=== PATIENT | female | born 1970 | race Caucasian/White ===

== ENCOUNTER 2022-01-19 06:01 | Day surgery (SDC) | payer OTHER, SELFPAY ==
[2022-01-19] VITALS (12 sets, daily range): BP systolic 130–140; BP diastolic 75–97; PULSE 112–132; RESP 12–16; TEMP 36.4–36.6; O2SAT 91–98; BMI 36.1
[2022-01-19] MEDS: LACTATED RINGERS 1000 ML 1,000 ML 100 ML IV (06:30)
[2022-01-19] MEDS: SODIUM CHLORIDE 0.9 % (FLUSH) 10 ML SYRINGE IVF (06:59)
[2022-01-19] MEDS: CEFAZOLIN 2 GM INJ IVP (07:43)
[2022-01-19] MEDS: BUPIVACAINE 0.25% 30 ML INJECTION (08:08)
--- NOTE | 2022-01-19 08:23 | PM.GSPRC ---
Operative Note Date of procedure: 01/19/22 Type of Procedure: 1. Excision of basal cell carcinoma under the left nare. Procedure Description: After discussing the risks and benefits of the procedure, the patient signed informed consent.? The operative site was marked and the patient was brought to the operating room and placed on the operating table in supine position.? Care was taken to pad the patient's pressure points.?? The patient was then intubated by anesthesia.?? The operative site was then prepped and draped in the usual sterile fashion.? A time-out was then performed. A slightly oblique elliptical skin incision was made with a [place] blade around a previously biopsied basal cell carcinoma under the left knee air. The skin containing the lesion and 1 mm medial and lateral gross margins were excised with a scalpel. The skin lesion was measured at 0.7 x 0.6 cm. The ellipse of skin containing this lesion was 1.4 x 0.8 cm. The ellipse of skin was marked with a single stitch superior and double lateral and sent to pathology. Hemostasis was achieved with cautery. The skin edges were fairly mobile. The dermis was then reapproximated with interrupted 3-0 Vicryl sutures. The skin was closed with a running 4-0 Monocryl stitch. Hemostasis was achieved with cautery and pressure. 1% lidocaine was injected for local anesthesia. Exofin was then placed over the surgical incision. ? Sterile dressings were then applied. ? The patient was then woken and transported to the recovery area in stable condition. ? The patient tolerated the procedure well. Findings: Small pearly appearing lesion under the left nose was excised. Anesthesia: GETA Surgeon: Danni Marie MD Estimated blood loss (mL): 1 Condition: stable Disposition: PACU
--- NOTE | 2022-01-19 08:28 | W.ANESCHARGE ---
Anesthesia Charges Start Date/Time Anesthesia Start Date: 01/19/22 Anesthesia Start Time: 07:32 Stop Date/Time Anesthesia Stop Date: 01/19/22 Anesthesia Stop Time: 08:21 Summary Emergency: No
--- NOTE | 2022-01-19 08:46 | W.ANESCHARGE ---
Anesthesia Charges Start Date/Time Anesthesia Start Date: 01/19/22 Anesthesia Start Time: 07:32 Stop Date/Time Anesthesia Stop Date: 01/19/22 Anesthesia Stop Time: 08:21 Summary Emergency: No
== END 2022-01-19 10:00 | disposition home or self-care (01) ==
PROVIDERS: PCP Family Medicine; Visit Provider Surgery
PROC: (CPT 11642; principal; 2022-01-19 07:30)
DX: C44.311 Basal cell carcinoma of skin of nose (principal)
CPT/HCPCS: 11642; 300; 88305; J0330; J0690; J1100; J2250; J2370; J2405; J2704; J3010; J3490; J7120

== ENCOUNTER 2022-07-08 11:14 | Outpatient (CLI) | payer OTHER, SELFPAY | END 2022-07-08 11:15 | disposition home or self-care (01) | LOC: AMB 07-09 00:52 | PROVIDERS: PCP Family Medicine; Visit Provider Family Medicine | DX: R10.9 Unspecified abdominal pain (principal) | CPT/HCPCS: A0425; A0427 ==

== ENCOUNTER 2022-07-08 11:48 | Emergency (ER) | payer OTHER, SELFPAY ==
[2022-07-08] VITALS (11 sets, daily range): BP systolic 139–159; BP diastolic 97–104; PULSE 125–145; RESP 22; TEMP 38.8; O2SAT 92–94; BMI 37.4
--- NOTE | 2022-07-08 12:00 | CRLHL7_ITS ---
For Patients: As a result of the Century Cures Act, medical imaging exams and procedure reports are released immediately into your electronic medical record. You may view this report before your referring provider. If you have questions, please contact your health care provider. INDICATION: Abdominal pain TECHNIQUE: Axial images were obtained from the diaphragm to the pubic symphysis. Reformats were obtained in the coronal and sagittal plane. IV Contrast: 91 cc Isovue 370 Oral Contrast: None COMPARISON: Abdomen and pelvis CT 09/22/2020 FINDINGS: Lower chest: Basilar discoid atelectasis. Liver: Unremarkable. Normal in size and attenuation. No masses. Gallbladder and bile ducts: Status post cholecystectomy. Spleen: Unremarkable. Normal in size without mass. Pancreas: Unremarkable. No mass or inflammation. Adrenal glands: Unremarkable. No nodules. Kidneys: Unremarkable. No masses, stones, or hydronephrosis. Vasculature: Unremarkable. GI tract: Stomach is unremarkable. No dilated loops of large or small intestine. Pelvis: Right ovarian cyst measuring 2.0 centimeters. Bones: S shaped thoracolumbar scoliosis. Posterior rods with laminar hooks. Other: Fat containing umbilical hernia IMPRESSION: 1. No dilated bowel or localized inflammation. 2. Right ovarian cyst measuring 2.0 centimeters. Please note that all CT scans at this facility use dose modulation, iterative reconstruction, and/or weight-based dosing when appropriate to reduce radiation dose to as low as reasonably achievable. Dictated by Eugene Peterson MD @ 07/08/2022 12:58:30 PM (Electronically Signed)
--- NOTE | 2022-07-08 12:02 | ED_ITS ---
HPI - General Adult General Time Seen by Provider: 12:03 Date Seen: 07/08/22 Chief complaint: Abdominal Pain Stated complaint: Abdominal pain Time Seen by Provider: 07/08/22 11:53 Source: patient Mode of arrival: ambulatory Limitations: no limitations History of Present Illness HPI narrative: Patient is a 52 year white female who has got fibromyalgia history of pneumonia history of seizure disorder hypothyroidism and cognitive delay, presents by ambulance with abdominal pain that started yesterday. She reports that is in her mid abdomen. She reports she had her gallbladder out. She has not had any history of pain like this before. She has a fever 101.9. She has been awake and alert, denies dysuria frequency or hematuria, denies cough, denies rigors. No chest pain Related Data Home Medications Medication Instructions Recorded Confirmed carbamazepine 200 mg tablet 200 mg PO TID 01/16/22 07/08/22 duloxetine 20 mg capsule,delayed 20 mg PO DAILY 01/16/22 07/08/22 release famotidine 20 mg tablet 20 mg PO DAILY 01/16/22 01/19/22 levothyroxine 50 mcg capsule 50 mcg PO DAILY 01/16/22 07/08/22 omeprazole 20 mg capsule,delayed 20 mg PO DAILY 01/16/22 07/08/22 release acetaminophen 325 mg tablet 325 mg PO PRN 01/19/22 Previous Rx's Medication Instructions Recorded hydrocodone 5 mg-acetaminophen 325 1 tab PO Q6H PRN pain #9 tabs 01/19/22 mg tablet Allergies Allergy/AdvReac Type Severity Reaction Status Date / Time morphine Allergy Unknown Verified 01/19/22 06:21 Review of Systems Status of ROS: Reports: 10 or more systems reviewed and unremarkable except as noted in History and below PFSH PFS Medical History Anxiety Cholecystitis DDD (degenerative disc disease), lumbar Encounter for counseling regarding advance directives (02/10/18) Hypoparathyroidism Hypothyroidism Learning disability Left chronic serous otitis media Lower extremity edema Mixed hearing loss Onychomycosis Seizure disorder Vitamin D deficiency Surgical History History of fusion of spine for scoliosis Hx laparoscopic cholecystectomy Hx of myringotomy Social History Smoking Status: Never smoker How often do you have a drink containing alcohol: never AUDIT-C Alcohol total score: 0 Non-prescribed substance use: denies use Exam Narrative: Exam Narrative: Objective patient has a fever 101.9 O2 sats 93% on room air HEENT is unremarkable no scleral icterus mouth is dry neck supple Chest is clear Heart rhythm regular 2/6 systolic murmur Abdomen obese benign mild periumbilical tenderness to palpation mild guarding Extremities are no edema Neurologic nonfocal good peripheral perfusion noted Const: Vital Signs, click to edit/add: Vital Signs - 24 hr 07/08/22 11:56 07/08/22 12:17 07/08/22 12:47 Temperature 101.9 F H Pulse Rate 137 H 138 H Pulse Rate [Pulse Oximeter] 145 H Respiratory Rate 22 Blood Pressure Blood Pressure [Le ft Upper Arm] 157/97 H Pulse Oximetry 93 94 92 Oxygen Delivery Me thod Room Air 07/08/22 12:58 07/08/22 13:05 07/08/22 13:31 Temperature Pulse Rate 139 H 133 H Pulse Rate [Pulse Oximeter] Respiratory Rate Blood Pressure 139/101 H 145/99 H Blood Pressure [Le ft Upper Arm] Pulse Oximetry 93 94 Oxygen Delivery Me thod 07/08/22 13:32 07/08/22 13:45 07/08/22 14:00 Temperature Pulse Rate 130 H 127 H 134 H Pulse Rate [Pulse Oximeter] Respiratory Rate Blood Pressure 154/104 H Blood Pressure [Le ft Upper Arm] Pulse Oximetry 93 93 94 Oxygen Delivery Me thod 07/08/22 14:02 07/08/22 14:15 Temperature Pulse Rate 132 H 125 H Pulse Rate [Pulse Oximeter] Respiratory Rate Blood Pressure 159/101 H Blood Pressure [Le ft Upper Arm] Pulse Oximetry 94 94 Oxygen Delivery Me thod Course Vital Signs Vital signs: Initial Vital Signs Temperature 101.9 F H 07/08/22 11:56 Temperature Source Temporal Artery Scan 07/08/22 11:56 Pulse Rate 145 H 07/08/22 11:56 Respiratory Rate 22 07/08/22 11:56 Blood Pressure 157/97 H 07/08/22 11:56 Blood Pressure Mean 117 07/08/22 11:56 Blood Pressure Position Supine 07/08/22 11:56 Pulse Oximetry 93 07/08/22 11:56 Oxygen Delivery Method 07/08/22 11:56 Vital Signs Temperature 101.9 F H 07/08/22 11:56 Pulse Rate 145 H 07/08/22 11:56 Respiratory Rate 22 07/08/22 11:56 Blood Pressure 157/97 H 07/08/22 11:56 Pulse Oximetry 93 07/08/22 11:56 Oxygen Delivery Method 07/08/22 11:56 Temperature 101.9 F H 07/08/22 11:56 Pulse Rate 125 H 07/08/22 14:15 Respiratory Rate 22 07/08/22 11:56 Blood Pressure 159/101 H 07/08/22 14:02 Pulse Oximetry 94 07/08/22 14:15 Oxygen Delivery Method 07/08/22 11:56 Medical Decision Making MDM Narrative Medical decision making narrative: Patient is a 52 year white female with fever and abdominal pain. History of cholelithiasis cystectomy by her report. The patient will get IV fluids, electrolytes labs, CT scan with contrast of abdomen pelvis. Suspect differential would include diverticulitis, obstruction, intra-abdominal abscess, viral syndrome. Will check blood cultures as well. The patient has an EKG that by my read shows sinus tachycardia rate about 141 beats per minute no ischemic changes. We will give her some oral Tylenol as well this see help with her fever Addendum: The patient's EKG shows sinus tachycardia rate 140 her heart rate has come down since she has got a couple L of fluid in the 115 range and shows no ischemic changes, her laboratory studies local reassuring. Her CRP is 2.5 just minimally elevated. She did receive Ativan and that really helped her abdominal discomfort it is completely resolved. Of note is her CT scan was read as pretty unremarkable of her abdomen. There was no sign of acute inflammation or obstruction. White count is normal 8630 ER profile is largely unremarkable other nonfasting glucose nonfasting glucose of 128 calcium 7.8 urinalysis is basically negative, influenza COVID RSV are all negative. The patient feels much better in terms of her discomfort and illness feeling she has no further abdominal pain I think at this point she has some type of viral syndrome and would recommend observation fluids in home as above reach return as needed, update her regular doctor within the next couple of days.. Lab Data Labs: Lab Results 07/08/22 07/08/22 07/08/22 Range/Units 12:00 12:17 12:55 WBC 8.63 (4.50-11.00) K/uL RBC 3.80 L (4.00-5.20) m/uL Hgb 12.2 (12.0-16.0) gm/dL Hct 37.3 (33.0-51.0) % MCV 98 (80-100) fL MCH 32 (26-34) pg MCHC 33 (32-36) gm/dL RDW Coeff of Gracie 13.3 (11.5-15.5) % Plt Count 131 L (140-440) K/uL Neut % (Auto) 90.6 H (42.0-72.0) % Lymph % (Auto) 3.0 L (20-44) % [place] % (Auto) 4.4 (0.0-11.0) % Eos % (Auto) 0.5 (0.0-7.0) % Baso % (Auto) 0.3 (0.0-3.0) % Neut # (Auto) 7.80 H (1.7-7.0) K/uL Lymph # (Auto) 0.30 L (0.90-2.90) K/uL [place] # (Auto) 0.40 (0.00-0.90) K/UL Eos # (Auto) 0.04 (0.00-0.50) K/uL Baso # (Auto) 0.03 (0.00-0.30) K/uL Sodium (135-149) mmol/L Potassium (3.6-5.1) mmol/L Chloride (96-114) mmol/L Carbon Dioxide (20-32) mmol/L BUN (7-30) mg/dL Creatinine (0.5-1.5) mg/dL Estimated Creat Clear Estimated GFR ml/min Glucose (60-115) mg/dL Lactate (0.5-1.9) mmol/L Calcium (8.4-10.6) mg/dL Total Bilirubin (0.1-1.5) mg/dL Direct Bilirubin (0.0-0.5) mg/dL AST (12-35) U/L ALT (4-35) U/L Alkaline Phosphatase (40-150) U/L C-Reactive Protein (0.5-1.0) mg/dL Total Protein (6.0-8.3) g/dL Albumin (3.3-5.0) g/dL Urine Color Yellow (Yellow) Urine Appearance Clear (Clear) Urine pH 8.5 (5.0-8.5) Ur Specific [place] 1.020 (1.000-1.030) Urine Protein Negative (Negative) Urine Glucose (UA) Negative (Negative) Urine Ketones Negative (Negative) Urine Blood Trace-intact A (Negative) Urine Nitrite Negative (Negative) Urine Bilirubin Negative (Negative) Urine Urobilinogen 0.2 (0.2-1.0) Ur Leukocyte Esterase Negative (Negative) Urine RBC 0-2 (0-2) Urine WBC 0-2 (0-5) Ur Squamous Epith Cells Few (None-Few) Urine Bacteria None (None) SARS-CoV-2 (PCR) Negative SARS-CoV-2 (Negative) Influenza Type A (PCR) Negative PCR FLU A (Negative) Influenza Type B (PCR) Negative PCR FLU B (Negative) RSV (PCR) Negative PCR RSV (Negative) 07/08/22 07/08/22 Range/Units 12:55 12:55 WBC (4.50-11.00) K/uL RBC (4.00-5.20) m/uL Hgb (12.0-16.0) gm/dL Hct (33.0-51.0) % MCV (80-100) fL MCH (26-34) pg MCHC (32-36) gm/dL RDW Coeff of Gracie (11.5-15.5) % Plt Count (140-440) K/uL Neut % (Auto) (42.0-72.0) % Lymph % (Auto) (20-44) % [place] % (Auto) (0.0-11.0) % Eos % (Auto) (0.0-7.0) % Baso % (Auto) (0.0-3.0) % Neut # (Auto) (1.7-7.0) K/uL Lymph # (Auto) (0.90-2.90) K/uL [place] # (Auto) (0.00-0.90) K/UL Eos # (Auto) (0.00-0.50) K/uL Baso # (Auto) (0.00-0.30) K/uL Sodium 136 (135-149) mmol/L Potassium 3.7 (3.6-5.1) mmol/L Chloride 103 (96-114) mmol/L Carbon Dioxide 24 (20-32) mmol/L BUN 11 (7-30) mg/dL Creatinine 0.5 (0.5-1.5) mg/dL Estimated Creat Clear 174.36 Estimated GFR 113 ml/min Glucose 128 H (60-115) mg/dL Lactate 1.4 (0.5-1.9) mmol/L Calcium 7.8 L (8.4-10.6) mg/dL Total Bilirubin 0.4 (0.1-1.5) mg/dL Direct Bilirubin 0.3 (0.0-0.5) mg/dL AST 23 (12-35) U/L ALT 26 (4-35) U/L Alkaline Phosphatase 68 (40-150) U/L C-Reactive Protein 2.5 H (0.5-1.0) mg/dL Total Protein 7.5 (6.0-8.3) g/dL Albumin 4.1 (3.3-5.0) g/dL Urine Color (Yellow) Urine Appearance (Clear) Urine pH (5.0-8.5) Ur Specific [place] (1.000-1.030) Urine Protein (Negative) Urine Glucose (UA) (Negative) Urine Ketones (Negative) Urine Blood (Negative) Urine Nitrite (Negative) Urine Bilirubin (Negative) Urine Urobilinogen (0.2-1.0) Ur Leukocyte Esterase (Negative) Urine RBC (0-2) Urine WBC (0-5) Ur Squamous Epith Cells (None-Few) Urine Bacteria (None) SARS-CoV-2 (PCR) (Negative) Influenza Type A (PCR) (Negative) Influenza Type B (PCR) (Negative) RSV (PCR) (Negative) Discharge Plan Discharge Clinical Impression: Fever, Abdominal pain, acute Patient Disposition: Home w/ Parent or Adult Condition: Improved Instructions: Fever in Adults (ED), Abdominal Pain (ED) Additional Instructions: Rest, Tylenol Advil as needed, fluids, update regular doctor next couple of days if not improving changes concerns worsening or recurrence of abdominal pain. Return to the ED as needed. Activity Level: Light activity Diet Detail: Start with clear liquid diet advance her diet as tolerated Prescriptions: No Action carbamazepine 200 mg tablet 200 mg PO TID duloxetine 20 mg capsule,delayed release(DR/EC) 20 mg PO DAILY famotidine 20 mg tablet 20 mg PO DAILY levothyroxine 50 mcg capsule 50 mcg PO DAILY omeprazole 20 mg capsule,delayed release(DR/EC) 20 mg PO DAILY acetaminophen 325 mg tablet 325 mg PO PRN Rx Instructions: NO MORE THAN 4000 MG/DAY hydrocodone-acetaminophen 5-325 mg tablet 1 tab PO Q6H PRN (Reason: pain) Qty: 9 0RF Follow Up/Referrals: Atiya Velez MD [Primary Care Provider] - Stand Alone Forms: [employer] Info Instructions
--- NOTE | 2022-07-08 12:21 | ED.NURSE ---
pt up to [facility]. urine collected and sent to lab. pt c/o headache, asking for pain med. at bedside
[2022-07-08 12:26] LABS: Appearance Urine Clear (Clear); Bilirubin Urine Negative (Negative); Blood Urine Trace-intact (Negative); Color Urine Yellow (Yellow); Glucose Urine Negative (Negative); Ketones Urine Negative (Negative); Leukocyte Esterase Urine Negative (Negative); Nitrite Urine Negative (Negative); Protein Urine Negative (Negative); Urobilinogen Urine 0.2 (0.2-1.0); pH Urine 8.5 (5.0-8.5)
[2022-07-08] MEDS: ACETAMINOPHEN 500 MG TABLET PO (12:28)
[2022-07-08] MEDS: LORazepam 2 MG/ML inj 1 MG IVP (12:59)
[2022-07-08] MEDS: 0.9 % SODIUM CHLORIDE 1000 ml 1,000 ML 6000 ML IV ×2 (12:59→14:10)
[2022-07-08 13:00] LABS: PCR FLU A Negative PCR FLU A (Negative); PCR FLU B Negative PCR FLU B (Negative); PCR RSV Negative PCR RSV (Negative)
[2022-07-08 13:13] LABS: Lactate* 1.4 mmol/L (0.5-1.9)
[2022-07-08 13:20] LABS: Basophils Absolute Auto 0.03 K/uL (0.00-0.30); Basophils Percent Auto 0.3 % (0.0-3.0); Eosinophils Absolute Auto 0.04 K/uL (0.00-0.50); Eosinophils Percent Auto 0.5 % (0.0-7.0); Hematocrit 37.3 % (33.0-51.0); Hemoglobin* 12.2 gm/dL (12.0-16.0); Immature Granulocytes Pct Auto 1.2 %; Mean Corpuscular HGB Conc 33 gm/dL (32-36); Mean Corpuscular Hemoglobin 32 pg (26-34); Mean Corpuscular Volume 98 fL (80-100); Monocytes Percent Auto 4.4 % (0.0-11.0); Neutrophils Percent Auto 90.6 % (42.0-72.0); Platelet Count* 131 K/uL (140-440); RDW Coefficient of Variation % 13.3 % (11.5-15.5); White Blood Count* 8.63 K/uL (4.50-11.00)
[2022-07-08 13:26] LABS: SARS PCR* Negative SARS-CoV-2 (Negative)
[2022-07-08 13:31] LABS: Slide Review Reflex No
[2022-07-08 13:33] LABS: RBC Urine 0-2 (0-2); Squamous Epithelial Cell Urine Few (None-Few); WBC Urine 0-2 (0-5)
[2022-07-08 13:33] LABS: Albumin* 4.1 g/dL (3.3-5.0); Chloride* 103 mmol/L (96-114)
[2022-07-08 13:34] LABS: Potassium* 3.7 mmol/L (3.6-5.1); Sodium* 136 mmol/L (135-149)
[2022-07-08 13:36] LABS: Alkaline Phosphatase* 68 U/L (40-150); Aspartate Amino Transferase* 23 U/L (12-35); Bilirubin Direct* 0.3 mg/dL (0.0-0.5); Bilirubin Total* 0.4 mg/dL (0.1-1.5); Carbon Dioxide* 24 mmol/L (20-32); Creatinine* 0.5 mg/dL (0.5-1.5); Est. Creatinine Clearance* 174.36; Estimated Glomerular Filt Rate 113 ml/min; Total Protein* 7.5 g/dL (6.0-8.3)
[2022-07-08 13:37] LABS: Alanine Aminotransferase* 26 U/L (4-35); Blood Urea Nitrogen* 11 mg/dL (7-30); Calcium* 7.8 mg/dL (8.4-10.6); Glucose* 128 mg/dL (60-115)
[2022-07-08 13:39] LABS: C Reactive Protein* 2.5 mg/dL (0.5-1.0)
== END 2022-07-08 15:26 | disposition home or self-care (01) ==
PROVIDERS: Emergency Provider Family Medicine; PCP Family Medicine
DX: R10.9 Unspecified abdominal pain (principal); R50.9 Fever, unspecified
CPT/HCPCS: 36415; 74177; 80048; 80076; 81001; 83605; 85025; 86140; 87040; 87086; 87502; 87634; 87635; 94761; 96374; 99284; 99285; A9270; J2060; J7030; Q9967

== ENCOUNTER 2022-10-13 08:45 | Outpatient (CLI) | payer OTHER, SELFPAY ==
--- NOTE | 2022-10-13 09:00 | CRLHL7_ITS ---
For Patients: As a result of the Century Cures Act, medical imaging exams and procedure reports are released immediately into your electronic medical record. You may view this report before your referring provider. If you have questions, please contact your health care provider. Indication: LUQ - MID ABD PAIN. POSSIBLE HERNIA Technique: Noncontrast CT abdomen and pelvis Please note that all CT scans at this facility use dose modulation, iterative reconstruction, and/or weight-based dosing when appropriate to reduce radiation dose to as low as reasonably achievable. Comparison: 07/08/2022 Findings: Linear subsegmental atelectasis/scarring is present within both lung bases. There is no pleural effusion. Scoliotic deformity with spinal fixation hardware. Visualized breast parenchyma normal. Normal noncontrast enhanced liver. Gallbladder absent. Spleen unremarkable. Normal pancreas. Adrenal glands, kidneys and ureters are normal. Unremarkable uterus and ovaries. Bladder incompletely distended. No bowel obstruction or free air. No free fluid or adenopathy. There is an umbilical hernia containing fat measuring 2.3 cm. No additional abdominal wall hernia. Severe degenerative disc disease L4-5 with vacuum disc phenomenon. Impression: 2.3 cm fat filled umbilical hernia. No additional hernia. No bowel involvement. Please note that all CT scans at this facility use dose modulation, iterative reconstruction, and/or weight-based dosing when appropriate to reduce radiation dose to as low as reasonably achievable. Dictated by Jeremie Bowman MD @ 10/13/2022 11:20:46 AM (Electronically Signed)
== END 2022-10-13 08:46 | disposition home or self-care (01) ==
LOC: CT 08:46
PROVIDERS: PCP Family Medicine; Visit Provider Family Medicine
DX: R10.12 Left upper quadrant pain (principal); K42.9 Umbilical hernia without obstruction or gangrene
CPT/HCPCS: 74176

== ENCOUNTER 2023-04-13 10:28 | Emergency (ER) | payer OTHER, SELFPAY ==
[2023-04-13 10:40] VITALS: BP 152/114; PULSE 114; RESP 20; TEMP 36.4; O2SAT 95; BMI 32.2
--- NOTE | 2023-04-13 11:52 | CRLHL7_ITS ---
For Patients: As a result of the Century Cures Act, medical imaging exams and procedure reports are released immediately into your electronic medical record. You may view this report before your referring provider. If you have questions, please contact your health care provider. Indication: Abdominal pain, periumbilical, epigastric and left lower quadrant. Technique: Volumetric multidetector CT images of the abdomen and pelvis were without the administration of intravenous contrast. Comparison: CT abdomen and pelvis October 13, 2022 Findings: There is basilar atelectasis and parenchymal scar. The liver is normal in attenuation without intrahepatic biliary ductal dilatation. There is prior cholecystectomy. There is no significant common biliary ductal dilatation or abrupt cut off. The spleen is normal in attenuation and size. The stomach and duodenum are grossly unremarkable. The pancreas is normal in attenuation without significant atrophy. The adrenal glands are unremarkable. There is no evidence of radiopaque calculus or hydronephrosis. There is moderate stool seen throughout the colon. There is no inflammatory change. The appendix is unremarkable. There is no significant mesenteric, retroperitoneal, or pelvic sidewall lymph nodes. The aorta is nonaneurysmal. There is no significant atherosclerotic disease appreciated. The solid pelvic viscera are grossly unremarkable. There is no free fluid or free air. There is a fat containing umbilical hernia. The lumbar vertebral body heights are grossly maintained with minimal endplate Schmorl`s defects there is extensive posterior instrument fusion status post Zuñiga karri fixation. There is moderate scoliotic deformity of the AP alignment. Impression: Small fat containing umbilical hernia. Prior cholecystectomy. Moderate stool seen throughout the colon without evidence of inflammatory change. Please note that all CT scans at this facility use dose modulation, iterative reconstruction, and/or weight-based dosing when appropriate to reduce radiation dose to as low as reasonably achievable. Dictated by Didier Clifford MD @ 04/13/2023 1:51:58 PM (Electronically Signed)
[2023-04-13 12:21] LABS: Lactate* 0.8 mmol/L (0.5-1.9)
[2023-04-13 12:26] LABS: Basophils Absolute Auto 0.04 K/uL (0.00-0.30); Basophils Percent Auto 0.5 % (0.0-3.0); Eosinophils Absolute Auto 0.17 K/uL (0.00-0.50); Eosinophils Percent Auto 2.3 % (0.0-7.0); Hematocrit 39.5 % (33.0-51.0); Hemoglobin* 12.6 gm/dL (12.0-16.0); Immature Granulocytes Abs Auto 0.01 K/uL (0.00-0.30); Immature Granulocytes Pct Auto 0.1 %; Lymphocytes Absolute Auto 1.74 K/uL (0.90-2.90); Lymphocytes Percent Auto 23.3 % (20-44); Mean Corpuscular HGB Conc 32 gm/dL (32-36); Mean Corpuscular Hemoglobin 32 pg (26-34); Mean Corpuscular Volume 99 fL (80-100); Monocytes Percent Auto 7.4 % (0.0-11.0); Neutrophils Absolute Auto 4.96 K/uL (1.7-7.0); Neutrophils Percent Auto 66.4 % (42.0-72.0); Platelet Count* 180 K/uL (140-440); RDW Coefficient of Variation % 13.5 % (11.5-15.5); White Blood Count* 7.47 K/uL (4.50-11.00)
[2023-04-13 12:31] LABS: Slide Review Reflex No
[2023-04-13 12:38] LABS: Albumin* 4.5 g/dL (3.3-5.0)
[2023-04-13 12:39] LABS: Chloride* 106 mmol/L (96-114); Potassium* 4.3 mmol/L (3.6-5.1); Sodium* 138 mmol/L (135-149)
[2023-04-13 12:41] LABS: Anion Gap 6 mEq/L (7-15); Aspartate Amino Transferase* 25 U/L (12-35); Bilirubin Total* 0.4 mg/dL (0.1-1.5); Carbon Dioxide* 26 mmol/L (20-32); Creatinine* 0.7 mg/dL (0.5-1.5); Est. Creatinine Clearance* 67.53; Estimated Glomerular Filt Rate 104 ml/min
[2023-04-13 12:42] LABS: Alanine Aminotransferase* 20 U/L (4-35); Alkaline Phosphatase* 50 U/L (40-150); Blood Urea Nitrogen* 17 mg/dL (7-30); Glucose* 90 mg/dL (60-115); Lipase* 87 U/L (23-300); Total Protein* 8.5 g/dL (6.0-8.3)
[2023-04-13 12:43] LABS: Calcium* 8.3 mg/dL (8.4-10.6)
[2023-04-13 12:56] LABS: Appearance Urine Cloudy (Clear); Bilirubin Urine Negative (Negative); Blood Urine Negative (Negative); Color Urine Yellow (Yellow); Glucose Urine Negative (Negative); Ketones Urine Negative (Negative); Leukocyte Esterase Urine Trace (Negative); Nitrite Urine Negative (Negative); Protein Urine Negative (Negative); Specific Gravity Urine >= 1.030 (1.000-1.030); Urobilinogen Urine 0.2 (0.2-1.0); pH Urine 6.5 (5.0-8.5)
[2023-04-13 13:16] LABS: Bacteria Urine Few; RBC Urine 0-2 (0-2); Squamous Epithelial Cell Urine Few (None-Few)
--- NOTE | 2023-04-13 13:21 | ED_ITS ---
HPI - General Adult General Date Seen: 04/13/23 Chief complaint: Abdominal Pain Stated complaint: sharp pain in stomach Time Seen by Provider: 04/13/23 11:52 History of Present Illness HPI narrative: This is a pleasant 52-year-old female with a past medical history including previous cholecystectomy, hyperparathyroidism, hypothyroidism, lower extremity edema, learning disability, seizure disorder, and previous umbilical hernia. She presents to the ER today with her family. She has been experiencing intermittent sharp but brief episodes of abdominal pain off and on for the past several days. Perhaps a week in duration. She can not recall exactly when they started. She says it feels like something is punching from the inside of her abdomen. It has been present in several locations including sometimes in the left, sometimes in the a periumbilical region and, and sometimes more in the right upper quadrant. She tried to rest for the 1st few days to see if the symptoms would get better but it is not getting better no other associated symptoms. No nausea or vomiting. Bowel movements have been normal. Urination has been normal. No fever chills. No rash. No known injury. No pain through to the back or flank. She has no previous history of similar abdominal pains. Related Data Home Medications Medication Instructions Recorded Confirmed carbamazepine 200 mg tablet 200 mg PO TID 01/16/22 07/08/22 duloxetine 20 mg capsule,delayed 20 mg PO DAILY 01/16/22 07/08/22 release famotidine 20 mg tablet 20 mg PO DAILY 01/16/22 01/19/22 levothyroxine 50 mcg capsule 50 mcg PO DAILY 01/16/22 07/08/22 omeprazole 20 mg capsule,delayed 20 mg PO DAILY 01/16/22 07/08/22 release acetaminophen 325 mg tablet 325 mg PO PRN 01/19/22 Previous Rx's Medication Instructions Recorded hydrocodone 5 mg-acetaminophen 325 1 tab PO Q6H PRN pain #9 tabs 01/19/22 mg tablet Allergies Allergy/AdvReac Type Severity Reaction Status Date / Time morphine Allergy Unknown Verified 04/13/23 10:40 Iodinated Contrast Media Allergy Verified 04/13/23 10:40 [facility] Medical History (Updated 04/13/23 @ 14:25 by Edwar Blanco MD) 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 of 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 Mixed hearing loss ?H90.8 - Mixed conductive and sensorineural hearing loss, unspecified (ICD- 10) Cholecystitis ?K81.9 - Cholecystitis, unspecified (ICD-10) Anxiety ?F41.9 - Anxiety disorder, unspecified (ICD-10) Left chronic serous otitis media ?H65.22 - Chronic serous otitis media, left ear (ICD-10) Onychomycosis ?B35.1 - Tinea unguium (ICD-10) Hypoparathyroidism ?E20.9 - Hypoparathyroidism, unspecified (ICD-10) Vitamin D deficiency ?E55.9 - Vitamin D deficiency, unspecified (ICD-10) DDD (degenerative disc disease), lumbar ?M51.36 - Other intervertebral disc degeneration, lumbar region (ICD-10) Lower extremity edema ?R60.0 - Localized edema (ICD-10) Learning disability ?F81.9 - Developmental disorder of scholastic skills, unspecified (ICD-10) Seizure disorder ?G40.909 - Epilepsy, unspecified, not intractable, without status epilepticus (ICD-10) Hypothyroidism ?E03.9 - Hypothyroidism, unspecified (ICD-10) Encounter for counseling regarding advance directives (02/10/18) ?Z71.89 - Other specified counseling (ICD-10) Surgical History Hx of myringotomy ?Z98.890 - Other specified postprocedural states (ICD-10) Hx laparoscopic cholecystectomy ?Z90.49 - Acquired absence of other specified parts of digestive tract (ICD- 10) History of fusion of spine for scoliosis ?Z98.1 - Arthrodesis status (ICD-10) ?Z87.39 - Personal history of other diseases of the musculoskeletal system and connective tissue (ICD-10) Social History Smoking Status: Never smoker Do you use any of these nicotine containing products: None Second hand tobacco smoke exposure: No How often do you have a drink containing alcohol: never How often do you have six or more drinks on one occasion: Never AUDIT-C Alcohol total score: 0 Non-prescribed substance use: denies use service: No Exam Narrative: Exam Narrative: Constitutional: Appears well-developed and well-nourished. Alert. Conversant. Non toxic. HENT: Head: Atraumatic. Nose: Nose normal. Mouth/Throat: Oral mucosa is clear and moist. no trismus. Pharynx normal. Tonsils symmetric. No tonsillar enlargement, erythema, or exudate. Eyes: Conjunctivae normal. EOM normal. Pupils equal, round, and reactive to light. No scleral icterus. Neck: Normal range of motion. Neck supple. No tracheal deviation present. Cardiovascular: Normal rate, regular rhythm. No gallop. No friction rub. No murmur heard. Symmetric radial artery pulses Pulmonary/Chest: Effort normal. No stridor. No respiratory distress. No wheezes. No rales. No rhonchi . No tenderness. Abdominal: Soft. Bowel sounds normal. No distension. No pulse a little mass. No definite HSM. She has apparent exquisite tenderness to palpation at several discrete locations in her abdomen including the periumbilical region, a small area in the left lower quadrant, as well as an area in the right mid abdomen. She has a marked flinching and inhalation of breath with palpation of these areas. Her reaction is so significant I most wonder about possible anxiety triggering the reaction. She does have a small 3 x 3 cm soft tissue lump in the umbilicus that time suspect is probably a umbilical hernia. There is a healed laparoscopic incision below the umbilicus that looks good. No rebound. No guarding. No CVA tenderness. Musculoskeletal: RUE: Normal range of motion. No tenderness. No deformity LUE: Normal range of motion. No tenderness. No deformity RLE: Normal range of motion. No edema. No tenderness. No deformity LLE: Normal range of motion. No edema. No tenderness. No deformity Neurological: Alert and oriented to person, place, and time. Normal strength. CN II-VII intact. No sensory deficit. GCS eye subscore is 4. GCS verbal subscore is 5. GCS motor subscore is 6. Normal coordination Skin: Skin is warm and dry. No rash noted. No pallor. Normal capillary refill. Psychiatric: Normal mood. Normal affect. Const: Vital Signs, click to edit/add: Vital Signs - 24 hr 04/13/23 10:40 04/13/23 13:45 Temperature 97.5 F L Pulse Rate [Pulse Oximeter] 114 H 104 H Respiratory Rate 20 16 Blood Pressure [Le ft Upper Arm] 152/114 H 127/79 Pulse Oximetry 95 97 Oxygen Delivery Me thod Room Air Room Air Course Vital Signs Vital signs: Initial Vital Signs Temperature 97.5 F L 04/13/23 10:40 Temperature Source Temporal Artery Scan 04/13/23 10:40 Pulse Rate 114 H 04/13/23 10:40 Pulse Rhythm Regular 04/13/23 10:40 Respiratory Rate 20 04/13/23 10:40 Blood Pressure 152/114 H 04/13/23 10:40 Blood Pressure Mean 126 H 04/13/23 10:40 Blood Pressure Position Supine 04/13/23 10:40 Pulse Oximetry 95 04/13/23 10:40 Oxygen Delivery Method Room Air 04/13/23 10:40 Vital Signs Temperature 97.5 F L 04/13/23 10:40 Pulse Rate 114 H 04/13/23 10:40 Respiratory Rate 20 04/13/23 10:40 Blood Pressure 152/114 H 04/13/23 10:40 Pulse Oximetry 95 04/13/23 10:40 Oxygen Delivery Method Room Air 04/13/23 10:40 Temperature 97.5 F L 04/13/23 10:40 Pulse Rate 104 H 04/13/23 13:45 Respiratory Rate 16 04/13/23 13:45 Blood Pressure 127/79 04/13/23 13:45 Pulse Oximetry 97 04/13/23 13:45 Oxygen Delivery Method Room Air 04/13/23 13:45 Medical Decision Making MDM Narrative Medical decision making narrative: Presented to the Emergency Department with intermittent crampy brief episodes of abdominal pain occurring in different parts of her abdomen, sometimes on the left, sometimes on the right, sometimes periumbilical, for about a week or so.. The differential diagnosis of abdominal pain includes: Appendicitis, Bowel Obstruction, Ulcer, Ischemia, Cholecystitis, Diverticulitis, Pancreatitis, UTI, kidney stone, Enteritis/Colitis, amongst many other etiologies. Laboratory testing does not reveal a cause for the patient's pain. CT Imaging is noted to be normal, save for findings of constipation and umbilical hernia that does not contain any loops of bowel. No signs of any incarceration or strangulation. The exact etiology of the abdominal pain is not clear at this time. However with the intermittent nature and the colicky nature we suspect they could be related to functional abdominal pain from constipation. No life threatening cause or need for emergent surgery or hospital admission is detected today. The patient was advised that if symptoms do not completely resolve within another 24-48 hours re-evaluation with primary care or return to the ED is indicated. I recommend treatment for constipation. I recommended that we start her on stool softeners and laxative such as MiraLax but she is refusing. She says she will try to treat her constipation with dietary means, fruits and vegetables, high- fiber diet. Also advised to increase oral fluid intake. The patient also understands that if they worsen, they should return to the ER right away. I discussed the uncertainty about the diagnosis and answered the patient's questions. Abdominal pain return precautions discussed. Patient does have history of developmental delay in her chart. However I am able to have a good discussion with the patient and her who is here with her. They were able to verbalize their understanding and understand our diagnostic workup, findings and plan of care. Lab Data Labs: Lab Results 04/13/23 04/13/23 Range/Units 12:15 12:40 WBC 7.47 (4.50-11.00) K/uL RBC 4.00 (4.00-5.20) m/uL Hgb 12.6 (12.0-16.0) gm/dL Hct 39.5 (33.0-51.0) % MCV 99 (80-100) fL MCH 32 (26-34) pg MCHC 32 (32-36) gm/dL RDW Coeff of Gracie 13.5 (11.5-15.5) % Plt Count 180 (140-440) K/uL Neut % (Auto) 66.4 (42.0-72.0) % Lymph % (Auto) 23.3 (20-44) % [place] % (Auto) 7.4 (0.0-11.0) % Eos % (Auto) 2.3 (0.0-7.0) % Baso % (Auto) 0.5 (0.0-3.0) % Neut # (Auto) 4.96 (1.7-7.0) K/uL Lymph # (Auto) 1.74 (0.90-2.90) K/uL [place] # (Auto) 0.60 (0.00-0.90) K/UL Eos # (Auto) 0.17 (0.00-0.50) K/uL Baso # (Auto) 0.04 (0.00-0.30) K/uL Abs Immat Gran (auto) 0.01 (0.00-0.30) K/uL Imm/Tot Granulo (auto) 0.1 % Sodium 138 (135-149) mmol/L Potassium 4.3 (3.6-5.1) mmol/L Chloride 106 (96-114) mmol/L Carbon Dioxide 26 (20-32) mmol/L Anion Gap 6 L (7-15) mEq/L BUN 17 (7-30) mg/dL Creatinine 0.7 (0.5-1.5) mg/dL Estimated Creat Clear 67.53 Estimated GFR 104 ml/min Glucose 90 (60-115) mg/dL Lactate 0.8 (0.5-1.9) mmol/L Calcium 8.3 L (8.4-10.6) mg/dL Total Bilirubin 0.4 (0.1-1.5) mg/dL AST 25 (12-35) U/L ALT 20 (4-35) U/L Alkaline Phosphatase 50 (40-150) U/L Total Protein 8.5 H (6.0-8.3) g/dL Albumin 4.5 (3.3-5.0) g/dL Lipase 87 (23-300) U/L Urine Color Yellow (Yellow) Urine Appearance Cloudy A (Clear) Urine pH 6.5 (5.0-8.5) Ur Specific [place] >= 1.030 (1.000-1.030) Urine Protein Negative (Negative) Urine Glucose (UA) Negative (Negative) Urine Ketones Negative (Negative) Urine Blood Negative (Negative) Urine Nitrite Negative (Negative) Urine Bilirubin Negative (Negative) Urine Urobilinogen 0.2 (0.2-1.0) Ur Leukocyte Esterase Trace A (Negative) Urine RBC 0-2 (0-2) Urine WBC 2-5 (0-5) Ur Squamous Epith Cells Few (None-Few) Urine Bacteria Few A (None) Discharge Plan Discharge Clinical Impression: Hernia, umbilical, Abdominal pain, Constipation Patient Disposition: Home, Self-Care Condition: Stable Instructions: Constipation (DC), Umbilical Hernia (ED), Abdominal Pain (ED) Additional Instructions: Please return to the ER right away if you have worsening pain, fever, vomiting, or any concerns. Your CT scan today does not show any serious problems causing your pain. You may be constipated. As we discussed, please try to treat this with plenty of fluids, diet that is rich in fruits and vegetables and high in fiber. For now, you are declining any stool softeners. If you are not better within the next 1- 2 days, please return to the ER or see your doctor for recheck. Prescriptions: No Action carbamazepine 200 mg tablet 200 mg PO TID duloxetine 20 mg capsule,delayed release(DR/EC) 20 mg PO DAILY famotidine 20 mg tablet 20 mg PO DAILY levothyroxine 50 mcg capsule 50 mcg PO DAILY omeprazole 20 mg capsule,delayed release(DR/EC) 20 mg PO DAILY acetaminophen 325 mg tablet 325 mg PO PRN Rx Instructions: NO MORE THAN 4000 MG/DAY hydrocodone-acetaminophen 5-325 mg tablet 1 tab PO Q6H PRN (Reason: pain) Qty: 9 0RF Follow Up/Referrals: Atiya Velez MD [Primary Care Provider] - Stand Alone Forms: [employer] Info Instructions
[2023-04-13 13:45] VITALS: BP 127/79; PULSE 104; RESP 16; O2SAT 97
== END 2023-04-13 14:40 | disposition home or self-care (01) ==
PROVIDERS: Emergency Provider Emergency Medicine; PCP Family Medicine
DX: K42.9 Umbilical hernia without obstruction or gangrene (principal); K59.00 Constipation, unspecified
CPT/HCPCS: 36415; 74176; 80053; 81001; 83605; 83690; 85025; 87086; 87186; 99283; 99284

== ENCOUNTER 2023-05-12 09:35 | Emergency (ER) | payer MEDICARE, SELFPAY ==
[2023-05-12 09:53] VITALS: BP 153/95; PULSE 110; RESP 18; TEMP 36.6; O2SAT 96; BMI 38.3
[2023-05-12 10:16] VITALS: O2SAT 96
--- NOTE | 2023-05-12 10:16 | CRLHL7_ITS ---
For Patients: As a result of the Century Cures Act, medical imaging exams and procedure reports are released immediately into your electronic medical record. You may view this report before your referring provider. If you have questions, please contact your health care provider. INDICATION: Periumbilical pain TECHNIQUE: CT abdomen and pelvis without contrast. COMPARISON: CT abdomen/pelvis report on 04/13/2023 FINDINGS: LOWER CHEST: There is basilar atelectasis/scarring. ABDOMEN/PELVIS: Status post cholecystectomy. No biliary ductal dilatation. The liver, spleen, pancreas, adrenal glands, kidneys, ureters, and bladder are unremarkable in appearance. Small hiatal hernia. There is no evidence of bowel obstruction or inflammation. The uterus and bilateral adnexa are within normal limits. No free fluid or free air. No pathologically enlarged lymph nodes throughout the abdomen or pelvis. No abdominal aortic aneurysm. Fat containing umbilical hernia. No acute fracture malalignment. There is some degenerative changes seen throughout the spine with extensive posterior instrument fusion status post Zuñiga karri fixation. There is moderate scoliotic deformity of the thoracic lumbar spine. IMPRESSION: 1. No CT evidence of an acute process involving the abdomen or pelvis. 2. Incidental findings as detailed above. Please note that all CT scans at this facility use dose modulation, iterative reconstruction, and/or weight-based dosing when appropriate to reduce radiation dose to as low as reasonably achievable. Dictated by Saul Davis MD @ 05/12/2023 11:11:52 AM (Electronically Signed)
--- NOTE | 2023-05-12 10:17 | CRLHL7_ITS ---
For Patients: As a result of the Century Cures Act, medical imaging exams and procedure reports are released immediately into your electronic medical record. You may view this report before your referring provider. If you have questions, please contact your health care provider. INDICATION: Chest pain. TECHNIQUE: Chest 1 views. COMPARISON: Same day CT abdomen/pelvis FINDINGS: The cardiomediastinal silhouette is within normal limits. There is no focal airspace consolidation, pleural effusion, or pneumothorax. Scoliotic curvature of the thoracic and lumbar spine status post Zuñiga karri placement. IMPRESSION: No acute cardiopulmonary process. Dictated by Saul Davis MD @ 05/12/2023 11:33:43 AM (Electronically Signed)
--- NOTE | 2023-05-12 10:18 | ED.GENADULT ---
HPI - General Adult General Time Seen by Provider: 10:18 Date Seen: 05/12/23 Chief complaint: Abdominal Pain Stated complaint: Chest/abdominal pain Time Seen by Provider: 05/12/23 10:10 Source: patient Mode of arrival: ambulatory Limitations: no limitations History of Present Illness HPI narrative: Patient is a 52 year white female who is on disability for which he describes as back surgery, seizure and, has a medical history of cognitive developmental delay. 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 Patient reports she has had 6 month history of intermittent abdominal pain and is wondering about a potential hernia in her abdomen. She also says she gets once in a while some left finger point chest pain over her left mid chest anteriorly. This is not associated with diaphoresis, nausea, fevers, chills, cough. She has had no known history of coronary disease. The patient has had no bleeding or clotting problems by chart review. She states she gets ?a 2nd or 2 of sharp discomfort in her left parasternal area and then it is gone. She does not have this now. She uncertain if the abdominal discomfort in the chest pain is related. Normal appetite, normal bowel movements, normal urination, no vomiting. Related Data Home Medications Medication Instructions Recorded Confirmed carbamazepine 200 mg tablet 200 mg PO TID 01/16/22 07/08/22 duloxetine 20 mg capsule,delayed 20 mg PO DAILY 01/16/22 07/08/22 release famotidine 20 mg tablet 20 mg PO DAILY 01/16/22 01/19/22 levothyroxine 50 mcg capsule 50 mcg PO DAILY 01/16/22 07/08/22 omeprazole 20 mg capsule,delayed 20 mg PO DAILY 01/16/22 07/08/22 release acetaminophen 325 mg tablet 325 mg PO PRN 01/19/22 Previous Rx's Medication Instructions Recorded hydrocodone 5 mg-acetaminophen 325 1 tab PO Q6H PRN pain #9 tabs 01/19/22 mg tablet Allergies Allergy/AdvReac Type Severity Reaction Status Date / Time morphine Allergy Unknown Verified 04/13/23 10:40 Iodinated Contrast Media Allergy Verified 04/13/23 10:40 Review of Systems Status of ROS: Reports: 10 or more systems reviewed and unremarkable except as noted in History and below [id number] Medical History 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 of environmental attorney in chart Mixed hearing loss ?H90.8 - Mixed conductive and sensorineural hearing loss, unspecified (ICD-10) Cholecystitis ?K81.9 - Cholecystitis, unspecified (ICD-10) Anxiety ?F41.9 - Anxiety disorder, unspecified (ICD-10) Left chronic serous otitis media ?H65.22 - Chronic serous otitis media, left ear (ICD-10) Onychomycosis ?B35.1 - Tinea unguium (ICD-10) Hypoparathyroidism ?E20.9 - Hypoparathyroidism, unspecified (ICD-10) Vitamin D deficiency ?E55.9 - Vitamin D deficiency, unspecified (ICD-10) DDD (degenerative disc disease), lumbar ?M51.36 - Other intervertebral disc degeneration, lumbar region (ICD-10) Lower extremity edema ?R60.0 - Localized edema (ICD-10) Learning disability ?F81.9 - Developmental disorder of scholastic skills, unspecified (ICD-10) Seizure disorder ?G40.909 - Epilepsy, unspecified, not intractable, without status epilepticus (ICD-10) Hypothyroidism ?E03.9 - Hypothyroidism, unspecified (ICD-10) Encounter for counseling regarding advance directives (02/10/18) ?Z71.89 - Other specified counseling (ICD-10) Surgical History Hx of myringotomy ?Z98.890 - Other specified postprocedural states (ICD-10) Hx laparoscopic cholecystectomy ?Z90.49 - Acquired absence of other specified parts of digestive tract (ICD-10) History of fusion of spine for scoliosis ?Z98.1 - Arthrodesis status (ICD-10) ?Z87.39 - Personal history of other diseases of the musculoskeletal system and connective tissue (ICD-10) Social History Smoking Status: Never smoker Do you use any of these nicotine containing products: None Second hand tobacco smoke exposure: No How often do you have a drink containing alcohol: never How often do you have six or more drinks on one occasion: Never AUDIT-C Alcohol total score: 0 Non-prescribed substance use: denies use service: No Exam Narrative: Exam Narrative: Objective: Patient is a 52-year-old female who really has no pain at present, occasionally she will bounce of the bed and point to her abdomen as if that ?hurts?. Patient denies any chest pain presently she has had no fever chills diarrhea as mention Her vital signs are unremarkable and slightly elevated blood pressure She is afebrile HEENT unremarkable she is alert orient x3 Neck is supple Chest clear Heart rhythm regular heart murmur Abdomen obese nontender to deep palpation but occasionally with light palpation she will jump in say that that hurts. There is no palpable herniation or mass. Extremities good perfusion neurologic nonfocal she also has parasternal chest pain to palpate on the left that is identical to what she feels at home. Const: Vital Signs, click to edit/add: Vital Signs - 24 hr 05/12/23 09:53 05/12/23 10:16 05/12/23 12:05 Temperature 98 F Pulse Rate [Pulse Oximeter] 110 H 99 Respiratory Rate 18 16 Blood Pressure [Ri ght Upper Arm] 153/95 H 152/96 H Pulse Oximetry 96 96 95 Oxygen Delivery Me thod Room Air Room Air Course Vital Signs Vital signs: Initial Vital Signs Temperature 98 F 05/12/23 09:53 Temperature Source Temporal Artery Scan 05/12/23 09:53 Pulse Rate 110 H 05/12/23 09:53 Respiratory Rate 18 05/12/23 09:53 Blood Pressure 153/95 H 05/12/23 09:53 Blood Pressure Mean 114 H 05/12/23 09:53 Pulse Oximetry 96 05/12/23 09:53 Oxygen Delivery Method Room Air 05/12/23 09:53 Vital Signs Temperature 98 F 05/12/23 09:53 Pulse Rate 110 H 05/12/23 09:53 Respiratory Rate 18 05/12/23 09:53 Blood Pressure 153/95 H 05/12/23 09:53 Pulse Oximetry 96 05/12/23 09:53 Oxygen Delivery Method Room Air 05/12/23 09:53 Temperature 98 F 05/12/23 09:53 Pulse Rate 99 05/12/23 12:05 Respiratory Rate 16 05/12/23 12:05 Blood Pressure 152/96 H 05/12/23 12:05 Pulse Oximetry 95 05/12/23 12:05 Oxygen Delivery Method Room Air 05/12/23 12:05 Medications Administered Medications: Discontinued Medications Generic Name Dose Route Start Last Admin Trade Name Odalys PRN Reason Stop Dose Admin Aspirin 324 mg 05/12/23 10:16 05/12/23 10:46 Aspirin 81 Mg Tab.Chew PO 05/12/23 10:17 324 mg ONCE ONE Administration Medical Decision Making MDM Narrative Medical decision making narrative: [age] year white female with cognitive developmental delay history of seizure disorder, with long-standing 6 month history of intermittent abdominal discomfort, probably chest wall pain given the discomfort and where it is located and the palpable nature of it along her left parasternal border. However given this I would do an EKG, point of care troponin, chest x-ray, CT scan of her abdomen given the duration of her symptoms and the inability to get really a clear history at this time. It sounds like this may be anxiety or other related but I think doing a workup would be quite appropriate. will check labs as well. She was comfortable this plan. Will give her and aspirin as well Addendum Flores 40 8:00 a.m.. Patient's EKG by my read shows normal sinus rhythm no acute ST T wave changes. Chest x-ray by my read is unremarkable. Specifically there is no obvious hernia. The patient's laboratory studies look very reassuring with a normal CBC normal Chem profile negative troponin negative liver function tests. At this point I am reassured by her symptoms she could try some Advil as needed if uncomfortable, she can use some Tylenol. Would recommend observation follow up the regular doctor next 2-3 days. She was reassured by this. Lab Data Labs: Lab Results 05/12/23 Range/Units 10:36 WBC 6.42 (4.50-11.00) K/uL RBC 3.89 L (4.00-5.20) m/uL Hgb 12.2 (12.0-16.0) gm/dL Hct 38.4 (33.0-51.0) % MCV 99 (80-100) fL MCH 31 (26-34) pg MCHC 32 (32-36) gm/dL RDW Coeff of Gracie 13.3 (11.5-15.5) % Plt Count 192 (140-440) K/uL Neut % (Auto) 63.2 (42.0-72.0) % Lymph % (Auto) 23.8 (20-44) % Ceiba % (Auto) 8.1 (0.0-11.0) % Eos % (Auto) 4.2 (0.0-7.0) % Baso % (Auto) 0.5 (0.0-3.0) % Neut # (Auto) 4.06 (1.7-7.0) K/uL Lymph # (Auto) 1.53 (0.90-2.90) K/uL Ceiba # (Auto) 0.50 (0.00-0.90) K/UL Eos # (Auto) 0.27 (0.00-0.50) K/uL Baso # (Auto) 0.03 (0.00-0.30) K/uL Abs Immat Gran (auto) 0.01 (0.00-0.30) K/uL Imm/Tot Granulo (auto) 0.2 % Sodium 137 (135-149) mmol/L Potassium 4.1 (3.6-5.1) mmol/L Chloride 104 (96-114) mmol/L Carbon Dioxide 26 (20-32) mmol/L Anion Gap 7 (7-15) mEq/L BUN 16 (7-30) mg/dL Creatinine 0.7 (0.5-1.5) mg/dL Estimated Creat Clear 119.15 Estimated GFR 104 ml/min Glucose 95 (60-115) mg/dL Calcium 7.7 L (8.4-10.6) mg/dL Total Bilirubin 0.4 (0.1-1.5) mg/dL Direct Bilirubin 0.0 (0.0-0.5) mg/dL AST 19 (12-35) U/L ALT 14 (4-35) U/L Alkaline Phosphatase 54 (40-150) U/L C-Reactive Protein 0.9 (0.5-1.0) mg/dL NT-Pro-B Natriuret Pep 87 pg/mL Total Protein 8.3 (6.0-8.3) g/dL Albumin 4.6 (3.3-5.0) g/dL POC Troponin I 0.00 L (0.01-0.04) ng/ml Discharge Plan Discharge Clinical Impression: Chest wall pain, Chronic abdominal pain Patient Disposition: Home w/ Parent or Adult Condition: Stable Additional Instructions: Observation, activity as tolerated, may try some Tylenol or Advil as needed, recommend recheck with regular doctor next 2-3 days. Fortunately it does not appear to be any hernia in your abdomen. Your heart also looks good with EKG and blood testing that looks reassuring. Activity Level: No Restrictions Discharge Diet: Regular Prescriptions: No Action carbamazepine 200 mg tablet 200 mg PO TID duloxetine 20 mg capsule,delayed release(DR/EC) 20 mg PO DAILY famotidine 20 mg tablet 20 mg PO DAILY levothyroxine 50 mcg capsule 50 mcg PO DAILY omeprazole 20 mg capsule,delayed release(DR/EC) 20 mg PO DAILY acetaminophen 325 mg tablet 325 mg PO PRN Rx Instructions: NO MORE THAN 4000 MG/DAY hydrocodone-acetaminophen 5-325 mg tablet 1 tab PO Q6H PRN (Reason: pain) Qty: 9 0RF Follow Up/Referrals: Atiya Velez MD [Primary Care Provider] - Stand Alone Forms: [facility] Info Instructions
[2023-05-12] MEDS: ASPIRIN 81 MG TAB.CHEW 324 MG PO (10:46)
[2023-05-12 10:49] LABS: Basophils Absolute Auto 0.03 K/uL (0.00-0.30); Basophils Percent Auto 0.5 % (0.0-3.0); Eosinophils Absolute Auto 0.27 K/uL (0.00-0.50); Eosinophils Percent Auto 4.2 % (0.0-7.0); Hematocrit 38.4 % (33.0-51.0); Hemoglobin* 12.2 gm/dL (12.0-16.0); Immature Granulocytes Abs Auto 0.01 K/uL (0.00-0.30); Immature Granulocytes Pct Auto 0.2 %; Lymphocytes Absolute Auto 1.53 K/uL (0.90-2.90); Lymphocytes Percent Auto 23.8 % (20-44); Mean Corpuscular HGB Conc 32 gm/dL (32-36); Mean Corpuscular Hemoglobin 31 pg (26-34); Mean Corpuscular Volume 99 fL (80-100); Monocytes Percent Auto 8.1 % (0.0-11.0); Neutrophils Absolute Auto 4.06 K/uL (1.7-7.0); Neutrophils Percent Auto 63.2 % (42.0-72.0); Platelet Count* 192 K/uL (140-440); RDW Coefficient of Variation % 13.3 % (11.5-15.5); Red Blood Count 3.89 m/uL (4.00-5.20); White Blood Count* 6.42 K/uL (4.50-11.00)
[2023-05-12 10:54] LABS: Slide Review Reflex No
[2023-05-12 11:02] LABS: Albumin* 4.6 g/dL (3.3-5.0); Chloride* 104 mmol/L (96-114)
[2023-05-12 11:03] LABS: Potassium* 4.1 mmol/L (3.6-5.1); Sodium* 137 mmol/L (135-149)
[2023-05-12 11:05] LABS: Creatinine* 0.7 mg/dL (0.5-1.5); Est. Creatinine Clearance* 119.15; Estimated Glomerular Filt Rate 104 ml/min
[2023-05-12 11:06] LABS: Alanine Aminotransferase* 14 U/L (4-35); Alkaline Phosphatase* 54 U/L (40-150); Anion Gap 7 mEq/L (7-15); Aspartate Amino Transferase* 19 U/L (12-35); Bilirubin Total* 0.4 mg/dL (0.1-1.5); Blood Urea Nitrogen* 16 mg/dL (7-30); Calcium* 7.7 mg/dL (8.4-10.6); Carbon Dioxide* 26 mmol/L (20-32); Glucose* 95 mg/dL (60-115); Total Protein* 8.3 g/dL (6.0-8.3)
[2023-05-12 11:08] LABS: C Reactive Protein* 0.9 mg/dL (0.5-1.0)
[2023-05-12 11:16] LABS: NT Pro B Type NatriureticPept* 87 pg/mL
[2023-05-12 12:05] VITALS: BP 152/96; PULSE 99; RESP 16; O2SAT 95
== END 2023-05-12 12:30 | disposition home or self-care (01) ==
PROVIDERS: Emergency Provider Family Medicine; PCP Family Medicine
DX: R07.89 Other chest pain (principal); R10.9 Unspecified abdominal pain
CPT/HCPCS: 36415; 71045; 74176; 80048; 80076; 83880; 84484; 85025; 86140; 93005; 94761; 99284; 99285; A9270

== ENCOUNTER 2023-05-18 08:45 | Outpatient (RCR) | payer OTHER, SELFPAY | END 2023-08-03 11:18 | disposition home or self-care (01) | PROVIDERS: PCP Family Medicine; Visit Provider Family Medicine | DX: S03.00XS Dislocation of jaw, unspecified side, sequela (principal); M26.629 Arthralgia of temporomandibular joint, unspecified side; Z74.09 Other reduced mobility; Z51.89 Encounter for other specified aftercare | CPT/HCPCS: 97110; 97140; 97161 ==

== ENCOUNTER 2023-10-10 08:00 | Outpatient (CLI) | payer MEDICARE, SELFPAY ==
--- OUTSIDE RECORDS SUMMARY | 2023-10-14 05:58 | XMS_ITS | Clinical Summary ---
Author Name Unknown Organization [facility] Address [address] [place] [id number] Care Team Providers Care Facility Examiner Name Role Phone No Ref-Primary, Physician Primary [...] Recently Relevant to Health Maintenance Care Teams Facility Examiner Relationship Specialty Start Date End Date No Ref-Primary, Physician PCP - General 02/10/22 [facility] 02/10/22
--- OUTSIDE RECORDS SUMMARY | 2023-10-14 05:58 | XMS_ITS | Referral Summary ---
Author Name Unknown Organization [facility] Address [address] [place] [address] Care Team Providers Care Cotton Header Name Role Phone No Ref-Primary, Physician Primary [...] BREAST(S) DESCRIBED. RECOMMENDATION: 6 MONTH FOLLOW-UP. CHRISTOPHER ARAJUO MD Shabana Levy CNM IMG MAMMOGRAPHY [place] [facility] from Last 3 Months or Most Recently Relevant to Health Maintenance Care Teams Cotton Header Relationship Specialty Start Date End Date No Ref-Primary, Physician PCP - General 02/10/22 At[facility]elez [facility] 02/10/22
--- OUTSIDE RECORDS SUMMARY | 2023-10-14 05:59 | XMS_ITS | Clinical Summary ---
Author Name Unknown Organization [employer] [facility] Address [place], [place] [address] Care Team Providers Care German Tutor Name Role Phone Atiya Velez MD Primary [...] Encounters Date Type Department Care Team Description 10/12/2023 Nurse Triage [address] [address] Atiya Velez MD Error-please disregard (error) 10/12/2023 Nurse Triage [address] [address] Atiya Velez MD 10/11/[address] [address] Atiya Velez MD Medication Management (home delivery pharmacy ) 09/15/2023 11:15 AM CDT Orders Only [address] [address] Lab, [facility] 09/14/2023 Travel 08/24/[address] [address] Atiya Velez MD Error-please disregard 08/19/[address] [address] Atiya Velez MD Questions (COGNITIVE TEST) 08/06/2023 11:20 AM SERGING MACHINE OPERATOR AUTOMATIC Office Visit [address] [address] Atiya Velez MD Follow Up (Asking if she can be written a prescription for a electric scooter, she is moving into a new building and a scooter would make it easier to get around. Has been misstep and back pain with walker.) 08/06/2023 Travel 08/02/2023 Travel 07/27/2023 Telephone [facility] [address] [place] [phone] Atiya Velez MD Medication Management (Vaooter) from Last 3 Months Immunizations Name Administration Dates Next Due AMB INFLUENZA, IIV4 (AGE=>6M OS) MDV (Flu Clinic Only) 03/08/2018 AMB Influenza, IIV3 (Age >=3 years)(Flu Clinic Only) 03/21/2013 COVID-19 Vaccine Spikevax (M oderna 50mcg/0.5mL) 12YO+ [id number] Formula PF 03/25/2023 COVID-19 vaccine (Moderna 100mcg/0.5mL) PF, MDV 09/12/2021,07/31/2020,07/03/2020 COVID-19 vaccine (Moderna Carlos Alberto carter 50mcg/0.25mL) PF, MDV 03/28/2021 COVID-19 vaccine (Pfizer-Bio NTech 30mcg/0.3mL) 12YO+ BIVALENT PF, MDV 03/17/2022 Influenza, IIV3 (Age >=3 years) 03/26/2017,03/18 Influenza, IIV4 02/18/2023,,03/28/2021,02/15/20 20,03/27/2016,02/20/2016,03/28/2015,02/28 Influenza, IIV4 (=>6mos) MDV 02/17/2019 Td (Age [...] Sex Assigned at Female 04/11/2023 11:45 PM SERGING MACHINE OPERATOR AUTOMATIC Gender Identity Female 04/11/2023 11:45 PM SERGING MACHINE OPERATOR AUTOMATIC Sexual Orientation Not on file Obstetrics History Para Term AB IAB SAB Ectopic Multiple Livin g Live Births 0 0 0 0 0 0 0 0 0 0 0 Last Filed Vital Signs Vital Sign Reading Time Taken Comments Blood Pressure 136/85 08/06/2023 12:05 PM SERGING MACHINE OPERATOR AUTOMATIC Pulse 110 08/06/2023 12:05 PM SERGING MACHINE OPERATOR AUTOMATIC Temperature 36.9 ??C (98.4 ??F) 01/09/2022 10:22 AM C DT Respiratory Rate 16 05/06/2021 2:04 PM SERGING MACHINE OPERATOR AUTOMATIC Oxygen Saturation 94% 08/06/2023 12:05 PM SERGING MACHINE OPERATOR AUTOMATIC Inhaled Oxygen Concentration - - Weight 85.5 kg (188 lb 9.6 oz) 08/06/2023 12:03 PM SERGING MACHINE OPERATOR AUTOMATIC Height 152.4 cm (5') 08/06/2023 12:03 PM SERGING MACHINE OPERATOR AUTOMATIC Body Mass Index 36.83 08/06/2023 12:03 PM SERGING MACHINE OPERATOR AUTOMATIC Plan of Treatment Upcoming Encounters Date Type Department Care Team (Late st Contact Info) Description 11/04/2023 1:00 PM CDT Office Visit [facility] [address] [place] [address] Atiya Velez MD [address] [place] [address] Health Maintenance Due Date Last Done Comments [...] 09/15/2023, 09/15/2023, 10/07/2021 Tetanus booster 10/08/2031 10/07/2021, 07/2011, 03/29/2003, Additional history exists Zoster (shingles) series [...] Annam[employer] Implanted Type Area Planning Manager Device Identifier Shelf Expiration Date Model / Serial / Lot [id number] - [id number] Implanted:Qty: 1 on 04/09/2021 by Maxi Rodrigez MD at [facility] Left: Ear Medtronic 07/11/2027 [id number] / / [id number] Description:medtronic big ea sy piston - straight [id number] Lot [id number] Cmnt Bone Ear 2gm Otominimix - [id number] Implanted:Qty: 1 on 04/09/2021 by Maxi Rodrigez MD at [facility] Left: Ear [employer] 07/24/2022 [id number] / / [id number] Procedures Procedure Name Priority Date/Time Associated Diagnosis [...] COVID-19 MOLECULAR Routine 08/06/2023 12 :30 PM SERGING MACHINE OPERATOR AUTOMATIC Exposure to COVID-19 virus XR MAMMO TONY BILAT SCREEN Routine 01/11/2023 8:41 AM CDT Encounter for screening mammogram for malignant neoplasm of breast LC HIV-1/O/2, 4TH GENERATION Routine 06/23/2022 2:28 PM SERGING MACHINE OPERATOR AUTOMATIC Screening for HIV (human immunodeficiency virus) ANTI HCV Routine 03/17/2022 12:25 PM CDT Encounter for HCV screening test for low risk patient HPV THIN PREP Routine 10/28/2021 11:49 AM CDT Pap smear for cervical cancer screening SCAN-FECAL TEST DNA (COLOGUARD) 08/18/2020 12:00 AM SERGING MACHINE OPERATOR AUTOMATIC from Last 3 Months or Most Recently Relevant to Health Maintenance Results * (ABNORMAL) CBC WITH AUTO DIFFERENTIAL (09/15/2023 11:11 AM CDT) WHITE BLOOD COUNT 6.9 4.5 - 11.0 thou/cu mm 09/15/2023 11:16 AM CDT [facility] RED BLOOD COUNT 3.89(L) 4.00 - 5.20 mil/cu mm 09/15/2023 11:16 AM CDT [facility] HEMOGLOBIN 12.6 12.0 - 16.0 g/dL 09/15/2023 11:16 AM CDT [facility] HEMATOCRIT 38.5 33.0 - 51.0 % 09/15/2023 11:16 AM CDT [facility] MCV 99 80 - 100 fL 09/15/2023 11:16 AM CDT [facility] MCH 32.4 26.0 - 34.0 pg 09/15/2023 11:16 AM CDT [facility] MCHC 32.7 32.0 - 36.0 g/dL 09/15/2023 11:16 AM CDT [facility] RDW 13.8 11.5 - 15.5 % 09/15/2023 11:16 AM CDT [facility] PLATELET COUNT 205 140 - 440 thou/cu mm 09/15/2023 11:16 AM CDT [facility] MPV 12.1(H) 6.5 - 11.0 fL 09/15/2023 11:16 AM CDT [facility] % NEUT 61.7 % 09/15/2023 11:16 AM CDT [facility] % LYMPH 27.4 % 09/15/2023 11:16 AM CDT [facility] % MONO 7.7 % 09/15/2023 11:16 AM CDT [facility] % EOS 2.9 % 09/15/2023 11:16 AM CDT [facility] % BASO 0.3 % 09/15/2023 11:16 AM CDT [facility] ABSOLUTE NEUTROPHILS 4.2 1.7 - 7.0 thou/cu mm 09/15/2023 11:16 AM CDT [facility] ABSOLUTE LYMPHOCYTES 1.9 0.9 - 2.9 thou/cu mm 09/15/2023 11:16 AM CDT [facility] ABSOLUTE MONOCYTES 0.5 <0.9 thou/cu mm 09/15/2023 11:16 AM CDT [facility] ABSOLUTE EOSINOPHILS 0.2 <0.5 thou/cu mm 09/15/2023 11:16 AM CDT [facility] ABSOLUTE BASOPHILS 0.0 <0.3 thou/cu mm 09/15/2023 11:16 AM CDT [facility] Blood BLOOD SPECIMEN / Unknown Venipuncture / Unknown 09/15/2023 11:11 AM CDT 09/15/2023 11:13 AM CDT Atiya Velez MD HEMATOLOGY [facility] [address] [place] [address], * TSH WITH REFLEX (09/15/2023 11:11 AM CDT) TSH 1.99 0.27 - 4.20 uIU/mL 09/15/2023 7:39 PM CDT [facility] Blood BLOOD SPECIMEN / Unknown Venipuncture / Unknown 09/15/2023 11:11 AM CDT 09/15/2023 11:13 AM CDT Narrative [facility] - 09/15/2023 7:39 PM CDT In Adults, TSH values between 5.00 and 10.00 uIU/ml do not necessarily indicate the presence of Hypothyroidism. Correlation with clinical findings such as presence of goiter and/or Thyroperoxidase (TPO) Antibody may be helpful. For more information please refer to TORIE 2004; 291: 228-238. Atiya Velez MD CHEMISTRY Performing Organization Address City/[facility]/ZIP Co de Phone Number [facility] [address] [address], * (ABNORMAL) LIPID PANEL W REFLEX MEASURED LDL (09/15/2023 11:11 AM CDT) CHOLESTEROL,TOTAL 297(H) 100 - 199 mg/dL 09/15/2023 7:39 PM CDT [facility] Comment: Cholesterol, Total Reference Ranges Desirable <200 mg/dL Borderline 200-239 mg/dL High >=240 mg/dL TRIGLYCERIDES 403(H) <150 mg/dL 09/15/2023 7:39 PM CDT [facility] HDL CHOLESTEROL 50 >40 mg/dL 4 7:39 PM CDT [facility] NON-HDL CHOLESTEROL 247(H) <145 mg/dl 09/15/2023 7:39 PM CDT [facility] CHOL/HDL RATIO 5.94(H) <4.50 09/15/2023 7:39 PM CDT [facility] LDL CHOLESTEROL 4 7:39 PM CDT [facility] Comment:Invalid LDL when Tri g >400. VLDL CHOLESTEROL COMMENT 09/15/2023 7:39 PM CDT [facility] Comment:Unable to calculate VLDL. PROVIDER ORDERED STATUS RANDOM 09/15/2023 7:39 PM CDT [facility] Blood BLOOD SPECIMEN / Unknown Venipuncture / Unknown 09/15/2023 11:11 AM CDT 09/15/2023 11:13 AM CDT Atiya Velez MD CHEMISTRY [facility] [address] [place] [address], [place] * VITAMIN D 25 (DEFICIENCY) (09/15/2023 11:11 AM CDT) [facility] VITAMIN D TOTAL 36.1 20.0 - 80.0 ng/mL 09/15/2023 7:39 PM CDT [facility] Blood BLOOD SPECIMEN / Unknown Venipuncture / Unknown 09/15/2023 11:11 AM CDT 09/15/2023 11:[address] [facility] - 09/15/2023 7:39 PM CDT ? Vitamin D Status Deficiency: ? <20 ng/mL Insufficiency: ?20-29 ng/mL Sufficiency: ?30-80 ng/mL Possible Toxicity: ??>80 ng/mL Based on [place] of Medicine recommendations Biotin supplements may cause clinically significant interference for this test assay. ??If interference is suspected, it is strongly recommended that biotin is discontinued for at least one week prior to retesting. Atiya Velez MD SEND OUTS [facility] [address] [place] [address], * LDL CHOLESTEROL,DIRECT (09/15/2023 11:11 AM CDT) [facility] LDL CHOLESTEROL,DI RECT 183 mg/dL 09/15/2023 9:23 PM CDT [facility] PROVIDER ORDERED STATUS RANDOM 09/15/2023 9:23 PM CDT [facility] Blood BLOOD SPECIMEN / Unknown Venipuncture / Unknown 09/15/2023 11:11 AM CDT 09/15/2023 11:[address] [facility] - 09/15/2023 9:23 PM CDT Optimal ?<100 mg/dl Near Optimal ?100-129 mg/dl Borderline High ?? 130-159 mg/dl High ?160-189 mg/dl Very High ? >=190 mg/dl Atiya Velez MD CHEMISTRY Performing Organization Address [facility] Co de Phone Number [facility] [address] [place] [address], * FSH (09/15/2023 11:11 AM CDT) Pathologist [facility] FSH 36.4 mIU/mL 09/15/2023 8:18 PM CDT [facility] Blood BLOOD SPECIMEN / Unknown Venipuncture / Unknown 09/15/2023 11:11 AM CDT 09/15/2023 11:[address] [facility] - 09/15/2023 8:18 PM CDT FSH Reference Range Female: ? Follicular ?3.5 - ??12.5 mIU/ml ?Ovulatory ? 4.7 - ??21.5 mIU/ml ?Luteal ?1.7 - ?? 7.7 mIU/ml ?Post Menopausal ??25.8 - 134.8 mIU/ml Male: ? 1.5 - ??12.4 mIU/ml ? Atiya Velez MD CHEMISTRY Performing Organization Address [facility] Co de Phone Number [facility] [address] [place] [address], * (ABNORMAL) COMP METABOLIC PANEL (09/15/2023 11:11 AM CDT) Pathologist [facility] SODIUM 141 136 - 145 mmol/L 09/15/2023 7:39 PM T [facility] POTASSIUM 4.5 3.5 - 5.1 mmol/L 09/15/2023 7:39 PM [facility] CHLORIDE 102 98 - 107 mmol/L 09/15/2023 7:39 PM [facility] CO2,TOTAL 27 22 - 29 mmol/L 09/15/2023 7:39 PM T [facility] ANION GAP 12 5 - 18 09/15/2023 7:39 PM [facility] GLUCOSE 97 70 - 99 mg/dL 09/15/2023 7:39 PM [facility] CALCIUM 8.8 8.6 - 10.0 mg/dL 09/15/2023 7:39 PM [facility] BUN 18 6 - 20 mg/dL 09/15/2023 7:39 PM [facility] CREATININE 0.82 0.50 - 0.90 mg/dL 09/15/2023 7:39 PM [facility] BUN/CREAT RATIO 22(H) 10 - 20 7:39 PM [facility] eGFR 86(L) >90 mL/min/1.7 3m2 09/15/2023 7:39 PM [facility] Comment:As of 2021, eG FR is calculated by the CKD-EPI creatinine equation without race adjustment. ??eGFR can be influenced by muscle mass, exercise, and diet. ??The reported eGFR is an estimation only and is only applicable if the renal function is stable. ALBUMIN 4.6 4.0 - 4.9 g/dL 09/15/2023 7:39 PM T [facility] PROTEIN,TOTAL 8.0 6.0 - 8.0 g/dL 09/15/2023 7:39 PM [facility] BILIRUBIN,TOTAL 0.2 0.0 - 1.2 mg/dL 09/15/2023 7:39 PM [facility] ALK PHOSPHATASE 71 35 - 104 IU/L 09/15/2023 7:39 PM CDT [facility] ALT (SGPT) 16 10 - 35 IU/L 09/15/2023 7:39 PM CDT [facility] AST (SGOT) 18 10 - 35 IU/L 09/15/2023 7:39 PM CDT [facility] Blood BLOOD SPECIMEN / Unknown Venipuncture / Unknown 09/15/2023 11:11 AM CDT 09/15/2023 11:13 AM CDT Atiya Velez MD CHEMISTRY [facility] [address] [place] [address], * COVID-19 MOLECULAR (08/06/2023 12:30 PM SERGING MACHINE OPERATOR AUTOMATIC) COVID 19 [facility] MOLECULAR Negative Negative 08/07/2023 1:17 AM SERGING MACHINE OPERATOR AUTOMATIC [facility] TESTING LABORATORY [facility] 08/07/2023 1:17 AM SERGING MACHINE OPERATOR AUTOMATIC [facility] Comment:Specimen submitted t o [facility] for testing. Other SPECIMEN FROM NASAL FOSSAE / Unknown Non-Blood / Unknown 08/06/2023 12:30 PM SERGING MACHINE OPERATOR AUTOMATIC 08/06/2023 12:44 PM SERGING MACHINE OPERATOR AUTOMATIC Narrative [facility] - 08/07/2023 1:17 AM SERGING MACHINE OPERATOR AUTOMATIC All PCR tests are subject to false [...] or revoked sooner. Atiya Velez MD MICROBIOLOGY [facility] [address] [place] [address], * XR MAMMO TONY BILAT SCREEN (01/11/2023 [...] For Patients: As a result of the Cures Act, medical imaging exams and procedure reports are released immediately into your electronic medical record. You may view this report before your referring provider. If you have questions, please contact your health care provider. XR MAMMO TONY BILAT SCREEN [[id number]] CLINICAL HISTORY: ??This is an asymptomatic 52 y.o. patient. INDICATION FOR EXAM: Mammogram Screening. TECHNIQUE: CC & MLO views were obtained. ??This study was evaluated with the assistance of Computer-Aided Detection. Breast Tomosynthesis was used in interpretation. COMPARISON FILM: Yes 12/16/21 [facility] 11/19/20 [facility] FINDINGS: ??The breasts have scattered areas of fibroglandular density. There are no dominant masses, suspicious micro calcifications or areas of architectural distortion. Atiya Velez MD MAMMO * LC HIV-1/O/2, 4TH GENERATION (06/23/2022 2:28 PM SERGING MACHINE OPERATOR AUTOMATIC) HIV Scr 4th Gen Non Reactive Non Reactive 06/25/2022 9:06 PM SERGING MACHINE OPERATOR AUTOMATIC [facility] Comment: HIV Negative HIV-1/HIV-2 antibodies and HIV-1 p24 antigen were NOT detected. There is no laboratory evidence of HIV infection. Blood BLOOD SPECIMEN / Unknown Venipuncture / Unknown 06/23/2022 2:28 PM SERGING MACHINE OPERATOR AUTOMATIC 06/23/2022 2:29 PM SERGING MACHINE OPERATOR AUTOMATIC Narrative [facility]) - 06/25/2022 9:06 PM SERGING MACHINE OPERATOR AUTOMATIC Performed at: ??[address] ??[id number] Torque Tester: Miko Leyva MD, Phone: ??[phone] Atiya Velez MD LABORATORY [facility] ([facility]) [address] [place] [address] * ANTI HCV (03/17/2022 12:25 PM CDT) HEPATITIS C ANTIBODY Non-React ramona Non-React ramona 03/18/2022 5:22 PM CDT [facility] Comment:Antibodies to HCV no t detected; does not exclude the possibility of exposure to HCV. Blood BLOOD SPECIMEN / Unknown Venipuncture / Unknown 03/17/2022 12:25 PM CDT 03/17/2022 12:25 PM CDT Atiya Velez MD [facility] [address] [place] [address], * HPV HIGH RISK (10/28/2021 11:49 AM CDT) TYPE 16 Negative Negative 10/30/2021 2:55 PM CDT [facility] TYPE 18 Negative Negative 10/30/2021 2:55 PM CDT [facility] OTHER HIGH RISK TYPES Negative Negative 10/30/2021 2:55 PM CDT [facility] Other (Cervical) Non-Blood / Unknown 10/28/2021 11:49 AM CDT 10/29/2021 10:31 AM CDT Narrative [facility] - 10/30/2021 2:55 PM CDT HPV types 16, 18, 31, 33, 35, 39, 45, 51, 52, 56, 58, 59, 66 and 68 DNA were undetectable or below the pre-set threshold. Methodology: Cristina Salinas 4800 HPV Test Josselyn TATUM MICROBIOLOGY [facility] [address] [place] [address], [place] * SCAN-FECAL TEST DNA (COLOGUARD) (08/18/2020 12:00 AM SERGING MACHINE OPERATOR AUTOMATIC) Scanner OTHER from Last 3 Months or Most Recently Relevant to Health Maintenance Advance Directives Documents on File Type Date Recorded Patient Electroencephalographic Technologist Expl anation POLST 10/05/2023 Healthcare Directive 08/25/2023 024 Power of [place] 03/11/2018 4:18 PM STATU TORY SHORT FORM POWER OF FILAMENT TESTER, KIRSTIN & YOMI, RC, 10/14/17 Healthcare Directive 03/11/2018 4:14 PM HE DAICARE DIRECTIVE, [facility], 02/10/18 POLST 12/16/2017 3:47 PM [facility], 12/01/17 * Full Code (Latest Code Status on File) Date Activated Date Inactivated Comments 04/09/2021 9:39 AM 04/09/2021 6:54 PM Question Answer Comments Code Status Discussion: Not Discussed Care Teams German Tutor Relationship Specialty Start Date End Date Atiya Velez MD [address] [place] [address] PCP - General Family Practice 03/16/14
== END 2023-10-10 08:01 | disposition home or self-care (01) ==
LOC: AMB 10-14 05:57
PROVIDERS: PCP Family Medicine; Visit Provider Family Medicine
DX: H92.01 Otalgia, right ear (principal); H91.91 Unspecified hearing loss, right ear
CPT/HCPCS: A0425; A0429

== ENCOUNTER 2023-10-10 08:21 | Emergency (ER) | payer MEDICARE, SELFPAY ==
[2023-10-10 08:35] VITALS: BP 145/102; PULSE 100; RESP 18; TEMP 36.8; O2SAT 95; BMI 36.1
--- NOTE | 2023-10-10 08:39 | ED_ITS ---
HPI - General Adult General Chief complaint: Ear/Nose/Throat Problem Stated complaint: ear pain Time Seen by Provider: 10/10/23 08:39 Source: patient Mode of arrival: ambulatory Limitations: no limitations History of Present Illness HPI narrative: Patient is a 53-year-old female, brought in by ambulance secondary to right- sided ear pain. Patient states her ear has been bothering her for almost 2 weeks. She states that is draining clear liquid. She states that every now and then her hearing becomes muffled he she is also concerned about back spasms which are not new for her. Spasms are located on the left lower back. They come and go. Pain does not radiate up or down the back, does not radiate down the legs. She denies any loss of bowel or bladder function. No fevers or chills. Past medical history significant for cognitive developmental delay, patient is on disability. History also includes anxiety, hypoparathyroidism, vitamin-D deficiency, degenerative disc disease of the lumbar spine, learning disability, seizure disorder, hypothyroidism. Related Data Home Medications Medication Instructions Recorded Confirmed carbamazepine 200 mg tablet 200 mg PO TID 01/16/22 07/08/22 duloxetine 20 mg capsule,delayed 20 mg PO DAILY 01/16/22 07/08/22 release famotidine 20 mg tablet 20 mg PO DAILY 01/16/22 01/19/22 levothyroxine 50 mcg capsule 50 mcg PO DAILY 01/16/22 07/08/22 omeprazole 20 mg capsule,delayed 20 mg PO DAILY 01/16/22 07/08/22 release acetaminophen 325 mg tablet 325 mg PO PRN 01/19/22 Previous Rx's Medication Instructions Recorded hydrocodone 5 mg-acetaminophen 325 1 tab PO Q6H PRN pain #9 tabs 01/19/22 mg tablet cyclobenzaprine 10 mg tablet 10 mg PO BID PRN muscle spasm #10 10/10/23 tabs [id number] 3.3 5 drp Otic (ear-right) QID 5 days 10/10/23 mg-3 mg-10 mg-0.5 mg/mL ear #10 mL drops,susp (Cortisporin-TC) Allergies Allergy/AdvReac Type Severity Reaction Status Date / Time morphine Allergy Unknown Verified 04/13/23 10:40 Iodinated Contrast Media Allergy Verified 04/13/23 10:40 Review of Systems Status of ROS: Reports: 6 or more systems reviewed and unremarkable except as noted in History and below [facility] Medical History 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 of corporate attorney in chart Mixed hearing loss ?H90.8 - Mixed conductive and sensorineural hearing loss, unspecified (ICD- 10) Cholecystitis ?K81.9 - Cholecystitis, unspecified (ICD-10) Anxiety ?F41.9 - Anxiety disorder, unspecified (ICD-10) Left chronic serous otitis media ?H65.22 - Chronic serous otitis media, left ear (ICD-10) Onychomycosis ?B35.1 - Tinea unguium (ICD-10) Hypoparathyroidism ?E20.9 - Hypoparathyroidism, unspecified (ICD-10) Vitamin D deficiency ?E55.9 - Vitamin D deficiency, unspecified (ICD-10) DDD (degenerative disc disease), lumbar ?M51.36 - Other intervertebral disc degeneration, lumbar region (ICD-10) Lower extremity edema ?R60.0 - Localized edema (ICD-10) Learning disability ?F81.9 - Developmental disorder of scholastic skills, unspecified (ICD-10) Seizure disorder ?G40.909 - Epilepsy, unspecified, not intractable, without status epilepticus (ICD-10) Hypothyroidism ?E03.9 - Hypothyroidism, unspecified (ICD-10) Encounter for counseling regarding advance directives (02/10/18) ?Z71.89 - Other specified counseling (ICD-10) Surgical History Hx of myringotomy ?Z98.890 - Other specified postprocedural states (ICD-10) Hx laparoscopic cholecystectomy ?Z90.49 - Acquired absence of other specified parts of digestive tract (ICD- 10) History of fusion of spine for scoliosis ?Z98.1 - Arthrodesis status (ICD-10) ?Z87.39 - Personal history of other diseases of the musculoskeletal system and connective tissue (ICD-10) Social History Smoking Status: Never smoker Do you use any of these nicotine containing products: None Second hand tobacco smoke exposure: No How often do you have a drink containing alcohol: never How often do you have six or more drinks on one occasion: Never AUDIT-C Alcohol total score: 0 Non-prescribed substance use: denies use service: No Exam Narrative: Exam Narrative: Overweight patient in no acute distress. Alert and oriented. Answers questions appropriately. Mood and affect are appropriate. Thoughts are goal oriented and rational. No tangential or magical thinking noted. Patient speaks in full sentences without needing to catch her breath. Blood pressure is slightly elevated. HEENT: Normocephalic atraumatic. Conjunctivae are moist without any icterus no lizzie. Moist mucous membranes. Posterior pharynx is normal. Neck is soft with no lymphadenopathy. Left TM is obscured by cerumen. She does have an otitis externa of the right side with mild swelling of the ear canal and white discharge present. Skin: Well perfused. Back: Normal appearance. She has minimal discomfort of the paraspinal musculature of the lumbar spine on the left. She is able to get up and down from the bed without difficulty. She has no pain with movement of the upper or lower extremities. No tenderness over the spine. Const: Vital Signs, click to edit/add: Vital Signs - 24 hr 10/10/23 08:35 Temperature 98.3 F Pulse Rate [Pulse Oximeter] 100 Respiratory Rate 18 Blood Pressure [Ri ght Upper Arm] 145/102 H Pulse Oximetry 95 Oxygen Delivery Me thod Room Air Course Vital Signs Vital signs: Initial Vital Signs Temperature 98.3 F 10/10/23 08:35 Temperature Source Temporal Artery Scan 10/10/23 08:35 Pulse Rate 100 10/10/23 08:35 Respiratory Rate 18 10/10/23 08:35 Blood Pressure 145/102 H 10/10/23 08:35 Blood Pressure Mean 116 H 10/10/23 08:35 Pulse Oximetry 95 10/10/23 08:35 Oxygen Delivery Method Room Air 10/10/23 08:35 Vital Signs Temperature 98.3 F 10/10/23 08:35 Pulse Rate 100 10/10/23 08:35 Respiratory Rate 18 10/10/23 08:35 Blood Pressure 145/102 H 10/10/23 08:35 Pulse Oximetry 95 10/10/23 08:35 Oxygen Delivery Method Room Air 10/10/23 08:35 Temperature 98.3 F 10/10/23 08:35 Pulse Rate 100 10/10/23 08:35 Respiratory Rate 18 10/10/23 08:35 Blood Pressure 145/102 H 10/10/23 08:35 Pulse Oximetry 95 10/10/23 08:35 Oxygen Delivery Method Room Air 10/10/23 08:35 Medical Decision Making MDM Narrative Medical decision making narrative: 53-year-old female with otitis externa-treat with Cortisporin ear drops. Lower back discomfort: Will treat with Flexeril. Patient already takes Tylenol as needed. Discussed heat and gentle stretching. Medical Records Medical records reviewed: Yes I reviewed the patient's medical records Discharge Plan Discharge Clinical Impression: Low back pain, Otitis externa Patient Disposition: Home, Self-Care Condition: Stable Additional Instructions: For your back pain: Okay to use a heating pad to the sore area. Do not apply heat directly to the skin. Okay to use Tylenol or ibuprofen as needed. Okay to use muscle relaxer as needed/as prescribed (Flexeril). For your ear pain: You have an ear infection on the side. You must put 5 drops into the right ear 4 times per day for the next 5 days. You should lay on your left side when you put the drops in and stay in the lying position for 5-10 minutes after putting the drops in so that the medicine has time to really get deep into the ear. If you are not feeling better in 1 week you should follow-up with your primary care provider in the clinic. Prescriptions: New cyclobenzaprine 10 mg tablet 10 mg PO BID PRN (Reason: muscle spasm) Qty: 10 0RF Cortisporin-TC 3.3-3-10-0.5 mg/mL drops,suspension 5 drp Otic (ear-right) QID 5 Days Qty: 10 0RF No Action carbamazepine 200 mg tablet 200 mg PO TID duloxetine 20 mg capsule,delayed release(DR/EC) 20 mg PO DAILY famotidine 20 mg tablet 20 mg PO DAILY levothyroxine 50 mcg capsule 50 mcg PO DAILY omeprazole 20 mg capsule,delayed release(DR/EC) 20 mg PO DAILY acetaminophen 325 mg tablet 325 mg PO PRN Rx Instructions: NO MORE THAN 4000 MG/DAY hydrocodone-acetaminophen 5-325 mg tablet 1 tab PO Q6H PRN (Reason: pain) Qty: 9 0RF Follow Up/Referrals: Atiya Velez MD [Primary Care Provider] - Stand Alone Forms: [facility] Info Instructions
--- OUTSIDE RECORDS SUMMARY | 2023-10-10 08:57 | XMS_ITS | Clinical Summary ---
Author Name Unknown Organization [place] Address [address] [place] [id number] Care Team Providers Care Supervisor Slashing Department Name Role Phone No Ref-Primary, Physician Primary Care Provider AgustinAtiya Unavailable Allergies No known active allergies Medications Medication Sig Dispensed Refills Start Date End Date Status ibuprofen (ADVIL,MOTRIN) 600 MG tablet Take 1 tablet (600 mg) by mouth every 6 hours as needed for moderate pain 20 tablet 0 01/31/2014 Active Active Problems No known active problems Immunizations Name Administration Dates Next Due COVID-19 Monovalent 18+ (Moderna) 09/12/2021,,07/31/2020 Social History Tobacco Use Types Packs/Day Years Used Date Smoking Tobacco: Never Smokeless Tobacco: Never Alcohol Use Standard Drinks/Week Comments No 0 (1 standard drink = 0.6 oz pur e alcohol) Adolescent Education Answer Date Record ed Getting School Help Needed Not on file 03/14 Sex and Gender Information Value Date Recorded Sex Assigned at Not on file Gender Identity Not on file Sexual Orientation Not on file Last Filed Vital Signs Vital Sign Reading Time Taken Comments Blood Pressure 118/72 02/10/2022 11:28 AM CDT Pulse 134 02/10/2022 11:28 AM CDT Temperature 36.9 ??C (98.5 ??F) 02/10/2022 11:28 AM C DT Respiratory Rate 36 01/31/2014 3:35 AM CDT Oxygen Saturation 97% 02/10/2022 11:28 AM CDT Inhaled Oxygen Concentration - - Weight 80.7 kg (178 lb) 02/10/2022 11:28 AM CDT Height 152.4 cm (5') 01/31/2014 3:35 AM CDT Body Mass Index 34.76 01/31/2014 3:35 AM CDT Plan of Treatment Health Maintenance Due Date Last Done Comments ADVANCE CARE PLANNING 1970 ANNUAL REVIEW OF HM ORDERS 1970 CT COLONOGRAPHY 1970 FIT 1970 FLEX SIG 1970 GLUCOSE 1970 sDNA (Cologuard) 1970 COLONOSCOPY 1980 COLORECTAL CANCER SCREENING 1980 HIV SCREENING 1985 HEPATITIS C SCREENING 1988 MEDICARE ANNUAL WELLNESS VISIT 1988 HEPATITIS B IMMUNIZATION (1 of 3 - 19+ 3-dose series) 1989 PAP 1991 LIPID 2010 MAMMO SCREENING 10/03/2014 10/03/2012, 12/29/2011 COVID-19 Vaccine ( season) 2023 09/12/2021, 03/28/2021, 07/31/2020, Additional history exists INFLUENZA VACCINE (#1) 2023 1, 02/15/2020, 02/17/2019, Additional history exists PHQ-2 (once per calendar year) 2023 DTAP/TDAP/TD IMMUNIZATION (3 - Td or Tdap) 10/08/2031 10/07/2021, 10/07/2011, 03/29/2003 ZOSTER IMMUNIZATION Completed 11/01/2020, 1 HPV IMMUNIZATION Aged Out No longer e ligible based on patient's age to complete this topic IPV IMMUNIZATION Aged Out No longer e ligible based on patient's age to complete this topic MENINGITIS IMMUNIZATION Aged Out No l onger eligible based on patient's age to complete this topic Pneumococcal Vaccine: Pediatrics (0 to 5 Years) and At-Risk Patients (6 to 64 Years) Aged Out No longer eligible based on patient's age to complete this topic RSV MONOCLONAL ANTIBODY Aged Out No l onger eligible based on patient's age to complete this topic Procedures Procedure Name Priority Date/Time Associated Diagnosis Comments MA DIAGNOSTIC DIGITAL LEFT 10/03/2012 10:23 AM CDT from Last 3 Months or Most Recently Relevant to Health Maintenance Results * MA Diagnostic Digital Left (10/03/2012 10:23 AM CDT) Anatomical Region Laterality Modality Breast Left Other 10/03/2012 10:2 3 AM CDT Impressions 10/03/2012 10:24 AM CDT IMPRESSION: ??BI-RADS-3. ??PROBABLY BENIGN. ??LEFT BREAST(S) DESCRIBED. RECOMMENDATION: ??6 MONTH FOLLOW-UP. CHRISTOPHER ARAUJO MD Narrative 10/03/2012 10:24 AM CDT DIAGNOSTIC MAMMOGRAM LEFT DIGITAL w/CAD ??October 03, 2012. HISTORY: ??Short-term followup probably benign calcification cluster. COMPARISON: ??12/29/2011. 12/15/2011. BREAST DENSITY: ??Heterogeneously dense. FINDINGS: ??Magnification views reconfirm a faint small cluster of microcalcifications in the mid left breast. The patient is unable to hold entirely still for today's images despite 2 attempts in each view. The calcifications appear not significantly changed and again are likely benign. Recommend 6 month followup magnification views. Procedure Note Christopher Araujo MD - 10/03/2012 DIAGNOSTIC MAMMOGRAM LEFT DIGITAL w/CAD October 03, 2012. HISTORY: Short-term followup probably benign calcification cluster. COMPARISON: 12/29/2011. 12/15/2011. BREAST DENSITY: Heterogeneously dense. FINDINGS: Magnification views reconfirm a faint small cluster of microcalcifications in the mid left breast. The patient is unable to hold entirely still for today's images despite 2 attempts in each view. The calcifications appear not significantly changed and again are likely benign. Recommend 6 month followup magnification views. IMPRESSION IMPRESSION: BI-RADS-3. PROBABLY BENIGN. LEFT BREAST(S) DESCRIBED. RECOMMENDATION: 6 MONTH FOLLOW-UP. CHRISTOPHER ARAUJO MD Shabana Levy CNM IM MAMMOGRAPHY [facility] from Last 3 Months or Most Recently Relevant to Health Maintenance Care Teams Supervisor Slashing Department Relationship Specialty Start Date End Date No Ref-Primary, Physician PCP - General 02/10/22 [facility] 02/10/22
--- OUTSIDE RECORDS SUMMARY | 2023-10-10 08:57 | XMS_ITS | Referral Summary ---
Author Name Unknown Organization [place] Address [address] [place] [id number] Care Team Providers Care Wearing Apparel Presser Name Role Phone No Ref-Primary, Physician Primary [...] 01/31/2014 3:35 AM CDT Plan of Treatment Not on file Procedures Procedure Name Priority Date/Time Associated Diagnosis [...] FOLLOW-UP. CHRISTOPHER ARAUJO MD Shabana Levy CNM IMG MAMMOGRAPHY [facility] from Last 3 Months or Most Recently Relevant to Health Maintenance Care Teams Wearing Apparel Presser Relationship Specialty Start Date End Date No Ref-Primary, Physician PCP - General 02/10/22 [facility] 02/10/22
--- OUTSIDE RECORDS SUMMARY | 2023-10-10 08:57 | XMS_ITS | Clinical Summary ---
Author Name Unknown Organization [facility] Address [place], [place] [address] Care Team Providers Care Hydraulic And Plumbing Installer Name Role Phone Atiya Velez MD Primary Care Provide r Allergies Active Allergy Reactions Criticality Noted Date Comments Iodinated Contrast Media Nausea And Vomiting 04/13/2023 Morphine Vomiting 03/28/2021 Unlisted Allergen (Include Detail In Comments) Runny Nose 12/21/2018 Seasonal, and cats Medications Medication Sig Dispensed Refills Start Date End Date Status Walker - 4 wheelsIndications:L umbar spondylosis With brakes, seat. For home use. Length of need: 99 months. 1 Device 03/23/2019 Active medication order composerIndications :Degenerative disc disease, lumbar,S/P lumbar spinal fusion theraworx foam, apply three times daily 7.1 oz 5 04/05/2019 Active cyclobenzaprine (Flexeril) 5 mg tabletIndications:L umbar radicular pain Take 1 Tablet (5 mg) by mouth at bedtime if needed for Muscle Spasm. 24 Tablet 3 01/09/2022 Active ciprofloxacin-dexAM ETHasone (CIPRODEX) otic suspensionIndicatio ns:Acute diffuse otitis externa of right ear Place 4 Drops into right ear two times daily. 7.5 mL 02/18/2023 Active cholecalciferol (Vitamin D) 1,000 unit capsuleIndications: Vitamin D deficiency Take 2 Capsules (2,000 units) by mouth once daily. 0 02/24/2023 Active clindamycin 1% (CLEOCIN-T) 1 % lotionIndications:A cne rosacea APPLY TOPICALLY TO AFFECTED AREA(S) TWICE DAILY 60 mL 3 04/18/2023 Active famotidine (PEPCID) 20 mg tabletIndications:H eartburn Take 2 Tablets (40 mg) by mouth at bedtime. At bedtime 180 Tablet 3 05/18/2023 Active carBAMazepine (TEGRETOL) 200 mg tabletIndications:C onvulsions, unspecified convulsion type (HC) Take 1 Tablet (200 mg) by mouth three times daily. 270 Tablet 3 08/09/2023 Active DULoxetine (CYMBALTA) 20 mg Delayed-release capsuleIndications: Myofascial pain Take 1 Capsule (20 mg) by mouth once daily. 90 Capsule 3 08/09/2023 Active levothyroxine (SYNTHROID) 50 mcg tabletIndications:H ypothyroidism, unspecified type Take 1 Tablet (50 mcg) by mouth before breakfast. 90 Tablet 3 08/09/2023 Active omeprazole (PRILOSEC) 20 mg Delayed-Release capsuleIndications: Heartburn Take 1 Capsule (20 mg) by mouth two times daily before meals. 180 Capsule 3 08/09/2023 Active rosuvastatin (CRESTOR) 10 mg tabletIndications:H yperlipidemia, unspecified hyperlipidemia type Take 1 Tablet (10 mg) by mouth at bedtime. 90 Tablet 3 09/16/2023 4 Discontinue d(*Med complete/Re gimen complete/Le lexis of care change) Active Problems Problem Noted Date Diagnosed Date Mixed hearing loss, bilateral 06/03/2021 Cholecystitis 10/04/2020 Anxiety 07/22/2018 Perimenopause 03/18/2017 Leg pain, bilateral 10/23/2015 Left chronic serous otitis media 08/21/2015 Hypoparathyroidism 03/13/2015 Onychomycosis 03/13/2015 Vitamin D deficiency 01/02/2015 Thyroid activity decreased 11/27/2014 S/P thoracic to L4 fusion for scoliosis 05/25/20 14 DDD (degenerative disc disease), lumbar 02/03/20 14 Overview: Disc bulge L4-5 Lower extremity edema 02/06/2011 Seizures 09/14/2009 Hypothyroidism 09/14/2009 Environmental allergies 09/14/2009 Learning disability 09/14/2009 Resolved Problems Problem Noted Date Diagnosed Date Resolved Date Seizure disorder 02/07/2015 06/25/2016 Acute sinusitis, unspecified 02/06/2011 04/03/2013 Scoliosis 09/14/2009 05/25/2014 Routine health maintenance 09/14/2009 1 07/26/2013 Overview: 07/14 cpx pap per pt hx Encounters Date Type Department Care Team Description 09/15/2023 11:15 AM CDT Orders Only [facility] [address] [place] [address] Lab, [place] [facility] 09/14/2023 Travel 08/24/2023 Telephone [facility] [address] [place] [address] Atiya Velez MD Error-please disregard 08/19/2023 Telephone [facility] [address] [place] [address] Atiya Velez MD Questions (COGNITIVE TEST) 08/06/2023 11:20 AM POWDER WORKER Office Visit [facility] [address] [place] [address] Atiya Velez MD Follow Up (Asking if she can be written a prescription for a electric scooter, she is moving into a new building and a scooter would make it easier to get around. Has been misstep and back pain with walker.) 08/06/2023 Travel 08/02/2023 Travel 07/27/2023 Telephone [facility] [address] [place] [address] Atiya Velez MD Medication Management (Scooter) 07/12/2023 Telephone [facility] [address] [place] [address] Atiya Velez MD Medication Management (Current medication and diagnosis list) from Last 3 Months Immunizations Name Administration Dates Next Due AMB INFLUENZA, IIV4 (AGE=>6M OS) V (Flu Clinic Only) 03/08/2018 AMB Influenza, IIV3 (Age >=3 years)(Flu Clinic Only) 03/21/2013 COVID-19 Vaccine Spikevax (M oderna 50mcg/0.5mL) 12YO+ [id number] Formula PF 03/25/2023 COVID-19 vaccine (Moderna 100mcg/0.5mL) PF, MDV 09/12/2021,07/31/2020,07/03/2020 COVID-19 vaccine (Moderna Carlos Alberto carter 50mcg/0.25mL) PF, MDV 03/28/2021 COVID-19 vaccine (Pfizer-Bio NTech 30mcg/0.3mL) 12YO+ BIVALENT PF, MDV 03/17/2022 Influenza, IIV3 (Age >=3 years) 03/26/2017,03/18 Influenza, IIV4 02/18/2023,,03/28/2021,02/15/20,03/27/2016,02/20/2016,03/28/2015,02/28 Influenza, IIV4 (=>6mos) MDV 02/17/2019 Td (Age >=7 Years) 03/29/2003,12/24/1991 Tdap 10/07/2021,10/07/2011 Zoster (Shingrix-RZV, recombinant) 11/01/2020, Family History Medical History Relation Name Comments Stroke Father Hypertension Mother Cancer-breast No Family History Cancer-ovarian No Family History Relation Name Status Comments Father Mother Social History Tobacco Use Types Packs/Day Years Used Date Smoking Tobacco: Never Smokeless Tobacco: Never Tobacco Cessation:Counseling Given: Yes Alcohol Use Standard Drinks/Week Comments No 0 (1 standard drink = 0.6 oz pur e alcohol) PHQ-2 Answer Date Recorded PHQ-2 TOTAL SCORE 0 02/18/2023 Social Connections Answer Date Recorded Frequency of Communication with Friends and Fami ly Not on file 10/05/2023 Financial Resource Strain Answer Date R ecorded Difficulty of Paying Living Expenses 3 10/04/2021 Difficulty of Paying Living Expenses Not on file 10/04/2021 Food Insecurity Answer Date Recorded Worried About Running Out of Food in the Last Ye ar 1 10/04/2021 Transportation Needs Answer Date Record ed Lack of Transportation (Medical) 1 10/04/2021 Housing Stability Answer Date Recorded Unable to Pay for Housing in the Last Year 1 10/04/2021 Sex and Gender Information Value Date Recorded Sex Assigned at Female 04/11/2023 11:45 PM POWDER WORKER Gender Identity Female 04/11/2023 11:45 PM POWDER WORKER Sexual Orientation Not on file Obstetrics History Para Term AB IAB SAB Ectopic Multiple Livin g Live Births 0 0 0 0 0 0 0 0 0 0 0 Last Filed Vital Signs Vital Sign Reading Time Taken Comments Blood Pressure 136/85 08/06/2023 12:05 PM POWDER WORKER Pulse 110 08/06/2023 12:05 PM POWDER WORKER Temperature 36.9 ??C (98.4 ??F) 01/09/2022 10:22 AM C DT Respiratory Rate 16 05/06/2021 2:04 PM POWDER WORKER Oxygen Saturation 94% 08/06/2023 12:05 PM POWDER WORKER Inhaled Oxygen Concentration - - Weight 85.5 kg (188 lb 9.6 oz) 08/06/2023 12:03 PM POWDER WORKER Height 152.4 cm (5') 08/06/2023 12:03 PM POWDER WORKER Body Mass Index 36.83 08/06/2023 12:03 PM POWDER WORKER Plan of Treatment Health Maintenance Due Date Last Done Comments Fecal testing sDNA-FIT (Cologuard) for age 45-75 08/19/2023 08/18/2020 Mammogram for age 45-75 01/12/2024 01/12/20 23, 12/16/2021, 11/19/2020, Additional history exists Influenza for age 50-64 02/06/2024 02/19/20 23, 02/16/2022, 03/28/2021, Additional history exists Depression screening for age 12+ 02/19/2024 02/18/2023, 02/18/2023, 02/18/2023, Additional history exists BMI (ht and wt on same day) for age 18+ 08/05/2024 08/06/2023, 06/23/2022, 02/16/2022, Additional history exists Pap test for age 21-65 10/28/2026 , 10/28/2021, 11/22/2018, Additional history exists Lipids for age 45-75 09/14/2028 09/15/2023, 09/15/2023, 10/07/2021 Tetanus booster 10/08/2031 10/07/2021, 0507/2011, 03/29/2003, Additional history exists Zoster (shingles) series for age 50+ Completed 11/01/2020, 09/01/2020 Tdap Completed 10/07/2021, 10/07/2011 Hepatitis C screening for age 18-79 Completed 03/17/2022, 02/16/2022 HIV for age 15-65 Completed 06/23/2022 COVID-19 vaccine series Completed 03/25/20, 03/17/2022, 09/12/2021, Additional history exists Pneumococcal series for age 6-64 Aged Out No longer eligible based on patient's age to complete this topic Goals Goal Patient Goal Type Associated Problems Recent Progress Patient-Stated? Author BLOOD PRESSURE - Maintains BP less than 140/90 Blood Pressure No [employer] Implanted Type Area Hand Laster Device Identifier Shelf Expiration Date Model / Serial / Lot [id number] - [id number] Implanted:Qty: 1 on 04/09/2021 by Maxi Rodrigez MD at [facility] Left: Ear Medtronic 07/11/2027 [id number] / / [id number] Description:medtronic big ea sy piston - straight [id number] Lot [id number] Cmnt Bone Ear 2gm [employer]im[employer] - [id number] Implanted:Qty: 1 on 04/09/2021 by Maxi Rodrigez MD at [facility] Left: Ear [employer] 07/24/2022 [id number] / / [id number] Procedures Procedure Name Priority Date/Time Associated Diagnosis Comments LDL CHOLESTEROL,DIRECT Routine 09/15/2023 11:11 AM CDT Lipid screening CBC WITH AUTO DIFFERENTIAL Routine 09/15/2023 11:11 AM CDT Seizures (HC) VITAMIN D 25 (DEFICIENCY) Routine 09/15/2023 11:11 AM CDT Vitamin D deficiency LIPID PANEL W REFLEX MEASURED LDL Routine 09/15/2023 11:11 AM CDT Lipid screening FSH Routine 09/15/2023 11:11 AM CDT Menopause TSH WITH REFLEX Routine 09/15/2023 11:11 AM CDT Hypothyroidism, unspecified type COMP METABOLIC PANEL Routine 09/15/2023 11:11 AM CDT Seizures (HC) CBC WITH AUTO DIFFERENTIAL Routine 09/15/2023 11:11 AM CDT Seizures (HC) COVID-19 MOLECULAR Routine 08/06/2023 12 :30 PM POWDER WORKER Exposure to COVID-19 virus XR MAMMO TONY BILAT SCREEN Routine 01/11/2023 8:41 AM CDT Encounter for screening mammogram for malignant neoplasm of breast LC HIV-1/O/2, 4TH GENERATION Routine 06/23/2022 2:28 PM POWDER WORKER Screening for HIV (human immunodeficiency virus) ANTI HCV Routine 03/17/2022 12:25 PM CDT Encounter for HCV screening test for low risk patient HPV THIN PREP Routine 10/28/2021 11:49 AM CDT Pap smear for cervical cancer screening SCAN-FECAL TEST DNA (COLOGUARD) 08/18/2020 12:00 AM POWDER WORKER from Last 3 Months or Most Recently Relevant to Health Maintenance Results * (ABNORMAL) CBC WITH AUTO DIFFERENTIAL (09/15/2023 11:11 AM CDT) WHITE BLOOD COUNT 6.9 4.5 - 11.0 thou/cu mm 09/15/2023 11:16 AM CDT [facility] RED BLOOD COUNT 3.89(L) 4.00 - 5.20 mil/cu mm 09/15/2023 11:16 AM CDT [facility] HEMOGLOBIN 12.6 12.0 - 16.0 g/dL 09/15/2023 11:16 AM CDT [facility] HEMATOCRIT 38.5 33.0 - 51.0 % 09/15/2023 11:16 AM CDT [facility] MCV 99 80 - 100 fL 09/15/2023 11:16 AM CDT [facility] MCH 32.4 26.0 - 34.0 pg 09/15/2023 11:16 AM CDT [facility] MCHC 32.7 32.0 - 36.0 g/dL 09/15/2023 11:16 AM CDT [facility] RDW 13.8 11.5 - 15.5 % 09/15/2023 11:16 AM CDT [facility] PLATELET COUNT 205 140 - 440 thou/cu mm 09/15/2023 11:16 AM CDT [facility] MPV 12.1(H) 6.5 - 11.0 fL 09/15/2023 11:16 AM CDT [facility] % NEUT 61.7 % 09/15/2023 11:16 AM CDT [facility] % LYMPH 27.4 % 09/15/2023 11:16 AM CDT [facility] % MONO 7.7 % 09/15/2023 11:16 AM CDT [facility] % EOS 2.9 % 09/15/2023 11:16 AM CDT [facility] % BASO 0.3 % 09/15/2023 11:16 AM CDT [facility] ABSOLUTE NEUTROPHILS 4.2 1.7 - 7.0 thou/cu mm 09/15/2023 11:16 AM CDT [facility] ABSOLUTE LYMPHOCYTES 1.9 0.9 - 2.9 thou/cu mm 09/15/2023 11:16 AM CDT [facility] ABSOLUTE MONOCYTES 0.5 <0.9 thou/cu mm 09/15/2023 11:16 AM CDT [facility] ABSOLUTE EOSINOPHILS 0.2 <0.5 thou/cu mm 09/15/2023 11:16 AM CDT [facility] ABSOLUTE BASOPHILS 0.0 <0.3 thou/cu mm 09/15/2023 11:16 AM CDT [facility] Blood BLOOD SPECIMEN / Unknown Venipuncture / Unknown 09/15/2023 11:11 AM CDT 09/15/2023 11:13 AM CDT Atiya Velez MD HEMATOLOGY Performing Organization Address [facility] Co de Phone Number [facility] [address] [place] [address], * TSH WITH REFLEX (09/15/2023 11:11 AM CDT) TSH 1.99 0.27 - 4.20 uIU/mL 09/15/2023 7:39 PM CDT [facility] Blood BLOOD SPECIMEN / Unknown Venipuncture / Unknown 09/15/2023 11:11 AM CDT 09/15/2023 11:13 AM CDT Narrative [facility] - 09/15/2023 7:39 PM CDT In Adults, TSH values between 5.00 and 10.00 uIU/ml do not necessarily indicate the presence of Hypothyroidism. Correlation with clinical findings such as presence of goiter and/or Thyroperoxidase (TPO) Antibody may be helpful. For more information please refer to TORIE 2004; 291: 228-238. Atiya Velez MD CHEMISTRY Performing Organization Address [facility] Co de Phone Number [facility] [address] [place] [address], * (ABNORMAL) LIPID PANEL W REFLEX MEASURED LDL (09/15/2023 11:11 AM CDT) CHOLESTEROL,TOTAL 297(H) 100 - 199 mg/dL 09/15/2023 7:39 PM CDT [facility] Comment: Cholesterol, Total Reference Ranges Desirable <200 mg/dL Borderline 200-239 mg/dL High >=240 mg/dL TRIGLYCERIDES 403(H) <150 mg/dL 09/15/2023 7:39 PM CDT [facility] HDL CHOLESTEROL 50 >40 mg/dL 7:[address] [facility] NON-HDL CHOLESTEROL 247(H) <145 mg/dl 09/15/2023 7:39 PM CDT [facility] CHOL/HDL RATIO 5.94(H) <4.50 09/15/2023 7:[address] [facility] LDL CHOLESTEROL 7:39 PM CDT [facility] Comment:Invalid LDL when Tri g >400. VLDL CHOLESTEROL COMMENT 09/15/2023 7:[address] [facility] Comment:Unable to calculate VLDL. PROVIDER ORDERED STATUS RANDOM 09/15/2023 7:[address] [facility] Blood BLOOD SPECIMEN / Unknown Venipuncture / Unknown 09/15/2023 11:11 AM CDT 09/15/2023 11:13 AM CDT Atiya Velez MD CHEMISTRY [facility] [address] [place] [address], * VITAMIN D 25 (DEFICIENCY) (09/15/2023 11:11 AM CDT) VITAMIN D TOTAL 36.1 20.0 - 80.0 ng/mL 09/15/2023 7:39 PM CDT [facility] Blood BLOOD SPECIMEN / Unknown Venipuncture / Unknown 09/15/2023 11:11 AM CDT 09/15/2023 11:13 AM CDT Narrative [facility] - 09/15/2023 7:39 PM CDT ? Vitamin D Status Deficiency: ? <20 ng/mL Insufficiency: ?20-29 ng/mL Sufficiency: ?30-80 ng/mL Possible Toxicity: ??>80 ng/mL Based on [place] of Medicine recommendations Biotin supplements may cause clinically significant interference for this test assay. ??If interference is suspected, it is strongly recommended that biotin is discontinued for at least one week prior to retesting. Atiya Velez MD SEND OUTS Performing Organization Address [facility] Co de Phone Number [facility] [address] [place] [address], * LDL CHOLESTEROL,DIRECT (09/15/2023 11:11 AM CDT) LDL CHOLESTEROL,DI RECT 183 mg/dL 09/15/2023 9:23 PM CDT [facility] PROVIDER ORDERED STATUS RANDOM 09/15/2023 9:23 PM CDT [facility] Blood BLOOD SPECIMEN / Unknown Venipuncture / Unknown 09/15/2023 11:11 AM CDT 09/15/2023 11:13 AM CDT Narrative [facility] - 09/15/2023 9:23 PM CDT Optimal ?<100 mg/dl Near Optimal ?100-129 mg/dl Borderline High ?? 130-159 mg/dl High ?160-189 mg/dl Very High ? >=190 mg/dl Atiya Velez MD CHEMISTRY Performing Organization Address [facility] de Phone Number [facility] [address] [place] [address], * FSH (09/15/2023 11:11 AM CDT) FSH 36.4 mIU/mL 09/15/2023 8:18 PM CDT [facility] Blood BLOOD SPECIMEN / Unknown Venipuncture / Unknown 09/15/2023 11:11 AM CDT 09/15/2023 11:13 AM CDT Narrative [facility] - 09/15/2023 8:18 PM CDT FSH Reference Range Female: ? Follicular ?3.5 - ??12.5 mIU/ml ?Ovulatory ? 4.7 - ??21.5 mIU/ml ?Luteal ?1.7 - ?? 7.7 mIU/ml ?Post Menopausal ??25.8 - 134.8 mIU/ml Male: ? 1.5 - ??12.4 mIU/ml ? Atiya Velez MD CHEMISTRY [facility] [address] [place] [address], * (ABNORMAL) COMP METABOLIC PANEL (09/15/2023 11:11 AM CDT) SODIUM 141 136 - 145 mmol/L 09/15/2023 7:39 PM CDT [facility] POTASSIUM 4.5 3.5 - 5.1 mmol/L 09/15/2023 7:39 PM CDT [facility] CHLORIDE 102 98 - 107 mmol/L 09/15/2023 7:39 PM CDT [facility] CO2,TOTAL 27 22 - 29 mmol/L 09/15/2023 7:39 PM CDT [facility] ANION GAP 12 5 - 18 09/15/2023 7:39 PM CDT [facility] GLUCOSE 97 70 - 99 mg/dL 09/15/2023 7:39 PM CDT [facility] CALCIUM 8.8 8.6 - 10.0 mg/dL 09/15/2023 7:39 PM CDT [facility] BUN 18 6 - 20 mg/dL 09/15/2023 7:39 PM T [facility] CREATININE 0.82 0.50 - 0.90 mg/dL 09/15/2023 7:39 PM T [facility] BUN/CREAT RATIO 22(H) 10 - 20 7:39 PM T [facility] eGFR 86(L) >90 mL/min/1.7 3m2 09/15/2023 7:39 PM T [facility] Comment:As of 2021, eG FR is calculated by the CKD-EPI creatinine equation without race adjustment. ??eGFR can be influenced by muscle mass, exercise, and diet. ??The reported eGFR is an estimation only and is only applicable if the renal function is stable. ALBUMIN 4.6 4.0 - 4.9 g/dL 09/15/2023 7:39 PM CDT [facility] PROTEIN,TOTAL 8.0 6.0 - 8.0 g/dL 09/15/2023 7:39 PM T [facility] BILIRUBIN,TOTAL 0.2 0.0 - 1.2 mg/dL 09/15/2023 7:39 PM CDT [facility] ALK PHOSPHATASE 71 35 - 104 IU/L 09/15/2023 7:39 PM T [facility] ALT (SGPT) 16 10 - 35 IU/L 09/15/2023 7:39 PM T [facility] AST (SGOT) 18 10 - 35 IU/L 09/15/2023 7:[address] [facility] Blood BLOOD SPECIMEN / Unknown Venipuncture / Unknown 09/15/2023 11:11 AM CDT 09/15/2023 11:13 AM CDT Atiya Velez MD CHEMISTRY [facility] [address] [place] [address], [place] * COVID-19 MOLECULAR (08/06/2023 12:30 PM POWDER WORKER) COVID 19 GAVIN MOLECULAR Negative Negative 08/07/2023 1:17 AM POWDER WORKER [facility]- NTRAL LABORATORY TESTING LABORATORY [facility] 08/07/2023 1:17 AM POWDER WORKER [facility] Comment:Specimen submitted t o [facility] for testing. Other SPECIMEN FROM NASAL FOSSAE / Unknown Non-Blood / Unknown 08/06/2023 12:30 PM POWDER WORKER 08/06/2023 12:44 PM POWDER WORKER Narrative [facility] - 08/07/2023 1:17 AM POWDER WORKER All PCR tests are subject to false negative result due to variability in viral load and collection technique. A negative result does not rule out a SARS-CoV-2 infection. Clinical correlation required. This test has been authorized by FDA under an Emergency Use Authorization (EUA). This test is only authorized for the duration of time the declaration that circumstances exist justifying the authorization of the emergency use of in vitro diagnostic tests for detection of SARS-CoV-2 virus and/or diagnosis of COVID-19 infection under section 564(b)(1) of the Act, 21 U.S.C. 360bbb-3(b) (1), unless the authorization is terminated or revoked sooner. Atiya Velez MD MICROBIOLOGY [facility] [address] [place] [address], [place] * XR MAMMO TONY BILAT SCREEN (01/11/2023 8:41 AM CDT) Anatomical Region Laterality Modality BREASTS, Breast Left, Breast Right Bilateral Mammography Impressions 01/11/2023 3:24 PM CDT ??There is no radiographic evidence for malignancy. ??Recommend annual mammograms. MAMMOGRAM ASSESSMENT: ??ACR 1 Negative PATIENTS: You will also receive a letter with your examination results in an easy to read format. ??If you have questions about your results, please contact your referring provider. Narrative 01/11/2023 3:24 PM CDT For Patients: As a result of the 21st Century Cures Act, medical imaging exams and procedure reports are released immediately into your electronic medical record. You may view this report before your referring provider. If you have questions, please contact your health care provider. XR MAMMO TONY BILAT SCREEN [[id number]] CLINICAL HISTORY: ??This is an asymptomatic 52 y.o. patient. INDICATION FOR EXAM: Mammogram Screening. TECHNIQUE: CC & MLO views were obtained. ??This study was evaluated with the assistance of Computer-Aided Detection. Breast Tomosynthesis was used in interpretation. COMPARISON FILM: Yes 12/16/21 [facility] 11/19/20 [facility] FINDINGS: ??The breasts have scattered areas of fibroglandular density. There are no dominant masses, suspicious micro calcifications or areas of architectural distortion. Atiya Velez MD MAMMO * LC HIV-1/O/2, 4TH GENERATION (06/23/2022 2:28 PM POWDER WORKER) HIV Scr 4th Gen Non Reactive Non Reactive 06/25/2022 9:06 PM POWDER WORKER [facility] Comment: HIV Negative HIV-1/HIV-2 antibodies and HIV-1 p24 antigen were NOT detected. There is no laboratory evidence of HIV infection. Blood BLOOD SPECIMEN / Unknown Venipuncture / Unknown 06/23/2022 2:28 PM POWDER WORKER 06/23/2022 2:29 PM POWDER WORKER Narrative [facility] - 06/25/2022 9:06 PM POWDER WORKER Performed at: ??01 - [facility] [address] [place], [place] ??[id number] [employer] In[employer] Machine: Miko Leyva MD, Phone: ??[phone] Atiya Velez MD [facility]ATORY [facility] [place] [address], * ANTI HCV (03/17/2022 12:25 PM CDT) HEPATITIS C ANTIBODY Non-React ramona Non-React ramona 03/18/2022 5:22 PM CDT [facility] Comment:Antibodies to HCV no t detected; does not exclude the possibility of exposure to HCV. Blood BLOOD SPECIMEN / Unknown Venipuncture / Unknown 03/17/2022 12:25 PM CDT 03/17/2022 12:25 PM CDT Atiya Velez MD SEND OUTS [facility] [address] [place] [address], * HPV HIGH RISK (10/28/2021 11:49 AM CDT) TYPE 16 Negative Negative 10/30/2021 2:55 PM CDT [facility] TYPE 18 Negative Negative 10/30/2021 2:55 PM CDT [facility] OTHER HIGH RISK TYPES Negative Negative 10/30/2021 2:55 PM CDT [facility] Other (Cervical) Non-Blood / Unknown 10/28/2021 11:49 AM CDT 10/29/2021 10:31 AM CDT Narrative [facility] - 10/30/2021 2:55 PM CDT HPV types 16, 18, 31, 33, 35, 39, 45, 51, 52, 56, 58, 59, 66 and 68 DNA were undetectable or below the pre-set threshold. Methodology: Cristina Salinas 4800 HPV Test Josselyn TATUM MICROBIOLOGY [facility] [address] [place] [address], [place] * SCAN-FECAL TEST DNA (COLOGUARD) (08/18/2020 12:00 AM POWDER WORKER) Scanner OTHER from Last 3 Months or Most Recently Relevant to Health Maintenance Advance Directives Documents on File Type Date Recorded Patient Manager Control Expl anation POLST 10/05/2023 Healthcare Directive 08/25/2023 024 Power of Set Up Mechanic [employer] 03/11/2018 4:18 PM STATU TORY SHORT FORM POWER OF SUPERVISOR [employer], [employer], 10/14/17 Healthcare Directive 03/11/2018 4:14 PM HE ALTHCARE DIRECTIVE, [facility], 02/10/18 POLST 12/16/2017 3:47 PM GAVIN CANALES [facility], 12/01/17 * Full Code (Latest Code Status on File) Date Activated Date Inactivated Comments 04/09/2021 9:39 AM 04/09/2021 6:54 PM Question Answer Comments Code Status Discussion: Not Discussed Care Teams Hydraulic And Plumbing Installer Relationship Specialty Start Date End Date Atiya Velez MD [address] [place] [address] PCP - General Family Practice 03/16/14
--- NOTE | 2023-10-10 09:22 | ED.NURSE ---
Message left for guardian regarding visit today. Would like to establish best emergency contacts for patient as well as communicate need to obtain rx that was sent to [facility] as patient stated she had no ride to get these.
--- NOTE | 2023-10-10 10:19 | ED.NURSE ---
[facility] pharmacy contacted ED. Otic drops originally prescribed are not available. Cipro-dexamethasone was ordered instead by Dr. Cristina.
== END 2023-10-10 09:12 | disposition home or self-care (01) ==
PROVIDERS: Emergency Provider Family Medicine; PCP Family Medicine
DX: H60.501 Unspecified acute noninfective otitis externa, right ear (principal); M54.50 Low back pain, unspecified
CPT/HCPCS: 99283

== ENCOUNTER 2023-11-08 11:28 | Outpatient (CLI) | payer MEDICARE, SELFPAY ==
--- OUTSIDE RECORDS SUMMARY | 2023-11-08 11:32 | XMS_ITS | Clinical Summary ---
Author Organization [facility] Address [address] [place] [address] Care Team Providers Care Buck Presser Name Role Phone No Ref-Primary, Physician Primary Care Provider AgustinHernane Unavailable Allergies No known active allergies Medications [...] 2023 09/12/2021, 03/28/2021, 07/31/2020, Additional history exists PHQ-2 (once per calendar year) 2023 INFLUENZA VACCINE (Season Ended) 2024 03/28/2021, 02/15/2020, 02/17/2019, Additional history exists DTAP/TDAP/TD IMMUNIZATION (3 - Td or Tdap) 10/08/2031 10/07/2021, 10/07/2011, 03/29/2003 ZOSTER IMMUNIZATION Completed 11/01/2020, HPV IMMUNIZATION Aged Out No longer e [...] ??LEFT BREAST(S) DESCRIBED. RECOMMENDATION: ??6 MONTH FOLLOW-UP. ALLIE ARAUJO MD Narrative 10/03/2012 10:24 AM CDT [...] 6 month followup magnification views. Procedure Note Allie Araujo MD - 10/03/2012 DIAGNOSTIC MAMMOGRAM LEFT [...] LEFT BREAST(S) DESCRIBED. RECOMMENDATION: 6 MONTH FOLLOW-UP. ALLIE ARAUJO MD Shabana Levy CNM IM MAMMOGRAPHY [facility] TANESHA from Last 3 Months or Most Recently Relevant to Health Maintenance Care Teams Buck Presser Relationship Specialty Start Date End Date No Ref-Primary, Physician PCP - General 02/10/22 Atiya Velez [facility] 02/10/22
--- OUTSIDE RECORDS SUMMARY | 2023-11-08 11:32 | XMS_ITS | Referral Summary ---
Author Organization [facility] Address [address] [place] [address] Care Team Providers Care Soc Analyst Name Role Phone No Ref-Primary, Physician Primary Care Provider Agustin Atiya Unavailable Allergies No known active allergies Medications [...] Recently Relevant to Health Maintenance Care Teams Soc Analyst Relationship Specialty Start Date End Date No Ref-Primary, Physician PCP - General 02/10/22 Atiya Velez [facility] 02/10/22
--- OUTSIDE RECORDS SUMMARY | 2023-11-08 11:33 | XMS_ITS | Clinical Summary ---
Author Organization [facility] Address [place], [place] [address] Care Team Providers Care Restaurant Crew Name Role Phone Atiya Velez MD Primary Care Provide r Allergies Active Allergy Reactions Criticality Noted Date Comments Iodinated Contrast Media Nausea And Vomiting 04/13/2023 Morphine Vomiting 03/28/2021 Unlisted Allergen (Include Detail In Comments) Runny Nose 12/21/2018 Seasonal, and cats Medications Medication Sig Dispensed Refills Start Date End Date Status Walker - 4 wheelsIndications :Lumbar spondylosis With brakes, seat. For home use. Length of need: 99 months. 1 Device 03/23/2019 Active medication order composerIndicatio ns:Degenerative disc disease, lumbar,S/P lumbar spinal fusion theraworx foam, apply three times daily 7.1 oz 5 04/05/2019 Active cyclobenzaprine (Flexeril) 5 mg tabletIndications :Lumbar radicular pain Take 1 Tablet (5 mg) by mouth at bedtime if needed for Muscle Spasm. 24 Tablet 3 01/09/2022 Active cholecalciferol (Vitamin D) 1,000 unit capsuleIndication s:Vitamin D deficiency Take 2 Capsules (2,000 units) by mouth once daily. 0 02/24/2023 Active clindamycin 1% (CLEOCIN-T) 1 % lotionIndications :Acne rosacea APPLY TOPICALLY TO AFFECTED AREA(S) TWICE DAILY 60 mL 3 04/18/2023 Active famotidine (PEPCID) 20 mg tabletIndications :Heartburn Take 2 Tablets (40 mg) by mouth at bedtime. At bedtime 180 Tablet 3 05/18/2023 Active carBAMazepine (TEGRETOL) 200 mg tabletIndications :Convulsions, unspecified convulsion type (HC) Take 1 Tablet (200 mg) by mouth three times daily. 270 Tablet 3 08/09/2023 Active levothyroxine (SYNTHROID) 50 mcg tabletIndications :Hypothyroidism, unspecified type Take 1 Tablet (50 mcg) by mouth before breakfast. 90 Tablet 3 08/09/2023 Active omeprazole (PRILOSEC) 20 mg Delayed-Release capsuleIndication s:Heartburn Take 1 Capsule (20 mg) by mouth two times daily before meals. 180 Capsule 3 08/09/2023 Active DULoxetine (CYMBALTA) 20 mg Delayed-release capsuleIndication s:Myofascial pain Take 1 Capsule (20 mg) by mouth once daily. 90 Capsule 2 10/22/2023 Active polyethylene glycol-electrolyt e (GOLYTELY) 236-22.74-6.74 -5.86 gram suspensionIndicat ions:Positive colorectal cancer screening using Cologuard test Drink 2 liters the day before colonoscopy and 2 liters 6 hours before colonoscopy appointment 4000 mL 11/04/2023 Active ciprofloxacin-dex AMETHasone (CIPRODEX) otic suspensionIndicat ions:Acute diffuse otitis externa of right ear Place 4 Drops into right ear two times daily. 7.5 mL 02/18/2023 4 Discontinue d(*Patient states no longer taking) DULoxetine (CYMBALTA) 20 mg Delayed-release capsuleIndication s:Myofascial pain Take 1 Capsule (20 mg) by mouth once daily. 90 Capsule 3 08/09/2023 4 Discontinue d(*Availabi lity/Formul trevor change/Cost of medication) Active Problems Problem Noted Date Diagnosed Date [...] Encounters Date Type Department Care Team Description 11/05/[address] [address] Conor Wall MD Surgery Scheduled (Questions for medications for surgery ) 11/04/2023 1:00 PM CDT Office Visit [address] [address] Atiya Velez MD ER Follow up (10/10/23 Rt ear pain ); Results (Cologuard ); Pre-Op Exam (Colonoscopy 11/08/23) 11/04/[address] [address] Conor Wall MD Pre Procedure 11/04/2023 Travel 11/03/[address] [address] Atiya Velez MD Colorectal Cancer Screening (Positive cologuard) 10/30/2023 Travel 10/22/[address] [address] Atiya Velez MD Medication Management (DULoxetine (CYMBALTA) 20 mg Delayed-release capsule ) 10/22/[address] [address] Atiya Velez MD Refill Request (duloxetine) 10/12/2023 Nurse Triage [facility] [address] [place] [address] Atiya Velez MD Error-please disregard (error) 10/12/2023 Nurse Triage [facility] [address] [place] [address] Atiya Velez MD Error-please disregard 10/11/2023 Telephone [facility] [address] [place] [address] Atiya Velez MD Medication Management (home delivery pharmacy ) 09/15/2023 11:15 AM CDT Orders Only [facility] [address] [place] [address] Lab, [place] [facility] 09/14/2023 Travel 08/24/2023 Telephone [facility] [address] [place] [address] Atiya Velez MD Error-please disregard 08/19/2023 Telephone [facility] [address] [place] [address] Atiya Velez MD Questions (COGNITIVE TEST) from Last 3 Months Immunizations Name Administration Dates Next Due AMB INFLUENZA, IIV4 (AGE=>6M OS) MDRavindra (Flu Clinic Only) 03/08/2018 AMB Influenza, IIV3 (Age >=3 years)(Flu Clinic Only) 03/21/2013 COVID-19 Vaccine Spikevax (M oderna 50mcg/0.5mL) 12YO+ [id number] Formula PF 03/25/2023 COVID-19 vaccine (Moderna 100mcg/0.5mL) PF, V 09/12/2021,07/31/2020,07/03/2020 COVID-19 vaccine (Moderna Carlos Alberto carter 50mcg/0.25mL) PF, MDV 03/28/2021 COVID-19 vaccine (Pfizer-Bio NTech 30mcg/0.3mL) 12YO+ BIVALENT PF, MDV 03/17/2022 Influenza, IIV3 (Age >=3 years) 03/26/2017,03/18 Influenza, IIV4 02/18/2023, 2,03/28/2021,02/15/20 20,03/27/2016,02/20/2016,03/28/2015,02/28 Influenza, IIV4 (=>6mos) MDV 02/17/2019 Td [...] of Communication with Friends and Fami ly 0 10/30/2023 Financial Resource Strain Answer Date R ecorded Difficulty of Paying Living Expenses 3 10/30/2023 Difficulty of Paying Living Expenses Not on file 10/30/2023 Food Insecurity Answer Date Recorded Worried About Running Out of Food in the Last Ye ar 1 10/30/2023 Transportation Needs Answer Date Record ed Lack of Transportation (Medical) 1 10/30/2023 Housing Stability Answer Date Recorded Unable to Pay for Housing in the Last Year 1 10/30/2023 Sex and Gender Information Value Date Recorded Sex Assigned at Female 04/11/2023 11:45 PM INSPECTOR MISSILE Gender Identity Female 04/11/2023 11:45 PM INSPECTOR MISSILE Sexual Orientation Not on file Obstetrics History Para Term AB IAB SAB Ectopic Multiple Livin g Live Births 0 0 0 0 0 0 0 0 0 0 0 Last Filed Vital Signs Vital Sign Reading Time Taken Comments Blood Pressure 132/84 11/04/2023 12:58 PM CDT Pulse 86 11/04/2023 12:58 PM CDT Temperature 36.6 ??C (97.8 ??F) 11/04/2023 12:58 PM C DT Respiratory Rate 16 05/06/2021 2:04 PM INSPECTOR MISSILE Oxygen Saturation 98% 11/04/2023 12:58 PM CDT Inhaled Oxygen Concentration - - Weight 84 kg (185 lb 3.2 oz) 11/04/2023 12:58 PM CDT Height 152.4 cm (5') 08/06/2023 12:03 PM INSPECTOR MISSILE Body Mass Index 36.17 08/06/2023 12:03 PM INSPECTOR MISSILE Plan of Treatment Upcoming Encounters Date Type Department Care Team (Late st Contact Info) Description 11/08/2023 11:45 AM CDT Office Visit [facility] [address] [place] [address] Conor Wall MD [address] [place] [address] Arrived 11/09/2023 11:40 AM CDT Ancillary Procedure [facility] [address] [place] [address] Health Maintenance Due Date Last Done Comments Colonoscopy through age 75 02/12/202111/07, 08/12/2020 (Completed outside of [facility]) Mammogram for age 45-75 01/12/2024 01/12/20 23, [...] Additional history exists Lipids for age 45-75 11/03/2028 11/04/2023, 09/15/2023, 09/15/2023, Additional history exists Tetanus booster 10/08/2031 10/07/2021, 07/2011, 03/29/2003, Additional history exists Zoster (shingles) series for age 50+ Completed 11/01/2020, 09/01/2020 Tdap Completed 10/07/2021, 10/07/2011 Hepatitis C screening for age 18-79 Completed 03/17/2022, 02/16/2022 HIV for age 15-65 Completed 06/23/2022 COVID-19 vaccine series Completed 03/25/20, 03/17/2022, 09/12/2021, Additional history exists Fecal testing sDNA-FIT (Cologuard) for age 45-75 Discontinued 10/27/2023, 08/18/2020 Pneumococcal series for age 6-64 Aged Out No longer eligible based on patient's age to complete this topic Goals Goal Patient Goal Type Associated Problems Recent Progress Patient-Stated? Author BLOOD PRESSURE - Maintains BP less than 140/90 Blood Pressure No [employer] Implanted Type Area Narrow Gauge Brakeman Device Identifier Shelf Expiration Date Model / Serial / Lot [id number] - [id number] Implanted:Qty: 1 on 04/09/2021 by Maxi Rodrigez MD at [facility] Left: Ear Medtronic 07/11/2027 [id number] / / [id number] Description:medtronic big ea sy piston - straight [id number] Lot [id number] Cmnt Bone Ear 2gm Otominimix - [id number] Implanted:Qty: 1 on 04/09/2021 by Maxi Rodrigez MD at [facility] Left: Ear [employer] 07/24/2022 [id number] / / [id number] Procedures Procedure Name Priority Date/Time Associated Diagnosis Comments COLONOSCOPY SCREENING Routine 11/08/2023 8:05 AM CDT Positive colorectal cancer screening using DNA-based stool test LIPID PANEL W REFLEX MEASURED LDL Routine 11/04/2023 2:23 PM CDT Hyperlipidemia, unspecified hyperlipidemia type SDNA-FIT EXTERNAL (COLOGUARD) Routine 10/27/2023 9:21 AM CDT Screening for colon cancer LDL CHOLESTEROL,DIRECT Routine 09/15/2023 11:11 AM CDT [...] Routine 09/15/2023 11:11 AM CDT Seizures (HC) XR MAMMO TONY BILAT SCREEN Routine 01/11/2023 8:41 AM CDT Encounter for screening mammogram for malignant neoplasm of breast LC HIV-1/O/2, 4TH GENERATION Routine 06/23/2022 2:28 PM INSPECTOR MISSILE Screening for HIV (human immunodeficiency virus) ANTI HCV Routine 03/17/2022 12:25 PM CDT Encounter for HCV screening test for low risk patient HPV THIN PREP Routine 10/28/2021 11:49 AM CDT Pap smear for cervical cancer screening from Last 3 Months or Most Recently Relevant to Health Maintenance Results * (ABNORMAL) LIPID PANEL W REFLEX MEASURED LDL (11/04/2023 2:23 PM CDT) Only the most recent of2 resultswithin the time period is included. Pathologist [facility] CHOLESTEROL,TOTAL 336(H) 100 - 199 mg/dL 11/04/2023 11:04 PM CDT [facility] Comment: Cholesterol, Total Reference Ranges Desirable <200 mg/dL Borderline 200-239 mg/dL High >=240 mg/dL TRIGLYCERIDES 294(H) <150 mg/dL 11/04/2023 11:04 PM CDT [facility] HDL CHOLESTEROL 58 >40 mg/dL 11:04 PM CDT [facility] NON-HDL CHOLESTEROL 278(H) <145 mg/dl 11/04/2023 11:04 PM CDT [facility] CHOL/HDL RATIO 5.79(H) <4.50 11/04/2023 11:04 PM CDT [facility] LDL CHOLESTEROL 219(H) <=130 mg/dL 11/04/2023 11:04 PM CDT [facility] VLDL CHOLESTEROL 59(H) <=30 mg/dL 11/04/2023 11:04 PM CDT [facility] PROVIDER ORDERED STATUS RANDOM 11/04/2023 11:04 PM CDT [facility] Blood BLOOD SPECIMEN / Unknown Venipuncture / Unknown 11/04/2023 2:23 PM CDT 11/04/2023 2:25 PM CDT Atiya Velez MD CHEMISTRY [facility] [address] [place] [address], * (ABNORMAL) SDNA-FIT EXTERNAL (COLOGUARD) (10/27/2023 9:21 AM CDT) Pathologist [facility] NONINV COLON CA DNA+OCC BLD SCRN STL-IMP Positive( A) Negative 11/02/2023 7:39 PM CDT [facility] (CLIA #:[id number]) Comment: POSITIVE TEST RESULT. A positive Cologuard result should be followed with a colonoscopy or visual examination of the colon. The normal value (reference range) for this assay is negative. TEST DESCRIPTION: Composite algorithmic analysis of stool DNA-biomarkers with hemoglobin immunoassay. ?? Quantitative values of individual biomarkers are not reportable and are not associated with individual biomarker result reference ranges. Cologuard is intended for colorectal cancer screening of adults of either sex, 45 years or older, who are at average-risk for colorectal cancer (CRC). Cologuard has been approved for use by the U.S. FDA. The performance of Cologuard was established in a cross sectional study of average-risk adults aged 50-84. Cologuard performance in patients ages 45 to 49 years was estimated by sub-group analysis of near-age groups. Colonoscopies performed for a positive result may find as the most clinically significant lesion: colorectal cancer [4.0%], advanced adenoma (including sessile serrated polyps greater than or equal to 1cm diameter) [20%] or non- advanced adenoma [31%]; or no colorectal neoplasia [45%]. These estimates are derived from a prospective cross-sectional screening study of 10,000 individuals at average risk for colorectal cancer who were screened with both Cologuard and colonoscopy. (Ash Martin al, N Engl J Med 2014;370(14):6972-7322.) Cologuard may produce a false negative or false positive result (no colorectal cancer or precancerous polyp present at colonoscopy follow up). A negative Cologuard test result does not guarantee the absence of CRC or advanced adenoma (pre-cancer). The current Cologuard screening interval is every 3 years. ([place] Cancer Society and U.S. Multi-Society Task Force). Cologuard performance data in a 10,000 patient pivotal study using colonoscopy as the reference method can be accessed at the following location: www.DCWafers/results. Additional description of the Cologuard test process, warnings and precautions can be found at www.[employer]gord.com. Stool specimen (specimen) (Rectum) 10/27/2023 9:21 AM CDT 10/28/2023 9:37 AM CDT Atiya Velez MD URINE [facility] (CLIA #:[id number]) [place] [address], [place] [phone] * (ABNORMAL) CBC WITH AUTO DIFFERENTIAL (09/15/2023 11:11 AM CDT) [employer] Signature WHITE BLOOD COUNT 6.9 4.5 - 11.0 thou/cu mm 09/15/2023 11:16 AM CDT [facility] RED BLOOD COUNT 3.89(L) 4.00 - 5.20 mil/cu mm 09/15/2023 11:16 AM CDT [facility] HEMOGLOBIN 12.6 12.0 - 16.0 g/dL 09/15/2023 11:16 AM CDT [facility] HEMATOCRIT 38.5 33.0 - 51.0 % 09/15/2023 11:16 AM CDT [facility] MCV 99 80 - 100 fL 09/15/2023 11:16 AM CDT [facility] MCH 32.4 26.0 - 34.0 pg 09/15/2023 11:16 AM CDT [facility] MCHC 32.7 32.0 - 36.0 g/dL 09/15/2023 11:16 AM CDT [facility] RDW 13.8 11.5 - 15.5 % 09/15/2023 11:16 AM CDT [facility] PLATELET COUNT 205 140 - 440 thou/cu mm 09/15/2023 11:16 AM CDT [facility] MPV 12.1(H) 6.5 - 11.0 fL 09/15/2023 11:16 AM CDT [facility] % NEUT 61.7 % 09/15/2023 11:16 AM CDT [facility] % LYMPH 27.4 % 09/15/2023 11:16 AM CDT [facility] % MONO 7.7 % 09/15/2023 11:16 AM CDT [facility] % EOS 2.9 % 09/15/2023 11:16 AM CDT [facility] % BASO 0.3 % 09/15/2023 11:16 AM CDT [facility] ABSOLUTE NEUTROPHILS 4.2 1.7 - 7.0 thou/cu mm 09/15/2023 11:16 AM CDT [facility] ABSOLUTE LYMPHOCYTES 1.9 0.9 - 2.9 thou/cu mm 09/15/2023 11:16 AM CDT [facility] ABSOLUTE MONOCYTES 0.5 <0.9 thou/cu mm 09/15/2023 11:16 AM CDT [facility] ABSOLUTE EOSINOPHILS 0.2 <0.5 thou/cu mm 09/15/2023 11:16 AM CDT [facility] ABSOLUTE BASOPHILS 0.0 <0.3 thou/cu mm 09/15/2023 11:16 AM CDT [facility] Blood BLOOD SPECIMEN / Unknown Venipuncture / Unknown 09/15/2023 11:11 AM CDT 09/15/2023 11:13 AM CDT Atiya Velez MD HEMATOLOGY Performing Organization Address [facility] Co de Phone Number [facility] [address] [place] [address], * TSH WITH REFLEX (09/15/2023 11:11 AM CDT) TSH 1.99 0.27 - 4.20 uIU/mL 09/15/2023 7:39 PM CDT [facility] Blood BLOOD SPECIMEN / Unknown Venipuncture / Unknown 09/15/2023 11:11 AM CDT 09/15/2023 11:13 AM CDT Narrative [facility] - 09/15/2023 7:39 PM CDT In Adults, TSH values between 5.00 and 10.00 uIU/ml do not necessarily indicate the presence of Hypothyroidism. Correlation with clinical findings such as presence of goiter and/or Thyroperoxidase (TPO) Antibody may be helpful. For more information please refer to TORIE 2004; 291: 228-238. Atiya Velez MD CHEMISTRY Performing Organization Address City/[facility]/ZIP Co de Phone Number [facility] [address] [place] [address], * VITAMIN D 25 (DEFICIENCY) (09/15/2023 11:11 AM CDT) VITAMIN D TOTAL 36.1 20.0 - 80.0 ng/mL 09/15/2023 7:39 PM CDT [facility] Blood BLOOD SPECIMEN / Unknown Venipuncture / Unknown 09/15/2023 11:11 AM CDT 09/15/2023 11:13 AM CDT Narrative [facility] - 09/15/2023 7:39 PM CDT ? Vitamin D Status Deficiency: ? <20 ng/mL Insufficiency: ?20-29 ng/mL Sufficiency: ?30-80 ng/mL Possible Toxicity: ??>80 ng/mL Based on Alligator of Medicine recommendations Biotin supplements may cause clinically significant interference for this test assay. ??If interference is suspected, it is strongly recommended that biotin is discontinued for at least one week prior to retesting. Atiya Velez MD SEND OUTS Performing Organization Address [facility] de Phone Number [facility] [address] [place] [address], * LDL CHOLESTEROL,DIRECT (09/15/2023 11:11 AM CDT) Pathologist [facility] LDL CHOLESTEROL,DI RECT 183 mg/dL 09/15/2023 9:23 PM CDT [facility] PROVIDER ORDERED STATUS RANDOM 09/15/2023 9:23 PM CDT [facility] Blood BLOOD SPECIMEN / Unknown Venipuncture / Unknown 09/15/2023 11:11 AM CDT 09/15/2023 11:[address] [facility] LAB[facility]AT[facility] - 09/15/2023 9:23 PM CDT Optimal ?<100 mg/dl Near Optimal ?100-129 mg/dl Borderline High ?? 130-159 mg/dl High ?160-189 mg/dl Very High ? >=190 mg/dl Atiya Velez MD CHEMISTRY Performing Organization Address [facility] de Phone Number [facility] [address] [place] [address], * FSH (09/15/2023 11:11 AM CDT) Pathologist [facility] FSH 36.4 mIU/mL 09/15/2023 8:18 PM CDT [facility] Blood BLOOD SPECIMEN / Unknown Venipuncture / Unknown 09/15/2023 11:11 AM CDT 09/15/2023 11:13 AM CDT Narrative [facility] - 09/15/2023 8:18 PM CDT FSH Reference Range Female: ? Follicular ?3.5 - ??12.5 mIU/ml ?Ovulatory ? 4.7 - ??21.5 mIU/ml ?Luteal ?1.7 - ?? 7.7 mIU/ml ?Post Menopausal ??25.8 - 134.8 mIU/ml Male: ? 1.5 - ??12.4 mIU/ml ? Atiya Velez MD CHEMISTRY Performing Organization Address [facility] de Phone Number [facility] [address] [place] [address], * (ABNORMAL) COMP METABOLIC PANEL (09/15/2023 11:11 AM CDT) SODIUM 141 136 - 145 mmol/L 09/15/2023 7:39 PM CDT [facility] POTASSIUM 4.5 3.5 - 5.1 mmol/L 09/15/2023 7:39 PM T [facility] CHLORIDE 102 98 - 107 mmol/L 09/15/2023 7:39 PM T [facility] CO2,TOTAL 27 22 - 29 mmol/L 09/15/2023 7:39 PM T [facility] ANION GAP 12 5 - 18 09/15/2023 7:39 PM T [facility] GLUCOSE 97 70 - 99 mg/dL 09/15/2023 7:39 PM T [facility] CALCIUM 8.8 8.6 - 10.0 mg/dL 09/15/2023 7:39 PM T [facility] BUN 18 6 - 20 mg/dL 09/15/2023 7:39 PM T [facility] CREATININE 0.82 0.50 - 0.90 mg/dL 09/15/2023 7:39 PM T [facility] BUN/CREAT RATIO 22(H) 10 - 20 7:39 PM T [facility] eGFR 86(L) >90 mL/min/1.7 3m2 09/15/2023 7:39 PM T [facility] Comment:As of 2021, eG FR is calculated by the CKD-EPI creatinine equation without race adjustment. ??eGFR can be influenced by muscle mass, exercise, and diet. ??The reported eGFR is an estimation only and is only applicable if the renal function is stable. ALBUMIN 4.6 4.0 - 4.9 g/dL 09/15/2023 7:39 PM CDT [facility] PROTEIN,TOTAL 8.0 6.0 - 8.0 g/dL 09/15/2023 7:39 PM CDT [facility] BILIRUBIN,TOTAL 0.2 0.0 - 1.2 mg/dL 09/15/2023 7:39 PM CDT [facility] ALK PHOSPHATASE 71 35 [...] 11:13 AM CDT Atiya Velez MD CHEMISTRY Performing Organization Address City/State/[facility] Co de Phone Number [facility] [address] [place] [address], * XR MAMMO TONY BILAT SCREEN (01/11/2023 [...] care provider. XR MAMMO TONY BILAT SCREEN [[id number]] CLINICAL HISTORY: ??This is an asymptomatic 52 y.o. patient. INDICATION FOR EXAM: Mammogram Screening. TECHNIQUE: CC & MLO views were obtained. ??This study was evaluated with the assistance of Computer-Aided Detection. Breast Tomosynthesis was used in interpretation. COMPARISON FILM: Yes 12/16/21 [facility] 11/19/20 [facility] FINDINGS: ??The breasts have scattered areas of fibroglandular density. There are no dominant masses, suspicious micro calcifications or areas of architectural distortion. Atiya Velez MD MAMMO * LC HIV-1/O/2, 4TH GENERATION (06/23/2022 2:28 PM INSPECTOR MISSILE) Pathologist [facility] HIV Scr 4th Gen Non Reactive Non Reactive 06/25/2022 9:06 PM INSPECTOR MISSILE [facility] ([facility]) Comment: HIV Negative HIV-1/HIV-2 antibodies and HIV-1 p24 antigen were NOT detected. There is no laboratory evidence of HIV infection. Blood BLOOD SPECIMEN / Unknown Venipuncture / Unknown 06/23/2022 2:28 PM INSPECTOR MISSILE 06/23/2022 2:29 PM INSPECTOR MISSILE Narrative [facility] - 06/25/2022 9:06 PM INSPECTOR MISSILE Performed at: ??[address] ??[id number] [employer] Instructor: Miko Leyva MD, Phone: ??[phone] Atiya Velez MD LABORATORY [facility] ([facility]) [address] [place] [address] * ANTI HCV (03/17/2022 12:25 PM CDT) Pathologist [facility] HEPATITIS C ANTIBODY Non-React ramona Non-React ramona 03/18/2022 5:22 PM CDT [facility] Comment:Antibodies to HCV no t detected; does not exclude the possibility of exposure to HCV. Blood BLOOD SPECIMEN / Unknown Venipuncture / Unknown 03/17/2022 12:25 PM CDT 03/17/2022 12:25 PM CDT Atiya Velez MD SEND OUTS [facility] [address] [place] [address], * HPV HIGH RISK (10/28/2021 11:49 AM CDT) TYPE 16 Negative Negative 10/30/2021 2:55 PM CDT [facility] TYPE 18 Negative Negative 10/30/2021 2:55 PM CDT [facility] OTHER HIGH RISK TYPES Negative Negative 10/30/2021 2:55 PM CDT [facility] Other (Cervical) Non-Blood / Unknown 10/28/2021 11:49 AM CDT 10/29/2021 10:31 AM CDT Narrative [facility] - 10/30/2021 2:55 PM CDT HPV types 16, 18, 31, 33, 35, 39, 45, 51, 52, 56, 58, 59, 66 and 68 DNA were undetectable or below the pre-set threshold. Methodology: Cristina Salinas 4800 HPV Test Josselyn TATUM MICROBIOLOGY [facility] [address] [place] [address], from Last 3 Months or Most Recently Relevant to Health Maintenance Advance Directives Documents on File Type Date Recorded Patient Communication Assistant Expl anation POLST 10/05/2023 Healthcare Directive 08/25/2023 024 Power of Radio Officer 03/11/2018 4:18 PM STATU TORFilipe SHORT FORM POWER OF RADIATOR FITTER, KIRSTIN & YOMI, RC, 10/14/17 Healthcare Directive 03/11/2018 4:14 PM HE ALTHCARE DIRECTIVE, [facility], 02/10/18 POLST 12/16/2017 3:47 PM ALLSUSAN CANALES [facility], 12/01/17 * Full Code (Latest Code Status on File) Date Activated Date Inactivated Comments 04/09/2021 9:39 AM 04/09/2021 6:54 PM Question Answer Comments Code Status Discussion: Not Discussed Care Teams Restaurant Crew Relationship Specialty Start Date End Date Atiya Velez MD [address] [place] [address] PCP - General Family Practice 03/16/14
--- NOTE | 2023-11-08 12:16 | W.ANESCHARGE ---
Anesthesia Charges Start Date/Time Anesthesia Start Date: 11/08/23 Anesthesia Start Time: 12:32 Stop Date/Time Anesthesia Stop Date: 11/08/23 Anesthesia Stop Time: 13:15
--- NOTE | 2023-11-08 13:19 | W.ANESCHARGE ---
Anesthesia Charges Start Date/Time Anesthesia Start Date: 11/08/23 Anesthesia Start Time: 12:32 Stop Date/Time Anesthesia Stop Date: 11/08/23 Anesthesia Stop Time: 13:15
== END 2023-11-08 11:29 | disposition home or self-care (01) ==
LOC: OP CLINIC 11:31
PROVIDERS: PCP Family Medicine; Visit Provider Internal Medicine Gastroenterology
DX: Z12.11 Encounter for screening for malignant neoplasm of colon (principal); R19.5 Other fecal abnormalities; K63.5 Polyp of colon
CPT/HCPCS: 00811; 45385; 88305; J2704

== ENCOUNTER 2023-12-20 09:14 | Day surgery (SDC) | payer MEDICARE, SELFPAY ==
--- OUTSIDE RECORDS SUMMARY | 2023-12-20 09:19 | XMS_ITS | Referral Summary ---
Author Organization [facility] Address [address] [place] [address] Care Team Providers Care Plant Quality Manager Name Role Phone No Ref-Primary, Physician Primary [...] Recently Relevant to Health Maintenance Care Teams Plant Quality Manager Relationship Specialty Start Date End Date No Ref-Primary, Physician PCP - General 02/10/22 Atiya Velez [facility] 02/10/22
--- OUTSIDE RECORDS SUMMARY | 2023-12-20 09:19 | XMS_ITS | Clinical Summary ---
Author Organization [facility] Address [place], [place] [address] Care Team Providers Care Vp Hr Diversity Name Role Phone Atiya Velez MD Primary Care Provide r Allergies Active Allergy Reactions Criticality Noted Date Comments Iodinated Contrast Media Nausea And Vomiting 04/13/2023 Morphine Vomiting 03/28/2021 Unlisted Allergen (Include Detail In Comments) Runny Nose 12/21/2018 Seasonal, and cats Medications Medication Sig Dispensed Refills Start Date End Date Status Walker - 4 wheelsIndications:Kiara mbar spondylosis With brakes, seat. For home use. Length of need: 99 months. 1 Device 03/23/2019 Active medication order composerIndications: Degenerative disc disease, lumbar,S/P lumbar spinal fusion theraworx foam, apply three times daily 7.1 oz 5 04/05/2019 Active cyclobenzaprine (Flexeril) 5 mg tabletIndications:Kiara mbar radicular pain Take 1 Tablet (5 mg) by mouth at bedtime if needed for Muscle Spasm. 24 Tablet 3 01/09/2022 Active cholecalciferol (Vitamin D) 1,000 unit capsuleIndications:V itamin D deficiency Take 2 Capsules (2,000 units) by mouth once daily. 0 02/24/2023 Active clindamycin 1% (CLEOCIN-T) 1 % lotionIndications:Ac ne rosacea APPLY TOPICALLY TO AFFECTED AREA(S) TWICE DAILY 60 mL 3 04/18/2023 Active famotidine (PEPCID) 20 mg tabletIndications:He artburn Take 2 Tablets (40 mg) by mouth at bedtime. At bedtime 180 Tablet 3 05/18/2023 Active carBAMazepine (TEGRETOL) 200 mg tabletIndications:Co nvulsions, unspecified convulsion type (HC) Take 1 Tablet (200 mg) by mouth three times daily. 270 Tablet 3 08/09/2023 Active levothyroxine (SYNTHROID) 50 mcg tabletIndications:Hy pothyroidism, unspecified type Take 1 Tablet (50 mcg) by mouth before breakfast. 90 Tablet 3 08/09/2023 Active omeprazole (PRILOSEC) 20 mg Delayed-Release capsuleIndications:H eartburn Take 1 Capsule (20 mg) by mouth two times daily before meals. 180 Capsule 3 08/09/2023 Active DULoxetine (CYMBALTA) 20 mg Delayed-release capsuleIndications:M yofascial pain Take 1 Capsule (20 mg) by mouth once daily. 90 Capsule 2 10/22/2023 Active polyethylene glycol-electrolyte (GOLYTELY) 236-22.74-6.74 -5.86 gram suspensionIndication s:Positive colorectal cancer screening using Cologuard test Drink 2 liters the day before colonoscopy and 2 liters 6 hours before colonoscopy appointment 4000 mL 11/04/2023 Active colestipoL (Colestid) 1 gram tabletIndications:Hy perlipidemia, unspecified hyperlipidemia type Take 1 Tablet (1 g) by mouth two times daily. 60 Tablet 11 11/18/2023 Active Active Problems Problem Noted Date Diagnosed Date Colon polyp 11/10/2023 Overview: Colonoscopy 11/2023 TA, repeat in 7 years, propofol Mixed hearing loss, bilateral 06/03/2021 Cholecystitis 10/04/2020 [...] Encounters Date Type Department Care Team Description 12/07/2023 1:45 PM CDT Office Visit [facility] [address] [place] [address] Mayela Abad MD Follow Up (Wants to schedule surgery --umbilical hernia) 12/07/2023 Travel 12/02/2023 Travel 11/26/2023 Telephone [facility] [address] [place] [address] Mayela Abad MD Hernia Surgery 11/25/2023 12:35 PM CDT Office Visit [facility] [address] [place] [address] Atiya Velez MD Hernia (Rechecking on hernia./Has been bugging her./) 11/25/2023 Travel 11/20/2023 Travel 11/09/2023 Travel 11/08/2023 11:45 AM CDT Office Visit [facility] at [address] [phone] Conor Wall MD 11/08/2023 Lab Requisition [facility] [phone] Conor Wall MD 11/05/2023 Telephone [facility] [address] [place] [address] Conor Wall MD Surgery Scheduled (Questions for medications for surgery ) 11/04/2023 1:00 PM CDT Office Visit [facility] [address] [place] [address] Atiya Velez MD ER Follow up (10/10/23 Rt ear pain ); Results (Cologuard ); Pre-Op Exam (Colonoscopy 11/08/23) 11/04/2023 Telephone [facility] [address] [place] [address] Conor Wall MD Pre Procedure 11/04/2023 Travel 11/03/2023 Telephone [facility] [address] [place] [address] Atiya Velez MD Colorectal Cancer Screening (Positive cologuard) 10/30/2023 Travel 10/22/[address] [address] Atiya Velez MD Medication Management (DULoxetine (CYMBALTA) 20 mg Delayed-release capsule ) 10/22/[address] [address] Atiya Velez MD Refill Request (duloxetine) 10/12/2023 Nurse Triage [address] [address] Atiya Velez MD Error-please disregard (error) 10/12/2023 Nurse Triage [address] [address] Atiya Velez MD Error-please disregard 10/11/[address] [address] Atiya Velez MD Medication Management (home delivery pharmacy ) from Last 3 Months Immunizations Name Administration Dates Next Due AMB INFLUENZA, IIV4 (AGE=>6M OS) MDV (Flu Clinic Only) 03/08/2018 AMB Influenza, IIV3 (Age >=3 years)(Flu Clinic Only) 03/21/2013 COVID-19 Vaccine Spikevax (M oderna 50mcg/0.5mL) 12YO+ [id number] Formula PF 03/25/2023 COVID-19 vaccine (Moderna 100mcg/0.5mL) PF, MDV 09/12/2021,07/31/2020,07/03/2020 COVID-19 vaccine (Moderna Carlos Alberto carter 50mcg/0.25mL) PF, MDV 03/28/2021 COVID-19 vaccine ([employer] 30mcg/0.3mL) 12YO+ BIVALENT PF, MDV 03/17/2022 [...] Sex Assigned at Female 04/11/2023 11:45 PM INSECTICIDE SUPERVISOR Gender Identity Female 04/11/2023 11:45 PM INSECTICIDE SUPERVISOR Sexual Orientation Not on file Obstetrics History Para Term AB IAB SAB Ectopic Multiple Livin g Live Births 0 0 0 0 0 0 0 0 0 0 0 Last Filed Vital Signs Vital Sign Reading Time Taken Comments Blood Pressure 119/83 12/07/2023 1:23 PM CDT Pulse 109 12/07/2023 1:23 PM CDT Temperature 36.6 ??C (97.8 ??F) 11/04/2023 1 2:58 PM CDT Respiratory Rate 16 05/06/2021 2:04 PM INSECTICIDE SUPERVISOR Oxygen Saturation 96% 12/07/2023 1:2 3 PM CDT Inhaled Oxygen Concentration - - Weight 83.6 kg (184 lb 3.2 oz) 12/07/19 1:23 PM CDT with shoes Height 152.4 cm (5') 08/06/2023 12:03 PM INSECTICIDE SUPERVISOR Body Mass Index 35.97 08/06/2023 12:03 PM INSECTICIDE SUPERVISOR Plan of Treatment Upcoming Encounters Date Type Department Care Team (Late st Contact Info) Description 01/20/2024 11:20 AM CDT Ancillary Procedure [facility] [address] [place] [address] Health Maintenance Due Date Last Done Comments Mammogram for age 45-75 01/12/2024 01/12/20, 12/16/2021, 11/19/2020, Additional history exists Influenza for [...] 11/03/2028 11/04/2023, 09/15/2023, 09/15/2023, Additional history exists Colonoscopy through age 75 11/07/203011/07, 11/08/2023, 08/12/2020 (Completed outside of [facility]) Tetanus booster 10/08/2031 10/07/2021, 05/07/2011, 03/29/2003, Additional history exists Zoster (shingles) series [...] [employer] Implanted Type Area Roll Tester Device Identifier Shelf Expiration Date Model / Serial / Lot [id number] - [id number] Implanted:Qty: 1 on 04/09/2021 by Maxi Rodrigez MD at [facility] Left: Ear Medtronic 07/11/2027 [id number] / / [id number] Description:medtronic big ea sy piston - straight [id number] Lot [id number] Cmnt Bone Ear 2gm Otominimix - [id number] Implanted:Qty: 1 on 04/09/2021 by Maxi Rodrigez MD at [facility] Left: Ear [employer] 07/24/2022 [id number] / / [id number] Procedures Procedure Name Priority Date/Time Associated Diagnosis Comments LAB TRACKING EVENT Routine 11/08/2023 12 :55 PM CDT PATH TISSUE EXAM Routine 11/08/2023 12:5 5 PM CDT COLONOSCOPY SCREENING Routine 11/08/2023 12:00 AM CDT Positive colorectal cancer screening using DNA-based stool test LIPID PANEL W REFLEX MEASURED LDL Routine 11/04/2023 2:23 PM CDT Hyperlipidemia, unspecified hyperlipidemia type SDNA-FIT EXTERNAL (COLOGUARD) Routine 10/27/2023 9:21 AM CDT Screening for colon cancer XR MAMMO TONY BILAT SCREEN Routine 01/11/2023 8:41 AM CDT Encounter for screening mammogram for malignant neoplasm of breast LC HIV-1/O/2, 4TH GENERATION Routine 06/23/2022 2:28 PM INSECTICIDE SUPERVISOR Screening for HIV (human immunodeficiency virus) ANTI HCV Routine 03/17/2022 12:25 PM CDT Encounter for HCV screening test for low risk patient HPV THIN PREP Routine 10/28/2021 11:49 AM CDT Pap smear for cervical cancer screening from Last 3 Months or Most Recently Relevant to Health Maintenance Results * LAB TRACKING EVENT (11/08/2023 12:55 PM CDT) Other (Other) Client Collect / Unknown 11/08/2023 12:55 PM CDT 11/08/2023 9:27 PM CDT Conor Wall MD LAB BILL ONLY [facility] [address] [place] [address], * PATH TISSUE EXAM (11/08/2023 12:55 PM CDT) Case Report Pathology Report ?Case: [id number] ? Authorizing Provider: ??Conor Wall MD ?? Collected: ? 11/08/2023 1255 ? Ordering Location: ? [facility] ?Received: ?11/09/2023 0828 ? Pathologist: ? Laura Eng MD ? Specimen: ?Cecum Biopsy ? 11/10/2023 10:51 AM CDT [facility] NTRAL LABORATORY Final Diagnosis A) COLON, CECUM, POLYPECTOMY: 1. Tubular adenoma 2. Negative for high grade dysplasia 3. Per the colonoscopy report: ?? a. Polyp size: 7 mm ?? b. Resection: Complete ?? c. Retrieval: Complete 11/10/2023 10:51 AM T [facility] Clinical Information Positive Molly 11/10/2023 10:51 AM T [facility] Gross Description A) Received in formalin are 2 mann mucosal fragments averaging 13 mm in greatest dimension, which are entirely submitted in one cassette. It is labeled with the patient's name and designated cecum polyp. Carine Fung 11/09/2023 1:44 PM 11/10/2023 10:51 AM T [facility] NTRAL LABORATORY Microscopic Description The final diagnosis is based on microscopic examination of appropriate sections of all specimens. 11/10/2023 10:51 AM CDT [facility] Additional Information Interpreted at [facility] - [address], [place] [address] 11/10/2023 10:[address] [facility] Other (Cecum Biopsy) 11/08/2023 12:55 PM CDT 11/09/2023 8:28 AM CDT Conor Wall MD PATHOLOGY/CYTOLOG Y [facility] [address] [place] [address], * COLONOSCOPY SCREENING (11/08/2023 12:00 AM CDT) Atiya Velez MD GI PROCEDURE ORD * (ABNORMAL) LIPID PANEL W REFLEX MEASURED LDL (11/04/2023 2:23 PM CDT) CHOLESTEROL,TOTAL 336(H) 100 - 199 mg/dL 11/04/2023 11:04 PM CDT [facility] Comment: Cholesterol, Total Reference Ranges Desirable <200 mg/dL Borderline 200-239 mg/dL High >=240 mg/dL TRIGLYCERIDES 294(H) <150 mg/dL 11/04/2023 11:04 PM CDT [facility] HDL CHOLESTEROL 58 >40 mg/dL 11:04 PM CDT [facility] NON-HDL CHOLESTEROL 278(H) <145 mg/dl 11/04/2023 11:04 PM CDT [facility] CHOL/HDL RATIO 5.79(H) <4.50 11/04/2023 11:04 PM CDT [facility] LDL CHOLESTEROL 219(H) <=130 mg/dL 11/04/2023 11:04 PM CDT [facility] VLDL CHOLESTEROL 59(H) <=30 mg/dL 11/04/2023 11:04 PM CDT [facility] PROVIDER ORDERED STATUS RANDOM 11/04/2023 11:04 PM CDT [facility] Blood BLOOD SPECIMEN / Unknown Venipuncture / Unknown 11/04/2023 2:23 PM CDT 11/04/2023 2:25 PM CDT Atiya Velez MD CHEMISTRY [facility] [address] [place] [address], * (ABNORMAL) SDNA-FIT EXTERNAL (COLOGUARD) (10/27/2023 9:21 AM CDT) NONINV COLON CA DNA+OCC BLD SCRN STL-IMP Positive( A) Negative 11/02/2023 7:39 PM CDT [facility] (CLIA #:[id number]) Comment: POSITIVE TEST RESULT. A positive Cologuard [...] were screened with both Cologuard and colonoscopy. (Imperiale T. et al, N Engl J Med 2014;370(14):3690-5985.) Cologuard may produce a false negative or false positive result (no colorectal cancer or precancerous polyp present at colonoscopy follow up). A negative Cologuard test result does not guarantee the absence of CRC or advanced adenoma (pre-cancer). The current Cologuard screening interval is every 3 years. ([place] Cancer Society and U.S. Multi-Society Task Force). Cologuard performance data in a 10,000 patient pivotal study using colonoscopy as the reference method can be accessed at the following location: [email or web address]/results. Additional description of the Cologuard test process, warnings and precautions can be found at [email or web address]. Stool specimen (specimen) (Rectum) 10/27/2023 9:21 AM CDT 10/28/2023 9:37 AM CDT Atiya Velez MD URINE [facility] (CLIA #:[id number]) [place] [address], * XR MAMMO TONY BILAT SCREEN (01/11/2023 [...] For Patients: As a result of the Century Cures Act, medical imaging exams and procedure reports are released immediately into your electronic medical record. You may view this report before your referring provider. If you have questions, please contact your health care provider. XR MAMMO TONY BILAT SCREEN [[id number]] CLINICAL HISTORY: ??This is an asymptomatic 52 y.o. patient. INDICATION FOR EXAM: Mammogram Screening. TECHNIQUE: CC & MLO views were obtained. ??This study was evaluated with the assistance of Computer-Aided Detection. Breast Tomosynthesis was used in interpretation. COMPARISON FILM: Yes 12/16/21 [facility] 11/19/20 [facility] FINDINGS: ??The breasts have scattered areas of fibroglandular density. There are no dominant masses, suspicious micro calcifications or areas of architectural distortion. Atiya Velez MD MAMMO * LC HIV-1/O/2, 4TH GENERATION (06/23/2022 2:28 PM INSECTICIDE SUPERVISOR) Pathologist [facility] HIV Scr 4th Gen Non Reactive Non Reactive 06/25/2022 9:06 PM INSECTICIDE SUPERVISOR [facility] ([facility]) Comment: HIV Negative HIV-1/HIV-2 antibodies and HIV-1 p24 antigen were NOT detected. There is no laboratory evidence of HIV infection. Blood BLOOD SPECIMEN / Unknown Venipuncture / Unknown 06/23/2022 2:28 PM INSECTICIDE SUPERVISOR 06/23/2022 2:29 PM INSECTICIDE SUPERVISOR Narrative [facility] ([facility]) - 06/25/2022 9:06 PM INSECTICIDE SUPERVISOR Performed at: ??[address] ??[id number] Glass Polisher: Miko Leyva MD, Phone: ??[phone] Atiya Velez MD LABORATORY [facility] ([facility]) [address] [place] [address] * ANTI HCV (03/17/2022 12:25 PM CDT) Pathologist [facility] HEPATITIS C ANTIBODY Non-React ramona Non-React ramona 03/18/2022 5:22 PM CDT [facility] Comment:Antibodies to HCV no t detected; does not exclude the possibility of exposure to HCV. Blood BLOOD SPECIMEN / Unknown Venipuncture / Unknown 03/17/2022 12:25 PM CDT 03/17/2022 12:25 PM CDT Atiya Velez MD SEND OUTS [facility] [address] [place] [address], * HPV HIGH RISK (10/28/2021 11:49 AM CDT) TYPE 16 Negative Negative 10/30/2021 2:55 PM CDT [facility] TYPE 18 Negative Negative 10/30/2021 2:55 PM CDT [facility] OTHER HIGH RISK TYPES Negative Negative 10/30/2021 2:55 PM CDT [facility] Other (Cervical) Non-Blood / Unknown 10/28/2021 11:49 AM CDT 10/29/2021 10:31 AM CDT Narrative [facility] - 10/30/2021 2:55 PM CDT HPV types 16, 18, 31, 33, 35, 39, 45, 51, 52, 56, 58, 59, 66 and 68 DNA were undetectable or below the pre-set threshold. Methodology: Cristina Salinas 4800 HPV Test Josselyn [employer] Performing Organization Address City/[facility]/ZIP Co de Phone Number [facility] [address] [place] [address], from Last 3 Months or Most Recently Relevant to Health Maintenance Advance Directives Documents on File Type Date Recorded Patient Supervisor Travel Information Center Expl anation POLST 10/05/2023 Healthcare Directive 08/25/2023 024 Power of Gyn Physician 03/11/2018 4:18 PM STATU TORFilipe SHORT FORM POWER OF WILL CALL ORDER CLERK, KIRSTIN & YOMI, RC, 10/14/17 Healthcare Directive 03/11/2018 4:14 PM HE ALTHCARE DIRECTIVE, [facility], 02/10/18 POLST 12/16/2017 3:47 PM GAVIN CANALES [facility], 12/01/17 * Full Code (Latest Code Status on File) Date Activated Date Inactivated Comments 04/09/2021 9:39 AM 04/09/2021 6:54 PM Question Answer Comments Code Status Discussion: Not Discussed Care Teams Vp Hr Diversity Relationship Specialty Start Date End Date Atiya Velez MD [address] [place] [address] PCP - General Family Practice 03/16/14
--- OUTSIDE RECORDS SUMMARY | 2023-12-20 09:19 | XMS_ITS | Clinical Summary ---
Author Organization [facility] Address [address] [place] [id number] Care Team Providers Care Christmas Tree Farm Manager Name Role Phone No Ref-Primary, Physician [...] (once per calendar year) 2023 INFLUENZA VACCINE (#1) 2024 , 02/15/2020, 02/17/2019, Additional history exists DTAP/TDAP/TD IMMUNIZATION [...] Recently Relevant to Health Maintenance Care Teams Christmas Tree Farm Manager Relationship Specialty Start Date End Date No Ref-Primary, Physician PCP - General 02/10/22 Atiya Velez [facility] 02/10/22
[2023-12-20 09:47] VITALS: BMI 35.6
[2023-12-20] MEDS: LACTATED RINGERS 1000 ML 1,000 ML 100 ML IV ×2 (10:20→11:47)
[2023-12-20 10:28] VITALS: BP 148/96; PULSE 100; RESP 16; TEMP 36.2; O2SAT 96
[2023-12-20] MEDS: SODIUM CHLORIDE 0.9 % (FLUSH) 10 ML SYRINGE IVF (10:29)
--- NOTE | 2023-12-20 10:29 | SUR.PREOP ---
pt states she is currently going through menopause, no hcg needed.
--- NOTE | 2023-12-20 11:13 | P.GSOP_ITS ---
Operative Note Date of procedure: 12/20/23 Pre-op diagnosis: Umbilical hernia. Post-op diagnosis: Same Type of Procedure: Open repair, 2 cm umbilical hernia with mesh. Indications: The patient is a 53-year-old female with an umbilical hernia. She has had this for some time, however it has been increasingly symptomatic for her. After disc ussion, she elected to proceed with repair. Procedure Description: After discussing the risks and benefits of the procedure, the patient signed informed consent.? The operative site was marked and the patient was brought to the operating room and placed on the operating table in supine position.? Care was taken to pad the patient's pressure points.?? The patient was given sedation by anesthesia.?? The operative site was then prepped and draped in the usual sterile fashion.? A time-out was then performed. Local anesthetic was injected into the fascia, skin and subcutaneous tissues. A curvilinear incision was made at the umbilicus at the patient's prior port site from her cholecystectomy. Dissection was carried down into the subcutaneous tis katty using cautery. The hernia sac was encountered. Omental fat was contained within. Dissection was taken down to the fascia, and the umbilical skin was carefully dissected off of the hernia sac. Once the hernia sac was dissected out circumferentially, it was reduced. The fascial edges were then cleared circumferentially. The hernia was 2 cm in size and so the decision was made to use a piece of mesh. A preperitoneal pocket was created using a combination of blunt dissection and cautery. Hemostasis appeared adequate. Once the posterior fascia was clear, a piece of [address] hernia mesh was placed in the preperitoneal space with care to ensure that it laid flat. This was secured into place using 2 0 PDS interrupted sutures. The tails were then trimmed and the fascial opening was closed 0 Nurolon suture in a vest over pants fashion. The umbilicus was reapproximated to the fascia. The skin was then closed with running absorbable suture. A sterile dressing was then applied. ? The patient was then woken and transported to the recovery area in stable condition. ? The patient tolerated the procedure well. Findings: 2 cm fat containing umbilical hernia. Anesthesia: MAC Surgeon: Mayela Abad MD Estimated blood loss (mL): 5 Condition: stable Disposition: same day
--- NOTE | 2023-12-20 11:13 | W.PM.H&PU ---
History & Physical Update History & Physical Update H&P Reviewed and patient assessed: No changes noted
[2023-12-20] MEDS: CEFAZOLIN 2 GM INJ IVP (11:40)
[2023-12-20] MEDS: BUPIVACAINE 0.25% 30 ML INJECTION (11:46)
[2023-12-20 12:42] VITALS: BP 138/89; PULSE 102; RESP 16; TEMP 36.4; O2SAT 92
--- NOTE | 2023-12-20 12:44 | W.ANESCHARGE ---
Anesthesia Charges Start Date/Time Anesthesia Start Date: 12/20/23 Anesthesia Start Time: 11:30 Stop Date/Time Anesthesia Stop Date: 12/20/23 Anesthesia Stop Time: 12:44
[2023-12-20 12:45] VITALS: BP 137/84; PULSE 100; RESP 16; O2SAT 93
[2023-12-20 13:00] VITALS: BP 137/84; PULSE 96; PULSE 98; RESP 16; O2SAT 98; O2SAT 99
[2023-12-20 13:15] VITALS: BP 135/90; PULSE 89; RESP 16; O2SAT 98
[2023-12-20 13:30] VITALS: BP 137/89; PULSE 92; RESP 16; TEMP 36.4; O2SAT 98
--- NOTE | 2023-12-20 13:55 | W.ANESCHARGE ---
Anesthesia Charges Start Date/Time Anesthesia Start Date: 12/20/23 Anesthesia Start Time: 11:30 Stop Date/Time Anesthesia Stop Date: 12/20/23 Anesthesia Stop Time: 12:44
--- NOTE | 2023-12-20 13:59 | SUR.PREOP ---
pt up to bathroom with SBA. Tolerated without difficulty. in room. Pt eating toast and drinking water.
[2023-12-20] MEDS: ACETAMINOPHEN 325 MG TABLET 650 MG PO (14:10)
--- NOTE | 2023-12-20 16:51 | SUR.PREOP ---
Pt's arranged for [facility] transport to bring pt and back to their apartment at [facility] in [place]. Pt brought out to [place] via wheelchair with RN.
== END 2023-12-20 16:00 | disposition home or self-care (01) ==
PROVIDERS: PCP Family Medicine; Visit Provider Surgery
PROC: (CPT 49591; principal; 2023-12-20 11:00)
DX: K42.9 Umbilical hernia without obstruction or gangrene (principal)
CPT/HCPCS: 49591; 750; 830; A9270; C1781; J0665; J0690; J1100; J1885; J2405; J2704; J3010; J3490; J7120

== ENCOUNTER 2024-01-27 10:56 | Outpatient (CLI) | payer MEDICARE, SELFPAY ==
--- OUTSIDE RECORDS SUMMARY | 2024-01-30 07:57 | XMS_ITS | Clinical Summary ---
Author Organization [place] Address [address] [place] [address] Care Team Providers Care Stamp Mounter Name Role Phone No Ref-Primary, Physician Primary [...] Recently Relevant to Health Maintenance Care Teams Stamp Mounter Relationship Specialty Start Date End Date No Ref-Primary, Physician PCP - General 02/10/22 Atiya Velez Family Practice 02/10/22
--- OUTSIDE RECORDS SUMMARY | 2024-01-30 07:57 | XMS_ITS | Clinical Summary ---
Author Organization [facility] [employer] [facility] Address [place], [place] [address] Care Team Providers Care Sports Clerk Name Role Phone Atiya Velez MD Primary [...] Encounters Date Type Department Care Team Description 01/29/2024 Travel 01/27/2024 Orders Only [facility] HIM SERVICES Scanner 1 scan: (1-Ord) [facility], CT ABDOMEN PELVIS WO CON, 01/27/2024 01/20/2024 11:20 AM CDT Ancillary Procedure [facility] [address] [place] [address] 01/20/2024 Travel 01/15/2024 Travel 01/11/2024 1:00 PM CDT Office Visit [facility] [address] [place] [address] Mayela Abad MD Post-op (Hernia ) 01/11/2024 Travel 01/10/2024 Refill [facility] [address] [place] [address] Atiya Velez MD Refill Request (LEVOTHYROXINE 50MCG) 01/07/2024 Travel 12/24/2023 Nurse Triage [facility] [address] [place] [address] Atiya Velez MD Skin Problem 12/20/2023 8:00 AM CDT Office Visit [facility] at [facility] [address] [place] [address] Mayela Abad MD 12/20/2023 Orders Only [facility] HIM SERVICES Scanner 1 scan: (1-Ord) [facility], OPEN REPAIR/2CM UMBILICAL HERMIA WITH MESH, 12/20/2023 12/07/2023 1:45 PM CDT Office Visit [facility] [address] [facility] [address] Mayela Abad MD Follow Up (Wants to schedule surgery --umbilical hernia) 12/07/2023 Travel 12/02/2023 Travel 11/26/2023 Telephone [facility] [address] [place] [address] Mayela Abad MD Hernia Surgery 11/25/2023 12:35 PM CDT Office Visit [facility] [address] [place] [address] Atiya Velez MD Hernia (Rechecking on hernia./Has been bugging her./) 11/25/2023 Travel 11/20/2023 Travel 11/09/2023 Travel 11/08/2023 11:45 AM CDT Office Visit [facility] at [facility] [address] [facility] [place] [address] Conor Wall MD 11/08/2023 Lab Requisition [facility] [phone] Conor Wall MD 11/05/2023 Telephone [facility] [address] [place] [address] Conor Wall MD Surgery Scheduled (Questions for medications for surgery ) 11/04/2023 1:00 PM CDT Office Visit [facility] [address] [place] [address] Atiya Velez MD ER Follow up (10/10/23 Rt ear pain ); Results (Cologuard ); Pre-Op Exam (Colonoscopy 11/08/23) 11/04/2023 Telephone [facility] [address] [place] [address] Conor Wall MD Pre Procedure 11/04/2023 Travel 11/03/2023 Telephone [facility] [address] [place] [address] Atiya Velez MD Colorectal Cancer Screening (Positive cologuard) 10/30/2023 Travel from Last 3 Months Immunizations Name Administration Dates Next Due AMB INFLUENZA, IIV4 (AGE=>6M OS) MDV (Flu Clinic Only) 03/08/2018 AMB Influenza, IIV3 (Age >=3 years)(Flu Clinic Only) 03/21/2013 COVID-19 Vaccine Spikevax (M oderna 50mcg/0.5mL) 12YO+ 8869-1675 Formula PF 03/25/2023 COVID-19 vaccine (Moderna 100mcg/0.5mL) [...] Sex Assigned at Female 04/11/2023 11:45 PM CHANNEL MARKETING SPECIALIST Gender Identity Female 04/11/2023 11:45 PM CHANNEL MARKETING SPECIALIST Sexual Orientation Not on file Obstetrics History [...] DT Respiratory Rate 16 05/06/2021 2:04 PM CHANNEL MARKETING SPECIALIST Oxygen Saturation 99% 01/11/2024 12:53 PM CDT Inhaled Oxygen Concentration - - Weight 83 kg (183 lb) 01/11/2024 12:53 PM CDT Height 152.4 cm (5') 08/06/2023 12:03 PM CHANNEL MARKETING SPECIALIST Body Mass Index 35.74 08/06/2023 12:03 PM CHANNEL MARKETING SPECIALIST Plan of Treatment Upcoming Encounters Date Type Department Care Team (Late st Contact Info) Description 02/03/2024 10:20 AM CDT Office Visit [facility] [address] [place] [address] Atiya Velez MD [address] [place] [address] 02/25/2024 11:30 AM CDT Orders Only [facility] [address] [place] [address] Lab, [facility] Maintenance Due Date Last Done Comments Influenza for age 50-64 02/06/2024 02/19/20, 02/16/2022, 03/28/2021, Additional history exists Depression screening for age 12+ 02/19/2024 02/18/2023, 02/18/2023, 02/18/2023, Additional history exists BMI (ht and wt on same day) for age 18+ 08/05/2024 08/06/2023, 06/23/2022, 02/16/2022, Additional history exists Mammogram for age 45-75 01/19/2025 01/20/20, 01/11/2023, 12/16/2021, Additional history exists Pap test for age 21-65 10/28/2026 , 10/28/2021, 11/22/2018, Additional history exists Lipids for age 45-75 11/03/2028 11/04/2023, 09/15/2023, 09/15/2023, Additional history exists Colonoscopy through age 75 11/07/203011/07, 11/08/2023, 08/12/2020 [facility] Tetanus booster 10/08/2031 10/07/2021, 0507/2011, 03/29/2003, Additional [...] less than 140/90 Blood Pressure No Annamaria Osborne, VIBHA Medical Devices Implanted Type Area Automobile Taillight Assembler Device Identifier Shelf Expiration Date Model / Serial / Lot [id number] - [id number] Implanted:Qty: 1 on 04/09/2021 by Maxi Rodrigez MD at [facility] Left: Ear Medtronic 07/11/2027 [id number] / / [id number] Description:medtronic big ea sy piston - straight [id number] Lot [id number] Cmnt Bone Ear 2gm Otominimix - [id number] Implanted:Qty: 1 on 04/09/2021 by Maxi Rodrigez MD at [facility] Left: Ear [employer] 07/24/2022 [id number] / / [id number] Procedures Procedure Name Priority Date/Time Associated Diagnosis Comments SCAN-CT INTERPRETATION 01/27/2024 12:00 AM CDT XR MAMMO TONY BILAT SCREEN Routine 01/20/2024 11:29 AM CDT Encounter for screening mammogram for malignant neoplasm of breast SCAN-OPERATIVE/PROCED URE REPORT 12/20/2023 12:00 AM CDT LAB TRACKING [...] HIV-1/O/2, 4TH GENERATION Routine 06/23/2022 2:28 PM CHANNEL MARKETING SPECIALIST Screening for HIV (human immunodeficiency virus) ANTI HCV Routine 03/17/2022 12:25 PM CDT Encounter for HCV screening test for low risk patient HPV THIN PREP Routine 10/28/2021 11:49 AM CDT Pap smear for cervical cancer screening from Last 3 Months or Most Recently Relevant to Health Maintenance Results * SCAN-CT INTERPRETATION (01/27/2024 12:00 AM CDT) Anatomical Region Laterality Modality Other Scanner OTHER * XR MAMMO TONY BILAT SCREEN (01/20/2024 [...] care provider. XR MAMMO TONY BILAT SCREEN [[id number]] CLINICAL HISTORY: ??This is an asymptomatic 53 y.o. patient. INDICATION FOR EXAM: Mammogram Screening. TECHNIQUE: CC & MLO views were obtained. ??This study was evaluated with the assistance of Computer-Aided Detection. Breast Tomosynthesis was used in interpretation. COMPARISON FILM: Yes 01/11/23 [facility] 12/22/21 [facility] FINDINGS: ??There are scattered areas of fibroglandular density. There are no dominant masses, suspicious micro calcifications or areas of architectural distortion. Atiya Velez MD MAMMO * SCAN-OPERATIVE/PROCEDURE REPORT (12/20/2023 12:00 AM CDT) Scanner OTHER * LAB TRACKING EVENT (11/08/2023 12:55 PM CDT) Other (Other) Client Collect / Unknown 11/08/2023 12:55 PM CDT 11/08/2023 9:27 PM CDT Conor Wall MD LAB BILL ONLY [facility] [address] [place] [address], * PATH TISSUE EXAM (11/08/2023 12:55 PM CDT) Case Report Pathology Report ?Case: [id number] ? Authorizing Provider: ??Conor Wall MD ?? Collected: ? 11/08/2023 1255 ? Ordering Location: ? [facility] ?Received: ?11/09/2023827 ? Pathologist: ? Laura Eng MD ? Specimen: ?Cecum Biopsy ? 11/10/2023 10:51 AM CDT [facility] Final Diagnosis A) COLON, CECUM, POLYPECTOMY: 1. Tubular adenoma 2. Negative for high grade dysplasia 3. Per the colonoscopy report: ?? a. Polyp size: 7 mm ?? b. Resection: Complete ?? c. Retrieval: Complete 11/10/2023 10:51 AM CDT [facility] Clinical Information Positive Cologuard 11/10/2023 10:51 AM CDT [facility] Gross Description A) Received in formalin are 2 mann mucosal fragments averaging 13 mm in greatest dimension, which are entirely submitted in one cassette. It is labeled with the patient's name and designated cecum polyp. Carine Fung 11/09/2023 1:44 PM 11/10/2023 10:51 AM CDT [facility] Microscopic Description The final diagnosis is based on microscopic examination of appropriate sections of all specimens. 11/10/2023 10:51 AM CDT [facility] Additional Information Interpreted at [facility] - [address] [place] [address] 11/10/2023 10:51 AM CDT [facility] Other (Cecum Biopsy) 11/08/2023 12:55 PM CDT 11/09/2023 8:28 AM CDT Conor Wall MD PATHOLOGY/CYTOLOG Y Performing Organization Address City/State/[facility] Co de Phone Number [facility] [address] * COLONOSCOPY SCREENING (11/08/2023 12:00 AM CDT) Atiya Velez MD GI PROCEDURE ORD * (ABNORMAL) LIPID PANEL W REFLEX MEASURED LDL (11/04/2023 2:23 PM CDT) CHOLESTEROL,TOTAL 336(H) 100 - 199 mg/dL 11/04/2023 11:04 PM CDT [facility] Comment: Cholesterol, Total Reference Ranges Desirable <200 mg/dL Borderline 200-239 mg/dL High >=240 mg/dL TRIGLYCERIDES 294(H) <150 mg/dL 11/04/2023 11:04 PM CDT [facility] HDL CHOLESTEROL 58 >40 mg/dL 11:04 PM CDT [facility] NON-HDL CHOLESTEROL 278(H) <145 mg/dl 11/04/2023 11:04 PM CDT [facility] CHOL/HDL RATIO 5.79(H) <4.50 11/04/2023 11:04 PM CDT [facility] LDL CHOLESTEROL 219(H) <=130 mg/dL 11/04/2023 11:04 PM CDT [facility] VLDL CHOLESTEROL 59(H) <=30 mg/dL 11/04/2023 11:04 PM CDT [facility] PROVIDER ORDERED STATUS RANDOM 11/04/2023 11:04 PM T [facility] Blood BLOOD SPECIMEN / Unknown Venipuncture / Unknown 11/04/2023 2:23 PM CDT 11/04/2023 2:25 PM CDT Atiya Velez MD CHEMISTRY [facility] [address] [place] [address], * (ABNORMAL) SDNA-FIT EXTERNAL (COLOGUARD) (10/27/2023 9:21 AM CDT) NONINV COLON CA DNA+OCC BLD SCRN STL-IMP Positive( A) Negative 11/02/2023 7:39 PM CDT [facility] (CLIA #:[id number]) Comment: POSITIVE TEST RESULT. A positive Cologuard [...] screened with both Cologuard and colonoscopy. (Ash Bailey et al, N Engl J Med 2014;370(14):4652-9897.) Cologuard may produce a false negative or false positive result (no colorectal cancer or precancerous polyp present at colonoscopy follow up). A negative Cologuard test result does not guarantee the absence of CRC or advanced adenoma (pre-cancer). The current Cologuard screening interval is every 3 years. ([place] Cancer Society and U.S. Multi-Society Task Force). Cologuard performance data in a 10,000 patient pivotal study using colonoscopy as the reference method can be accessed at the following location: www.[employer]/results. Additional description of the Cologuard test process, warnings and precautions can be found at [email or web address] [email or web address].com. Stool specimen (specimen) (Rectum) 10/27/2023 9:21 AM CDT 10/28/2023 9:37 AM CDT Atiya Velez MD URINE [facility] (CLIA #:[id number]) [place] [address], * LC HIV-1/O/2, 4TH GENERATION (06/23/2022 2:28 PM CHANNEL MARKETING SPECIALIST) Pathologist [facility] HIV Scr 4th Gen Non Reactive Non Reactive 06/25/2022 9:06 PM CHANNEL MARKETING SPECIALIST [facility]) Comment: HIV Negative HIV-1/HIV-2 antibodies and HIV-1 p24 antigen were NOT detected. There is no laboratory evidence of HIV infection. Blood BLOOD SPECIMEN / Unknown Venipuncture / Unknown 06/23/2022 2:28 PM CHANNEL MARKETING SPECIALIST 06/23/2022 2:29 PM CHANNEL MARKETING SPECIALIST Narrative [facility] ([facility]) - 06/25/2022 9:06 PM CHANNEL MARKETING SPECIALIST Performed at: ?? - [address] ??[id number] Furnace Loader: Miko Leyva MD, Phone: ??[phone] Atiya Velez MD LABORATORY [facility] ([facility]) [address] [place] [address] * ANTI HCV (03/17/2022 12:25 PM CDT) [facility] HEPATITIS C ANTIBODY Non-React ramona Non-React ramona 03/18/2022 5:22 PM CDT [facility] Comment:Antibodies to HCV no t detected; does not exclude the possibility of exposure to HCV. Blood BLOOD SPECIMEN / Unknown Venipuncture / Unknown 03/17/2022 12:25 PM CDT 03/17/2022 12:25 PM CDT Atiya eVlez MD SEND OUTS [facility] [address] [place] [address], * HPV HIGH RISK (10/28/2021 11:49 AM CDT) [facility] TYPE 16 Negative Negative 10/30/2021 2:55 PM CDT [facility] TYPE 18 Negative Negative 10/30/2021 2:55 PM CDT [facility] OTHER HIGH RISK TYPES Negative Negative 10/30/2021 2:55 PM CDT [facility] Other (Cervical) Non-Blood / Unknown 10/28/2021 11:49 AM CDT 10/29/2021 10:31 AM CDT Narrative [facility] - 10/30/2021 2:55 PM CDT HPV types 16, 18, 31, 33, 35, 39, 45, 51, 52, 56, 58, 59, 66 and 68 DNA were undetectable or below the pre-set threshold. Methodology: Cristina Salinas 4800 HPV Test Josselyn TATUM MICROBIOLOG[employer] [facility] [address] [place] [address], from Last 3 Months or Most Recently Relevant to Health Maintenance Advance Directives Documents on File Type Date Recorded Patient Instrument Repair Supervisor Expl anation POLST 10/05/2023 Healthcare Directive 08/25/2023 024 Power of Claim Representative 03/11/2018 4:18 PM STATU TORY SHORT FORM POWER OF RADIO SURVEY WORKER, KIRSTIN [employer] YOMI, RC, 10/14/17 Healthcare Directive 03/11/2018 4:14 PM DEJUAN MATSON, [facility], 02/10/18 POLST 12/16/2017 3:47 PM GAVIN CANALES [facility], 12/01/17 * Full Code (Latest Code Status on File) Date Activated Date Inactivated Comments 04/09/2021 9:39 AM 04/09/2021 6:54 PM Question Answer Comments Code Status Discussion: Not Discussed Care Teams Sports Clerk Relationship Specialty Start Date End Date Atiya Velez MD [address] [place] [address] PCP - General Family Practice 03/16/14
--- OUTSIDE RECORDS SUMMARY | 2024-01-30 07:57 | XMS_ITS | Referral Summary ---
Author Organization [place] Address [address] [place] [id number] Care Team Providers Care Robotics Application Engineer Name Role Phone No Ref-Primary, Physician Primary [...] Recently Relevant to Health Maintenance Care Teams Robotics Application Engineer Relationship Specialty Start Date End Date No Ref-Primary, Physician PCP - General 02/10/22 Atiya Velez [facility] 02/10/22
== END 2024-01-27 10:57 | disposition home or self-care (01) ==
LOC: AMB 01-30 07:55
PROVIDERS: PCP Family Medicine; Visit Provider Emergency Medicine
DX: R10.9 Unspecified abdominal pain (principal)
CPT/HCPCS: A0425; A0427

== ENCOUNTER 2024-01-27 11:22 | Emergency (ER) | payer MEDICARE, SELFPAY ==
[2024-01-27 11:24] VITALS: BP 151/109; PULSE 98; RESP 16; TEMP 36.6; O2SAT 95
--- NOTE | 2024-01-27 11:34 | CRLHL7_ITS ---
For Patients: As a result of the Century Cures Act, medical imaging exams and procedure reports are released immediately into your electronic medical record. You may view this report before your referring provider. If you have questions, please contact your health care provider. INDICATION: . sharp L abd pain one week TECHNIQUE: CT abdomen and pelvis without contrast. COMPARISON: May 2023 FINDINGS: Lower chest: Coronary artery calcifications. Linear opacities likely linear fibrosis. ABDOMEN: Liver: Stable right hepatic lobe hypodensity, incompletely characterized on this exam measuring 12 millimeters. Gallbladder and biliary: Cholecystectomy. Normal caliber bile ducts. Spleen: Normal size and attenuation. Pancreas: The noncontrast pancreas is homogeneous in attenuation without peripancreatic inflammatory changes or ductal dilatation. Adrenal glands: Normal adrenal glands. Kidneys and ureters: Normal attenuation. No radio-opaque calculi. No hydroureteronephrosis. GI tract: The stomach is relatively decompressed. Normal caliber small and large bowel loops. Normal appendix. Vascular structures: Normal caliber abdominal aorta. Lymph nodes: No lymphadenopathy in the abdomen or pelvis by size criteria. Peritoneum: No free air, free fluid, or focal drainable fluid collection. PELVIS: Genitourinary system: Urinary bladder is relatively decompressed. Age-appropriate uterus. SKELETAL STRUCTURES AND SOFT TISSUES: Changes of anterior abdominal wall/umbilical hernia repair. 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 Old L5 compression deformity. IMPRESSION: No discrete acute abdominal or pelvic process. No obstruction. No hydroureteronephrosis. Normal appendix. Please note that all CT scans at this facility use dose modulation, iterative reconstruction, and/or weight-based dosing when appropriate to reduce radiation dose to as low as reasonably achievable. Dictated by Jeremie Valladares MD @ 01/27/2024 12:44:01 PM (Electronically Signed)
--- NOTE | 2024-01-27 11:36 | ED.GENADULT ---
HPI - General Adult General Chief complaint: Abdominal Pain Stated complaint: Abdominal pain Time Seen by Provider: 01/27/24 11:32 Source: patient, EMS, RN notes reviewed and old records reviewed Mode of arrival: EMS Limitations: no limitations History of Present Illness HPI narrative: Patient is a 53-year-old woman with some developmental delay, lives at [facility]. Presents by EMS for what she describes as a ?pinching abdominal pain which she says has been there for about a week. She initially described it as being in the left mid upper quadrant, but then alternatively described it as being periumbilical and right-sided. She says that that pinching pain is very brief kind of a stab and then goes away but she has pain underlying that is there all the time. She says she has had a normal appetite, she has not had any vomiting. Denies diarrhea, says she had a bowel movement earlier today which was normal. No bloody stools, no fevers, no urinary symptoms. She has had a cholecystectomy and hernia repair. Was seen here last April for very similar symptoms without a diagnosis found aside from constipation. Refused IV per paramedics. Related Data Home Medications ?Medication ?Instructions ?Recorded ?Confirmed carbamazepine 200 mg tablet 200 mg PO TID 01/16/22 12/17/23 duloxetine 20 mg capsule,delayed 20 mg PO DAILY 01/16/22 12/20/23 release famotidine 20 mg tablet 20 mg PO DAILY 01/16/22 12/20/23 levothyroxine 50 mcg capsule 50 mcg PO DAILY 01/16/22 12/20/23 omeprazole 20 mg capsule,delayed 20 mg PO DAILY 01/16/22 12/20/23 release acetaminophen 325 mg tablet 650 mg PO DAILY PRN 01/19/22 12/20/23 colestipol 1 gram tablet 1 g PO BID 01/27/24 01/27/24 levothyroxine 50 mcg tablet 50 mcg PO QAM 01/27/24 01/27/24 Previous Rx's ?Medication ?Instructions ?Recorded cyclobenzaprine 10 mg tablet 10 mg PO BID PRN muscle spasm #10 10/10/23 tabs [id number] 3.3 5 drp Otic (ear-right) QID 5 days 10/10/23 mg-3 mg-10 mg-0.5 mg/mL ear #10 mL drops,susp (Cortisporin-TC) Allergies Allergy/AdvReac Type Severity Reaction Status Date / Time morphine Allergy Unknown Verified 04/13/23 10:40 Iodinated Contrast Media Allergy Verified 04/13/23 10:40 Review of Systems Status of ROS: Reports: 10 or more systems reviewed and unremarkable except as noted in History and below [facility] Medical History Back pain at L4-L5 level ?M54.50 - Low back pain, unspecified (ICD-10) Delay of cognitive development ?F81.9 - Developmental disorder of scholastic skills, unspecified (ICD-10) Liver damage ?K76.9 - Liver disease, unspecified (ICD-10) Fibromyalgia ?M79.7 - Fibromyalgia (ICD-10) 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 of personal injury attorney in chart Mixed hearing loss ?H90.8 - Mixed conductive and sensorineural hearing loss, unspecified (ICD-10) Cholecystitis ?K81.9 - Cholecystitis, unspecified (ICD-10) Anxiety ?F41.9 - Anxiety disorder, unspecified (ICD-10) Left chronic serous otitis media ?H65.22 - Chronic serous otitis media, left ear (ICD-10) Onychomycosis ?B35.1 - Tinea unguium (ICD-10) Hypoparathyroidism ?E20.9 - Hypoparathyroidism, unspecified (ICD-10) Vitamin D deficiency ?E55.9 - Vitamin D deficiency, unspecified (ICD-10) DDD (degenerative disc disease), lumbar ?M51.36 - Other intervertebral disc degeneration, lumbar region (ICD-10) Lower extremity edema ?R60.0 - Localized edema (ICD-10) Learning disability ?F81.9 - Developmental disorder of scholastic skills, unspecified (ICD-10) Seizure disorder ?G40.909 - Epilepsy, unspecified, not intractable, without status epilepticus (ICD-10) Hypothyroidism ?E03.9 - Hypothyroidism, unspecified (ICD-10) Encounter for counseling regarding advance directives (02/10/18) ?Z71.89 - Other specified counseling (ICD-10) Surgical History Hx of myringotomy ?Z98.890 - Other specified postprocedural states (ICD-10) Hx laparoscopic cholecystectomy ?Z90.49 - Acquired absence of other specified parts of digestive tract (ICD-10) History of fusion of spine for scoliosis ?Z98.1 - Arthrodesis status (ICD-10) ?Z87.39 - Personal history of other diseases of the musculoskeletal system and connective tissue (ICD-10) Social History Smoking Status: Never smoker Do you use any of these nicotine containing products: None Second hand tobacco smoke exposure: No How often do you have a drink containing alcohol: never How often do you have six or more drinks on one occasion: Never AUDIT-C Alcohol total score: 0 Non-prescribed substance use: denies use Caffeine: Yes service: No Exam Narrative: Exam Narrative: Vital signs as noted above. In general, an alert, well-appearing patient. Head: Normocephalic, atraumatic. Eyes: Pupils are equal reactive. Extraocular movements are full. Conjunctivae are normal. ENT: Mucous membranes are moist. Throat is normal. Neck: Supple without lymphadenopathy. Heart: Regular rate and rhythm. No murmur or rub. Lungs: Clear bilaterally. No increased work of breathing, crackles or wheezes. Abdomen: Soft and nondistended. She flinches and pushes my hand away with light palpation throughout the entire abdomen, no true guarding, no rebound or rigidity. Bowel sounds are present. Extremities: Well perfused. No edema. No calf tenderness. Pulses intact. Neurologic: Patient is alert and oriented to person and place. Speech is fluent. Face is symmetric. Moves all extremities equally. Affect: Anxious. Skin: Warm and dry. Well perfused. Const: Vital Signs, click to edit/add: Vital Signs - 24 hr 01/27/24 11:24 01/27/24 12:44 Temperature 97.9 F Pulse Rate [Pulse Oximeter] 98 88 Respiratory Rate 16 18 Blood Pressure [Le ft Upper Arm] 151/109 H 167/106 H Pulse Oximetry 95 96 Oxygen Delivery Me thod Room Air Room Air Documenting provider has reviewed patient's vital signs: yes Course Course ED Course: Patient presents with some somewhat difficult to characterize abdominal pain. Notes diffuse tenderness although this is with such light palpation that it is difficult to know how much of this is anxiety. She transferred from the ambulance rellinger to the ER cart without difficulty and does not appear to be in significant discomfort. Will check some labs, recheck CT imaging to evaluate for possible findings such as obstruction, diverticulitis, colitis, appendicitis or other acute process. Constipation may be contributing although she says she had a bowel movement earlier. Evaluation here is unremarkable. CT is read as entirely normal by Radiology, labs including a CBC, metabolic panel, lipase, lactate are normal. White count is 6, CRP is mildly elevated at 3.5 of indeterminate significance. Urinalysis is negative. Discussed all this with the patient and her . I do not have a clear explanation for symptoms but given negative workup today I think it is reasonable to let her go home. Would recommend primary care follow-up for persistent symptoms and return any time for worsening such as vomiting, fevers, bloody stool etcetera. Right now she does not feel that she is having problems with constipation, she says she had a colonoscopy in the ?cleaned her out, reviewed with her that that does not mean she cannot read develop constipation, consider MiraLax as needed. Vital Signs Vital signs: Initial Vital Signs Temperature 97.9 F 01/27/24 11:24 Temperature Source Temporal Artery Scan 01/27/24 11:24 Pulse Rate 98 01/27/24 11:24 Respiratory Rate 16 01/27/24 11:24 Blood Pressure 151/109 H 01/27/24 11:24 Blood Pressure Mean 123 H 01/27/24 11:24 Blood Pressure Position Supine 01/27/24 11:24 Pulse Oximetry 95 01/27/24 11:24 Oxygen Delivery Method Room Air 01/27/24 11:24 Vital Signs Temperature 97.9 F 01/27/24 11:24 Pulse Rate 98 01/27/24 11:24 Respiratory Rate 16 01/27/24 11:24 Blood Pressure 151/109 H 01/27/24 11:24 Pulse Oximetry 95 01/27/24 11:24 Oxygen Delivery Method Room Air 01/27/24 11:24 Temperature 97.9 F 01/27/24 11:24 Pulse Rate 88 01/27/24 12:44 Respiratory Rate 18 01/27/24 12:44 Blood Pressure 167/106 H 01/27/24 12:44 Pulse Oximetry 96 01/27/24 12:44 Oxygen Delivery Method Room Air 01/27/24 12:44 Medications Administered Medications: Discontinued Medications Generic Name Dose Route Start Last Admin Trade Name Odalys PRN Reason Stop Dose Admin Sodium Chloride 500 mls @ 500 mls/hr 01/27/24 11:34 01/27/24 12:09 0.9 % Sodium Chloride 500 Ml IV 01/27/24 12:33 500 mls/hr .Q1H ONE Administration Ketorolac Tromethamine 15 mg 01/27/24 11:34 01/27/24 12:08 Ketorolac 15 Mg/Ml Inj IVP 01/27/24 11:35 15 mg ONCE ONE Administration Medical Decision Making Lab Data Labs: Lab Results 01/27/24 01/27/24 Range/Units 11:55 12:02 WBC 5.90 (4.50-11.00) K/uL RBC 3.94 L (4.00-5.20) m/uL Hgb 12.3 (12.0-16.0) gm/dL Hct 38.8 (33.0-51.0) % MCV 99 (80-100) fL MCH 31 (26-34) pg MCHC 32 (32-36) gm/dL RDW Coeff of Gracie 13.7 (11.5-15.5) % Plt Count 189 (140-440) K/uL Neut % (Auto) 60.6 (42.0-72.0) % Lymph % (Auto) 26.3 (20-44) % Branch % (Auto) 8.1 (0.0-11.0) % Eos % (Auto) 4.1 (0.0-7.0) % Baso % (Auto) 0.7 (0.0-3.0) % Neut # (Auto) 3.58 (1.7-7.0) K/uL Lymph # (Auto) 1.55 (0.90-2.90) K/uL Branch # (Auto) 0.50 (0.00-0.90) K/UL Eos # (Auto) 0.24 (0.00-0.50) K/uL Baso # (Auto) 0.04 (0.00-0.30) K/uL Abs Immat Gran (auto) 0.01 (0.00-0.30) K/uL Imm/Tot Granulo (auto) 0.2 % Sodium 135 (135-149) mmol/L Potassium 3.5 L (3.6-5.1) mmol/L Chloride 104 (96-114) mmol/L Carbon Dioxide 23 (20-32) mmol/L Anion Gap 8 (7-15) mEq/L BUN 29 (7-30) mg/dL Creatinine 1.3 (0.5-1.5) mg/dL Estimated GFR 49 ml/min Glucose 90 (60-115) mg/dL Lactate 0.7 (0.5-1.9) mmol/L Calcium 8.6 (8.4-10.6) mg/dL Total Bilirubin 0.3 (0.1-1.5) mg/dL Direct Bilirubin 0.2 (0.0-0.5) mg/dL AST 23 (12-35) U/L ALT 19 (4-35) U/L Alkaline Phosphatase 72 (40-150) U/L C-Reactive Protein 3.5 H (0.5-1.0) mg/dL Total Protein 8.3 (6.0-8.3) g/dL Albumin 4.7 (3.3-5.0) g/dL Lipase 81 (23-300) U/L Urine Color Yellow (Yellow) Urine Appearance Clear (Clear) Urine pH 6.5 (5.0-8.5) Ur Specific [place] 1.025 (1.000-1.030) Urine Protein Negative (Negative) Urine Glucose (UA) Negative (Negative) Urine Ketones Negative (Negative) Urine Blood Negative (Negative) Urine Nitrite Negative (Negative) Urine Bilirubin Negative (Negative) Urine Urobilinogen 0.2 (0.2-1.0) Ur Leukocyte Esterase Negative (Negative) Urine RBC 0-2 (0-2) Urine WBC 0-2 (0-5) Ur Squamous Epith Cells None (None-Few) Urine Bacteria None (None) Discharge Plan Discharge Clinical Impression: Abdominal pain Patient Disposition: Xfer SNF Condition: Stable Instructions: Abdominal Pain (ED) Additional Instructions: Your workup today does not show a clear explanation for your symptoms. Your labs and CT scan are normal. Sometimes pain like you are describing can be caused by some cramping of the intestines, possibly related to constipation. If you have persistent symptoms, would discuss with your primary doctor. For new or worsening symptoms such as fever, vomiting, bloody stools, return any time to the emergency department. Prescriptions: No Action cyclobenzaprine 10 mg tablet 10 mg PO BID PRN (Reason: muscle spasm) Qty: 10 0RF Cortisporin-TC 3.3-3-10-0.5 mg/mL drops,suspension 5 drp Otic (ear-right) QID 5 Days Qty: 10 0RF carbamazepine 200 mg tablet 200 mg PO TID duloxetine 20 mg capsule,delayed release(DR/EC) 20 mg PO DAILY famotidine 20 mg tablet 20 mg PO DAILY levothyroxine 50 mcg capsule 50 mcg PO DAILY omeprazole 20 mg capsule,delayed release(DR/EC) 20 mg PO DAILY acetaminophen 325 mg tablet 650 mg PO DAILY PRN Rx Instructions: NO MORE THAN 4000 MG/DAY levothyroxine 50 mcg tablet 50 mcg PO QAM colestipol 1 gram tablet 1 g PO BID Stand Alone [facility]
[2024-01-27 12:03] LABS: Basophils Absolute Auto 0.04 K/uL (0.00-0.30); Basophils Percent Auto 0.7 % (0.0-3.0); Eosinophils Absolute Auto 0.24 K/uL (0.00-0.50); Eosinophils Percent Auto 4.1 % (0.0-7.0); Hematocrit 38.8 % (33.0-51.0); Hemoglobin* 12.3 gm/dL (12.0-16.0); Immature Granulocytes Abs Auto 0.01 K/uL (0.00-0.30); Immature Granulocytes Pct Auto 0.2 %; Lymphocytes Absolute Auto 1.55 K/uL (0.90-2.90); Lymphocytes Percent Auto 26.3 % (20-44); Mean Corpuscular HGB Conc 32 gm/dL (32-36); Mean Corpuscular Hemoglobin 31 pg (26-34); Mean Corpuscular Volume 99 fL (80-100); Monocytes Percent Auto 8.1 % (0.0-11.0); Neutrophils Absolute Auto 3.58 K/uL (1.7-7.0); Neutrophils Percent Auto 60.6 % (42.0-72.0); Platelet Count* 189 K/uL (140-440); RDW Coefficient of Variation % 13.7 % (11.5-15.5); Red Blood Count 3.94 m/uL (4.00-5.20); Slide Review Reflex No
[2024-01-27 12:05] LABS: Lactate Sepsis w/Reflex* 0.7 mmol/L (0.5-1.9)
[2024-01-27] MEDS: KETOROLAC 15 MG/ML inj IVP (12:08)
[2024-01-27] MEDS: 0.9 % SODIUM CHLORIDE 500 ML 500 ML IV (12:09)
[2024-01-27 12:14] LABS: Appearance Urine Clear (Clear); Bilirubin Urine Negative (Negative); Blood Urine Negative (Negative); Color Urine Yellow (Yellow); Glucose Urine Negative (Negative); Ketones Urine Negative (Negative); Leukocyte Esterase Urine Negative (Negative); Nitrite Urine Negative (Negative); Protein Urine Negative (Negative); Specific Gravity Urine 1.025 (1.000-1.030); Urobilinogen Urine 0.2 (0.2-1.0); pH Urine 6.5 (5.0-8.5)
[2024-01-27 12:18] LABS: RBC Urine 0-2 (0-2); WBC Urine 0-2 (0-5)
[2024-01-27 12:20] LABS: Albumin* 4.7 g/dL (3.3-5.0)
[2024-01-27 12:23] LABS: Alkaline Phosphatase* 72 U/L (40-150); Aspartate Amino Transferase* 23 U/L (12-35); Bilirubin Direct* 0.2 mg/dL (0.0-0.5); Bilirubin Total* 0.3 mg/dL (0.1-1.5); Total Protein* 8.3 g/dL (6.0-8.3)
[2024-01-27 12:24] LABS: Alanine Aminotransferase* 19 U/L (4-35); Lipase* 81 U/L (23-300)
[2024-01-27 12:27] LABS: Chloride* 104 mmol/L (96-114)
[2024-01-27 12:28] LABS: Potassium* 3.5 mmol/L (3.6-5.1); Sodium* 135 mmol/L (135-149)
[2024-01-27 12:30] LABS: Creatinine* 1.3 mg/dL (0.5-1.5); Estimated Glomerular Filt Rate 49 ml/min
--- OUTSIDE RECORDS SUMMARY | 2024-01-27 12:30 | XMS_ITS | Clinical Summary ---
Author Organization [facility] Address [address] [place] [id number] Care Team Providers Care Automotive Glass Technician Name Role Phone No Ref-Primary, Physician Primary [...] Recently Relevant to Health Maintenance Care Teams Automotive Glass Technician Relationship Specialty Start Date End Date No Ref-Primary, Physician PCP - General 02/10/22 [facility] 02/10/22
--- OUTSIDE RECORDS SUMMARY | 2024-01-27 12:30 | XMS_ITS | Referral Summary ---
Author Organization [facility] Address [address] [place] [id number] Care Team Providers Care Data Architect Name Role Phone No Ref-Primary, Physician Primary [...] Recently Relevant to Health Maintenance Care Teams Data Architect Relationship Specialty Start Date End Date No Ref-Primary, Physician PCP - General 02/10/22 [facility] 02/10/22
[2024-01-27 12:31] LABS: Anion Gap 8 mEq/L (7-15); Blood Urea Nitrogen* 29 mg/dL (7-30); Calcium* 8.6 mg/dL (8.4-10.6); Carbon Dioxide* 23 mmol/L (20-32); Glucose* 90 mg/dL (60-115)
--- OUTSIDE RECORDS SUMMARY | 2024-01-27 12:31 | XMS_ITS | Clinical Summary ---
Author Organization [facility] Address [place], [place] [address] Care Team Providers Care Screw Cutter Name Role Phone Atiya Velez MD Primary [...] 01/09/2022 Active cholecalciferol (Vitamin D) 1,000 unit capsuleIndications: [...] times daily. 270 Tablet 3 08/09/2023 Active omeprazole (PRILOSEC) 20 mg Delayed-Release capsuleIndications: Heartburn Take 1 Capsule (20 mg) by mouth two times daily before meals. 180 Capsule 3 08/09/2023 Active DULoxetine (CYMBALTA) 20 mg Delayed-release capsuleIndications: Myofascial pain Take 1 Capsule (20 mg) by mouth once daily. 90 Capsule 2 10/22/2023 Active polyethylene glycol-electrolyte (GOLYTELY) 236-22.74-6.74 -5.86 gram suspensionIndicatio ns:Positive colorectal cancer screening using Cologuard test Drink 2 liters the day before colonoscopy and 2 liters 6 hours before colonoscopy appointment 4000 mL 11/04/2023 Active colestipoL (Colestid) 1 gram tabletIndications:H yperlipidemia, unspecified hyperlipidemia type Take 1 Tablet (1 g) by mouth two times daily. 60 Tablet 11 11/18/2023 Active levothyroxine (SYNTHROID) 50 mcg tabletIndications:H ypothyroidism, unspecified type Take 1 Tablet (50 mcg) by mouth before breakfast. 90 Tablet 3 01/08/2024 Active levothyroxine (SYNTHROID) 50 mcg tabletIndications:H ypothyroidism, unspecified type Take 1 Tablet (50 mcg) by mouth before breakfast. 90 Tablet 3 08/09/2023 01/08/20 24 Discontinu ed(Reorder (E-cancel not sent)) Active Problems Problem Noted Date Diagnosed Date [...] Encounters Date Type Department Care Team Description 01/20/2024 11:20 AM CDT Ancillary Procedure [facility] [address] [place] [address] 01/20/2024 Travel 01/15/2024 Travel 01/11/2024 1:00 PM CDT Office Visit [facility] [address] [place] [address] Mayela Abad MD Post-op (Hernia ) 01/11/2024 Travel 01/10/2024 Refill [facility] [address] [place] [address] Atiya Velez MD Refill Request (LEVOTHYROXINE 50MCG) 01/07/2024 Travel 12/24/2023 Nurse Triage [facility] [address] [place] [address] Atiya Velez MD Skin Problem 12/20/2023 8:00 AM CDT Office Visit [facility] at [facility] [address] [facility] [place] [phone] Mayela Abad MD 12/20/2023 Orders Only [facility] Scanner 1 scan: (1-Ord) [facility], OPEN REPAIR/2CM UMBILICAL HERMIA WITH MESH, 12/20/2023 12/07/2023 1:45 PM CDT Office Visit [facility] [address] [place] [address] Mayela Abad MD Follow Up (Wants to schedule surgery --umbilical hernia) 12/07/2023 Travel 12/02/2023 Travel 11/26/2023 Telephone [facility] [address] [place] [address] Mayela Abad MD Hernia Surgery 11/25/2023 12:35 PM CDT Office Visit [facility] [address] [place] [address] Atiya Velez MD Hernia (Rechecking on hernia./Has been bugging her./) 11/25/2023 Travel 11/20/2023 Travel 11/09/2023 Travel 11/08/2023 11:45 AM CDT Office Visit [facility] at [address] [address] Conor Wall MD 11/08/2023 Lab Requisition [facility] [phone] Conor Wall MD 11/05/2023 Telephone [facility] [address] [place] [address] Conor Wall MD Surgery Scheduled (Questions for medications for surgery ) 11/04/2023 1:00 PM CDT Office Visit [facility] [address] [place] [address] Atiya Velez MD ER Follow up (10/10/23 Rt ear pain ); Results (Cologuard ); Pre-Op Exam (Colonoscopy 11/08/23) 11/04/2023 Telephone [facility] [address] [place] [address] Conor Wall MD Pre Procedure 11/04/2023 Travel 11/03/2023 Telephone [facility] [address] [place] [address] Atiya Velez MD Colorectal Cancer Screening (Positive cologuard) 10/30/2023 Travel from Last 3 Months Immunizations Name Administration Dates Next Due AMB INFLUENZA, IIV4 (AGE=>6M OS) MDV (Flu Clinic Only) 03/08/2018 AMB Influenza, IIV3 (Age >=3 years)(Flu Clinic Only) 03/21/2013 COVID-19 Vaccine Spikevax (M oderna 50mcg/0.5mL) 12YO+ [id number] Formula PF 03/25/2023 COVID-19 vaccine (Moderna 100mcg/0.5mL) PF, MDV 09/12/2021,07/31/2020,07/03/2020 COVID-19 vaccine (Moderna Carlos Alberto carter 50mcg/0.25mL) PF, MDV 03/28/2021 COVID-19 vaccine (AutoBikeBio NTech 30mcg/0.3mL) 12YO+ BIVALENT PF, MDV 03/17/2022 [...] Sex Assigned at Female 04/11/2023 11:45 PM PRODUCTION LINE TECHNICIAN Gender Identity Female 04/11/2023 11:45 PM PRODUCTION LINE TECHNICIAN Sexual Orientation Not on file Obstetrics History Para Term AB IAB SAB Ectopic Multiple Livin g Live Births 0 0 0 0 0 0 0 0 0 0 0 Last Filed Vital Signs Vital Sign Reading Time Taken Comments Blood Pressure 123/80 01/11/2024 12:53 PM CDT Pulse 106 01/11/2024 12:53 PM CDT Temperature 36.6 ??C (97.8 ??F) 11/04/2023 12:58 PM C DT Respiratory Rate 16 05/06/2021 2:04 PM PRODUCTION LINE TECHNICIAN Oxygen Saturation 99% 01/11/2024 12:53 PM CDT Inhaled Oxygen Concentration - - Weight 83 kg (183 lb) 01/11/2024 12:53 PM CDT Height 152.4 cm (5') 08/06/2023 12:03 PM PRODUCTION LINE TECHNICIAN Body Mass Index 35.74 08/06/2023 12:03 PM PRODUCTION LINE TECHNICIAN Plan of Treatment Upcoming Encounters Date Type Department Care Team (Late st Contact Info) Description 02/03/2024 10:20 AM CDT Office Visit [facility] [address] [place] [address] Atiya Velez MD [address] [facility] [address] Health Maintenance Due Date Last Done Comments Influenza for age 50-64 02/06/2024 02/19/20 23, 02/16/2022, 03/28/2021, Additional history exists Depression screening for age 12+ 02/19/2024 02/18/2023, 02/18/2023, 02/18/2023, Additional history exists BMI (ht and wt on same day) for age 18+ 08/05/2024 08/06/2023, 06/23/2022, 02/16/2022, Additional history exists Mammogram for age 45-75 01/19/2025 01/20/20 24, 01/11/2023, 12/16/2021, Additional history exists Pap test for age 21-65 10/28/2026 , 10/28/2021, 11/22/2018, Additional history exists Lipids for age 45-75 11/03/2028 11/04/2023, 09/15/2023, 09/15/2023, Additional history exists Colonoscopy through age 75 11/07/203011/07, 11/08/2023, 08/12/2020 [facility] Tetanus booster 10/08/2031 10/07/2021, 07/2011, 03/29/2003, Additional [...] than 140/90 Blood Pressure No Annamaria Osborne LPN Medical Devices Implanted Type Area Rope Laying Machine Operator Device Identifier Shelf Expiration Date Model / Serial / Lot [id number] - [id number] Implanted:Qty: 1 on 04/09/2021 by Maxi Rodrigez MD at [facility] Left: Ear Medtronic 07/11/2027 [id number] / / [id number] Description:medtronic big lidna sy piston - straight [id number] Lot [id number] Cmnt Bone Ear 2gm Otominimix - [id number] Implanted:Qty: 1 on 04/09/2021 by Maxi Rodrigez MD at [facility] Left: Ear [employer] [facility] 07/24/2022 [id number] / / [id number] Procedures Procedure Name Priority Date/Time Associated Diagnosis Comments XR MAMMO TONY BILAT SCREEN Routine 01/20/2024 11:29 AM CDT Encounter for screening mammogram for malignant neoplasm of breast SCAN-OPERATIVE/PROC EDURE REPORT 12/20/2023 12:00 AM CDT LAB TRACKING EVENT Routine 11/08/2023 12 :55 PM CDT PATH TISSUE EXAM Routine 11/08/2023 12:5 5 PM CDT COLONOSCOPY SCREENING Routine 11/08/2023 12:00 AM CDT Positive colorectal cancer screening using DNA-based stool test LIPID PANEL W REFLEX MEASURED LDL Routine 11/04/2023 2:23 PM CDT Hyperlipidemia, unspecified hyperlipidemia type SDNA-FIT EXTERNAL (COLOGUARD) Routine 10/27/2023 9:21 AM CDT Screening for colon cancer LC HIV-1/O/2, 4TH GENERATION Routine 06/23/2022 2:28 PM PRODUCTION LINE TECHNICIAN Screening for HIV (human immunodeficiency virus) ANTI HCV Routine 03/17/2022 12:25 PM CDT Encounter for HCV screening test for low risk patient HPV THIN PREP Routine 10/28/2021 11:49 AM CDT Pap smear for cervical cancer screening from Last 3 Months or Most Recently Relevant to Health Maintenance Results * XR MAMMO TONY BILAT SCREEN (01/20/2024 11:29 AM CDT) Anatomical Region Laterality Modality BREASTS, Breast Left, Breast Right Bilateral Mammography Impressions 01/20/2024 4:02 PM CDT ??There is no radiographic evidence for malignancy. ??Recommend annual mammograms. MAMMOGRAM ASSESSMENT: ??ACR 1 Negative PATIENTS: You will also receive a letter with your examination results in an easy to read format. ??If you have questions about your results, please contact your referring provider. Narrative 01/20/2024 4:02 PM CDT For Patients: As a result of the Cures Act, medical imaging exams and procedure reports are released immediately into your electronic medical record. You may view this report before your referring provider. If you have questions, please contact your health care provider. XR MAMMO TONY BILAT SCREEN [[id number]] CLINICAL HISTORY: ??This is an asymptomatic 53 y.o. patient. INDICATION FOR EXAM: Mammogram Screening. TECHNIQUE: CC & MLO views were obtained. ??This study was evaluated with the assistance of Computer-Aided Detection. Breast Tomosynthesis was used in interpretation. COMPARISON FILM: Yes 01/11/23 Andela 12/22/21 [employer] FINDINGS: ??There are scattered areas of fibroglandular density. There are no dominant masses, suspicious micro calcifications or areas of architectural distortion. Atiya Velez MD MAMMO * SCAN-OPERATIVE/PROCEDURE REPORT (12/20/2023 12:00 AM CDT) Scanner OTHER * LAB TRACKING EVENT (11/08/2023 12:55 PM CDT) Other (Other) Client Collect / Unknown 11/08/2023 12:55 PM CDT 11/08/2023 9:27 PM CDT Conor Wall MD LAB BILL ONLY [facility] [address] [place] [address], * PATH TISSUE EXAM (11/08/2023 12:55 PM CDT) Case Report Pathology Report ?Case: [id number] ? Authorizing Provider: ??Conor Wall MD ?? Collected: ? 11/08/2023 1255 ? Ordering Location: ? [facility] ?Received: ?11/09/2023 0828 ? Pathologist: ? Laura Eng MD ? Specimen: ?Cecum Biopsy ? 11/10/2023 10:51 AM CDT [facility] Final Diagnosis A) COLON, CECUM, POLYPECTOMY: 1. Tubular adenoma 2. Negative for high grade dysplasia 3. Per the colonoscopy report: ?? a. Polyp size: 7 mm ?? b. Resection: Complete ?? c. Retrieval: Complete 11/10/2023 10:51 AM CDT [facility] Clinical Information Positive Cologuard 11/10/2023 10:51 AM CDT [facility] Gross Description A) Received in formalin are 2 mann mucosal fragments averaging 13 mm in greatest dimension, which are entirely submitted in one cassette. It is labeled with the patient's name and designated cecum polyp. Carine Fung 11/09/2023 1:44 PM 11/10/2023 10:51 AM CDT [facility] Microscopic Description The final diagnosis is based on microscopic examination of appropriate sections of all specimens. 11/10/2023 10:51 AM CDT [facility] Additional Information Interpreted at [facility] - [address] [place] [address] [address] [address] 11/10/2023 10:51 AM CDT [facility] Other (Cecum Biopsy) 11/08/2023 12:55 PM CDT 11/09/2023 8:28 AM CDT Conor Wall MD PATHOLOGY/CYTOLOG Y [facility] [address] [place] [address], * COLONOSCOPY SCREENING (11/08/2023 12:00 AM CDT) Atiya Velez MD GI PROCEDURE ORD * (ABNORMAL) LIPID PANEL W REFLEX MEASURED LDL (11/04/2023 2:23 PM CDT) CHOLESTEROL,TOTAL 336(H) 100 - 199 mg/dL 11/04/2023 11:04 PM CDT [facility] Comment: Cholesterol, Total Reference Ranges Desirable <200 mg/dL Borderline 200-239 mg/dL High >=240 mg/dL TRIGLYCERIDES 294(H) <150 mg/dL 11/04/2023 11:04 PM CDT [facility] HDL CHOLESTEROL 58 >40 mg/dL 11:04 PM CDT [facility] NON-HDL CHOLESTEROL 278(H) <145 mg/dl 11/04/2023 11:04 PM CDT [facility] CHOL/HDL RATIO 5.79(H) <4.50 11/04/2023 11:04 PM CDT [facility] LDL CHOLESTEROL 219(H) <=130 mg/dL 11/04/2023 11:04 PM CDT [facility] VLDL CHOLESTEROL 59(H) <=30 mg/dL 11/04/2023 11:04 PM CDT [facility] PROVIDER ORDERED STATUS RANDOM 11/04/2023 11:04 PM CDT [facility] Blood BLOOD SPECIMEN / Unknown Venipuncture / Unknown 11/04/2023 2:23 PM CDT 11/04/2023 2:25 PM CDT Atiya Velez MD CHEMISTRY [facility] [address] [place] [address], * (ABNORMAL) SDNA-FIT EXTERNAL (COLOGUARD) (10/27/2023 9:21 AM CDT) NONINV COLON CA DNA+OCC BLD SCRN STL-IMP Positive( A) Negative 11/02/2023 7:39 PM CDT [facility] (CLIA #:[id number]) Comment: POSITIVE TEST RESULT. A positive Cologuard [...] (Ash Martin al, N Engl J Med 2014;370(14):8832-7667.) Cologuard may produce a false negative or false positive result (no colorectal cancer or precancerous polyp present at colonoscopy follow up). A negative Cologuard test result does not guarantee the absence of CRC or advanced adenoma (pre-cancer). The current Cologuard screening interval is every 3 years. ([place] [employer] Society and U.S. Multi-Society Task Force). Cologuard performance data in a 10,000 patient pivotal study using colonoscopy as the reference method can be accessed at the following location: www.InstantMarketing/results. Additional description of the Cologuard test process, warnings and precautions can be found at www.Shipsterrd.MedTel24. Stool specimen (specimen) (Rectum) 10/27/2023 9:21 AM CDT 10/28/2023 9:37 AM CDT Atiya Velez MD URINE [facility] (CLIA #:[id number]) [place] [address], * LC HIV-1/O/2, 4TH GENERATION (06/23/2022 2:28 PM PRODUCTION LINE TECHNICIAN) HIV Scr 4th Gen Non Reactive Non Reactive 06/25/2022 9:06 PM PRODUCTION LINE TECHNICIAN [facility] ([facility]) Comment: HIV Negative HIV-1/HIV-2 antibodies and HIV-1 p24 antigen were NOT detected. There is no laboratory evidence of HIV infection. Blood BLOOD SPECIMEN / Unknown Venipuncture / Unknown 06/23/2022 2:28 PM PRODUCTION LINE TECHNICIAN 06/23/2022 2:29 PM PRODUCTION LINE TECHNICIAN N[facility]ative [facility] - 06/25/2022 9:06 PM PRODUCTION LINE TECHNICIAN Performed at: ??01 - [address] ??[id number] Digital Cartographic Technician: Miko Leyva MD, Phone: ??[phone] Atiya Velez MD LABORATORY [facility] ([facility]) [address] [place] [address] * ANTI HCV (03/17/2022 12:25 PM CDT) Pathologist [facility] HEPATITIS C ANTIBODY Non-React ramona Non-React ramona 03/18/2022 5:22 PM CDT [facility] Comment:Antibodies to HCV no t detected; does not exclude the possibility of exposure to HCV. Blood BLOOD SPECIMEN / Unknown Venipuncture / Unknown 03/17/2022 12:25 PM CDT 03/17/2022 12:25 PM CDT Atiya Velez MD [facility] [address] [place] [address], * HPV HIGH RISK (10/28/2021 11:49 AM CDT) Pathologist [facility] TYPE 16 Negative Negative 10/30/2021 2:55 PM CDT [facility] TYPE 18 Negative Negative 10/30/2021 2:55 PM CDT [facility] OTHER HIGH RISK TYPES Negative Negative 10/30/2021 2:55 PM CDT [facility] Other (Cervical) Non-Blood / Unknown 10/28/2021 11:49 AM CDT 10/29/2021 10:31 AM CDT Narrative [facility] - 10/30/2021 2:55 PM CDT HPV types 16, 18, 31, 33, 35, 39, 45, 51, 52, 56, 58, 59, 66 and 68 DNA were undetectable or below the pre-set threshold. Methodology: Cristina Salinas 4800 HPV Test Josselyn [facility] [address] [place] [address], [place] from Last 3 Months or Most Recently Relevant to Health Maintenance Advance Directives Documents on File Type Date Recorded Patient Orthotist Or Prosthetist Expl anation POLST 10/05/2023 Healthcare Directive 08/25/2023 024 Power of Bench Assembler Operator 03/11/2018 4:18 PM STATU TORY SHORT FORM POWER OF DECALER, KIRSTIN & YOMI, RC, 10/14/17 Healthcare Directive 03/11/2018 4:14 PM HE ALTHCARE DIRECTIVE, [facility], 02/10/18 POLST 12/16/2017 3:47 PM GAVIN CANALES [facility], 12/01/17 * Full Code (Latest Code Status on File) Date Activated Date Inactivated Comments 04/09/2021 9:39 AM 04/09/2021 6:54 PM Question Answer Comments Code Status Discussion: Not Discussed Care Teams Screw Cutter Relationship Specialty Start Date End Date Atiya Velez MD [address] [place] [address] PCP - General Family Practice 03/16/14
[2024-01-27 12:34] LABS: C Reactive Protein* 3.5 mg/dL (0.5-1.0)
[2024-01-27 12:44] VITALS: BP 167/106; PULSE 88; RESP 18; O2SAT 96
== END 2024-01-27 14:13 | disposition home or self-care (01) ==
PROVIDERS: Emergency Provider Emergency Medicine; PCP Family Medicine
DX: R10.9 Unspecified abdominal pain (principal)
CPT/HCPCS: 36415; 74176; 80048; 80076; 81001; 83605; 83690; 85025; 86140; 96361; 96374; 99284; J1885; J7030

== ENCOUNTER 2024-06-17 13:34 | Outpatient (CLI) | payer MEDICARE, MEDICAID, SELFPAY | END 2024-06-17 13:35 | disposition home or self-care (01) | LOC: AMB 07-01 06:40 | PROVIDERS: PCP Family Medicine; Visit Provider Emergency Medicine | DX: R51.9 Headache, unspecified (principal); R42 Dizziness and giddiness | CPT/HCPCS: A0425; A0427 ==

== ENCOUNTER 2024-06-17 13:49 | Emergency (ER) | payer MEDICARE, MEDICAID, SELFPAY ==
[2024-06-17] VITALS (15 sets, daily range): BP systolic 149–188; BP diastolic 80–99; PULSE 105–121; RESP 20; TEMP 37.3; O2SAT 83–95; BMI 39.0
--- OUTSIDE RECORDS SUMMARY | 2024-06-17 13:51 | XMS_ITS | Clinical Summary ---
Author Organization [place] Address [address] [place] [address] Care Team Providers Care Architecture Analyst Name Role Phone No Ref-Primary, Physician Primary Care Provider AgustinHernane Unavailable Allergies No known active allergies Medications ibuprofen (ADVIL,MOTRIN) 600 MG tablet Take 1 [...] School Help Needed Not on file 03/14 Comments Unknown Sex and Gender Information Value Date Recorded Sex Assigned at Not on file Legal Sex Female 3:14 AM LEAD COATER Gender Identity Not on file Sexual Orientation Not on file Last Filed Vital Signs Vital Sign Reading Time Taken Comments Blood Pressure 118/72 02/10/2022 11:28 AM CDT Pulse 134 02/10/2022 11:28 AM CDT Temperature 36.9 C (98.5 F) 02/10/2022 11:28 AM CDT Respiratory Rate 36 01/31/2014 3:35 AM CDT [...] LIPID 2010 MAMMO SCREENING 10/03/2014 10/03/2012, 12/29/2011 Pneumococcal Vaccine: 50+ Years (1 of 1 - PCV) 2020 COVID-19 Vaccine (5 - 2023- season) 2024 09/12/2021, 03/28/2021, 07/31/2020, Additional history exists INFLUENZA VACCINE (#1) 2024 , 02/15/2020, 02/17/2019, Additional history exists PHQ-2 (once per calendar year) 2024 DTAP/TDAP/TD IMMUNIZATION (3 - Td or Tdap) 10/08/2031 10/07/2021, 10/07/2011, 03/29/2003 RSV VACCINE (1 - 1-dose 75+ series) 2045 ZOSTER IMMUNIZATION Completed 11/01/2020, HPV IMMUNIZATION Aged [...] CDT Impressions 10/03/2012 10:24 AM CDT IMPRESSION: BI-RADS-3. PROBABLY BENIGN. LEFT BREAST(S) DESCRIBED. RECOMMENDATION: 6 MONTH FOLLOW-UP. ALLIE ARAUJO MD Narrative 10/03/2012 10:24 AM CDT DIAGNOSTIC MAMMOGRAM LEFT DIGITAL w/CAD October 03, [...] 6 MONTH FOLLOW-UP. ALLIE ARAUJO MD Shabana Haqq CNM IM MAMMOGRAPHY ORDERABLES Kenyatta l Result from Last 3 Months or Most Recently Relevant to Health Maintenance Insurance MEDICARE MEDICA CHOICE [facility] MEDICARE SUPPLEMENT Care Teams Architecture Analyst Relationship Specialty Start Date End Date No Ref-Primary, Physician PCP - General 02/10/22 Atiya Velez Family [facility] 02/10/22
--- OUTSIDE RECORDS SUMMARY | 2024-06-17 13:51 | XMS_ITS | Clinical Summary ---
Author Organization [facility] Address [place], [place] [address] Care Team Providers Care Box Printer Name Role Phone Atiya Velez MD Primary Care Provide r Allergies Active Allergy Reactions Criticality Noted Date Comments Celecoxib Stomach Upset 03/09/2024 Iodinated Contrast Media Nausea And Vomiting 04/13/2023 Morphine Vomiting 03/28/2021 Unlisted Allergen (Include Detail In Comments) Runny Nose 12/21/2018 Seasonal, and cats Medications Walker - 4 wheelsIndications: Lumbar spondylosis With brakes, seat. For home use. Length of need: 99 months. 1 Device 9 Active medication order composerIndication s:Degenerative disc disease, lumbar,S/P lumbar spinal fusion theraworx foam, apply three times daily 7.1 oz 5 9 Active cyclobenzaprine (Flexeril) 5 mg tabletIndications: Lumbar radicular pain Take 1 Tablet (5 mg) by mouth at bedtime if needed for Muscle Spasm. 24 Tablet 3 2 Active cholecalciferol (Vitamin D) 1,000 unit capsuleIndications :Vitamin D deficiency Take 2 Capsules (2,000 units) by mouth once daily. 0 3 Active clindamycin 1% (CLEOCIN-T) 1 % lotionIndications: Acne rosacea APPLY TOPICALLY TO AFFECTED AREA(S) TWICE DAILY 60 mL 3 3 Active carBAMazepine (TEGRETOL) 200 mg tabletIndications: Convulsions, unspecified convulsion type (HC) Take 1 Tablet (200 mg) by mouth three times daily. 270 Tablet 3 4 Active omeprazole (PRILOSEC) 20 mg Delayed-Release capsuleIndications :Heartburn Take 1 Capsule (20 mg) by mouth two times daily before meals. 180 Capsule 3 4 Active DULoxetine (CYMBALTA) 20 mg Delayed-release capsuleIndications :Myofascial pain Take 1 Capsule (20 mg) by mouth once daily. 90 Capsule 2 4 Active levothyroxine (SYNTHROID) 50 mcg tabletIndications: Hypothyroidism, unspecified type Take 1 Tablet (50 mcg) by mouth before breakfast. 90 Tablet 3 4 Active rosuvastatin (CRESTOR) 10 mg tabletIndications: Hyperlipidemia, unspecified hyperlipidemia type Take 1 Tablet (10 mg) by mouth at bedtime. 90 Tablet 3 4 Active Active Problems Problem Noted Date Diagnosed Date Colon polyp 11/10/2023 Overview (11/10/2023): Colonoscopy 11/2023 TA, repeat in 7 years, propofol Mixed hearing loss, bilateral 06/03/2021 Cholecystitis 10/04/2020 Anxiety 07/22/2018 Perimenopause 03/18/2017 Leg pain, bilateral 10/23/2015 Left chronic serous otitis media 08/21/2015 Hypoparathyroidism 03/13/2015 Onychomycosis 03/13/2015 Vitamin D deficiency 01/02/2015 Thyroid activity decreased 11/27/2014 S/P thoracic to L4 fusion for scoliosis 05/25/20 14 DDD (degenerative disc disease), lumbar 02/03/20 14 Overview (02/02/2014): Disc bulge L4-5 Lower extremity edema 02/06/2011 Seizures 09/14/2009 Hypothyroidism 09/14/2009 Environmental allergies 09/14/2009 Learning disability 09/14/2009 Resolved Problems Problem Noted Date Diagnosed Date Resolved Date Seizure disorder 02/07/2015 06/25/2016 Acute sinusitis, unspecified 02/06/2011 04/03/2013 Scoliosis 09/14/2009 05/25/2014 Routine health maintenance 09/14/2009 1 07/26/2013 Overview (09/14/2009): 07/14 cpx pap per pt hx Encounters Date Type Department Care Team Description 05/08/2024 Nurse Triage [facility] [address] [place] [address] Atiya Velez MD Questions 05/04/2024 Nurse Triage [facility] [address] [place] [address] Atiya Velez MD Questions 04/25/[address] [address] Atiya Velez MD FYI 04/19/[address] [address] Atiya Velez MD Questions (HOME CARE) 04/17/[address] [address] Atiya Velez MD Hi ?? 04/13/2024 2:45 PM BEAD PREPARER Ancillary Procedure [address] [address] 04/13/2024 1:25 PM BEAD PREPARER Office Visit [address] [address] Atiya Velez MD Follow Up (Stomach still hurting, nausea, just before bed and a little dizzy./Back also bothersome, always about 10 pm at night when she is starting to relax. Last couple of nights felt almost like a vibration./Weight has been fluctuating. ); Leg Pain/problem (spasms); Ear Problem (Check ears) 04/13/2024 Travel 04/08/2024 Travel from Last 3 Months Immunizations Name Administration Dates Next Due AMB INFLUENZA, IIV4 (AGE=>6M OS) MDV (Flu Clinic Only) 03/08/2018 AMB Influenza, IIV3 (Age >=3 years)(Flu Clinic Only) 03/21/2013 COVID-19 VACCINE SPIKEVAX (M ODERNA 50MCG/0.5ML) 12YO+ PFS 02/25/2024,03/25/2023 COVID-19 vaccine (Moderna 100mcg/0.5mL) PF, MDV 09/12/2021,07/31/2020,07/03/2020 COVID-19 vaccine (Moderna Carlos Alberto carter 50mcg/0.25mL) PF, MDV 03/28/2021 COVID-19 vaccine (Pfizer-Bio NTech 30mcg/0.3mL) 12YO+ BIVALENT PF, MDV 03/17/2022 INFLUENZA, IIV3 PF (AGE >= 6 MO) 02/03/2024,02/06 Influenza, IIV3 (Age >=3 years) 03/26/2017,03/18 Influenza, [...] drink = 0.6 oz pur e alcohol) [facility] Utilities Answer Date Recorded Do you have trouble paying f or utilities (for example, heat, electricity, water, phone)? Yes 10/30/2023 PHQ-2 Answer Date Recorded PHQ-2 TOTAL SCORE 0 04/13/2024 Social Connections Answer Date Recorded Do you often feel lonely or isolated from those around you? 0 10/30/2023 Financial Resource Strain Answer Date R ecorded Difficulty of Paying Living Expenses 3 10/30/2023 Difficulty of Paying Living Expenses Not on file 10/30/2023 Food Insecurity Answer Date Recorded Do you worry your food will run out before you are able to buy more? 1 10/30/2023 Transportation Needs Answer Date Record ed Does lack of transportation keep you from medica l appointments? 1 10/30/2023 Does lack of transportation keep you from work, meetings or getting things that you need? 1 10/30/2023 Housing Stability Answer Date Recorded What is your housing situation today? 1 10/30/2023 Comments No Sex and Gender Information Value Date Recorded Sex Assigned at Female 04/11/2023 11:45 PM BEAD PREPARER Legal Sex Female 7:52 AM BEAD PREPARER Gender Identity Female 04/11/2023 11:45 PM BEAD PREPARER Sexual Orientation Not on file Occupation Industry Job Start Date Job End Date disabled Not on file Not on file Not on file Obstetrics History Para Term AB IAB SAB Ectopic Multiple Livin g Live Births 0 0 0 0 0 0 0 0 0 0 0 Last Filed Vital Signs Vital Sign Reading Time Taken Comments Blood Pressure 129/84 04/13/2024 1:41 PM BEAD PREPARER Pulse 101 04/13/2024 1:41 PM BEAD PREPARER Temperature 36.6 C (97.8 F) 11/04/2023 12:58 PM CDT Respiratory Rate 16 05/06/2021 2:04 PM BEAD PREPARER Oxygen Saturation 96% 04/13/2024 1:41 PM BEAD PREPARER Inhaled Oxygen Concentration - - Weight 83 kg (183 lb) 04/13/2024 1:41 PM BEAD PREPARER Height 152.4 cm (5') 08/06/2023 12:03 PM BEAD PREPARER Body Mass Index 35.74 08/06/2023 12:03 PM BEAD PREPARER Plan of Treatment Upcoming Encounters Date Type Department Care Team (Late st Contact Info) Description 07/14/2024 11:20 AM BEAD PREPARER Office Visit [facility] [address] [place] [address] Atiya Velez MD [address] [place] [address] Health Maintenance Due Date Last Done Comments Pneumococcal series for age 50+ (1 of 1 - PCV) 2020 BMI (ht and wt on same day) for age 18+ 08/05/2024 08/06/2023, 06/23/2022, 02/16/2022, Additional history exists Influenza for age 50-64 09/04/2024 02/03/20, 02/18/2023, 02/16/2022, Additional history exists Postponed from 02/06/2024 (Other) Mammogram for age 45-75 01/19/2025 01/20/20 24, 01/11/2023, 12/16/2021, Additional history exists Depression screening for age 12+ 04/13/2025 04/13/2024, 02/18/2023, 02/18/2023, Additional history exists Pap test for age 21-65 10/28/2026 , 10/28/2021, 11/22/2018, Additional history exists Lipids for age 45-75 02/24/2029 02/25/2024, 11/04/2023, 09/15/2023, Additional history exists Colonoscopy through age 75 11/07/203011/07, 11/08/2023, 08/12/2020 ([facility]) Tetanus booster 10/08/2031 10/07/2021, 05/0 07/2011, 03/29/2003, Additional history exists Zoster (shingles) series for age 50+ Completed 11/01/2020, 09/01/2020 Tdap Completed 10/07/2021, 10/07/2011 Hepatitis C screening for age 18-79 Completed 03/17/2022, 02/16/2022 HIV for age 15-65 Completed 06/23/2022 COVID-19 vaccine series Completed 02/25/20, 03/25/2023, 03/17/2022, Additional history exists Goals Goal Patient Goal Type Associated Problems Recent Progress Patient-Stated? Author BLOOD PRESSURE - Maintains BP less than 140/90 Blood Pressure No Annamaria Osborne LPN Medical Devices Implanted Type Area Director Professional Services Device Identifier Shelf Expiration Date Model / Serial / Lot [id number] - [id number] Implanted:Qty: 1 on 04/09/2021 by Maxi Rodrigez MD at [facility] Left: Ear Medtronic 07/11/2027 [id number] / / [id number] Description:medtronic big ea sy piston - straight [id number] Cmnt Bone Ear 2gm [employer] - [id number] Implanted:Qty: 1 on 04/09/2021 by Maxi Rodrigez MD at [facility] Left: Ear [employer] 07/24/2022 [id number] / / [id number] Procedures Procedure Name Priority Date/Time Associated Diagnosis Comments XR ABDOMEN 1 VIEW Routine 04/13/2024 2:4 9 PM BEAD PREPARER Abdominal pain, generalized LIPID PANEL W REFLEX MEASURED LDL Routine 02/25/2024 9:58 AM CDT Hyperlipidemia, unspecified hyperlipidemia type XR MAMMO TONY BILAT SCREEN Routine 01/20/2024 11:29 AM CDT Encounter for screening mammogram for malignant neoplasm of breast COLONOSCOPY SCREENING Routine 11/08/2023 12:00 AM CDT Positive colorectal cancer screening using DNA-based stool test LC HIV-1/O/2, 4TH GENERATION Routine 06/23/2022 2:28 PM BEAD PREPARER Screening for HIV (human immunodeficiency virus) ANTI HCV Routine 03/17/2022 12:25 PM CDT Encounter for HCV screening test for low risk patient HPV HIGH RISK Routine 10/28/2021 11:49 AM CDT Pap smear for cervical cancer screening from Last 3 Months or Most Recently Relevant to Health Maintenance Results * XR ABDOMEN 1 VIEW (04/13/2024 2:49 PM BEAD PREPARER) Anatomical Region Laterality Modality Abdomen Computed Radiogr aphy 04/14/2024 3:34 PM BEAD PREPARER Narrative 04/14/2024 3:34 PM BEAD PREPARER For Patients: As a result of the Century Cures Act, medical imaging exams and procedure reports are released immediately into your electronic medical record. You may view this report before your referring provider. If you have questions, please contact your health care provider. INDICATION: Abdominal pain TECHNIQUE: Two view abdomen. FINDINGS: Spine fusion hardware. Large amount of stool within the colon. Bowel-gas pattern appears non obstructive. Dictated by Sera Up MD @ 04/14/2024 3:34:30 PM (Electronically Signed) Procedure Note Sera Up MD - 04/14/2024 For Patients: As a result of the Cures Act, medical imagingexams and procedure reports are released immediately into your electronicmedical record. You may view this report before your referring provider.If you have questions, please contact your health care provider. INDICATION: Abdominal pain TECHNIQUE: Two view abdomen. FINDINGS: Spine fusion hardware. Large amount of stool within the colon. Bowel-gaspattern appears non obstructive. Dictated by Sera Up MD @ 04/14/2024 3:34:30 PM (Electronically Signed) us Atiya Velez MD GENERAL IMAGING Final Result * (ABNORMAL) LIPID PANEL W REFLEX MEASURED LDL (02/25/2024 9:58 AM CDT) CHOLESTEROL, TOTAL 321(H) <200 mg/dL [employer] HDL CHOLESTEROL 56 > OR = 50 mg/dL [employer] TRIGLYCERIDES 327(H) <150 mg/dL [employer] Comment: If a non-fasting specimen was collected, consider repeat triglyceride testing on a fasting specimen if clinically indicated. Sara sequeira al. J. of Clin. Lipidol. 2015;9:129-169. LDL-CHOLESTEROL 210(H) mg/dL (calc) [employer] [facility] Comment: LDL-C levels > or = 190 mg/dL may indicate familial hypercholesterolemia (FH). Clinical assessment and measurement of blood lipid levels should be considered for all first degree relatives of patients with an FH diagnosis. LDL Cholesterol (LDL-C) levels > or = 300 mg/dL may indicate homozygous familial hypercholesterolemia (HoFH). Untreated, these extremely high LDL-C levels can result in premature CV events and mortality. Patients should be identified early and provided appropriate interventions to reduce the cumulative LDL-C burden from . For questions about testing for familial hypercholesterolemia, please call [employer] [facility] at [phone]. Sara Grace, et al. J National Lipid Association Recommendations for Patient-Centered Management of Dyslipidemia: Part 1 Journal of Clinical Lipidology 2015;9(2), 129-169. Modesto Castro et al. (2014). Homozygous familial hypercholesterolaemia: new insights and guidance for clinicians to improve detection and clinical management. Heart Journal, 35(32), 9798-6328. Reference range: <100 Desirable range <100 mg/dL for primary prevention; <70 mg/dL for patients with CHD or diabetic patients with > or = 2 CHD risk factors. LDL-C is now calculated using the Conor-Reji calculation, which is a validated novel method providing better accuracy than the Friedewald equation in the estimation of LDL-C. Conor SS et al. TORIE. 2013;310(19): 5315-3932 (http://education.[employer]/faq/ASG118) CHOL/HDLC RATIO 5.7(H) <5.0 (calc) [employer] NON HDL CHOLESTEROL 265(H) <130 mg/dL (calc) [employer] Comment: Non-HDL level > or = 220 is very high and may indicate genetic familial hypercholesterolemia (FH). Clinical assessment and measurement of blood lipid levels should be considered for all first-degree relatives of patients with an FH diagnosis. For patients with diabetes plus 1 major ASCVD risk factor, treating to a non-HDL-C goal of <100 mg/dL (LDL-C of <70 mg/dL) is considered a therapeutic option. Blood BLOOD SPECIMEN / Unknown 02/25/2024 9:58 AM CDT 02/25/2024 9:59 AM CDT us Atiya Velez MD CHEMISTRY Final Result [employer] [facility] [address] [place] [address], [facility] [address] [place] [address] * XR MAMMO TONY BILAT SCREEN (01/20/2024 11:29 AM CDT) Anatomical Region Laterality Modality BREASTS, Breast Left, Breast Right Bilateral Mammography Impressions 01/20/2024 4:02 PM CDT There is no radiographic evidence for malignancy. Recommend annual mammograms. MAMMOGRAM ASSESSMENT: ACR 1 Negative PATIENTS: You will also receive a letter with your examination results in an easy to read format. If you have questions about your results, please [...] care provider. XR MAMMO TONY BILAT SCREEN [[id number]] CLINICAL HISTORY: This is an asymptomatic 53 y.o. patient. INDICATION FOR EXAM: Mammogram Screening. TECHNIQUE: CC & MLO views were obtained. This study was evaluated with the assistance of Computer-Aided Detection. Breast Tomosynthesis was used in interpretation. COMPARISON FILM: Yes 01/11/23 [facility] 12/22/21 [employer] FINDINGS: There are scattered areas of fibroglandular density. There are no dominant masses, suspicious micro calcifications or areas of architectural distortion. us Atiya Velez MD MAMMO Final Result * COLONOSCOPY SCREENING (11/08/2023 12:00 AM CDT) us Atiya Velez MD GI PROCEDURE ORD Kenyatta l Result * LC HIV-1/O/2, 4TH GENERATION (06/23/2022 2:28 PM BEAD PREPARER) HIV Scr 4th Gen Non Reactive Non Reactive 06/25/2022 9:06 PM BEAD PREPARER [facility] Comment: HIV Negative HIV-1/HIV-2 antibodies and HIV-1 p24 antigen were NOT detected. There is no laboratory evidence of HIV infection. Blood BLOOD SPECIMEN / Unknown Venipuncture / Unknown 06/23/2022 2:28 PM BEAD PREPARER 06/23/2022 2:29 PM BEAD PREPARER Narrative [facility] - 06/25/2022 9:06 PM BEAD PREPARER Performed at: - [facility] [address] [place], [place] [id number] Director Software Development: Miko Leyva MD, Phone: [phone] Atiya Velez MD LABORATORY Final Result [facility] ([facility]) [facility] [place] [address], * ANTI HCV (03/17/2022 12:25 PM CDT) HEPATITIS C ANTIBODY Non-React ramona Non-React ramona 03/18/2022 5:22 PM CDT [facility] Comment:Antibodies to HCV no t detected; does not exclude the possibility of exposure to HCV. Blood BLOOD SPECIMEN / Unknown Venipuncture / Unknown 03/17/2022 12:25 PM CDT 03/17/2022 12:25 PM CDT Atiya Velez MD SEND OUTS Final Result [facility] [address] [place] [address], * HPV HIGH RISK (10/28/2021 11:49 AM CDT) TYPE 16 Negative Negative 10/30/2021 2:55 PM CDT [facility] TYPE 18 Negative Negative 10/30/2021 2:55 PM CDT [facility] OTHER HIGH RISK TYPES Negative Negative 10/30/2021 2:55 PM CDT [facility] Other (Cervical) Non-Blood / Unknown 10/28/2021 11:49 AM CDT 10/29/2021 10:31 AM CDT Narrative [facility] - 10/30/2021 2:55 PM CDT HPV types 16, 18, 31, 33, 35, 39, 45, 51, 52, 56, 58, 59, 66 and 68 DNA were undetectable or below the pre-set threshold. Methodology: Cristina Salinas 4800 HPV Test Josselyn TATUM MICROBIOLOGY Final Result [facility] [address] [place] [address], [place] from Last 3 Months or Most Recently Relevant to Health Maintenance Insurance MEDICARE PART A HB ONLY MEDICARE PART B HB ONLY [employer] MEDICARE ADVANTAGE MEDICAID Advance Directives Documents on File Type Date Recorded Patient [employer] Expl anation POLST 10/05/2023 Healthcare Directive 08/25/2023 024 Power of Document Review Attorney 03/11/2018 4:18 PM STATU RUBEN SHORT FORM POWER OF MARINE CARGO INSPECTOR, [facility]IRSTIN [facility] CELAYA, 10/14/17 Healthcare Directive 03/11/2018 4:14 PM HE ALTHCARE DIRECTIVE, [facility], 02/10/18 POLST 12/16/2017 3:47 PM GAVIN CANALES [facility], 12/01/17 * Full Code (Latest Code Status on File) Date Activated Date Inactivated Comments 04/09/2021 9:39 AM 04/09/2021 6:54 PM Question Answer Comments Code Status Discussion: Not Discussed Care Teams Box Printer Relationship Specialty Start Date End Date Atiya Velez MD [address] [place] [address] PCP - General Family Practice 03/16/14
--- OUTSIDE RECORDS SUMMARY | 2024-06-17 13:51 | XMS_ITS | Continuity of Care Document ---
Author Name NwHIN User [email or web address] llowed Address Unknown Organization Unknown Address Unknown Procedures FILTER APPLIED:Only known Procedures with Onset Date within the last 5 years Procedure Date Procedure Provider Additiona l Information Status EMERGENCY DEPT VISIT LOW MDM (95873) Completed X-RAY EXAM CHEST 1 VIEW (33761) Completed C-REACTIVE PROTEIN (55948) Completed ASSAY OF TROPONIN QUANT (92689) Completed ASSAY OF NATRIURETIC PEPTIDE (13223) Completed HEPATIC FUNCTION PANEL (75408) Completed ROUTINE VENIPUNCTURE (10606) Completed EMERGENCY DEPT VISIT HI MDM (15073) Completed EMERGENCY DEPT VISIT MOD MDM (70743) Completed ELECTROCARDIOGRAM TRACING (00211) Completed COMPLETE CBC W/AUTO DIFF WBC (07243) Completed MEASURE BLOOD OXYGEN LEVEL (70545) Completed CT ABD PELVIS W/O CONTRAST (10697) Completed METABOLIC PANEL TOTAL CA (01996) Completed MICROBE SUSCEPTIBLE MARIA GUADALUPE (62463) Completed EMERGENCY DEPT VISIT MOD MDM (72748) Completed URINE CULTURE/COLONY COUNT (25190) Completed COMPLETE CBC W/AUTO DIFF WBC (70344) Completed ASSAY OF LIPASE (98531) Completed ASSAY OF LACTIC ACID (01243) Completed URINALYSIS AUTO W/SCOPE (82076) Completed COMPREHEN METABOLIC PANEL (17661) Completed CT ABD PELVIS W/O CONTRAST (47071) Completed ROUTINE VENIPUNCTURE (07011) Completed EMERGENCY DEPT VISIT LOW MDM (77623) Completed THERAPEUTIC EXERCISES (57213) Completed PT EVAL LOW COMPLEX 20 MIN (85104) Completed MANUAL THERAPY 1/> REGIONS (12889) Completed Encounters FILTER APPLIED:Only known Encounters with Admission Date within the last 5 years Encounter Location Admission Discharge Billing Code Consultant Brittany anderson Emergency [facility] Emergency [facility] Outpatient Atiya Velez Outpatient [facility] Joi Crist[facility]
--- OUTSIDE RECORDS SUMMARY | 2024-06-17 13:51 | XMS_ITS | Referral Summary ---
Author Organization [place] Address [address] [place] [id number] Care Team Providers Care Abrasives Sales Representative Name Role Phone No Ref-Primary, Physician Primary [...] on file Legal Sex Female 3:14 AM RECORD PRESS TENDER Gender Identity Not on file Sexual Orientation [...] RECOMMENDATION: 6 MONTH FOLLOW-UP. CHRISTOPHER ARAUJO MD Narrative 10/03/2012 [...] ARAUJO MD Shabana Levy CNM IMG MAMMOGRAPHY ORDERABLES Kenyatta l Result from Last 3 Months or Most Recently Relevant to Health Maintenance Insurance NONE (Work) [address] [place] [id number] [place] [address] [facility] MEDICARE SUPPLEMENT Care Teams Abrasives Sales Representative Relationship Specialty Start Date End Date No Ref-Primary, Physician PCP - General 02/10/22 Atiya Velez Family Practice 02/10/22
--- NOTE | 2024-06-17 13:59 | ED.GENADULT ---
HPI - General Adult General Chief complaint: Headache/Migraine Stated complaint: Headache Time Seen by Provider: 06/17/24 13:52 History of Present Illness HPI narrative: Patient is a 54-year-old resident of [facility] where she lives independently with her . She does have history of developmental delay. Ambulance was called due to headache and feeling poorly. She is fairly nonspecific with me, when I asked her what was bothering her now she said ?everything. She continues to have a headache, she says she has had a cough, when I asked she said her throat does hurt, she complains of abdominal pain and nausea, she has not had vomiting. When I asked if she had a fever she said that her temperature was 75.9 at home, no apparent documented elevated temperature readings. She says she has history of hernia and she thinks maybe something is going on with that. She does not seem to have urinary symptoms. Related Data Home Medications ?Medication ?Instructions ?Recorded ?Confirmed carbamazepine 200 mg tablet 200 mg PO TID 01/16/22 12/17/23 duloxetine 20 mg capsule,delayed 20 mg PO DAILY 01/16/22 12/20/23 release famotidine 20 mg tablet 20 mg PO DAILY 01/16/22 12/20/23 levothyroxine 50 mcg capsule 50 mcg PO DAILY 01/16/22 12/20/23 omeprazole 20 mg capsule,delayed 20 mg PO DAILY 01/16/22 12/20/23 release acetaminophen 325 mg tablet 650 mg PO DAILY PRN 01/19/22 12/20/23 colestipol 1 gram tablet 1 g PO BID 01/27/24 01/27/24 levothyroxine 50 mcg tablet 50 mcg PO QAM 01/27/24 01/27/24 Previous Rx's ?Medication ?Instructions ?Recorded cyclobenzaprine 10 mg tablet 10 mg PO BID PRN muscle spasm #10 10/10/23 tabs [id number] 3.3 5 drp Otic (ear-right) QID 5 days 10/10/23 mg-3 mg-10 mg-0.5 mg/mL ear #10 mL drops,susp (Cortisporin-TC) Allergies Allergy/AdvReac Type Severity Reaction Status Date / Time morphine Allergy Unknown Verified 04/13/23 10:40 Iodinated Contrast Media Allergy Verified 04/13/23 10:40 Review of Systems Status of ROS: Reports: 10 or more systems reviewed and unremarkable except as noted in History and below [facility] Medical History Back pain at L4-L5 level ?M54.50 - Low back pain, unspecified (ICD-10) Delay of cognitive development ?F81.9 - Developmental disorder of scholastic skills, unspecified (ICD-10) Liver damage ?K76.9 - Liver disease, unspecified (ICD-10) Fibromyalgia ?M79.7 - Fibromyalgia (ICD-10) 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 of environmental attorney in chart Mixed hearing loss ?H90.8 - Mixed conductive and sensorineural hearing loss, unspecified (ICD-10) Cholecystitis ?K81.9 - Cholecystitis, unspecified (ICD-10) Anxiety ?F41.9 - Anxiety disorder, unspecified (ICD-10) Left chronic serous otitis media ?H65.22 - Chronic serous otitis media, left ear (ICD-10) Onychomycosis ?B35.1 - Tinea unguium (ICD-10) Hypoparathyroidism ?E20.9 - Hypoparathyroidism, unspecified (ICD-10) Vitamin D deficiency ?E55.9 - Vitamin D deficiency, unspecified (ICD-10) DDD (degenerative disc disease), lumbar ?M51.36 - Other intervertebral disc degeneration, lumbar region (ICD-10) Lower extremity edema ?R60.0 - Localized edema (ICD-10) Learning disability ?F81.9 - Developmental disorder of scholastic skills, unspecified (ICD-10) Seizure disorder ?G40.909 - Epilepsy, unspecified, not intractable, without status epilepticus (ICD-10) Hypothyroidism ?E03.9 - Hypothyroidism, unspecified (ICD-10) Encounter for counseling regarding advance directives (02/10/18) ?Z71.89 - Other specified counseling (ICD-10) Surgical History Hx of myringotomy ?Z98.890 - Other specified postprocedural states (ICD-10) Hx laparoscopic cholecystectomy ?Z90.49 - Acquired absence of other specified parts of digestive tract (ICD-10) History of fusion of spine for scoliosis ?Z98.1 - Arthrodesis status (ICD-10) ?Z87.39 - Personal history of other diseases of the musculoskeletal system and connective tissue (ICD-10) Social History Smoking Status: Never smoker Do you use any of these nicotine containing products: None Second hand tobacco smoke exposure: No How often do you have a drink containing alcohol: never How often do you have six or more drinks on one occasion: Never AUDIT-C Alcohol total score: 0 Non-prescribed substance use: denies use Caffeine: Yes service: No Exam Narrative: Exam Narrative: Vital signs reviewed In general, alert, nontoxic and age woman. Breathing easily. Head: Normocephalic, atraumatic. Eyes: Sclera clear. Pupils equal and reactive. ENT: Mucous membranes moist. Neck: Supple without adenopathy. Heart: Regular rate and rhythm without murmur. Lungs: Clear. No increased work of breathing, crackles or wheezes. Abdomen: Soft, diffuse mild tenderness to palpation without any rebound guarding or rigidity. Extremities: Well perfused, pulses intact. No significant edema. Neurologic: Alert, conversant. Speech fluent, face symmetric. Moves all extremities equally. Skin: Warm, dry well perfused. Affect: Normal. Const: Vital Signs, click to edit/add: Vital Signs - 24 hr 06/17/24 13:55 06/17/24 13:58 06/17/24 14:19 Temperature 99.1 F Pulse Rate 117 H Pulse Rate [Pulse Oximeter] 121 H Respiratory Rate 20 Blood Pressure 149/80 H Blood Pressure [Ri ght Upper Arm] 188/99 H Pulse Oximetry 92 95 95 Oxygen Delivery Me thod Room Air 06/17/24 14:20 06/17/24 14:30 06/17/24 14:45 Temperature Pulse Rate 118 H 118 H 110 H Pulse Rate [Pulse Oximeter] Respiratory Rate Blood Pressure Blood Pressure [Ri ght Upper Arm] Pulse Oximetry 95 90 Oxygen Delivery Me thod 06/17/24 15:00 06/17/24 15:15 06/17/24 15:30 Temperature Pulse Rate 108 H 105 H 114 H Pulse Rate [Pulse Oximeter] Respiratory Rate Blood Pressure Blood Pressure [Ri ght Upper Arm] Pulse Oximetry 83 L 91 Oxygen Delivery Me thod 06/17/24 15:36 06/17/24 15:45 06/17/24 16:02 Temperature Pulse Rate 112 H 112 H Pulse Rate [Pulse Oximeter] Respiratory Rate Blood Pressure Blood Pressure [Ri ght Upper Arm] Pulse Oximetry 91 90 93 Oxygen Delivery Me thod Room Air 06/17/24 16:17 06/17/24 16:30 06/17/24 16:45 Temperature Pulse Rate 110 H 114 H 106 H Pulse Rate [Pulse Oximeter] Respiratory Rate Blood Pressure Blood Pressure [Ri ght Upper Arm] Pulse Oximetry 93 Oxygen Delivery Me thod Documenting provider has reviewed patient's vital signs: yes Course Course ED Course: Differential diagnosis is broad at this time. Considerations would include a viral illness such as COVID or influenza, respiratory infection such as pneumonia, urinary tract infection, pyelonephritis, diverticulitis, appendicitis, it appears that she status post cholecystectomy. She does not have obvious risk factors for pancreatitis. I do not believe her symptoms are primarily cardiac although she is tachycardic so an EKG is ordered. Labs and UA ordered to start. Consider imaging of chest and or abdomen pelvis depending on labs. She declines need for anything for pain or nausea right now. Viral swab is obtained as well. Reviewed prior records, I actually saw her for abdominal pain in January of last year, workup was negative. She described pain as ?pinching? at that time, which is the same as she is describing her pain today. Workup here shows generally reassuring labs. Her white blood cell count is 6.8, hemoglobin is 11.8. She has a slight left shift with 79% neutrophils. D-dimer was negative at 0.3. Metabolic panel and LFTs are normal. CRP is mildly elevated at 3.5, lactate is 1.1. TSH was normal. Her viral swab was positive for COVID. Troponin was 0. She had an EKG which showed sinus tachycardia at the time of the tracing with a ventricular rate of 119. Heart rate did improve after fluids here into the low 100s. She had a chest x-ray which by my review was negative for infiltrate, pneumothorax or other findings. Radiology read negative, link below. Patient expressed concern about going home as she does not want to expose her . We talked about ways to minimize exposing other people to COVID. I did talk with the hospitalist about possible admission but there really are no medical reasons to admit. She does develop some hypoxia when she is laying flat and sleeping, into the upper 80s, suggesting maybe some sleep apnea but she is not hypoxic when she is awake. Paxlovid contraindicated because of her carbamazepine. Vital Signs Vital signs: Initial Vital Signs Pulse Oximetry 92 06/17/24 13:55 Vital Signs Pulse Oximetry 92 06/17/24 13:55 Temperature 99.1 F 06/17/24 13:58 Pulse Rate 106 H 06/17/24 16:45 Respiratory Rate 20 06/17/24 13:58 Blood Pressure 149/80 H 06/17/24 14:19 Pulse Oximetry 93 06/17/24 16:17 Oxygen Delivery Method Room Air 06/17/24 15:36 Medications Administered Medications: Discontinued Medications Generic Name Dose Route Start Last Admin Trade Name Freq PRN Reason Stop Dose Admin Sodium Chloride 500 mls @ 500 mls/hr 06/17/24 13:55 06/17/24 15:36 0.9 % Sodium Chloride 500 Ml IV 06/17/24 14:54 Infused .Q1H ONE Infusion Sodium Chloride 500 mls @ 500 mls/hr 06/17/24 15:15 06/17/24 16:45 0.9 % Sodium Chloride 500 Ml IV 06/17/24 16:14 Infused .Q1H ONE Infusion Ketorolac Tromethamine 15 mg 06/17/24 13:55 06/17/24 14:14 Ketorolac 15 Mg/Ml Inj IVP 06/17/24 13:56 15 mg ONCE ONE Administration Ondansetron HCl 4 mg 06/17/24 13:55 06/17/24 14:14 Ondansetron 2 Mg/Ml Inj IVP 06/17/24 13:56 4 mg ONCE ONE Administration Medical Decision Making Lab Data Labs: Lab Results 06/17/24 Range/Units 14:20 WBC 6.76 (4.50-11.00) K/uL RBC 3.78 L (4.00-5.20) m/uL Hgb 11.8 L (12.0-16.0) gm/dL Hct 37.0 (33.0-51.0) % MCV 98 (80-100) fL MCH 31 (26-34) pg MCHC 32 (32-36) gm/dL RDW Coeff of Gracie 13.6 (11.5-15.5) % Plt Count 150 (140-440) K/uL Neut % (Auto) 78.9 H (42.0-72.0) % Lymph % (Auto) 6.7 L (20-44) % [place] % (Auto) 12.3 H (0.0-11.0) % Eos % (Auto) 1.6 (0.0-7.0) % Baso % (Auto) 0.4 (0.0-3.0) % Neut # (Auto) 5.30 (1.7-7.0) K/uL Lymph # (Auto) 0.50 L (0.90-2.90) K/uL [place] # (Auto) 0.80 (0.00-0.90) K/UL Eos # (Auto) 0.11 (0.00-0.50) K/uL Baso # (Auto) 0.03 (0.00-0.30) K/uL Abs Immat Gran (auto) 0.01 (0.00-0.30) K/uL Imm/Tot Granulo (auto) 0.1 % D-Dimer Quant (PE/DVT) 0.30 (0.00-0.50) ug/ml Sodium 138 (135-149) mmol/L Potassium 3.6 (3.6-5.1) mmol/L Chloride 101 (96-114) mmol/L Carbon Dioxide 28 (20-32) mmol/L Anion Gap 9 (7-15) mEq/L BUN 14 (7-30) mg/dL Creatinine 0.6 (0.5-1.5) mg/dL Estimated Creat Clear 138.16 Estimated GFR 107 ml/min Glucose 113 (60-115) mg/dL Lactate 1.1 (0.5-1.9) mmol/L Calcium 8.0 L (8.4-10.6) mg/dL Total Bilirubin 0.3 (0.1-1.5) mg/dL Direct Bilirubin 0.3 (0.0-0.5) mg/dL AST 19 (12-35) U/L ALT 16 (4-35) U/L Alkaline Phosphatase 66 (40-150) U/L C-Reactive Protein 3.5 H (0.5-1.0) mg/dL Total Protein 7.9 (6.0-8.3) g/dL Albumin 4.5 (3.3-5.0) g/dL TSH 1.070 (0.270-4.200) uIU/mL SARS-CoV-2 (PCR) POSITIVE SARS-CoV-2 A (Negative) Influenza Type A (PCR) Negative PCR FLU A (Negative) Influenza Type B (PCR) Negative PCR FLU B (Negative) RSV (PCR) Negative PCR RSV (Negative) POC Troponin I 0.00 L (0.01-0.04) ng/ml Imaging Data Chest x-ray: Attestation: I have reviewed the pertinent imaging results. Radiologist's impression: Patient: Jackelyn Green MR#: [id number] : 1970 Acct:[id number] Loc: ED Service Date: 06/17/[address]: Ordering Physician: Rayne Noble M.D. Date of Service: 06/17/24 Procedure(s): XR chest 1V portable Accession Number(s): [id number] cc: Rayne Noble M.D.; Atiya Velez M.D.~ For Patients: As a result of the Cures Act, medical imaging exams and procedure reports are released immediately into your electronic medical record. You may view this report before your referring provider. If you have questions, please contact your health care provider. INDICATION: : COVID, HYPOXIA COMPARISON: Chest radiograph on May 12, 2023 TECHNIQUE: One view(s) of the chest FINDINGS: The cardiomediastinal silhouette is within normal limits given portable technique, and unchanged compared to prior exam. There is no focal airspace consolidation, pleural effusion, or pneumothorax. No displaced fractures. Scoliotic curvature of the thoracic and lumbar spine status post Zuñiga karri placement. Stable calcified intra-articular loose body in the right shoulder. IMPRESSION: No acute cardiopulmonary process. Dictated by Saul Davis MD @ 06/17/2024 4:47:33 PM Discharge Plan Discharge Clinical Impression: COVID-19 Patient Disposition: Home, Self-Care Condition: Stable Instructions: COVID-19 (Coronavirus Disease 2019) (ED) Additional Instructions: Maintain hydration at home by drinking fluids regularly. You can take ibuprofen or Tylenol if you need them is 4 aches, fever, headache or other related symptoms. If you have never had a sleep study, you might consider this as we suspect you may have a little bit of sleep apnea. There is no evidence of pneumonia in your lungs however. If you are feeling worse, having more difficulty breathing, vomiting or other worsening symptoms, return to the emergency department. Prescriptions: No Action cyclobenzaprine 10 mg tablet 10 mg PO BID PRN (Reason: muscle spasm) Qty: 10 0RF Cortisporin-TC 3.3-3-10-0.5 mg/mL drops,suspension 5 drp Otic (ear-right) QID 5 Days Qty: 10 0RF carbamazepine 200 mg tablet 200 mg PO TID duloxetine 20 mg capsule,delayed release(DR/EC) 20 mg PO DAILY famotidine 20 mg tablet 20 mg PO DAILY levothyroxine 50 mcg capsule 50 mcg PO DAILY omeprazole 20 mg capsule,delayed release(DR/EC) 20 mg PO DAILY acetaminophen 325 mg tablet 650 mg PO DAILY PRN Rx Instructions: NO MORE THAN 4000 MG/DAY levothyroxine 50 mcg tablet 50 mcg PO QAM colestipol 1 gram tablet 1 g PO BID Follow Up/Referrals: Atiya Velez MD [Primary Care Provider] - Stand Alone Forms: [employer] Info Instructions
[2024-06-17] MEDS: ONDANSETRON 2 MG/ML inj 4 MG IVP (14:14)
[2024-06-17] MEDS: KETOROLAC 15 MG/ML inj IVP (14:14)
[2024-06-17] MEDS: 0.9 % SODIUM CHLORIDE 500 ML 500 ML IV ×2 (14:14→15:36)
--- OUTSIDE RECORDS SUMMARY | 2024-06-17 14:16 | XMS_ITS | Continuity of Care Document ---
Author Name NwHIN User [email or web address] llowed Address Unknown Organization Unknown Address Unknown Procedures FILTER APPLIED:Only known Procedures with Onset Date within the last 5 years Procedure Date Procedure Provider Additiona l Information Status EMERGENCY DEPT VISIT LOW MDM (55087) Completed X-RAY EXAM CHEST 1 VIEW (13486) Completed C-REACTIVE PROTEIN (31041) Completed ASSAY OF TROPONIN QUANT (76872) Completed ASSAY OF NATRIURETIC PEPTIDE (97673) Completed HEPATIC FUNCTION PANEL (41033) Completed ROUTINE VENIPUNCTURE (57947) Completed EMERGENCY DEPT VISIT HI MDM (61037) Completed EMERGENCY DEPT VISIT MOD MDM (51322) Completed ELECTROCARDIOGRAM TRACING (31334) Completed COMPLETE CBC W/AUTO DIFF WBC (62909) Completed MEASURE BLOOD OXYGEN LEVEL (10934) Completed CT ABD PELVIS W/O CONTRAST (59175) Completed METABOLIC PANEL TOTAL CA (29499) Completed MICROBE SUSCEPTIBLE MARIA GUADALUPE (48037) Completed EMERGENCY DEPT VISIT MOD MDM (52757) Completed URINE CULTURE/COLONY COUNT (63189) Completed COMPLETE CBC W/AUTO DIFF WBC (37459) Completed ASSAY OF LIPASE (43091) Completed ASSAY OF LACTIC ACID (88925) Completed URINALYSIS AUTO W/SCOPE (25798) Completed COMPREHEN METABOLIC PANEL (48000) Completed CT ABD PELVIS W/O CONTRAST (07718) Completed ROUTINE VENIPUNCTURE (22644) Completed EMERGENCY DEPT VISIT LOW MDM (24900) Completed THERAPEUTIC EXERCISES (30700) Completed PT EVAL LOW COMPLEX 20 MIN (93412) Completed MANUAL THERAPY 1/> REGIONS (16193) Completed Encounters FILTER APPLIED:Only known Encounters with Admission Date within the last 5 years Encounter Location Admission Discharge Billing Code Consultant [facility] Atiya Velez Outpatient [facility]
--- OUTSIDE RECORDS SUMMARY | 2024-06-17 14:16 | XMS_ITS | Clinical Summary ---
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
--- OUTSIDE RECORDS SUMMARY | 2024-06-17 14:16 | XMS_ITS | Referral Summary ---
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
--- OUTSIDE RECORDS SUMMARY | 2024-06-17 14:16 | XMS_ITS | Clinical Summary ---
Author Organization [employer] [facility] Address [place], [place] [address] Care Team Providers Care Lining Inserter Name Role Phone Atiya Velez MD Primary [...] Department Care Team Description 05/08/2024 Nurse Triage [facility] [address] [place] [address] Atiya Velez MD Questions 05/04/2024 Nurse Triage [facility] [address] [place] [address] Atiya Velez MD Questions 04/25/[address] [address] Atiya Velez MD FYI 04/19/[address] [address] Atiya Velez MD Questions (HOME CARE) 04/17/2024 Medical Messaging [address] [address] Atiya Velez MD Hi ?? 04/13/2024 2:45 PM DIRECTOR CARDIOVASCULAR Ancillary Procedure [address] [address] 04/13/2024 1:25 PM DIRECTOR CARDIOVASCULAR Office Visit [address] [address] Atiya Velez MD Follow Up (Stomach still [...] MDV 09/12/2021,07/31/2020,07/03/2020 COVID-19 vaccine (Moderna Carlos Alberto crater 50mcg/0.25mL) PF, MDV 03/28/2021 COVID-19 vaccine (Pfizer-Bio [...] drink = 0.6 oz pur e alcohol) [facility] Utilities Answer Date Recorded Do you [...] Sex Assigned at Female 04/11/2023 11:45 PM DIRECTOR CARDIOVASCULAR Legal Sex Female 7:52 AM DIRECTOR CARDIOVASCULAR Gender Identity Female 04/11/2023 11:45 PM DIRECTOR CARDIOVASCULAR Sexual Orientation Not on file Occupation Industry Job Start Date Job End Date disabled Not on file Not on file Not on file Obstetrics History Para Term AB IAB SAB Ectopic Multiple Livin g Live Births 0 0 0 0 0 0 0 0 0 0 0 Last Filed Vital Signs Vital Sign Reading Time Taken Comments Blood Pressure 129/84 04/13/2024 1:41 PM DIRECTOR CARDIOVASCULAR Pulse 101 04/13/2024 1:41 PM DIRECTOR CARDIOVASCULAR Temperature 36.6 C (97.8 F) 11/04/2023 12:58 PM CDT Respiratory Rate 16 05/06/2021 2:04 PM DIRECTOR CARDIOVASCULAR Oxygen Saturation 96% 04/13/2024 1:41 PM DIRECTOR CARDIOVASCULAR Inhaled Oxygen Concentration - - Weight 83 kg (183 lb) 04/13/2024 1:41 PM DIRECTOR CARDIOVASCULAR Height 152.4 cm (5') 08/06/2023 12:03 PM DIRECTOR CARDIOVASCULAR Body Mass Index 35.74 08/06/2023 12:03 PM DIRECTOR CARDIOVASCULAR Plan of Treatment Upcoming Encounters Date Type Department Care Team (Late st Contact Info) Description 07/14/2024 11:20 AM DIRECTOR CARDIOVASCULAR Office Visit [facility] [address] [place] [address] Atiya Velez MD [address] [place] [address] Health Maintenance Due Date Last Done Comments [...] 75 11/07/203011/07, 11/08/2023, 08/12/2020 ([facility] Tetanus booster 10/08/2031 10/07/2021, 05/0 07/2011, [...] Osborne LPN Medical Devices Implanted Type Area Mechanical Specialist Device Identifier Shelf Expiration Date Model / Serial / Lot [id number] - [id number] Implanted:Qty: 1 on 04/09/2021 by Maxi Rodrigez MD at [facility] Left: Ear Med[employer]onic 07/11/2027 [id number] / / [id number] Description:medtronic big ea sy piston - straight [id number] Lot [id number] Cmnt Bone Ear 2gm [employer] - [id number] Implanted:Qty: 1 on 04/09/2021 by Maxi Rodrigez MD at [facility] Left: Ear [employer] 07/24/2022 [id number] / / [id number] Procedures Procedure Name Priority Date/Time Associated Diagnosis Comments XR ABDOMEN 1 VIEW Routine 04/13/2024 2:4 9 PM DIRECTOR CARDIOVASCULAR Abdominal pain, generalized LIPID PANEL W REFLEX MEASURED LDL Routine 02/25/2024 9:58 AM CDT Hyperlipidemia, unspecified hyperlipidemia type XR MAMMO TONY BILAT SCREEN Routine 01/20/2024 11:29 AM CDT Encounter for screening mammogram for malignant neoplasm of breast COLONOSCOPY SCREENING Routine 11/08/2023 12:00 AM CDT Positive colorectal cancer screening using DNA-based stool test LC HIV-1/O/2, 4TH GENERATION Routine 06/23/2022 2:28 PM DIRECTOR CARDIOVASCULAR Screening for HIV (human immunodeficiency virus) ANTI HCV Routine 03/17/2022 12:25 PM CDT Encounter for HCV screening test for low risk patient HPV HIGH RISK Routine 10/28/2021 11:49 AM CDT Pap smear for cervical cancer screening from Last 3 Months or Most Recently Relevant to Health Maintenance Results * XR ABDOMEN 1 VIEW (04/13/2024 2:49 PM DIRECTOR CARDIOVASCULAR) Anatomical Region Laterality Modality Abdomen Computed Radiogr aphy 04/14/2024 3:34 PM DIRECTOR CARDIOVASCULAR Narrative 04/14/2024 3:34 PM DIRECTOR CARDIOVASCULAR For Patients: As a result of the [...] AM CDT) CHOLESTEROL, TOTAL 321(H) <200 mg/dL [facility] HDL CHOLESTEROL 56 > OR = 50 mg/dL [employer] [facility] TRIGLYCERIDES 327(H) <150 mg/dL [facility] Comment: If a non-fasting specimen was collected, consider repeat triglyceride testing on a fasting specimen if clinically indicated. Sara sequeira al. J. of Clin. Lipidol. 2015;9:129-169. LDL-CHOLESTEROL 210(H) mg/dL (calc) [facility] Comment: LDL-C levels > or = [...] about testing for familial hypercholesterolemia, please call [email or web address] Client Services at [phone]. Sara Grace, et al. J National Lipid Association Recommendations for Patient-Centered Management of Dyslipidemia: Part 1 Journal of Clinical Lipidology 2015;9(2), 129-169. Modesto Castro et al. (2014). Homozygous familial hypercholesterolaemia: new insights and guidance for clinicians to improve detection and clinical management. Heart Journal, 35(32), 2822-0584. Reference range: <100 Desirable range <100 mg/dL for primary prevention; <70 mg/dL for patients with CHD or diabetic patients with > or = 2 CHD risk factors. LDL-C is now calculated using the Conor-Reji calculation, which is a validated novel method providing better accuracy than the Friedewald equation in the estimation of LDL-C. Conor SS et al. TORIE. 2013;310(19): 5986-6633 (http://education.[employer]/faq/LYU178) CHOL/HDLC RATIO 5.7(H) <5.0 (calc) [facility] NON HDL CHOLESTEROL 265(H) <130 mg/dL (calc) [facility] Comment: Non-HDL level > or = [...] us Atiya Velez MD CHEMISTRY Final Result [facility] [address] [place] [address], [facility] [address] [place] [address] * XR MAMMO TONY BILAT SCREEN (01/20/2024 [...] care provider. XR MAMMO TONY BILAT SCREEN [[id number]] CLINICAL HISTORY: This is an asymptomatic 53 y.o. patient. INDICATION FOR EXAM: Mammogram Screening. TECHNIQUE: CC & MLO views were obtained. This study was evaluated with the assistance of Computer-Aided Detection. Breast Tomosynthesis was used in interpretation. COMPARISON FILM: Yes 01/11/23 [facility] 12/22/21 [employer] FINDINGS: There are scattered areas of fibroglandular density. There are no dominant masses, suspicious micro calcifications or areas of architectural distortion. us Atiya Velez MD MAMMO Final Result * COLONOSCOPY SCREENING (11/08/2023 12:00 AM CDT) us Atiya Velez MD GI PROCEDURE ORD Kenyatta l Result * LC HIV-1/O/2, 4TH GENERATION (06/23/2022 2:28 PM DIRECTOR CARDIOVASCULAR) HIV Scr 4th Gen Non Reactive Non Reactive 06/25/2022 9:06 PM DIRECTOR CARDIOVASCULAR [facility] Comment: HIV Negative HIV-1/HIV-2 antibodies and HIV-1 p24 antigen were NOT detected. There is no laboratory evidence of HIV infection. Blood BLOOD SPECIMEN / Unknown Venipuncture / Unknown 06/23/2022 2:28 PM DIRECTOR CARDIOVASCULAR 06/23/2022 2:29 PM DIRECTOR CARDIOVASCULAR Narrative [facility] - 06/25/2022 9:06 PM DIRECTOR CARDIOVASCULAR Performed at: - [facility] [address] [place], [place] [id number] Photo Colorer: Miko Leyva MD, Phone: [phone] Atiya Velez MD LABORATORY Final Result [facility] [place] [address], * ANTI HCV (03/17/2022 12:25 PM CDT) HEPATITIS C ANTIBODY Non-React ramona Non-React ramona 03/18/2022 5:22 PM CDT [facility] Comment:Antibodies to HCV no t detected; does not exclude the possibility of exposure to HCV. Blood BLOOD SPECIMEN / Unknown Venipuncture / Unknown 03/17/2022 12:25 PM CDT 03/17/2022 12:25 PM CDT Atiya Velez MD SEND OUTS Final Result [facility] [address] [place] [address], * HPV HIGH RISK (10/28/2021 11:49 AM CDT) TYPE 16 Negative Negative 10/30/2021 2:55 PM CDT [facility] TYPE 18 Negative Negative 10/30/2021 2:55 PM CDT [facility] OTHER HIGH RISK TYPES Negative Negative 10/30/2021 2:55 PM CDT [facility] Other (Cervical) Non-Blood / Unknown 10/28/2021 11:49 AM CDT 10/29/2021 10:31 AM CDT Narrative [facility] - 10/30/2021 2:55 PM CDT HPV types 16, 18, 31, 33, 35, 39, 45, 51, 52, 56, 58, 59, 66 and 68 DNA were undetectable or below the pre-set threshold. Methodology: Cristina Salinas 4800 HPV Test Josselyn TATUM MICROBIOLOGY Final Result [facility] [address] [place] [address], [place] from Last 3 Months or Most Recently Relevant to Health Maintenance Insurance MEDICARE PART A HB ONLY MEDICARE PART B HB ONLY [employer] MEDICARE ADVANTAGE MEDICAID Advance Directives Documents on File Type Date Recorded Patient Chief Nurse Expl anation POLST 10/05/2023 Healthcare Directive 08/25/2023 024 Power of Space Operations 03/11/2018 4:18 PM STATU RUBEN SHORT FORM POWER OF DIRECTOR OF NURSING, [facility], 10/14/17 Healthcare Directive 03/11/2018 4:14 PM HE ALTHCARE DIRECTIVE, [facility], 02/10/18 POLST 12/16/2017 3:47 PM GAVIN CANALES [facility], 12/01/17 * Full Code (Latest Code Status on File) Date Activated Date Inactivated Comments 04/09/2021 9:39 AM 04/09/2021 6:54 PM Question Answer Comments Code Status Discussion: Not Discussed Care Teams Lining Inserter Relationship Specialty Start Date End Date Atiya Velez MD [address] [place] [address] PCP - General Family Practice 03/16/14
[2024-06-17 14:31] LABS: Lactate Sepsis w/Reflex* 1.1 mmol/L (0.5-1.9)
[2024-06-17 14:32] LABS: Basophils Absolute Auto 0.03 K/uL (0.00-0.30); Basophils Percent Auto 0.4 % (0.0-3.0); Eosinophils Absolute Auto 0.11 K/uL (0.00-0.50); Eosinophils Percent Auto 1.6 % (0.0-7.0); Hemoglobin* 11.8 gm/dL (12.0-16.0); Immature Granulocytes Abs Auto 0.01 K/uL (0.00-0.30); Immature Granulocytes Pct Auto 0.1 %; Lymphocytes Percent Auto 6.7 % (20-44); Mean Corpuscular HGB Conc 32 gm/dL (32-36); Mean Corpuscular Hemoglobin 31 pg (26-34); Mean Corpuscular Volume 98 fL (80-100); Monocytes Percent Auto 12.3 % (0.0-11.0); Neutrophils Percent Auto 78.9 % (42.0-72.0); Platelet Count* 150 K/uL (140-440); RDW Coefficient of Variation % 13.6 % (11.5-15.5); Red Blood Count 3.78 m/uL (4.00-5.20); White Blood Count* 6.76 K/uL (4.50-11.00)
[2024-06-17 14:48] LABS: Albumin* 4.5 g/dL (3.3-5.0); Chloride* 101 mmol/L (96-114)
[2024-06-17 14:49] LABS: Potassium* 3.6 mmol/L (3.6-5.1); Sodium* 138 mmol/L (135-149)
[2024-06-17 14:51] LABS: Alanine Aminotransferase* 16 U/L (4-35); Alkaline Phosphatase* 66 U/L (40-150); Aspartate Amino Transferase* 19 U/L (12-35); Bilirubin Direct* 0.3 mg/dL (0.0-0.5); Bilirubin Total* 0.3 mg/dL (0.1-1.5); Creatinine* 0.6 mg/dL (0.5-1.5); Est. Creatinine Clearance* 138.16; Estimated Glomerular Filt Rate 107 ml/min; Slide Review Reflex No; Total Protein* 7.9 g/dL (6.0-8.3)
[2024-06-17 14:52] LABS: Anion Gap 9 mEq/L (7-15); Blood Urea Nitrogen* 14 mg/dL (7-30); Carbon Dioxide* 28 mmol/L (20-32); Glucose* 113 mg/dL (60-115)
[2024-06-17 14:55] LABS: C Reactive Protein* 3.5 mg/dL (0.5-1.0)
[2024-06-17 15:13] LABS: PCR FLU A Negative PCR FLU A (Negative); PCR FLU B Negative PCR FLU B (Negative); PCR RSV Negative PCR RSV (Negative); SARS PCR* POSITIVE SARS-CoV-2 (Negative)
--- NOTE | 2024-06-17 15:36 | CRLHL7_ITS ---
For Patients: As a result of the Cures Act, medical imaging exams and procedure reports are released immediately into your electronic medical record. You may view this report before your referring provider. If you have questions, please contact your health care provider. INDICATION: : COVID, HYPOXIA COMPARISON: Chest radiograph on May 12, 2023 TECHNIQUE: One view(s) of the chest FINDINGS: The cardiomediastinal silhouette is within normal limits given portable technique, and unchanged compared to prior exam. There is no focal airspace consolidation, pleural effusion, or pneumothorax. No displaced fractures. Scoliotic curvature of the thoracic and lumbar spine status post Zuñiga karri placement. Stable calcified intra-articular loose body in the right shoulder. IMPRESSION: No acute cardiopulmonary process. Dictated by Saul Davis MD @ 06/17/2024 4:47:33 PM (Electronically Signed)
== END 2024-06-17 18:31 | disposition home or self-care (01) ==
PROVIDERS: Emergency Provider Emergency Medicine; PCP Family Medicine
DX: U07.1 COVID-19 (principal)
CPT/HCPCS: 36415; 71045; 80048; 80076; 81001; 83605; 84443; 84484; 85025; 85379; 86140; 87631; 93005; 94761; 96374; 96375; 99284; 99285; J1885; J2405; J7030

== ENCOUNTER 2024-06-17 17:57 | Outpatient (CLI) | payer MEDICARE, MEDICAID, SELFPAY | END 2024-06-17 17:58 | disposition home or self-care (01) | LOC: AMB 07-01 07:27 | PROVIDERS: PCP Family Medicine; Visit Provider Emergency Medicine | DX: U07.1 COVID-19 (principal); Z99.3 Dependence on wheelchair | CPT/HCPCS: A0425; A0428 ==

== ENCOUNTER 2024-06-22 13:51 | Outpatient (CLI) | payer MEDICARE, MEDICAID, SELFPAY | END 2024-06-22 13:52 | disposition home or self-care (01) | LOC: AMB 07-06 03:59 | PROVIDERS: PCP Family Medicine; Visit Provider Student in an Organized Health Care Education/Training Program | DX: R55 Syncope and collapse (principal); U07.1 COVID-19 | CPT/HCPCS: A0425; A0429 ==

== ENCOUNTER 2024-06-22 14:30 | Emergency (ER) | payer MEDICARE, MEDICAID, SELFPAY ==
[2024-06-22] VITALS (23 sets, daily range): BP systolic 148–158; BP diastolic 82–97; PULSE 82–104; RESP 16; TEMP 36.8; O2SAT 89–96
--- NOTE | 2024-06-22 15:07 | ED.GENADULT ---
HPI - General Adult General Date Seen: 06/22/24 Chief complaint: Neuro Symptoms/Altered Deficit Stated complaint: Covid like symptoms Time Seen by Provider: 06/22/24 14:37 History of Present Illness HPI narrative: 54 yo F who was diagnosed with coronavirus 5 days ago on Wednesday. She is brought to the ER today by EMS for altered mental status. Patient noticed that she had a spell where she was unresponsive and called 911. She was alert and oriented when EMS arrived. History from the patient is that she has had COVID lately. She has been feeling run down with fatigue, poor appetite. Some nausea but no vomiting. She has had an ongoing cough. She has also developed some chest tightness since yesterday or perhaps for a couple of days. She thinks she has been taking her meds and took her dose of carbamazepine this morning but did not get her afternoon dose of carbamazepine She does not recall what happened this morning. She does say that she feels ?out of it. ?. She wants to know if she is going to be staying in the hospital I called her , José Antonio. He is not here in person. He says that the patient seemed to be sleeping for a couple of hours this morning before lunch. Initially he thought she might be run down and tired because of her COVID so he wanted to let her sleep. Sounds like later he was also trying to wake her up but she would not respond to voice or to shoulder shaking, so he called 911. He did not see any seizure activity or stiffness. Related Data Home Medications ?Medication ?Instructions ?Recorded ?Confirmed carbamazepine 200 mg tablet 200 mg PO TID 01/16/22 06/22/24 duloxetine 20 mg capsule,delayed 20 mg PO DAILY 01/16/22 06/22/24 release famotidine 20 mg tablet 20 mg PO DAILY 01/16/22 06/22/24 levothyroxine 50 mcg capsule 50 mcg PO DAILY 01/16/22 06/22/24 omeprazole 20 mg capsule,delayed 20 mg PO DAILY 01/16/22 06/22/24 release acetaminophen 325 mg tablet 650 mg PO DAILY PRN 01/19/22 06/22/24 colestipol 1 gram tablet 1 g PO BID 01/27/24 01/27/24 levothyroxine 50 mcg tablet 50 mcg PO QAM 01/27/24 01/27/24 rosuvastatin 10 mg tablet 10 mg PO QPM 06/22/24 06/22/24 Previous Rx's ?Medication ?Instructions ?Recorded cyclobenzaprine 10 mg tablet 10 mg PO BID PRN muscle spasm #10 10/10/23 tabs [id number] 3.3 5 drp Otic (ear-right) QID 5 days 10/10/23 mg-3 mg-10 mg-0.5 mg/mL ear #10 mL drops,susp (Cortisporin-TC) Allergies Allergy/AdvReac Type Severity Reaction Status Date / Time morphine Allergy Unknown Verified 06/22/24 14:31 Iodinated Contrast Media Allergy Verified 06/22/24 14:31 [facility] Medical History Back pain at L4-L5 level ?M54.50 - Low back pain, unspecified (ICD-10) Delay of cognitive development ?F81.9 - Developmental disorder of scholastic skills, unspecified (ICD-10) Liver damage ?K76.9 - Liver disease, unspecified (ICD-10) Fibromyalgia ?M79.7 - Fibromyalgia (ICD-10) 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 of mergers and acquisitions attorney in chart Mixed hearing loss ?H90.8 - Mixed conductive and sensorineural hearing loss, unspecified (ICD-10) Cholecystitis ?K81.9 - Cholecystitis, unspecified (ICD-10) Anxiety ?F41.9 - Anxiety disorder, unspecified (ICD-10) Left chronic serous otitis media ?H65.22 - Chronic serous otitis media, left ear (ICD-10) Onychomycosis ?B35.1 - Tinea unguium (ICD-10) Hypoparathyroidism ?E20.9 - Hypoparathyroidism, unspecified (ICD-10) Vitamin D deficiency ?E55.9 - Vitamin D deficiency, unspecified (ICD-10) DDD (degenerative disc disease), lumbar ?M51.36 - Other intervertebral disc degeneration, lumbar region (ICD-10) Lower extremity edema ?R60.0 - Localized edema (ICD-10) Learning disability ?F81.9 - Developmental disorder of scholastic skills, unspecified (ICD-10) Seizure disorder ?G40.909 - Epilepsy, unspecified, not intractable, without status epilepticus (ICD-10) Hypothyroidism ?E03.9 - Hypothyroidism, unspecified (ICD-10) Encounter for counseling regarding advance directives (02/10/18) ?Z71.89 - Other specified counseling (ICD-10) Surgical History Hx of myringotomy ?Z98.890 - Other specified postprocedural states (ICD-10) Hx laparoscopic cholecystectomy ?Z90.49 - Acquired absence of other specified parts of digestive tract (ICD-10) History of fusion of spine for scoliosis ?Z98.1 - Arthrodesis status (ICD-10) ?Z87.39 - Personal history of other diseases of the musculoskeletal system and connective tissue (ICD-10) Social History Smoking Status: Never smoker Do you use any of these nicotine containing products: None Second hand tobacco smoke exposure: No How often do you have a drink containing alcohol: never How often do you have six or more drinks on one occasion: Never AUDIT-C Alcohol total score: 0 Non-prescribed substance use: denies use Caffeine: Yes service: No Exam Narrative: Exam Narrative: Constitutional: Appears well-developed and well-nourished. Alert. Conversant. Non toxic. Nurses noted that she had a spell where she seemed to be staring off into space while they were getting her triaged. During my initial exam she is alert and oriented and did not have any spells. HENT: Head: Atraumatic. Nose: Nose normal. Mouth/Throat: Oral mucosa is clear and moist. no trismus. Pharynx normal. Tonsils symmetric. No tonsillar enlargement, erythema, or exudate. Eyes: Conjunctivae normal. EOM normal, but her gaze is dysconjugate. He this is baseline. Pupils equal, round, and reactive to light. No scleral icterus. Neck: Normal range of motion. Neck supple. No tracheal deviation present. No JVD Cardiovascular: Normal rate, regular rhythm. No gallop. No friction rub. No murmur heard. Symmetric radial artery pulses Pulmonary/Chest: Effort normal. No stridor. Occasional cough. No respiratory distress. No wheezes. No rales. No rhonchi . No tenderness. Abdominal: Soft.No distension. No mass. No tenderness. No rebound. No guarding. Musculoskeletal: RUE: Normal range of motion. No tenderness. No deformity LUE: Normal range of motion. No tenderness. No deformity RLE: Normal range of motion. No edema. No tenderness. No deformity LLE: Normal range of motion. No edema. No tenderness. No deformity Neurological: Alert and oriented to person, place, and time. Conversant at this time. Says that she has had spells where she feels ?out of it. ?. She says she just feels weak and run down from COVID. Normal strength. CN II-VII intact. No sensory deficit. GCS eye subscore is 4. GCS verbal subscore is 5. GCS motor subscore is 6. Normal coordination Skin: Skin is warm and dry. No rash noted. No pallor. Normal capillary refill. Psychiatric: Normal mood. Flat affect. Const: Vital Signs, click to edit/add: Vital Signs - 24 hr 06/22/24 14:33 06/22/24 14:44 06/22/24 14:45 Temperature 98.3 F Pulse Rate 93 93 Pulse Rate [Pulse Oximeter] 104 H Respiratory Rate 16 16 Blood Pressure Blood Pressure [Le ft Upper Arm] 151/94 H Pulse Oximetry 95 96 95 [facility] 06/22/24 14:46 06/22/24 15:00 06/22/24 15:01 Temperature Pulse Rate 93 92 92 Pulse Rate [Pulse Oximeter] Respiratory Rate Blood Pressure 149/97 H 148/94 H Blood Pressure [Le ft Upper Arm] Pulse Oximetry 96 91 96 [facility] 06/22/24 15:15 06/22/24 15:16 06/22/24 15:53 Temperature Pulse Rate 100 91 94 Pulse Rate [Pulse Oximeter] Respiratory Rate 16 Blood Pressure 158/97 H Blood Pressure [Le ft Upper Arm] Pulse Oximetry 93 93 96 [facility] 06/22/24 16:00 06/22/24 16:05 06/22/24 16:15 Temperature Pulse Rate 86 86 93 Pulse Rate [Pulse Oximeter] Respiratory Rate Blood Pressure Blood Pressure [Le ft Upper Arm] Pulse Oximetry 89 92 92 [facility] 06/22/24 16:19 06/22/24 16:30 06/22/24 16:34 Temperature Pulse Rate 103 H 90 96 Pulse Rate [Pulse Oximeter] Respiratory Rate Blood Pressure Blood Pressure [Le ft Upper Arm] Pulse Oximetry 94 92 94 Oxygen Delivery Me thod 06/22/24 16:45 06/22/24 17:00 06/22/24 17:15 Temperature Pulse Rate 98 91 90 Pulse Rate [Pulse Oximeter] Respiratory Rate Blood Pressure Blood Pressure [Le ft Upper Arm] Pulse Oximetry 93 94 91 Oxygen Delivery Me thod 06/22/24 17:30 06/22/24 17:45 06/22/24 18:00 Temperature Pulse Rate 86 89 90 Pulse Rate [Pulse Oximeter] Respiratory Rate Blood Pressure Blood Pressure [Le ft Upper Arm] Pulse Oximetry 90 89 93 Oxygen Delivery Me thod 06/22/24 18:15 06/22/24 19:05 Temperature Pulse Rate 96 Pulse Rate [Pulse Oximeter] 82 Respiratory Rate 16 Blood Pressure Blood Pressure [Le ft Upper Arm] 152/82 H Pulse Oximetry 93 Oxygen Delivery Me thod Course Course ED Course: Recheck-resting comfort in bed. Arouses to my gentle voice. She is alert and conversant. Breathing easily discussed reassuring workup so far. Patient became upset. She was a little bit confusing to follow but she tells me that she is not able to take care of herself at home. She says that her , whom she lives within assisted living, and she is having a hard time caring for herself. However she is ambulatory in the hallway. She is angry with me when I discussed with her that this point I do not have a clear indication for admission. Furthermore I do not have any open beds of for any admissions. When walking the hallway she has a couple of episodes where she on purpose let her right leg give out. She did not fall. Subsequently while nurses were getting her tucked back into bed, she and the nurse had a good conversation. She changed her mind. She was actually eager to get discharged home and was very encouraged by the advice from nursing. Vital Signs Vital signs: Initial Vital Signs Temperature 98.3 F 06/22/24 14:33 Temperature Source Temporal Artery Scan 06/22/24 14:33 Pulse Rate 104 H 06/22/24 14:33 Pulse Rhythm Regular 06/22/24 14:33 Pulse Strength 3+ Normal 06/22/24 14:33 Respiratory Rate 16 06/22/24 14:33 Blood Pressure 151/94 H 06/22/24 14:33 Blood Pressure Mean 113 H 06/22/24 14:33 Blood Pressure Position Sitting 06/22/24 14:33 Pulse Oximetry 95 06/22/24 14:33 Oxygen Delivery Method Room Air 06/22/24 14:33 Vital Signs Temperature 98.3 F 06/22/24 14:33 Pulse Rate 104 H 06/22/24 14:33 Respiratory Rate 16 06/22/24 14:33 Blood Pressure 151/94 H 06/22/24 14:33 Pulse Oximetry 95 06/22/24 14:33 Oxygen Delivery Method Room Air 06/22/24 14:33 Temperature 98.3 F 06/22/24 14:33 Pulse Rate 82 06/22/24 19:05 Respiratory Rate 16 06/22/24 19:05 Blood Pressure 152/82 H 06/22/24 19:05 Pulse Oximetry 93 06/22/24 18:15 Oxygen Delivery Method Room Air 06/22/24 14:33 Medications Administered Medications: Discontinued Medications Generic Name Dose Route Start Last Admin Trade Name Freq PRN Reason Stop Dose Admin Carbamazepine 200 mg 06/22/24 15:23 06/22/24 15:56 Carbamazepine 200 Mg Tablet PO 06/22/24 15:24 200 mg ONCE ONE Administration Sodium Chloride 500 mls @ 500 mls/hr 06/22/24 15:20 06/22/24 15:54 0.9 % Sodium Chloride 500 Ml IV 06/22/24 16:19 500 mls/hr .Q1H ONE Administration Ondansetron HCl 4 mg 06/22/24 15:20 06/22/24 15:54 Ondansetron 2 Mg/Ml Inj IVP 06/22/24 15:21 4 mg ONCE ONE Administration Medical Decision Making [facility] Narrative Medical decision making narrative: 54-year-old female presenting to the ER today by EMS for evaluation of an episode of altered mental status that occurred this morning and her assisted living, noticed by her , and is now resolved. She is currently in the midst of coronavirus infection was diagnosed with that 5 days ago here in the ER. Workup to look for complications of COVID is undertaken. Laboratory workup is reassuring. CBC shows leukopenia which could be consistent and almost expected with COVID. Chest x-ray is clear. She is breathing easily. Oxygen is normal on room air. Slow electrolytes and blood counts. In terms of her episode altered mental status, mental this is normal here. I suspect she probably had a seizure at home this morning that was not witnessed by her and had a postictal phase. She is not having any significant headache, persistent altered mental status, fever, neck stiffness, to raise concern for encephalitis or meningitis. At this point clearly the risks and discomfort of LP would outweigh the benefit Overall the patient is breathing easily, tolerating p.o. liquids and solids, ambulatory in the hallway. She did have a couple of volitional episodes where she intentionally had a right leg go out when she was angry about not being admitted but subsequent is ambulating much better. At this point I am comfortable discharging her home. Contacted her him. They will try to work with their care center to get her additional nursing resources. She says that she lives independently, but her has assisted living so he has nurses visiting him to help with his cares. I attempted to call their care center but no one answered. Patient and will call tomorrow to arrange additional support for her. Precautions for return to the ER reviewed Lab Data Labs: Lab Results 06/22/24 06/22/24 Range/Units 15:35 16:25 WBC 4.29 L (4.50-11.00) K/uL RBC 3.66 L (4.00-5.20) m/uL Hgb 11.2 L (12.0-16.0) gm/dL Hct 36.2 (33.0-51.0) % MCV 99 (80-100) fL MCH 31 (26-34) pg MCHC 31 L (32-36) gm/dL RDW Coeff of Gracie 13.8 (11.5-15.5) % Plt Count 163 (140-440) K/uL Neut % (Auto) 49.7 (42.0-72.0) % Lymph % (Auto) 33.8 (20-44) % Stan[place] % (Auto) 10.0 (0.0-11.0) % Eos % (Auto) 5.4 (0.0-7.0) % Baso % (Auto) 0.9 (0.0-3.0) % Neut # (Auto) 2.10 (1.7-7.0) K/uL Lymph # (Auto) 1.50 (0.90-2.90) K/uL Stanly # (Auto) 0.40 (0.00-0.90) K/UL Eos # (Auto) 0.20 (0.00-0.50) K/uL Baso # (Auto) 0.00 (0.00-0.30) K/uL Abs Immat Gran (auto) 0.00 (0.00-0.30) K/uL Imm/Tot Granulo (auto) 0.2 % Sodium 139 (135-149) mmol/L Potassium 3.7 (3.6-5.1) mmol/L Chloride 104 (96-114) mmol/L Carbon Dioxide 29 (20-32) mmol/L Anion Gap 6 L (7-15) mEq/L BUN 14 (7-30) mg/dL Creatinine 0.6 (0.5-1.5) mg/dL Estimated GFR 107 ml/min Glucose 98 (60-115) mg/dL Lactate 0.6 (0.5-1.9) mmol/L Calcium 7.4 L (8.4-10.6) mg/dL Total Bilirubin 0.2 (0.1-1.5) mg/dL AST 19 (12-35) U/L ALT 19 (4-35) U/L Alkaline Phosphatase 70 (40-150) U/L Troponin I < 0.01 L (0.01-0.04) ng/mL Total Protein 7.1 (6.0-8.3) g/dL Albumin 4.0 (3.3-5.0) g/dL Urine Color Yellow (Yellow) Urine Appearance Clear (Clear) Urine pH 6.0 (5.0-8.5) Ur Specific [place] >= 1.030 (1.000-1.030) Urine Protein Negative (Negative) Urine Glucose (UA) Negative (Negative) Urine Ketones Negative (Negative) Urine Blood Negative (Negative) Urine Nitrite Negative (Negative) Urine Bilirubin Negative (Negative) Urine Urobilinogen 0.2 (0.2-1.0) Ur Leukocyte Esterase Negative (Negative) Urine RBC 0-2 (0-2) Urine WBC 0-2 (0-5) Ur Squamous Epith Cells Few (None-Few) Urine Bacteria None (None) Discharge Plan Discharge Clinical Impression: COVID-19, Weakness Patient Disposition: Home, Self-Care Condition: Stable Instructions: COVID-19 (Coronavirus Disease 2019) (ED) Additional Instructions: As we discussed, try to rest. Drink plenty of fluids. Eat healthy foods when you are able. Take your regular medications, especially your seizure meds. Please call the staff at [facility] tomorrow. They will be able to arrange more nursing services to help you with your care's until you get better with COVID. If you have trouble breathing, high fever, falls, or other concerns, please come back to the ER right away. Prescriptions: No Action cyclobenzaprine 10 mg tablet 10 mg PO BID PRN (Reason: muscle spasm) Qty: 10 0RF Cortisporin-TC 3.3-3-10-0.5 mg/mL drops,suspension 5 drp Otic (ear-right) QID 5 Days Qty: 10 0RF carbamazepine 200 mg tablet 200 mg PO TID duloxetine 20 mg capsule,delayed release(DR/EC) 20 mg PO DAILY famotidine 20 mg tablet 20 mg PO DAILY levothyroxine 50 mcg capsule 50 mcg PO DAILY omeprazole 20 mg capsule,delayed release(DR/EC) 20 mg PO DAILY acetaminophen 325 mg tablet 650 mg PO DAILY PRN Rx Instructions: NO MORE THAN 4000 MG/DAY levothyroxine 50 mcg tablet 50 mcg PO QAM colestipol 1 gram tablet 1 g PO BID rosuvastatin 10 mg tablet 10 mg PO QPM Follow Up/Referrals: Atiya Velez MD [Primary Care Provider] - Stand Alone Forms: Wear Info Instructions
--- NOTE | 2024-06-22 15:21 | CRLHL7_ITS ---
For Patients: As a result of the Century Cures Act, medical imaging exams and procedure reports are released immediately into your electronic medical record. You may view this report before your referring provider. If you have questions, please contact your health care provider. INDICATION: Dizziness and COVID positive TECHNIQUE: CT head without contrast. COMPARISON: None. FINDINGS: CSF spaces: Within normal limits for age. Brain parenchyma: The michelle-white differentiation is normal. No sign of mass, hemorrhage, or midline shift. Skull base and calvarium: Mucosal thickening and patchy opacification paranasal sinuses. The visualized orbits are grossly unremarkable. No skull fractures. IMPRESSION: Patchy sinus disease, otherwise unremarkable noncontrast head CT. Please note that all CT scans at this facility use dose modulation, iterative reconstruction, and/or weight-based dosing when appropriate to reduce radiation dose to as low as reasonably achievable. Dictated by Eugene Peterson MD @ 06/22/2024 4:11:08 PM (Electronically Signed)
--- NOTE | 2024-06-22 15:22 | CRLHL7_ITS ---
For Patients: As a result of the Cures Act, medical imaging exams and procedure reports are released immediately into your electronic medical record. You may view this report before your referring provider. If you have questions, please contact your health care provider. Indication: Chest tightness and COVID infection Technique: Chest 2 views Comparison: Chest x-ray 06/17/2024 Findings/Impression: Cardiovascular and mediastinum: Upper normal heart size. Lungs and pleural spaces: Lungs are clear. No sign of infiltrate or mass. No sign of pleural effusion. No pneumothorax. Bones and soft tissues: Rightward curvature of the thoracic spine status post posterior karri with laminar hook, partially included on the exam. Dictated by Eugene Peterson MD @ 06/22/2024 4:03:31 PM (Electronically Signed)
[2024-06-22] MEDS: 0.9 % SODIUM CHLORIDE 500 ML 500 ML IV (15:54)
[2024-06-22] MEDS: ONDANSETRON 2 MG/ML inj 4 MG IVP (15:54)
[2024-06-22] MEDS: carBAMazepine 200 MG TABLET PO (15:56)
[2024-06-22 16:10] LABS: Appearance Urine Clear (Clear); Bilirubin Urine Negative (Negative); Blood Urine Negative (Negative); Color Urine Yellow (Yellow); Glucose Urine Negative (Negative); Ketones Urine Negative (Negative); Leukocyte Esterase Urine Negative (Negative); Nitrite Urine Negative (Negative); Protein Urine Negative (Negative); Specific Gravity Urine >= 1.030 (1.000-1.030); Urobilinogen Urine 0.2 (0.2-1.0)
[2024-06-22 16:30] LABS: Lactate* 0.6 mmol/L (0.5-1.9)
[2024-06-22 16:42] LABS: RBC Urine 0-2 (0-2); Squamous Epithelial Cell Urine Few (None-Few); WBC Urine 0-2 (0-5)
[2024-06-22 17:04] LABS: Chloride* 104 mmol/L (96-114); Sodium* 139 mmol/L (135-149)
[2024-06-22 17:05] LABS: Potassium* 3.7 mmol/L (3.6-5.1)
[2024-06-22 17:07] LABS: Alanine Aminotransferase* 19 U/L (4-35); Alkaline Phosphatase* 70 U/L (40-150); Anion Gap 6 mEq/L (7-15); Aspartate Amino Transferase* 19 U/L (12-35); Bilirubin Total* 0.2 mg/dL (0.1-1.5); Blood Urea Nitrogen* 14 mg/dL (7-30); Calcium* 7.4 mg/dL (8.4-10.6); Carbon Dioxide* 29 mmol/L (20-32); Creatinine* 0.6 mg/dL (0.5-1.5); Estimated Glomerular Filt Rate 107 ml/min; Glucose* 98 mg/dL (60-115); Total Protein* 7.1 g/dL (6.0-8.3)
[2024-06-22 17:24] LABS: Troponin I* < 0.01 ng/mL (0.01-0.04)
[2024-06-22 17:56] LABS: Basophils Percent Auto 0.9 % (0.0-3.0); Eosinophils Percent Auto 5.4 % (0.0-7.0); Hematocrit 36.2 % (33.0-51.0); Hemoglobin* 11.2 gm/dL (12.0-16.0); Immature Granulocytes Pct Auto 0.2 %; Lymphocytes Percent Auto 33.8 % (20-44); Mean Corpuscular HGB Conc 31 gm/dL (32-36); Mean Corpuscular Hemoglobin 31 pg (26-34); Mean Corpuscular Volume 99 fL (80-100); Neutrophils Percent Auto 49.7 % (42.0-72.0); Platelet Count* 163 K/uL (140-440); RDW Coefficient of Variation % 13.8 % (11.5-15.5); Red Blood Count 3.66 m/uL (4.00-5.20); White Blood Count* 4.29 K/uL (4.50-11.00)
[2024-06-22 18:01] LABS: Slide Review Reflex No
[2024-06-23] LABS: Carbamazepine Tegretol* 7.5 ug/mL (4.0-12.0)
== END 2024-06-22 19:08 | disposition home or self-care (01) ==
PROVIDERS: Emergency Provider Emergency Medicine; PCP Family Medicine
DX: U07.1 COVID-19 (principal); R53.1 Weakness
CPT/HCPCS: 36415; 70450; 71046; 80053; 80156; 81001; 83605; 84484; 85025; 93005; 96374; 99284; 99285; A9270; J2405; J7030

== ENCOUNTER 2024-06-22 18:56 | Outpatient (CLI) | payer MEDICARE, MEDICAID, SELFPAY | END 2024-06-22 18:57 | disposition home or self-care (01) | LOC: AMB 07-06 23:51 | PROVIDERS: PCP Family Medicine; Visit Provider Emergency Medicine Emergency Medical Services | DX: R56.9 Unspecified convulsions (principal); U07.1 COVID-19 | CPT/HCPCS: A0425; A0428 ==

== ENCOUNTER 2024-10-21 09:50 | Outpatient (CLI) | payer MEDICARE, MEDICAID, SELFPAY | END 2024-10-21 09:51 | disposition home or self-care (01) | LOC: AMB 10-23 11:13 | PROVIDERS: PCP Family Medicine; Visit Provider Internal Medicine | DX: R07.89 Other chest pain (principal) | CPT/HCPCS: A0425; A0427 ==

== ENCOUNTER 2024-10-21 10:13 | Emergency (ER) | payer MEDICARE, MEDICAID, SELFPAY ==
[2024-10-21 10:16] VITALS: BP 164/98; PULSE 98; RESP 18; TEMP 36.7; O2SAT 94; BMI 35.5
--- NOTE | 2024-10-21 10:39 | CRLHL7_ITS ---
For Patients: As a result of the Century Cures Act, medical imaging exams and procedure reports are released immediately into your electronic medical record. You may view this report before your referring provider. If you have questions, please contact your health care provider. INDICATION: Chest pain. TECHNIQUE: Chest 1 view. COMPARISON: 22 June 2024 FINDINGS: Cardiovascular and mediastinum: Heart size and vasculature are normal in caliber and appearance. Mediastinum is within normal limits. Lungs and pleural space: Lungs are clear. No sign of infiltrate or mass. No sign of pleural effusion. No pneumothorax. Bones and soft tissues: No significant findings. Chronic Zuñiga karri unchanged. IMPRESSION: Unremarkable chest. Dictated by Jesus Zhou MD @ 10/21/2024 11:29:35 AM (Electronically Signed)
--- NOTE | 2024-10-21 10:49 | ED.CHESTPAIN ---
HPI - Chest Pain General Chief Complaint: Chest Pain Stated Complaint: chest pain Time Seen by Provider: 10/21/24 10:17 History of Present Illness HPI narrative: Patient is a 54-year-old woman who comes in today with 12 hours of anterior chest pain. The pain is in the sternum and is reproducible with pressure. She has had no signs of infection such as fevers chills or cough. She has no abdominal pain no reflux symptoms no nausea no vomiting. Patient states her anxiety level has gone up significantly. She upon arrival has an EKG showing normal sinus rhythm without acute ST or T-wave changes. Patient lives at the [facility] and was brought in by ambulance. No further symptoms recently. Pain is burning and localizable to the chest with no radiculopathy or radiation. Related Data Home Medications ?Medication ?Instructions ?Recorded ?Confirmed carbamazepine 200 mg tablet 200 mg PO TID 01/16/22 10/21/24 duloxetine 20 mg capsule,delayed 20 mg PO DAILY 01/16/22 10/21/24 release famotidine 20 mg tablet 20 mg PO DAILY 01/16/22 10/21/24 levothyroxine 50 mcg capsule 50 mcg PO DAILY 01/16/22 10/21/24 omeprazole 20 mg capsule,delayed 20 mg PO DAILY 01/16/22 10/21/24 release acetaminophen 325 mg tablet 650 mg PO DAILY PRN 01/19/22 10/21/24 colestipol 1 gram tablet 1 g PO BID 01/27/24 10/21/24 levothyroxine 50 mcg tablet 50 mcg PO QAM 01/27/24 10/21/24 rosuvastatin 10 mg tablet 10 mg PO QPM 06/22/24 10/21/24 Previous Rx's ?Medication ?Instructions ?Recorded cyclobenzaprine 10 mg tablet 10 mg PO BID PRN muscle spasm #10 10/10/23 tabs [id number] 3.3 5 drp Otic (ear-right) QID 5 days 10/10/23 mg-3 mg-10 mg-0.5 mg/mL ear #10 mL drops,susp (Cortisporin-TC) Allergies Allergy/AdvReac Type Severity Reaction Status Date / Time morphine Allergy Unknown Verified 10/21/24 10:21 Iodinated Contrast Media Allergy Verified 05/17/25 10:21 Review of Systems Status of ROS Reports: 10 or more systems reviewed and unremarkable except as noted in History and below [facility] Medical History Back pain at L4-L5 level ?M54.50 - Low back pain, unspecified (ICD-10) Delay of cognitive development ?F81.9 - Developmental disorder of scholastic skills, unspecified (ICD-10) Liver damage ?K76.9 - Liver disease, unspecified (ICD-10) Fibromyalgia ?M79.7 - Fibromyalgia (ICD-10) 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 of ip technology transactions attorney in chart Mixed hearing loss ?H90.8 - Mixed conductive and sensorineural hearing loss, unspecified (ICD-10) Cholecystitis ?K81.9 - Cholecystitis, unspecified (ICD-10) Anxiety ?F41.9 - Anxiety disorder, unspecified (ICD-10) Left chronic serous otitis media ?H65.22 - Chronic serous otitis media, left ear (ICD-10) Onychomycosis ?B35.1 - Tinea unguium (ICD-10) Hypoparathyroidism ?E20.9 - Hypoparathyroidism, unspecified (ICD-10) Vitamin D deficiency ?E55.9 - Vitamin D deficiency, unspecified (ICD-10) DDD (degenerative disc disease), lumbar ?M51.36 - Other intervertebral disc degeneration, lumbar region (ICD-10) Lower extremity edema ?R60.0 - Localized edema (ICD-10) Learning disability ?F81.9 - Developmental disorder of scholastic skills, unspecified (ICD-10) Seizure disorder ?G40.909 - Epilepsy, unspecified, not intractable, without status epilepticus (ICD-10) Hypothyroidism ?E03.9 - Hypothyroidism, unspecified (ICD-10) Encounter for counseling regarding advance directives (02/10/18) ?Z71.89 - Other specified counseling (ICD-10) Surgical History Hx of myringotomy ?Z98.890 - Other specified postprocedural states (ICD-10) Hx laparoscopic cholecystectomy ?Z90.49 - Acquired absence of other specified parts of digestive tract (ICD-10) History of fusion of spine for scoliosis ?Z98.1 - Arthrodesis status (ICD-10) ?Z87.39 - Personal history of other diseases of the musculoskeletal system and connective tissue (ICD-10) Social History Smoking Status: Never smoker Do you use any of these nicotine containing products: None Second hand tobacco smoke exposure: No How often do you have a drink containing alcohol: never How often do you have six or more drinks on one occasion: Never AUDIT-C Alcohol total score: 0 Non-prescribed substance use: denies use Caffeine: Yes service: No Exam Narrative Exam Narrative: EXAM GENERAL: Patient appears comfortable and well. EYES: No scleral icterus. Strabismus noted. ENT: Tympanic membranes and oropharynx normal. THYROID: no thyroid nodules or thyromegaly. LYMPH: No supraclavicular or cervical lymphadenopathy. SKIN: Visible skin seen during exam normal or with benign process only. EXT: No dependent lower extremity pedal edema. HEART: Regular rate and rhythm with no murmurs, rubs, or gallops. LUNGS: Clear to auscultation bilaterally with no crackles or wheezes. ABD: Soft, non tender, non distended. PSYCH: Good eye contact, speech is not pressured. Const Vital Signs, click to edit/add: Vital Signs - 24 hr 10/21/24 10:16 Temperature 98.1 F Pulse Rate [Right Pulse Oximeter] 98 Respiratory Rate 18 Blood Pressure [Right Upper Arm] 164/98 H Pulse Oximetry 94 Oxygen Delivery Method Room Air Course Course ED Course: Patient seen and examined. Reassuring EKG noted. Troponin D-dimer CBC comprehensive metabolic panel chest x-ray ordered. Vital Signs Vital signs: Initial Vital Signs Temperature 98.1 F 10/21/24 10:16 Temperature Source Temporal Artery Scan 10/21/24 10:16 Pulse Rate 98 10/21/24 10:16 Pulse Rhythm Regular 10/21/24 10:16 Pulse Strength 3+ Normal 10/21/24 10:16 Respiratory Rate 18 10/21/24 10:16 Blood Pressure 164/98 H 10/21/24 10:16 Blood Pressure Mean 120 H 10/21/24 10:16 Blood Pressure Position High-Fowlers 10/21/24 10:16 Pulse Oximetry 94 10/21/24 10:16 Oxygen Delivery Method Room Air 10/21/24 10:16 Vital Signs Temperature 98.1 F 10/21/24 10:16 Pulse Rate 98 10/21/24 10:16 Respiratory Rate 18 10/21/24 10:16 Blood Pressure 164/98 H 10/21/24 10:16 Pulse Oximetry 94 10/21/24 10:16 Oxygen Delivery Method Room Air 10/21/24 10:16 Temperature 98.1 F 10/21/24 10:16 Pulse Rate 98 10/21/24 10:16 Respiratory Rate 18 10/21/24 10:16 Blood Pressure 164/98 H 10/21/24 10:16 Pulse Oximetry 94 10/21/24 10:16 Oxygen Delivery Method Room Air 10/21/24 10:16 MDM - Chest Pain MDM Narrative Medical decision making narrative: Patient presents with 12 hours of chest pain. She has a negative workup. Her D-dimers negative troponin EKG chest x-ray electrolytes CBC. I did offer reassurance. She can certainly apply ice to her chest wall strain which is I think her most likely diagnosis. She can rotate Tylenol Motrin plenty of rest plenty fluids follow-up with primary care as needed. Lab Data Labs: Lab Results 10/21/24 Range/Units 10:49 WBC 6.09 (4.50-11.00) K/uL RBC 3.84 L (4.00-5.20) m/uL Hgb 12.1 (12.0-16.0) gm/dL Hct 38.2 (33.0-51.0) % MCV 100 (80-100) fL MCH 32 (26-34) pg MCHC 32 (32-36) gm/dL RDW Coeff of Gracie 13.4 (11.5-15.5) % Plt Count 186 (140-440) K/uL Neut % (Auto) 66.4 (42.0-72.0) % Lymph % (Auto) 23.6 (20-44) % [place] % (Auto) 5.6 (0.0-11.0) % Eos % (Auto) 3.9 (0.0-7.0) % Baso % (Auto) 0.3 (0.0-3.0) % Neut # (Auto) 4.04 (1.7-7.0) K/uL Lymph # (Auto) 1.44 (0.90-2.90) K/uL Screven # (Auto) 0.30 (0.00-0.90) K/UL Eos # (Auto) 0.24 (0.00-0.50) K/uL Baso # (Auto) 0.02 (0.00-0.30) K/uL Abs Immat Gran (auto) 0.01 (0.00-0.30) K/uL Imm/Tot Granulo (auto) 0.2 % D-Dimer Quant (PE/DVT) 0.32 (0.00-0.50) ug/ml Sodium 139 (135-149) mmol/L Potassium 4.0 (3.6-5.1) mmol/L Chloride 100 (96-114) mmol/L Carbon Dioxide 30 (20-32) mmol/L Anion Gap 9 (7-15) mEq/L BUN 15 (7-30) mg/dL Creatinine 0.7 (0.5-1.5) mg/dL Estimated Creat Clear 65.99 Estimated GFR 103 ml/min Glucose 98 (60-115) mg/dL Calcium 9.0 (8.4-10.6) mg/dL Total Bilirubin 0.4 (0.1-1.5) mg/dL AST 23 (12-35) U/L ALT 18 (4-35) U/L Alkaline Phosphatase 58 (40-150) U/L Troponin I < 0.01 (0.01-0.04) ng/mL Total Protein 8.3 (6.0-8.3) g/dL Albumin 4.7 (3.3-5.0) g/dL Discharge Plan Discharge Clinical Impression: Chest pain Patient Disposition: Home, Self-Care Condition: Stable Instructions: Chest Wall Pain (ED) Additional Instructions: Tylenol Motrin Ice Follow-up with your doctor as needed. Activity Level: No Restrictions Discharge Diet: Regular Prescriptions: No Action cyclobenzaprine 10 mg tablet 10 mg PO BID PRN (Reason: muscle spasm) Qty: 10 0RF Cortisporin-TC 3.3-3-10-0.5 mg/mL drops,suspension 5 drp Otic (ear-right) QID 5 Days Qty: 10 0RF carbamazepine 200 mg tablet 200 mg PO TID duloxetine 20 mg capsule,delayed release(DR/EC) 20 mg PO DAILY famotidine 20 mg tablet 20 mg PO DAILY levothyroxine 50 mcg capsule 50 mcg PO DAILY omeprazole 20 mg capsule,delayed release(DR/EC) 20 mg PO DAILY acetaminophen 325 mg tablet 650 mg PO DAILY PRN Rx Instructions: NO MORE THAN 4000 MG/DAY levothyroxine 50 mcg tablet 50 mcg PO QAM colestipol 1 gram tablet 1 g PO BID rosuvastatin 10 mg tablet 10 mg PO QPM Follow Up/Referrals: Atiya Velez MD [Primary Care Provider] - Stand Alone Forms: [facility] Info Instructions
[2024-10-21 10:58] LABS: Basophils Absolute Auto 0.02 K/uL (0.00-0.30); Basophils Percent Auto 0.3 % (0.0-3.0); Eosinophils Absolute Auto 0.24 K/uL (0.00-0.50); Eosinophils Percent Auto 3.9 % (0.0-7.0); Hematocrit 38.2 % (33.0-51.0); Hemoglobin* 12.1 gm/dL (12.0-16.0); Immature Granulocytes Abs Auto 0.01 K/uL (0.00-0.30); Immature Granulocytes Pct Auto 0.2 %; Lymphocytes Absolute Auto 1.44 K/uL (0.90-2.90); Lymphocytes Percent Auto 23.6 % (20-44); Mean Corpuscular HGB Conc 32 gm/dL (32-36); Mean Corpuscular Hemoglobin 32 pg (26-34); Mean Corpuscular Volume 100 fL (80-100); Monocytes Percent Auto 5.6 % (0.0-11.0); Neutrophils Absolute Auto 4.04 K/uL (1.7-7.0); Neutrophils Percent Auto 66.4 % (42.0-72.0); Platelet Count* 186 K/uL (140-440); RDW Coefficient of Variation % 13.4 % (11.5-15.5); Red Blood Count 3.84 m/uL (4.00-5.20); White Blood Count* 6.09 K/uL (4.50-11.00)
[2024-10-21 11:01] LABS: Slide Review Reflex No
[2024-10-21 11:12] LABS: Albumin* 4.7 g/dL (3.3-5.0); Chloride* 100 mmol/L (96-114); Sodium* 139 mmol/L (135-149)
[2024-10-21 11:15] LABS: Alanine Aminotransferase* 18 U/L (4-35); Alkaline Phosphatase* 58 U/L (40-150); Anion Gap 9 mEq/L (7-15); Aspartate Amino Transferase* 23 U/L (12-35); Bilirubin Total* 0.4 mg/dL (0.1-1.5); Blood Urea Nitrogen* 15 mg/dL (7-30); Carbon Dioxide* 30 mmol/L (20-32); Creatinine* 0.7 mg/dL (0.5-1.5); Est. Creatinine Clearance* 65.99; Estimated Glomerular Filt Rate 103 ml/min; Glucose* 98 mg/dL (60-115); Total Protein* 8.3 g/dL (6.0-8.3)
[2024-10-21 11:25] LABS: D Dimer Quantitative* 0.32 ug/ml (0.00-0.50)
[2024-10-21 11:28] LABS: Troponin I* < 0.01 ng/mL (0.01-0.04)
--- OUTSIDE RECORDS SUMMARY | 2024-10-22 17:22 | XMS_ITS | CCD ---
Author Organization Unknown Care Team Providers Care Credit Card Specialist Name Role Phone Guard Entrance Registrar, [place] Primary Care Provider Unava ilable Unavailable Chronic Care Management Unavaila ble Summary Purpose DataExchange Insurance Providers Payer name Policy type / Coverage type Covered green party ID Effective Begin Date Effective End Date [facility] Commercial Insurance [id number] Unkn own Family History Family History data not found Medication Administered No Medication Administered data Reason For Visit No Reason For Visit data
--- OUTSIDE RECORDS SUMMARY | 2024-10-22 17:22 | XMS_ITS | Clinical Summary ---
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 Gender Identity Not on file Sexual Orientation [...] OF HM ORDERS 1970 CT COLONOGRAPHY 1970 DIABETES SCREENING 1970 FIT 1970 FLEX SIG 1970 sDNA (Cologuard) 1970 COLONOSCOPY 1980 COLORECTAL [...] 2024 09/12/2021, 03/28/2021, 07/31/2020, Additional history exists PHQ-2 (once per calendar year) 2024 INFLUENZA VACCINE (Season Ended) 2025 03/28/2021, 02/15/2020, 02/17/2019, Additional history exists DTAP/TDAP/TD IMMUNIZATION (3 - Td or Tdap) 10/08/2031 10/07/2021, 10/07/2011, 03/29/2003 ZOSTER IMMUNIZATION Completed 11/01/2020, HPV IMMUNIZATION Aged Out No longer e ligible based on patient's age to complete this topic MENINGITIS IMMUNIZATION Aged Out No l onger eligible based on patient's age to complete this topic Procedures Procedure Name Priority Date/Time Associated Diagnosis Comments SAMANTHA DIAGNOSTIC DIGITAL LEFT 10/03/2012 10:23 AM CDT from Last 3 Months or Most Recently Relevant to Health Maintenance Results * SAMANTHA Diagnostic Digital Left (10/03/2012 10:23 AM CDT) [...] 6 MONTH FOLLOW-UP. CHRISTOPHER ARAUJO MD Shabana Haqq CNM [facility] MAMMOGRAPHY ORDERABLES Kenyatta l Result from Last 3 Months or Most Recently Relevant to Health Maintenance Insurance NONE (Work) [id number] [facility] [place] [id number] [place] [address] [facility] MEDICARE SUPPLEMENT Care Teams Box Hinge And Lock Attacher Relationship Specialty Start Date End Date No Ref-Primary, Physician PCP - General 02/10/22 [facility] 02/10/22
--- OUTSIDE RECORDS SUMMARY | 2024-10-22 17:23 | XMS_ITS | CCD ---
Author Organization Unknown Care Team Providers Care Psychology Clinician Name Role Phone Medical Appliance Maker, [place] Primary Care Provider Unava ilable Unavailable Chronic Care Management Unavaila ble Summary Purpose DataExchange Insurance Providers Payer name Policy type / Coverage type Covered green party ID Effective Begin Date Effective End Date [facility] Commercial Insurance [id number] Unkn own Family History Family History data not found Medication Administered No Medication Administered data Reason For Visit No Reason For Visit data
--- OUTSIDE RECORDS SUMMARY | 2024-10-22 17:23 | XMS_ITS | CCD ---
Author Organization Unknown Care Team Providers Care Assistant Hairstylist Name Role Phone Production Team Leader, [place] Primary Care Provider Unava ilable Unavailable Chronic Care Management Unavaila ble Summary Purpose DataExchange Insurance Providers Payer name Policy type / Coverage type Covered alliance party ID Effective Begin Date Effective End Date [facility] Commercial Insurance [id number] Unkn own Family History Family History data not found Medication Administered No Medication Administered data Reason For Visit No Reason For Visit data
--- OUTSIDE RECORDS SUMMARY | 2024-10-22 17:24 | XMS_ITS | Clinical Summary ---
Author Organization [employer] [facility] Address [address] [place] [address] Care Team Providers Care Restaurant Assistant Name Role Phone Atiya Pizarro MD Primary Care Provide r Allergies Active Allergy Reactions Criticality Noted Date Comments Celecoxib Stomach Upset 03/09/2024 Iodinated Contrast Media Nausea And Vomiting 04/13/2023 Morphine Vomiting 03/28/2021 Unlisted Allergen (Include Detail In Comments) Runny Nose 12/21/2018 Seasonal, and cats Medications Walker - 4 wheelsIndications: Lumbar spondylosis With brakes, seat. For home use. Length of need: 99 months. 1 Device 03/23/20 19 Active medication order composerIndication s:Degenerative disc disease, lumbar,S/P lumbar spinal fusion theraworx foam, apply three times daily 7.1 oz 5 04/05/20 19 Active cholecalciferol (Vitamin D) 1,000 unit capsuleIndications :Vitamin D deficiency Take 2 Capsules (2,000 units) by mouth once daily. 0 02/25/20 23 Active clindamycin 1% (CLEOCIN-T) 1 % lotionIndications: Acne rosacea APPLY TOPICALLY TO AFFECTED AREA(S) TWICE DAILY 60 mL 3 04/18/20 23 Active clindamycin in hydrocortisone lotion (1:1 ratio)Indications: Acne rosacea Apply topically to affected area(s) two times daily. 240 mL 2 07/06/19 25 Active omeprazole (PRILOSEC) 20 mg Delayed-Release capsuleIndications :Heartburn Take 1 Capsule (20 mg) by mouth two times daily before meals. 180 Capsule 3 07/06/19 25 Active carBAMazepine (TEGRETOL) 200 mg tabletIndications: Convulsions, unspecified convulsion type (HC) Take 1 Tablet (200 mg) by mouth three times daily. 270 Tablet 3 07/06/19 25 Active levothyroxine (SYNTHROID) 50 mcg tabletIndications: Hypothyroidism, unspecified type Take 1 Tablet (50 mcg) by mouth before breakfast. 90 Tablet 3 07/06/19 25 Active miscellaneous medical supply miscIndications:In somnia, idiopathic As directed. Sleep mask for insomnia 1 Each 08/11/19 25 Active rosuvastatin (CRESTOR) 10 mg tabletIndications: Hyperlipidemia, unspecified hyperlipidemia type Take 1 Tablet (10 mg) by mouth at bedtime. 90 Tablet 3 08/11/19 25 Active DULoxetine (CYMBALTA) 20 mg Delayed-release capsuleIndications :Myofascial pain Take 1 Capsule (20 mg) by mouth once daily. 08/15/19 25 Active tiZANidine 2 mg tabletIndications: S/P lumbar fusion Take 1 Tablet (2 mg) by mouth every 8 hours if needed for Muscle Spasm. 20 Tablet 10/13/19 25 Active cyclobenzaprine (Flexeril) 5 mg tabletIndications: Lumbar radicular pain Take 1 Tablet (5 mg) by mouth at bedtime if needed for Muscle Spasm. 24 Tablet 3 01/10/20 22 025 Discontinu ed(*Patien t states no longer taking) amoxicillin 875 mg tabletIndications: Acute otitis media, right Take 1 Tablet (875 mg) by mouth two times daily for 5 days. 10 Tablet 10/13/19 25 025 Active Problems Problem Noted Date Diagnosed Date [...] Encounters Date Type Department Care Team Description 10/12/2024 1:00 PM CDT Office Visit [facility] [address] [place] [address] Guicho Lima, Ear Problem (Right feels weird hearing has gotten worse possible wax build up ) 10/11/2024 Travel 09/28/2024 10:15 AM CDT Nurse/Clinic Staff Only [facility] [address] [place] [address] Immunization/Injecti on (MMR VACCINE PER DR. PIZARRO ); Immunization/Injecti on 09/28/2024 Travel 09/23/2024 Travel 09/07/2024 Telephone [facility] [address] [place] [address] Atiya Pizarro MD Appointment (MMR Vaccination ) 09/06/2024 Telephone [facility] [address] [place] [address] Atiya Pizarro MD Immunization/Injecti on 08/31/2024 10:15 AM CDT Nurse/Clinic Staff Only [facility] [address] [place] [address] Immunization/Injecti on (MMR VACCINE PER DR. PIZARRO ); Immunization/Injecti on 08/30/2024 Travel 08/10/2024 9:55 AM PEOPLESOFT CONSULTANT Office Visit [facility] [address] [facility] [address] Atiya Pizarro MD Fatigue; Blood Pressure (follow up ) 08/09/2024 Travel 08/06/2024 9:50 PM PEOPLESOFT CONSULTANT E-Visit [facility] [address] [place] [place] [address] Atiya Pizarro MD eVisit for Fatigue from Last 3 Months Immunizations Immunization Administration Dates Next Due AMB INFLUENZA, IIV4 [...] IIV3 (Age >=3 years) 03/26/2017,03/18 Influenza, IIV4 02/18/2023,,03/28/2021,2019,03/27/2016,02/20/2016,03/28/2015,0 02/28/2014 Influenza, IIV4 (=>6mos) MDV 02/17/2019 MMR 09/28/2024,08/31/2024 Pneumococcal Conj 20-valent (Prevnar 20) 07/06/2024 Td (Age >=7 Years) 03/29/2003,12/24/1991 Tdap 10/07/2021,10/07/2011 [...] Answer Date Recorded PHQ-2 TOTAL SCORE 0 07/06/2024 Social Connections Answer Date Recorded Do you [...] is your housing situation today? 1 10/30/2023 Utilities Answer Date Recorded Do you have trouble paying f or utilities (for example, heat, electricity, water, phone)? 1 10/30/2023 Comments No Sex and Gender Information Value Date Recorded Sex Assigned at Female 04/11/2023 11:45 PM PEOPLESOFT CONSULTANT Legal Sex Female 7:52 AM PEOPLESOFT CONSULTANT Gender Identity Female 04/11/2023 11:45 PM PEOPLESOFT CONSULTANT Sexual Orientation Not on file Occupation Industry Job Start Date Job End Date disabled Not on file Not on file Not on file Obstetrics History Para Term AB IAB SAB Ectopic Multiple Livin g Live Births 0 0 0 0 0 0 0 0 0 0 0 Last Filed Vital Signs Vital Sign Reading Time Taken Comments Blood Pressure 120/75 10/12/2024 12:38 PM CDT Pulse 98 10/12/2024 12:38 PM CDT Temperature 36.6 C (97.8 F) 11/04/2023 12:58 PM CDT Respiratory Rate 16 05/06/2021 2:04 PM PEOPLESOFT CONSULTANT Oxygen Saturation 95% 10/12/2024 12:38 PM CDT Inhaled Oxygen Concentration - - Weight 85.5 kg (188 lb 6.4 oz) 10/12/2024 12:38 PM CDT Height 153.7 cm (5' 0.5) 07/06/2024 2:46 PM PEOPLESOFT CONSULTANT Body Mass Index 36.19 07/06/2024 2:46 PM PEOPLESOFT CONSULTANT Plan of Treatment Health Maintenance Due Date Last Done Comments Mammogram for age 45-75 01/19/2025 01/20/20, 01/11/2023, 12/16/2021, Additional history exists BMI (ht and wt on same day) for age 18+ 07/06/2025 07/06/2024, 08/06/2023, 06/23/2022, Additional history exists Depression screening for age 12+ 07/06/2025 07/06/19 25 Pap test for age 21-65 10/28/2026 , 10/28/2021, 11/22/2018, Additional history exists Lipids for age 45-75 07/06/2029 07/06/2024, 02/25/2024, 11/04/2023, Additional history exists Colonoscopy through age 75 11/07/203011/07, 11/08/2023, 08/12/2020 (Completed [facility]) Tetanus booster 10/08/2031 10/07/2021, 05/0 07/2011, 03/29/2003, Additional history exists Zoster (shingles) series for age 50+ Completed 11/01/2020, 09/01/2020 Tdap Completed 10/07/2021, 10/07/2011 Hepatitis C screening for ag e 18-79 Completed 03/17/2022, 02/16/2022 HIV for age 15-65 Completed 06/23/2022 Influenza Vaccine Completed 02/03/2024, , 02/16/2022, Additional history exists COVID-19 vaccine series Completed 02/25/20, 03/25/2023, 03/17/2022, Additional history exists Pneumococcal series for age 50+ Completed 5 Goals Goal Patient Goal Type Associated Problems Recent Progress Patient-Stated? Author BLOOD PRESSURE - Maintains BP less than 140/90 Blood Pressure No Annamaria Osborne LPN Medical Devices Implanted Type Area Supervisor Loading Device Identifier Shelf Expiration Date Model / Serial / Lot [id number] - [id number] Implanted:Qty: 1 on 04/09/2021 by Maix Rodrigez MD at [facility] Left: Ear Medtronic 07/11/2027 [id number] / / [id number] Description:medtronic big ea sy piston - straight [id number] Lot [id number] Cmnt Bone Ear 2gm Otominimix - [id number] Implanted:Qty: 1 on 04/09/2021 by Maxi Rodrigez MD at [facility] Left: Ear [employer] 07/24/2022 [id number] / / [id number] Procedures Procedure Name Priority Date/Time Associated Diagnosis Comments LIPID PANEL W REFLEX MEASURED LDL Routine 07/06/2024 4:00 PM PEOPLESOFT CONSULTANT Hyperlipidemia, unspecified hyperlipidemia type XR MAMMO TONY BILAT SCREEN Routine 01/20/2024 11:29 AM CDT Encounter for screening mammogram for malignant neoplasm of breast COLONOSCOPY SCREENING Routine 11/08/2023 12:00 AM CDT Positive colorectal cancer screening using DNA-based stool test LC HIV-1/O/2, 4TH GENERATION Routine 06/23/2022 2:28 PM PEOPLESOFT CONSULTANT Screening for HIV (human immunodeficiency virus) ANTI HCV Routine 03/17/2022 12:25 PM CDT Encounter for HCV screening test for low risk patient HPV HIGH RISK Routine 10/28/2021 11:49 AM CDT Pap smear for cervical cancer screening from Last 3 Months or Most Recently Relevant to Health Maintenance Results * (ABNORMAL) LIPID PANEL W REFLEX MEASURED LDL (07/06/2024 4:00 PM PEOPLESOFT CONSULTANT) CHOLESTEROL, TOTAL 188 <200 mg/dL [facility] HDL CHOLESTEROL 54 > OR = 50 mg/dL [facility] TRIGLYCERIDES 374(H) <150 mg/dL [facility] Comment: If a non-fasting specimen was collected, consider repeat triglyceride testing on a fasting specimen if clinically indicated. Sara et al. J. of Clin. Lipidol. 2015;9:129-169. LDL-CHOLESTEROL 84 mg/dL (calc) [facility] Comment: Reference range: <100 Desirable range <100 mg/dL for primary prevention; <70 mg/dL for patients with CHD or diabetic patients with > or = 2 CHD risk factors. LDL-C is now calculated using the Elisabet calculation, which is a validated novel method providing better accuracy than the Friedewald equation in the estimation of LDL-C. Conor SS et al. TORIE. 2013;310(19): 9834-2358 (http://education.Drivy/faq/YLG887) CHOL/HDLC RATIO 3.5 <5.0 (calc) [facility] NON HDL CHOLESTEROL 134(H) <130 mg/dL (calc) [facility] Comment: For patients with diabetes plus 1 major ASCVD risk factor, treating to a non-HDL-C goal of <100 mg/dL (LDL-C of <70 mg/dL) is considered a therapeutic option. Blood BLOOD SPECIMEN / Unknown 07/06/2024 4:00 PM PEOPLESOFT CONSULTANT 07/06/2024 4:00 PM PEOPLESOFT CONSULTANT Atiya Pizarro MD CHEMISTRY Final Result [employer] [facility] [address] [place] [address], [facility] [address] [place] [address] * XR MAMMO TONY BILAT SCREEN (01/20/2024 [...] care provider. XR MAMMO TONY BILAT SCREEN [[id number]] CLINICAL HISTORY: This is an asymptomatic 53 y.o. patient. INDICATION FOR EXAM: Mammogram Screening. TECHNIQUE: CC & MLO views were obtained. This study was evaluated with the assistance of Computer-Aided Detection. Breast Tomosynthesis was used in interpretation. COMPARISON FILM: Yes 01/11/23 [facility] 12/22/21 [employer] [employer] FINDINGS: There are scattered areas of fibroglandular density. There are no dominant masses, suspicious micro calcifications or areas of architectural distortion. Atiya Pizarro MD MAMMO Final Result * COLONOSCOPY SCREENING (11/08/2023 12:00 AM CDT) Atiya Pizarro MD GI PROCEDURE ORD Kenyatta l Result * LC HIV-1/O/2, 4TH GENERATION (06/23/2022 2:28 PM PEOPLESOFT CONSULTANT) HIV Scr 4th Gen Non Reactive Non Reactive 06/25/2022 9:06 PM PEOPLESOFT CONSULTANT [facility] Comment: HIV Negative HIV-1/HIV-2 antibodies and HIV-1 p24 antigen were NOT detected. There is no laboratory evidence of HIV infection. Blood BLOOD SPECIMEN / Unknown Venipuncture / Unknown 06/23/2022 2:28 PM PEOPLESOFT CONSULTANT 06/23/2022 2:29 PM PEOPLESOFT CONSULTANT Narrative [facility] - 06/25/2022 9:06 PM PEOPLESOFT CONSULTANT Performed at: [address] [place] [address] [address] [place], [place] [id number] Audio Recording Engineer: Miko Leyva MD, Phone: [phone] Atiya Pizarro MD LABORATORY Final Result [facility] [address] [place] [address], * ANTI HCV (03/17/2022 12:25 PM CDT) HEPATITIS C ANTIBODY Non-React ramona Non-React ramona 03/18/2022 5:22 PM CDT [facility] Comment:Antibodies to HCV no t detected; does not exclude the possibility of exposure to HCV. Blood BLOOD SPECIMEN / Unknown Venipuncture / Unknown 03/17/2022 12:25 PM CDT 03/17/2022 12:25 PM CDT Atiya Pizarro MD SEND OUTS Final Result [facility] [address] [place] [address], [place] * HPV HIGH RISK (10/28/2021 11:49 AM CDT) TYPE 16 Negative Negative 10/30/2021 2:55 PM CDT [facility] TYPE 18 Negative Negative 10/30/2021 2:55 PM CDT [facility] OTHER HIGH RISK TYPES Negative Negative 10/30/2021 2:55 PM CDT [facility] Other (Cervical) Non-Blood / Unknown 10/28/2021 11:49 AM CDT 10/29/2021 10:31 AM CDT Narrative [facility] - 10/30/2021 2:55 PM CDT HPV types 16, 18, 31, 33, 35, 39, 45, 51, 52, 56, 58, 59, 66 and 68 DNA were undetectable or below the pre-set threshold. Methodology: Cristina Salinas 4800 HPV Test us Josselyn [facility]ATUM MI[employer] Final Result [facility] [address] [place] [address], [place] from Last 3 Months or Most Recently Relevant to Health Maintenance Insurance MEDICARE PART A HB ONLY MEDICARE PART B HB ONLY [employer] MEDICARE ADVANTAGE MR [facility] Advance Directives Documents on File Type Date Recorded Patient Passenger Tire Builder Expl anation POLST 10/05/2023 Healthcare Directive 08/25/2023 024 Power of Gun Welder 03/11/2018 4:18 PM MARIA GU RUBEN SHORT FORM POWER OF GROUNDSKEEPER PORTER, KIRSTIN & RC CELAYA, 10/14/17 Healthcare Directive 03/11/2018 4:14 PM HE ALTHCARE DIRECTIVE, [facility], 02/10/18 POLST 12/16/2017 3:47 PM GAVIN CANALES [facility], 12/01/17 * Full Code (Latest Code Status on File) Date Activated Date Inactivated Comments 04/09/2021 9:39 AM 04/09/2021 6:54 PM Question Answer Comments Code Status Discussion: Not Discussed Care Teams Restaurant Assistant Relationship Specialty Start Date End Date Atiya Pizarro MD [address] [place] [address] PCP - General Family Practice 03/16/14
== END 2024-10-21 12:06 | disposition home or self-care (01) ==
PROVIDERS: Emergency Provider Internal Medicine; PCP Family Medicine
DX: R07.9 Chest pain, unspecified (principal)
CPT/HCPCS: 36415; 71045; 80053; 84484; 85025; 85379; 99283; 99284

== ENCOUNTER 2024-10-23 22:37 | Outpatient (CLI) | payer MEDICARE, MEDICAID, SELFPAY | END 2024-10-23 22:38 | disposition home or self-care (01) | LOC: AMB 10-26 09:45 | PROVIDERS: PCP Family Medicine; Visit Provider Family Medicine | DX: R55 Syncope and collapse (principal); R41.0 Disorientation, unspecified | CPT/HCPCS: A0425; A0427 ==

== ENCOUNTER 2024-10-23 22:56 | Emergency (ER) | payer MEDICARE, MEDICAID, SELFPAY ==
--- OUTSIDE RECORDS SUMMARY | 2024-10-23 22:59 | XMS_ITS | Clinical Summary ---
Author Organization [employer] Address [address] [place] [address] Care Team Providers Care Building Rigger Name Role Phone No Ref-Primary, Physician Primary [...] on file Legal Sex Female 3:14 AM CRITICAL CARE TECHNICIAN Gender Identity Not on file Sexual Orientation [...] FOLLOW-UP. CHRISTOPHER ARAUJO MD Shabana Haqq [facility] ORDER[facility] Kenyatta l Result from Last 3 Months or Most Recently Relevant to Health Maintenance Insurance NONE (Work) [id number] [facility] [id number] [place] [address] [facility] MEDICARE SUPPLEMENT Care Teams Building Rigger Relationship Specialty Start Date End Date No Ref-Primary, Physician PCP - General 02/10/22 Atiya Velez [facility] 02/10/22
--- OUTSIDE RECORDS SUMMARY | 2024-10-23 22:59 | XMS_ITS | CCD ---
Author Organization Unknown Care Team Providers Care Animal Behaviourist Name Role Phone Folder Gluer Operator, [place] Primary Care Provider Unava ilable Unavailable Chronic Care Management Unavaila ble Summary Purpose DataExchange Insurance Providers Payer name Policy type / Coverage type Covered republican ID Effective Begin Date Effective End Date [facility] Commercial Insurance [id number] Unkn own Family History Family History data not found Medication Administered No Medication Administered data Reason For Visit No Reason For Visit data
--- OUTSIDE RECORDS SUMMARY | 2024-10-23 22:59 | XMS_ITS | CCD ---
Author Organization Unknown Care Team Providers Care Washer Repairman Name Role Phone Appraiser Irrigation Tax, [place] Primary Care Provider Unava ilable Unavailable Chronic Care Management Unavaila ble Summary Purpose DataExchange Insurance Providers Payer name Policy type / Coverage type Covered constitution party ID Effective Begin Date Effective End Date [facility] Commercial Insurance [id number] Unkn own Family History Family History data not found Medication Administered No Medication Administered data Reason For Visit No Reason For Visit data
[2024-10-23 23:05] VITALS: BP 148/111; PULSE 97; RESP 20; TEMP 36.6; O2SAT 96
--- NOTE | 2024-10-23 23:10 | ED.GENADULT ---
HPI - General Adult General Chief complaint: Syncope/Fainted Stated complaint: syncope Time Seen by Provider: 10/23/24 23:04 Source: EMS Mode of arrival: EMS History of Present Illness HPI narrative: 54-year-old female with a known history of seizure disorder presents to the emergency department after an unresponsive episode in her home. She was resting on the couch when her noticed that she seemed to have decreased consciousness. There was no obvious tonic clonic type of movement. No head injury. No loss of bowel or bladder function. No tongue biting. She does not report any pain or injury. EMS reports that she was a little groggy at the scene but has become much more oriented once they started loading her up in the truck and now she is conversive, asking questions and seems appropriately oriented. Blood sugar was 112 at the scene. There were no signs of major injury. No reason to suspect intoxication. Recent adjustments of her anti seizure medications, no recent visit to her neurologist. It is unclear how hard the tried to revive her or for how long she may have been unresponsive. Patient has had many visits to the emergency department for various complaints, typically related to musculoskeletal type pain. These are briefly reviewed. Prior imaging and labs are reviewed as well. Has had a head CT within the last 5 months, this is reviewed. Past medical history is notable for seizure disorder, cognitive impairment, fibromyalgia, hypothyroidism. Home medications reviewed. Most notable for carbamazepine for seizure disorder. Allergies to morphine and contrast. ROS notable for the neurological changes as above. She also reports widespread body pain including chest pain with palpitation which was thoroughly worked up 2 days ago. Related Data Home Medications ?Medication ?Instructions ?Recorded ?Confirmed carbamazepine 200 mg tablet 200 mg PO TID 01/16/22 10/23/24 duloxetine 20 mg capsule,delayed 20 mg PO DAILY 01/16/22 10/23/24 release famotidine 20 mg tablet 20 mg PO DAILY 01/16/22 10/23/24 levothyroxine 50 mcg capsule 50 mcg PO DAILY 01/16/22 10/23/24 omeprazole 20 mg capsule,delayed 20 mg PO DAILY 01/16/22 10/23/24 release acetaminophen 325 mg tablet 650 mg PO DAILY PRN 01/19/22 10/23/24 colestipol 1 gram tablet 1 g PO BID 01/27/24 10/23/24 levothyroxine 50 mcg tablet 50 mcg PO QAM 01/27/24 10/21/24 rosuvastatin 10 mg tablet 10 mg PO QPM 06/22/24 10/23/24 Previous Rx's ?Medication ?Instructions ?Recorded cyclobenzaprine 10 mg tablet 10 mg PO BID PRN muscle spasm #10 10/10/23 tabs [id number] 3.3 5 drp Otic (ear-right) QID 5 days 10/10/23 mg-3 mg-10 mg-0.5 mg/mL ear #10 mL drops,susp (Cortisporin-TC) Allergies Allergy/AdvReac Type Severity Reaction Status Date / Time morphine Allergy Unknown Verified 10/23/24 23:10 Iodinated Contrast Media Allergy Verified 10/23/24 23:10 [facility] Medical History Back pain at L4-L5 level ?M54.50 - Low back pain, unspecified (ICD-10) Delay of cognitive development ?F81.9 - Developmental disorder of scholastic skills, unspecified (ICD-10) Liver damage ?K76.9 - Liver disease, unspecified (ICD-10) Fibromyalgia ?M79.7 - Fibromyalgia (ICD-10) 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 of 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 Mixed hearing loss ?H90.8 - Mixed conductive and sensorineural hearing loss, unspecified (ICD-10) Cholecystitis ?K81.9 - Cholecystitis, unspecified (ICD-10) Anxiety ?F41.9 - Anxiety disorder, unspecified (ICD-10) Left chronic serous otitis media ?H65.22 - Chronic serous otitis media, left ear (ICD-10) Onychomycosis ?B35.1 - Tinea unguium (ICD-10) Hypoparathyroidism ?E20.9 - Hypoparathyroidism, unspecified (ICD-10) Vitamin D deficiency ?E55.9 - Vitamin D deficiency, unspecified (ICD-10) DDD (degenerative disc disease), lumbar ?M51.36 - Other intervertebral disc degeneration, lumbar region (ICD-10) Lower extremity edema ?R60.0 - Localized edema (ICD-10) Learning disability ?F81.9 - Developmental disorder of scholastic skills, unspecified (ICD-10) Seizure disorder ?G40.909 - Epilepsy, unspecified, not intractable, without status epilepticus (ICD-10) Hypothyroidism ?E03.9 - Hypothyroidism, unspecified (ICD-10) Encounter for counseling regarding advance directives (02/10/18) ?Z71.89 - Other specified counseling (ICD-10) Surgical History Hx of myringotomy ?Z98.890 - Other specified postprocedural states (ICD-10) Hx laparoscopic cholecystectomy ?Z90.49 - Acquired absence of other specified parts of digestive tract (ICD-10) History of fusion of spine for scoliosis ?Z98.1 - Arthrodesis status (ICD-10) ?Z87.39 - Personal history of other diseases of the musculoskeletal system and connective tissue (ICD-10) Social History Smoking Status: Never smoker Do you use any of these nicotine containing products: None Second hand tobacco smoke exposure: No How often do you have a drink containing alcohol: never How often do you have six or more drinks on one occasion: Never AUDIT-C Alcohol total score: 0 Non-prescribed substance use: denies use Caffeine: Yes service: No Exam Const: Vital Signs, click to edit/add: Vital Signs - 24 hr 10/23/24 23:05 10/23/24 23:23 10/23/24 23:24 Temperature 97.9 F Pulse Rate 99 97 Pulse Rate [Pulse Oximeter] 97 Respiratory Rate 20 19 19 Blood Pressure 151/116 H Blood Pressure [Le ft Upper Arm] 148/111 H Pulse Oximetry 96 94 93 Oxygen Delivery Me thod Room Air 10/23/24 23:30 10/23/24 23:32 Temperature Pulse Rate 98 94 Pulse Rate [Pulse Oximeter] Respiratory Rate 12 18 Blood Pressure 166/102 H Blood Pressure [Le ft Upper Arm] Pulse Oximetry 94 93 Oxygen Delivery Me thod Documenting provider has reviewed patient's vital signs: yes Common normals: no apparent distress and alert General appearance: cooperative and comfortable HENMT: Common normals: normocephalic and moist oral mucous membranes Head and scalp: normocephalic Mouth: oral and palatal mucosa normal Eye: Other: Dysconjugate gaze, chronic for patient. Extraocular movements are intact and pupils are equal and reactive. Neck & C-Spine: Common normals: full ROM and no lymphadenopathy General: normal visual inspection Chest: Other: Palpation of chest, abdomen and all extremities shows sharp point tenderness everywhere. Literally everywhere I touched. No obvious deformity or bruising to the chest wall that would indicate trauma. Resp: Common normals: normal respiratory effort, no use of accessory muscles and clear to auscultation bilaterally Effort & inspection: able to speak in complete sentences Auscultation: clear to auscultation bilaterally Cardio: Common normals: regular rate, regular rhythm, S1 normal heart sound, S2 normal heart sound and no murmurs Rate: regular rate Rhythm: regular rhythm Heart sounds: S1 normal and S2 normal GI: Common normals: Normal to inspection, nondistended, normoactive bowel sounds present, soft to palpation, non-tender, no hepatosplenomegaly and no masses Palpation: soft and no hepatosplenomegaly Back & Pelvis: Common normals: thoracic and lumbar spine normal to inspection Extremity: Common normals: normal to inspection and normal capillary refill Neuro: Common normals: CN's II-XII intact bilaterally, moves all extremities, no focal motor deficits and no sensory deficits noted Sensorium/orientation: alert Coordination/balance: Normal rapid alternating movements of the distal upper extremity present (Neuro) Speech: speech normal Motor exam: strength 5/5 throughout, no pronator drift and no tremor noted Coordination: rapid alternating movement UE normal Psych: Common normals: speech normal Appearance: grossly normal Attitude: calm Speech: normal speech Insight: fair Judgement: fair Skin: Common normals: no rashes or lesions noted General skin exam: no rashes or lesions noted Course Course ED Course: 54-year-old female with history of seizure disorder presenting with brief unresponsive episode, gradually returning to full alertness now in the ED with no persistent focal neurological changes. Suspect partial seizure. No evidence of tongue biting, injury or loss of urine control. Patient has had multiple head CTs including 1 within the last 5 months. I am hesitant to order these repetitively especially since her neurological function has returned to normal. I recommend some basic labs to ensure that there was no additional abnormality contributing to her symptoms. I will order an EKG and troponin because of her reported chest pain though as stated, she is tender everywhere to touch and had a thorough workup 2 days ago. Will monitor in the ED for a couple of hours for any further seizure activity, treating with benzodiazepines if needed. It does not appears though she is having frequent breakthrough seizures so does not likely need adjustment in her medications. Will monitor and consider Neurology consult if seizures return. No reason to suspect alcohol withdrawal, head trauma or other etiology. Reevaluation(s) Time of Reevaluation #1: 23:51 Reevaluation #1: Patient has not demonstrated any further seizure activity. She notes no focal neurological changes. When I bring up going home, she does argue many barriers to the how this would happen. She does not drive, her spouse does not drive, she does not have any issues with her, many excuses. The nurses tell me that she fought discharge most of her other ED visits as well citing similar responses. There really is no reason for prolonged monitoring or additional interventions here in the emergency department. Will be looking at taxi Services, consider use of EMS or police services to facilitate home transfer. Vital Signs Vital signs: Initial Vital Signs Temperature 97.9 F 10/23/24 23:05 Temperature Source Temporal Artery Scan 10/23/24 23:05 Pulse Rate 97 10/23/24 23:05 Respiratory Rate 20 10/23/24 23:05 Blood Pressure 148/111 H 10/23/24 23:05 Blood Pressure Mean 123 H 10/23/24 23:05 Blood Pressure Position Sitting 10/23/24 23:05 Pulse Oximetry 96 10/23/24 23:05 Oxygen Delivery Method Room Air 10/23/24 23:05 Vital Signs Temperature 97.9 F 10/23/24 23:05 Pulse Rate 97 10/23/24 23:05 Respiratory Rate 20 10/23/24 23:05 Blood Pressure 148/111 H 10/23/24 23:05 Pulse Oximetry 96 10/23/24 23:05 Oxygen Delivery Method Room Air 10/23/24 23:05 Temperature 97.9 F 10/23/24 23:05 Pulse Rate 94 10/23/24 23:32 Respiratory Rate 18 10/23/24 23:32 Blood Pressure 166/102 H 10/23/24 23:32 Pulse Oximetry 93 10/23/24 23:32 Oxygen Delivery Method Room Air 10/23/24 23:05 Medical Decision Making Lab Data Lab results reviewed: Yes I reviewed the patient's lab results Lab results narrative: Labs reassuring. Cardiac monitoring not revealing any abnormalities. Labs: Lab Results 10/23/24 10/23/24 Range/Units 23:06 23:15 WBC 6.30 (4.50-11.00) K/uL RBC 3.77 L (4.00-5.20) m/uL Hgb 11.8 L (12.0-16.0) gm/dL Hct 37.2 (33.0-51.0) % MCV 99 (80-100) fL MCH 31 (26-34) pg MCHC 32 (32-36) gm/dL RDW Coeff of Gracie 13.4 (11.5-15.5) % Plt Count 204 (140-440) K/uL Neut % (Auto) 57.4 (42.0-72.0) % Lymph % (Auto) 29.7 (20-44) % Bryan % (Auto) 7.9 (0.0-11.0) % Eos % (Auto) 3.8 (0.0-7.0) % Baso % (Auto) 0.6 (0.0-3.0) % Neut # (Auto) 3.61 (1.7-7.0) K/uL Lymph # (Auto) 1.87 (0.90-2.90) K/uL Bryan # (Auto) 0.50 (0.00-0.90) K/UL Eos # (Auto) 0.24 (0.00-0.50) K/uL Baso # (Auto) 0.04 (0.00-0.30) K/uL Abs Immat Gran (auto) 0.04 (0.00-0.30) K/uL Imm/Tot Granulo (auto) 0.6 % Sodium 142 (135-149) mmol/L Potassium 4.0 (3.6-5.1) mmol/L Chloride 103 (96-114) mmol/L Carbon Dioxide 29 (20-32) mmol/L Anion Gap 10 (7-15) mEq/L BUN 18 (7-30) mg/dL Creatinine 0.7 (0.5-1.5) mg/dL Estimated GFR 103 ml/min Glucose 103 (60-115) mg/dL Lactate 0.6 (0.5-1.9) mmol/L Calcium 8.9 (8.4-10.6) mg/dL Magnesium 1.9 (1.5-2.6) mg/dL POC Troponin I 0.01 (0.01-0.04) ng/ml ECG Data Attestation: I personally reviewed and interpreted this ECG as follows: Prior ECG tracings: available for review Interpretation: Comparison 10/21/2024. Normal sinus rhythm with a rate of 89. No significant ST or T-wave abnormalities. Normal interval and axis. No changes from 2 days ago. Discharge Plan Discharge Clinical Impression: Partial seizure Patient Disposition: Home w/ Parent or Adult Condition: Improved Instructions: Recurrent Seizures in Adults (ED) Additional Instructions: As we discussed, the episode that you had tonight seems consistent with a partial seizure. Unfortunately even with taking her medications properly, these will occasionally happen. If you continue to have episodes, please contact your neurologist for further workup and adjustment of her medications. There does not seem to be any problems with your kidney function, electrolytes, heart or other organs today which is great news. Make sure that you take your medications as soon as you get home. Activity Level: No Restrictions Discharge Diet: Regular Prescriptions: No Action cyclobenzaprine 10 mg tablet 10 mg PO BID PRN (Reason: muscle spasm) Qty: 10 0RF Cortisporin-TC 3.3-3-10-0.5 mg/mL drops,suspension 5 drp Otic (ear-right) QID 5 Days Qty: 10 0RF carbamazepine 200 mg tablet 200 mg PO TID duloxetine 20 mg capsule,delayed release(DR/EC) 20 mg PO DAILY famotidine 20 mg tablet 20 mg PO DAILY levothyroxine 50 mcg capsule 50 mcg PO DAILY omeprazole 20 mg capsule,delayed release(DR/EC) 20 mg PO DAILY acetaminophen 325 mg tablet 650 mg PO DAILY PRN Rx Instructions: NO MORE THAN 4000 MG/DAY levothyroxine 50 mcg tablet 50 mcg PO QAM colestipol 1 gram tablet 1 g PO BID rosuvastatin 10 mg tablet 10 mg PO QPM Follow Up/Referrals: Atiya Velez MD [Primary Care Provider] - Stand Alone Forms: [employer] Info Instructions
[2024-10-23 23:22] LABS: Lactate* 0.6 mmol/L (0.5-1.9)
[2024-10-23 23:23] VITALS: BP 151/116; PULSE 99; RESP 19; O2SAT 94
[2024-10-23 23:24] VITALS: PULSE 97; RESP 19; O2SAT 93
[2024-10-23 23:26] LABS: Basophils Absolute Auto 0.04 K/uL (0.00-0.30); Basophils Percent Auto 0.6 % (0.0-3.0); Eosinophils Absolute Auto 0.24 K/uL (0.00-0.50); Eosinophils Percent Auto 3.8 % (0.0-7.0); Hematocrit 37.2 % (33.0-51.0); Hemoglobin* 11.8 gm/dL (12.0-16.0); Immature Granulocytes Abs Auto 0.04 K/uL (0.00-0.30); Immature Granulocytes Pct Auto 0.6 %; Lymphocytes Absolute Auto 1.87 K/uL (0.90-2.90); Lymphocytes Percent Auto 29.7 % (20-44); Mean Corpuscular HGB Conc 32 gm/dL (32-36); Mean Corpuscular Hemoglobin 31 pg (26-34); Mean Corpuscular Volume 99 fL (80-100); Monocytes Percent Auto 7.9 % (0.0-11.0); Neutrophils Absolute Auto 3.61 K/uL (1.7-7.0); Neutrophils Percent Auto 57.4 % (42.0-72.0); Platelet Count* 204 K/uL (140-440); RDW Coefficient of Variation % 13.4 % (11.5-15.5); Red Blood Count 3.77 m/uL (4.00-5.20)
[2024-10-23 23:28] LABS: Slide Review Reflex No
[2024-10-23 23:30] VITALS: PULSE 98; RESP 12; O2SAT 94
[2024-10-23 23:32] VITALS: BP 166/102; PULSE 94; RESP 18; O2SAT 93
[2024-10-23 23:35] LABS: Troponin, Point-of-Care* 0.01 ng/ml (0.01-0.04)
[2024-10-23 23:37] LABS: Chloride* 103 mmol/L (96-114); Sodium* 142 mmol/L (135-149)
[2024-10-23 23:40] LABS: Anion Gap 10 mEq/L (7-15); Blood Urea Nitrogen* 18 mg/dL (7-30); Carbon Dioxide* 29 mmol/L (20-32); Creatinine* 0.7 mg/dL (0.5-1.5); Estimated Glomerular Filt Rate 103 ml/min
[2024-10-23 23:41] LABS: Calcium* 8.9 mg/dL (8.4-10.6); Glucose* 103 mg/dL (60-115); Magnesium* 1.9 mg/dL (1.5-2.6)
--- OUTSIDE RECORDS SUMMARY | 2024-10-24 00:09 | XMS_ITS | CCD ---
Author Organization Unknown Care Team Providers Care Director Of Radiology Name Role Phone Manager Clinical Research, [place] Primary Care Provider Unava ilable Unavailable Chronic Care Management Unavaila ble Summary Purpose DataExchange Insurance Providers Payer name Policy type / Coverage type Covered alliance party ID Effective Begin Date Effective End Date [facility] Commercial Insurance [id number] Unkn own Family History Family History data not found Medication Administered No Medication Administered data Reason For Visit No Reason For Visit data
--- OUTSIDE RECORDS SUMMARY | 2024-10-24 00:09 | XMS_ITS | Clinical Summary ---
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 CHRISTOPHER ARAUJO MD Shbaana Haqq CNM [facility] MAMMOGRAPHY ORDERABLES Kenyatta l Result from Last 3 Months or Most Recently Relevant to Health Maintenance Insurance NONE (Work) [id number] [facility] [place] [id number] [place] [address] [facility] MEDICARE SUPPLEMENT Care Teams Lacing Presser Relationship Specialty Start Date End Date No Ref-Primary, Physician PCP - General 02/10/22 [facility] 02/10/22
--- OUTSIDE RECORDS SUMMARY | 2024-10-24 00:10 | XMS_ITS | Clinical Summary ---
Author Organization [employer] [facility] Address [address] [place] [address] Care Team Providers Care Blending Machine Operator Name Role Phone Atiya Pizarro MD Primary [...] Encounters Date Type Department Care Team Description 10/21/2024 Orders Only [facility] SERVICES Scanner 1 scan: (1-Ord) [facility], XR CHEST 1V, 10/21/2024 10/12/2024 1:00 PM CDT Office Visit [facility] [address] [place] [address] Guicho Lima, Ear Problem (Right feels weird hearing has gotten worse possible wax build up ) 10/11/2024 Travel 09/28/2024 10:15 AM CDT Nurse/Clinic Staff Only [facility] [address] [place] [address] Immunization/Injecti on (MMR VACCINE PER DR. PIZARRO ); Immunization/Injecti on 09/28/2024 Travel 09/23/2024 Travel 09/07/2024 Telephone [facility] [address] [place] [address] Atiya Pizarro MD Appointment (MMR Vaccination ) 09/06/2024 Telephone [facility] [address] [place] [address] Atiya Pizarro MD Immunization/Injecti on 08/31/2024 10:15 AM CDT Nurse/Clinic Staff Only [facility] [address] [facility] [address] Immunization/Injecti on (MMR VACCINE PER DR. PIZARRO ); Immunization/Injecti on 08/30/2024 Travel 08/10/2024 9:55 AM GLAZING SUPERINTENDENT Office Visit [facility] [address] [place] [address] Atiya Pizarro MD Fatigue; Blood Pressure (follow up ) 08/09/2024 Travel 08/06/2024 9:50 PM GLAZING SUPERINTENDENT E-Visit [facility] [address] [facility] [address] Atiya Pizarro MD eVisit for Fatigue from Last 3 Months Immunizations Immunization Administration Dates Next Due AMB INFLUENZA, IIV4 (AGE=>6M OS) MDV (Flu Clinic Only) 03/08/2018 AMB Influenza, IIV3 (Age >=3 years)(Flu Clinic Only) 03/21/2013 COVID-19 VACCINE SPIKEVAX (M ODERNA 50MCG/0.5ML) 12YO+ PFS 02/25/2024,03/25/2023 COVID-19 vaccine (Moderna 100mcg/0.5mL) PF, MDV 09/12/2021,07/31/2020,07/03/2020 COVID-19 vaccine (Moderna Carlos Alberto carter 50mcg/0.25mL) PF, MDV 03/28/2021 COVID-19 vaccine (Intoloop-Bio NTech 30mcg/0.3mL) 12YO+ BIVALENT PF, MDV 03/17/2022 [...] Sex Assigned at Female 04/11/2023 11:45 PM GLAZING SUPERINTENDENT Legal Sex Female 7:52 AM GLAZING SUPERINTENDENT Gender Identity Female 04/11/2023 11:45 PM GLAZING SUPERINTENDENT Sexual Orientation Not on file Occupation Industry [...] CDT Respiratory Rate 16 05/06/2021 2:04 PM GLAZING SUPERINTENDENT Oxygen Saturation 95% 10/12/2024 12:38 PM CDT Inhaled Oxygen Concentration - - Weight 85.5 kg (188 lb 6.4 oz) 10/12/2024 12:38 PM CDT Height 153.7 cm (5' 0.5) 07/06/2024 2:46 PM GLAZING SUPERINTENDENT Body Mass Index 36.19 07/06/2024 2:46 PM GLAZING SUPERINTENDENT Plan of Treatment Upcoming Encounters Date Type Department Care Team (Late st Contact Info) Description 10/27/2024 9:40 AM CDT Office Visit [facility] [address] [place] [address] Atiya Pizarro MD [address] [place] [address] Health Maintenance Due Date Last Done Comments [...] 75 11/07/203011/07, 11/08/2023, 08/12/2020 (Completed outside of [facility]) Tetanus booster 10/08/2031 10/07/2021, 05/0 07/2011, 03/29/2003, [...] Osborne LPN Medical Devices Implanted Type Area Radiator Core Tester Device Identifier Shelf Expiration Date Model / Serial / Lot [id number] - [id number] Implanted:Qty: 1 on 04/09/2021 by Maxi Rodrigez MD at [facility] Left: Ear Medtronic 07/11/2027 [id number] / / [id number] Description:medtronic big ea sy piston - straight [id number] Lot [id number] Cmnt Bone Ear 2gm Otominimix - [id number] Implanted:Qty: 1 on 04/09/2021 by Maxi Rodrigez MD at [facility] Left: Ear [employer] 07/24/2022 [id number] / / [id number] Procedures Procedure Name Priority Date/Time Associated Diagnosis Comments SCAN-RADIOLOGY REPORT 10/21/2024 12:00 AM CDT LIPID PANEL W REFLEX MEASURED LDL Routine 07/06/2024 4:00 PM GLAZING SUPERINTENDENT Hyperlipidemia, unspecified hyperlipidemia type XR MAMMO TONY BILAT SCREEN Routine 01/20/2024 11:29 AM CDT Encounter for screening mammogram for malignant neoplasm of breast COLONOSCOPY SCREENING Routine 11/08/2023 12:00 AM CDT Positive colorectal cancer screening using DNA-based stool test LC HIV-1/O/2, 4TH GENERATION Routine 06/23/2022 2:28 PM GLAZING SUPERINTENDENT Screening for HIV (human immunodeficiency virus) ANTI HCV Routine 03/17/2022 12:25 PM CDT Encounter for HCV screening test for low risk patient HPV HIGH RISK Routine 10/28/2021 11:49 AM CDT Pap smear for cervical cancer screening from Last 3 Months or Most Recently Relevant to Health Maintenance Results * SCAN-RADIOLOGY REPORT (10/21/2024 12:00 AM CDT) Anatomical Region Laterality Modality Other us Scanner OTHER Final Result * (ABNORMAL) LIPID PANEL W REFLEX MEASURED LDL (07/06/2024 4:00 PM GLAZING SUPERINTENDENT) CHOLESTEROL, TOTAL 188 <200 mg/dL [facility] HDL CHOLESTEROL 54 > OR = 50 mg/dL [facility] TRIGLYCERIDES 374(H) <150 mg/dL [facility] Comment: If a non-fasting specimen was collected, consider repeat triglyceride testing on a fasting specimen if clinically indicated. Sara et al. J. of Clin. Lipidol. 2015;9:129-169. LDL-CHOLESTEROL 84 mg/dL (calc) [facility] Comment: Reference range: <100 Desirable range <100 mg/dL for primary prevention; <70 mg/dL for patients with CHD or diabetic patients with > or = 2 CHD risk factors. LDL-C is now calculated using the Conor-Reji calculation, which is a validated novel method providing better accuracy than the Friedewald equation in the estimation of LDL-C. Conor BLANTON et al. TORIE. 2013;310(19): 7141-7662 (http://education.Prismatic.IntegralReach/faq/XCM360) CHOL/HDLC RATIO 3.5 <5.0 (calc) [facility] NON HDL CHOLESTEROL 134(H) <130 mg/dL (calc) [employer] [facility] [facility] Comment: For patients with diabetes plus 1 major ASCVD risk factor, treating to a non-HDL-C goal of <100 mg/dL (LDL-C of <70 mg/dL) is considered a therapeutic option. Blood BLOOD SPECIMEN / Unknown 07/06/2024 4:00 PM GLAZING SUPERINTENDENT 07/06/2024 4:00 PM GLAZING SUPERINTENDENT us Atiya Pizarro MD CHEMISTRY Final Result [facility] [address] [place] [address], [employer] [address] [place] [address] * XR MAMMO TONY BILAT SCREEN (01/20/2024 [...] care provider. XR MAMMO TONY BILAT SCREEN [[id number]] CLINICAL HISTORY: This is an asymptomatic 53 y.o. patient. INDICATION FOR EXAM: Mammogram Screening. TECHNIQUE: CC & MLO views were obtained. This study was evaluated with the assistance of Computer-Aided Detection. Breast Tomosynthesis was used in interpretation. COMPARISON FILM: Yes 01/11/23 [facility] 12/22/21 [facility] FINDINGS: There are scattered areas of fibroglandular density. There are no dominant masses, suspicious micro calcifications or areas of architectural distortion. us Atiya Pizarro MD MAMMO Final Result * COLONOSCOPY SCREENING (11/08/2023 12:00 AM CDT) us Atiya Pizarro MD GI PROCEDURE ORD Kenyatta l Result * LC HIV-1/O/2, 4TH GENERATION (06/23/2022 2:28 PM GLAZING SUPERINTENDENT) [facility] HIV Scr 4th Gen Non Reactive Non Reactive 06/25/2022 9:06 PM GLAZING SUPERINTENDENT [facility] Comment: HIV Negative HIV-1/HIV-2 antibodies and HIV-1 p24 antigen were NOT detected. There is no laboratory evidence of HIV infection. Blood BLOOD SPECIMEN / Unknown Venipuncture / Unknown 06/23/2022 2:28 PM GLAZING SUPERINTENDENT 06/23/2022 2:29 PM GLAZING SUPERINTENDENT Narrative [facility]) - 06/25/2022 9:06 PM GLAZING SUPERINTENDENT Performed at: [address] [place] [id number] Predatory Animal Trapper: Miko Leyva MD, Phone: [phone] Atiya Pizarro MD LABORATORY Final Result [facility] ([facility]) [address] [place] [address], * ANTI HCV (03/17/2022 12:25 PM CDT) [facility] HEPATITIS C ANTIBODY Non-React ramona Non-React ramona 03/18/2022 5:22 PM CDT [facility] Comment:Antibodies to HCV no t detected; does not exclude the possibility of exposure to HCV. Blood BLOOD SPECIMEN / Unknown Venipuncture / Unknown 03/17/2022 12:25 PM CDT 03/17/2022 12:25 PM CDT Atiya Pizarro MD SEND OUTS Final Result [facility] [address] [place] [address], [place] * HPV HIGH RISK (10/28/2021 11:49 AM CDT) TYPE 16 Negative Negative 10/30/2021 2:55 PM CDT [facility] TYPE 18 Negative Negative 10/30/2021 2:55 PM CDT [facility] LABORAT[facility] OTHER HIGH RISK TYPES Negative Negative 10/30/2021 2:55 PM CDT [facility] LAB[facility] Other (Cervical) Non-Blood / Unknown 10/28/2021 11:49 AM CDT 10/29/2021 10:31 AM CDT Narrative [facility] - 10/30/2021 2:55 PM CDT HPV types 16, 18, 31, 33, 35, 39, 45, 51, 52, 56, 58, 59, 66 and 68 DNA were undetectable or below the pre-set threshold. Methodology: Cristina Salinas 4800 HPV Test Josselyn TATUM MICROBIOLOGY Final Result [facility] [address] [place] [address], [place] from Last 3 Months or Most Recently Relevant to Health Maintenance Insurance MEDICARE PART A HB ONLY MEDICARE PART B HB ONLY [facility] MEDICARE ADVANTAGE MR ARE CONNECT [place] Advance Directives Documents on File Type Date Recorded Patient Course Instructor Expl anation POLST 10/05/2023 Healthcare Directive 08/25/2023 024 Power of Risk Prevention Engineer 03/11/2018 4:18 PM MARIA GU RUBEN SHORT FORM POWER OF SERVICE SPRINKLER HELPER, [employer], 10/14/17 Healthcare Directive 03/11/2018 4:14 PM HE ALTHCARE DIRECTIVE, [facility], 02/10/18 POLST 12/16/2017 3:47 PM GAVIN CANALES [facility], 12/01/17 * Full Code (Latest Code Status on File) Date Activated Date Inactivated Comments 04/09/2021 9:39 AM 04/09/2021 6:54 PM Question Answer Comments Code Status Discussion: Not Discussed Care Teams Blending Machine Operator Relationship Specialty Start Date End Date Atiya Pizarro MD [address] [place] [address] PCP - General Family Practice 03/16/14
--- OUTSIDE RECORDS SUMMARY | 2024-10-24 00:10 | XMS_ITS | CCD ---
Author Organization Unknown Care Team Providers Care Compliance Counsel Name Role Phone Art Editor, [place] Primary Care Provider Unava ilable Unavailable Chronic Care Management Unavaila ble Summary Purpose DataExchange Insurance Providers Payer name Policy type / Coverage type Covered constitution party ID Effective Begin Date Effective End Date [facility] Commercial Insurance [id number] Unkn own Family History Family History data not found Medication Administered No Medication Administered data Reason For Visit No Reason For Visit data
[2024-10-24 00:15] LABS: Appearance Urine Clear (Clear); Bilirubin Urine Negative (Negative); Blood Urine Trace-intact (Negative); Color Urine Yellow (Yellow); Glucose Urine Negative (Negative); Ketones Urine Negative (Negative); Leukocyte Esterase Urine Negative (Negative); Nitrite Urine Negative (Negative); Protein Urine Negative (Negative); Urobilinogen Urine 0.2 (0.2-1.0)
[2024-10-24 00:23] LABS: Amphetamine Screen Urine Negative (Negative); Barbiturate Screen Urine Negative (Negative); Benzodiazepines Screen Urine Negative (Negative); Cannabinoid Screen Urine Negative (Negative); Cocaine Screen Urine Negative (Negative); Methadone Screen Urine Negative (Negative); Methamphetamines Screen Urine Negative (Negative); Opiate Screen Urine Negative (Negative); Oxycodone Screen Urine Negative (Negative); Phencyclidine Screen Urine Negative (Negative); Tricyclic Antidepressant Urine Negative (Negative)
[2024-10-24 00:33] LABS: Bacteria Urine Few; Squamous Epithelial Cell Urine Few (None-Few); WBC Urine 0-2 (0-5)
== END 2024-10-24 00:30 | disposition home or self-care (01) ==
LOC: ED 10-24 00:07
PROVIDERS: Emergency Provider Family Medicine; PCP Family Medicine
DX: G40.109 Localization-related (focal) (partial) symptomatic epilepsy and epileptic syndromes with simple partial seizures, not intractable, without status epilepticus (principal); R07.9 Chest pain, unspecified; R00.2 Palpitations; Z79.899 Other long term (current) drug therapy
CPT/HCPCS: 36415; 80048; 80306; 81001; 81003; 83605; 83735; 84484; 85025; 87086; 93005; 99284

== ENCOUNTER 2024-10-26 07:46 | Outpatient (CLI) | payer MEDICARE, MEDICAID, SELFPAY | END 2024-10-26 07:47 | disposition home or self-care (01) | LOC: AMB 10-27 09:16 | PROVIDERS: PCP Family Medicine; Visit Provider Family Medicine | DX: R10.9 Unspecified abdominal pain (principal) | CPT/HCPCS: A0425; A0433 ==

== ENCOUNTER 2024-10-26 08:23 | Emergency (ER) | payer MEDICARE, MEDICAID, SELFPAY ==
--- OUTSIDE RECORDS SUMMARY | 2024-10-26 08:23 | XMS_ITS | Clinical Summary ---
Author Organization [employer] [facility] Address [address] [place] [address] Care Team Providers Care Marketer Name Role Phone Atiya Pizarro MD Primary [...] Encounters Date Type Department Care Team Description 10/24/2024 Travel 10/21/2024 Orders Only [facility] HIM SERVICES Scanner 1 scan: (1-Ord) [facility], XR CHEST 1V, 10/21/2024 10/12/2024 1:00 PM CDT Office Visit [facility] [address] [place] [address] Guicho Lima, Ear Problem (Right feels weird hearing has gotten worse possible wax build up ) 10/11/2024 Travel 09/28/2024 10:15 AM CDT Nurse/Clinic Staff Only [facility] [address] [place] [address] Immunization/Injecti on (MMR VACCINE PER DR. PIZARRO ); Immunization/Injecti on 09/28/2024 Travel 09/23/2024 Travel 09/07/2024 Telephone [facility] [address] [place] [address] Atiya Pizarro MD Appointment (MMR Vaccination ) 09/06/2024 Telephone [facility] [address] [place] [address] Atiya Pizarro MD Immunization/Injecti on 08/31/2024 10:15 AM CDT Nurse/Clinic Staff Only [facility] [address] [place] [address] Immunization/Injecti on (MMR VACCINE PER DR. PIZARRO ); Immunization/Injecti on 08/30/2024 Travel 08/10/2024 9:55 AM INTERSTATE BUS DRIVER Office Visit [facility] [address] [place] [address] [address] Atiya Pizarro MD Fatigue; Blood Pressure (follow up ) 08/09/2024 Travel 08/06/2024 9:50 PM INTERSTATE BUS DRIVER E-Visit [facility] [address] [place] [address] Atiya Pizarro MD eVisit for Fatigue from [...] Sex Assigned at Female 04/11/2023 11:45 PM INTERSTATE BUS DRIVER Legal Sex Female 7:52 AM INTERSTATE BUS DRIVER Gender Identity Female 04/11/2023 11:45 PM INTERSTATE BUS DRIVER Sexual Orientation Not on file Occupation Industry [...] CDT Respiratory Rate 16 05/06/2021 2:04 PM INTERSTATE BUS DRIVER Oxygen Saturation 95% 10/12/2024 12:38 PM CDT Inhaled Oxygen Concentration - - Weight 85.5 kg (188 lb 6.4 oz) 10/12/2024 12:38 PM CDT Height 153.7 cm (5' 0.5) 07/06/2024 2:46 PM INTERSTATE BUS DRIVER Body Mass Index 36.19 07/06/2024 2:46 PM INTERSTATE BUS DRIVER Plan of Treatment Upcoming Encounters Date Type Department Care Team (Late st Contact Info) Description 10/27/2024 9:40 AM CDT Office Visit [facility] [address] [place] [address] Atiya Pizarro MD [address] [place] [address] Health Maintenance Due Date Last Done Comments Hepatitis B series for 19+ ( 1 of 3 - 19+ 3-dose series) 1989 Mammogram for age 45-75 01/19/2025 01/20/20 24, 01/11/2023, 12/16/2021, Additional history exists BMI (ht and wt on same day) for age 18+ 07/06/2025 07/06/2024, 08/06/2023, 06/23/2022, Additional history exists Depression screening for age 12+ 07/06/2025 07/06/19 25 Pap test for age 21-65 10/28/2026 2, 10/28/2021, 11/22/2018, Additional history exists Lipids for age 45-75 07/06/2029 07/06/2024, 02/25/2024, 11/04/2023, Additional history exists Colonoscopy through age 75 11/07/203011/07, 11/08/2023, 08/12/2020 (Completed outside of [facility]) Tetanus booster 10/08/2031 10/07/2021, 0507/2011, 03/29/2003, Additional [...] Osborne LPN Medical Devices Implanted Type Area Pipe Insulator Helper Device Identifier Shelf Expiration Date Model / Serial / Lot [id number] - [id number] Implanted:Qty: 1 on 04/09/2021 by Maxi Rodrigez MD at [facility] Left: Ear Medtronic 07/11/2027 [id number] / / [id number] Description:medtronic big ea sy piston - straight [id number] Lot [id number] Cmnt Bone Ear 2gm Otominimix - [id number] Implanted:Qty: 1 on 04/09/2021 by Maxi Rodrigez MD at [facility] Left: Ear [facility] 07/24/2022 [id number] / / [id number] Procedures Procedure Name Priority Date/Time Associated Diagnosis Comments SCAN-RADIOLOGY REPORT 10/21/2024 12:00 AM CDT LIPID PANEL W REFLEX MEASURED LDL Routine 07/06/2024 4:00 PM INTERSTATE BUS DRIVER Hyperlipidemia, unspecified hyperlipidemia type XR MAMMO TONY BILAT SCREEN Routine 01/20/2024 11:29 AM CDT Encounter for screening mammogram for malignant neoplasm of breast COLONOSCOPY SCREENING Routine 11/08/2023 12:00 AM CDT Positive colorectal cancer screening using DNA-based stool test LC HIV-1/O/2, 4TH GENERATION Routine 06/23/2022 2:28 PM INTERSTATE BUS DRIVER Screening for HIV (human immunodeficiency virus) ANTI [...] W REFLEX MEASURED LDL (07/06/2024 4:00 PM INTERSTATE BUS DRIVER) CHOLESTEROL, TOTAL 188 <200 mg/dL [facility] HDL CHOLESTEROL 54 > OR = 50 mg/dL [facility] TRIGLYCERIDES 374(H) <150 mg/dL [facility] Comment: If a non-fasting specimen was collected, consider repeat triglyceride testing on a fasting specimen if clinically indicated. Sara et al. J. of Clin. Lipidol. 2015;9:129-169. LDL-CHOLESTEROL 84 mg/dL (calc) [facility] Comment: Reference range: <100 Desirable range <100 mg/dL for primary prevention; <70 mg/dL for patients with CHD or diabetic patients with > or = 2 CHD risk factors. LDL-C is now calculated using the Conor-Mendoza calculation, which is a validated novel method providing better accuracy than the Friedewald equation in the estimation of LDL-C. Conor SS et al. TORIE. 2013;310(19): 9692-5694 (http://education.Health Global Connect/faq/CRH998) CHOL/HDLC RATIO 3.5 <5.0 (calc) [facility] NON HDL CHOLESTEROL 134(H) <130 mg/dL (calc) [facility] Comment: For patients with diabetes plus 1 major ASCVD risk factor, treating to a non-HDL-C goal of <100 mg/dL (LDL-C of <70 mg/dL) is considered a therapeutic option. Blood BLOOD SPECIMEN / Unknown 07/06/2024 4:00 PM INTERSTATE BUS DRIVER 07/06/2024 4:00 PM INTERSTATE BUS DRIVER Atiya Pizarro MD CHEMISTRY Final Result [facility] [facility] [address] [place] [address], [facility] [address] [place] [address] * XR MAMMO TONY BILAT SCREEN (01/20/2024 [...] care provider. XR MAMMO TONY BILAT SCREEN [[id number]] CLINICAL HISTORY: This is an asymptomatic 53 [...] LC HIV-1/O/2, 4TH GENERATION (06/23/2022 2:28 PM INTERSTATE BUS DRIVER) Pathologist [facility] HIV Scr 4th Gen Non Reactive Non Reactive 06/25/2022 9:06 PM INTERSTATE BUS DRIVER [facility]) Comment: HIV Negative HIV-1/HIV-2 antibodies and HIV-1 p24 antigen were NOT detected. There is no laboratory evidence of HIV infection. Blood BLOOD SPECIMEN / Unknown Venipuncture / Unknown 06/23/2022 2:28 PM INTERSTATE BUS DRIVER 06/23/2022 2:29 PM INTERSTATE BUS DRIVER Narrative [facility] ([facility]) - 06/25/2022 9:06 PM INTERSTATE BUS DRIVER Performed at: [address] [place] [id number] Director Rehabilitation Program: Miko Leyva MD, Phone: [phone] Atiya Pizarro MD LABORATORY Final Result [facility] ([facility]) [address] [place] [address], * ANTI HCV (03/17/2022 12:25 PM CDT) [facility] HEPATITIS C ANTIBODY Non-React ramona Non-React ramona 03/18/2022 5:22 PM CDT [facility] Comment:Antibodies to HCV no t detected; does not exclude the possibility of exposure to HCV. Blood BLOOD SPECIMEN / Unknown Venipuncture / Unknown 03/17/2022 12:25 PM CDT 03/17/2022 12:25 PM CDT Atiya Pizarro MD SEND OUTS Final Result [facility] [address] [place] [address], * HPV HIGH RISK (10/28/2021 11:49 AM CDT) TYPE 16 Negative Negative 10/30/2021 2:55 PM CDT [facility] LAB[facility] TYPE 18 Negative Negative 10/30/2021 2:55 PM CDT [facility] TRA LABORATORY OTHER HIGH RISK TYPES Negative Negative 10/30/2021 2:55 PM CDT [facility] Other (Cervical) Non-Blood / Unknown 10/28/2021 11:49 AM CDT 10/29/2021 10:31 AM CDT Narrative [facility] LABOR[facility]ORY - 10/30/2021 2:55 PM CDT HPV types 16, 18, 31, 33, 35, 39, 45, 51, 52, 56, 58, 59, 66 and 68 DNA were undetectable or below the pre-set threshold. Methodology: Cristina Salinas 4800 HPV Test Josselyn TATUM MICROBIOLOGY Final Result [facility] [address] [place] [address], from Last 3 Months or Most Recently Relevant to Health Maintenance Insurance MEDICARE PART A HB ONLY MEDICARE PART B HB ONLY [employer] MEDICARE ADVANTAGE MR [facility] Advance Directives Documents on File Type Date Recorded Patient Apprenticeship Consultant Expl anation POLST 10/05/2023 Healthcare Directive 08/25/2023 024 Power of Military Equipment Specialist 03/11/2018 4:18 PM STATU TOR SHORT FORM POWER OF ENGINE EMISSION TECHNICIAN, [employer], 10/14/17 Healthcare Directive 03/11/2018 4:14 PM HE ALTHCARE DIRECTIVE, [facility], 02/10/18 POLST 12/16/2017 3:47 PM GAVIN CANALES [facility], 12/01/17 * Full Code (Latest Code Status on File) Date Activated Date Inactivated Comments 04/09/2021 9:39 AM 04/09/2021 6:54 PM Question Answer Comments Code Status Discussion: Not Discussed Care Teams Marketer Relationship Specialty Start Date End Date Atiya Pizarro MD [address] [place] [address] PCP - General Family Practice 03/16/14
--- OUTSIDE RECORDS SUMMARY | 2024-10-26 08:23 | XMS_ITS | Clinical Summary ---
Author Organization [facility] Address [address] [place] [address] Care Team Providers Care Tyre Retreader Name Role Phone No Ref-Primary, Physician Primary [...] on file Legal Sex Female 3:14 AM BUILDING CLEANING SUPERVISOR Gender Identity Not on file Sexual Orientation [...] FOLLOW-UP. ALLIE ARAUJO MD Shabana Haqq CNM [facility] MAMMOGRAPHY ORDERABLES Kenyatta l Result from Last 3 Months or Most Recently Relevant to Health Maintenance Insurance NONE (Work) [id number] [facility] [id number] [address] [facility] MEDICARE SUPPLEMENT Care Teams Tyre Retreader Relationship Specialty Start Date End Date No Ref-Primary, Physician PCP - General 02/10/22 Atiya Velez Family [facility] 02/10/22
[2024-10-26 08:33] VITALS: BP 165/112; PULSE 102; RESP 18; TEMP 36.4; O2SAT 94; BMI 35.5
--- NOTE | 2024-10-26 08:37 | ED.GENADULT ---
HPI - General Adult General Date Seen: 10/26/24 Chief complaint: Abdominal Pain Stated complaint: abdominal pain Time Seen by Provider: 10/26/24 08:36 History of Present Illness HPI narrative: 54-year-old female brought to the ER this morning by EMS for abdominal pain. History from EMS brought her in is that she is a resident at [facility]. She started having left-sided abdominal pain (left upper and left lower quadrant) at 7:00 a.m. this morning. She was very uncomfortable. Received fentanyl 150 mcg through an IV in route. Now more comfortable. Initial pulse and blood pressure were elevated but blood pressure is coming toward normal after pain meds. History from the patient is that is pain started in her left groin. She is able to localize to the left lower quadrant and left groin this morning at 7. No antecedent symptoms. No recent new physical activity or injury. No fall. Urination has been normal. Bowel movements have been normal. She is postmenopausal so is not having any vaginal bleeding or discharge. No fever. She is not sure why her pain started. She was normal yesterday. She has a past medical history of previous cholecystectomy, hypothyroidism, hyperparathyroidism, seizure disorder, learning disability, history of umbilical hernia repair. I saw her here in the ER couple of years ago for intermittent abdominal pain at that point workup was inconclusive but potentially constipation as a cause. Per medical record she was seen here in the ER on 10/23/2024, 3 days ago after an episode of unresponsiveness. Workup included white count of 6.3, hemoglobin 11.8, platelet count 204, sodium 142, potassium 4.0, chloride 103, bicarb 29, BUN 18, creatinine 0.7, glucose 103, lactate 0.6, calcium 8.9, magnesium 1.9, troponin I 0.01. EKG showed sinus rhythm with a rate of 89. Related Data Home Medications ?Medication ?Instructions ?Recorded ?Confirmed carbamazepine 200 mg tablet 200 mg PO TID 01/16/22 10/23/24 duloxetine 20 mg capsule,delayed 20 mg PO DAILY 01/16/22 10/23/24 release famotidine 20 mg tablet 20 mg PO DAILY 01/16/22 10/23/24 levothyroxine 50 mcg capsule 50 mcg PO DAILY 01/16/22 10/23/24 omeprazole 20 mg capsule,delayed 20 mg PO DAILY 01/16/22 10/23/24 release acetaminophen 325 mg tablet 650 mg PO DAILY PRN 01/19/22 10/23/24 colestipol 1 gram tablet 1 g PO BID 01/27/24 10/23/24 levothyroxine 50 mcg tablet 50 mcg PO QAM 01/27/24 10/21/24 rosuvastatin 10 mg tablet 10 mg PO QPM 06/22/24 10/23/24 Previous Rx's ?Medication ?Instructions ?Recorded cyclobenzaprine 10 mg tablet 10 mg PO BID PRN muscle spasm #10 10/10/23 tabs [id number]-[id number]-LY-thonzonm 3.3 5 drp Otic (ear-right) QID 5 days 10/10/23 mg-3 mg-10 mg-0.5 mg/mL ear #10 mL drops,susp (Cortisporin-TC) cephalexin 500 mg capsule 500 mg PO Q12H #14 caps 10/26/24 Allergies Allergy/AdvReac Type Severity Reaction Status Date / Time morphine Allergy Unknown Verified 10/23/24 23:10 Iodinated Contrast Media Allergy Verified 10/23/24 23:10 [facility] Medical History Back pain at L4-L5 level ?M54.50 - Low back pain, unspecified (ICD-10) Delay of cognitive development ?F81.9 - Developmental disorder of scholastic skills, unspecified (ICD-10) Liver damage ?K76.9 - Liver disease, unspecified (ICD-10) Fibromyalgia ?M79.7 - Fibromyalgia (ICD-10) 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 of state's attorney in chart Mixed hearing loss ?H90.8 - Mixed conductive and sensorineural hearing loss, unspecified (ICD-10) Cholecystitis ?K81.9 - Cholecystitis, unspecified (ICD-10) Anxiety ?F41.9 - Anxiety disorder, unspecified (ICD-10) Left chronic serous otitis media ?H65.22 - Chronic serous otitis media, left ear (ICD-10) Onychomycosis ?B35.1 - Tinea unguium (ICD-10) Hypoparathyroidism ?E20.9 - Hypoparathyroidism, unspecified (ICD-10) Vitamin D deficiency ?E55.9 - Vitamin D deficiency, unspecified (ICD-10) DDD (degenerative disc disease), lumbar ?M51.36 - Other intervertebral disc degeneration, lumbar region (ICD-10) Lower extremity edema ?R60.0 - Localized edema (ICD-10) Learning disability ?F81.9 - Developmental disorder of scholastic skills, unspecified (ICD-10) Seizure disorder ?G40.909 - Epilepsy, unspecified, not intractable, without status epilepticus (ICD-10) Hypothyroidism ?E03.9 - Hypothyroidism, unspecified (ICD-10) Encounter for counseling regarding advance directives (02/10/18) ?Z71.89 - Other specified counseling (ICD-10) Surgical History Hx of myringotomy ?Z98.890 - Other specified postprocedural states (ICD-10) Hx laparoscopic cholecystectomy ?Z90.49 - Acquired absence of other specified parts of digestive tract (ICD-10) History of fusion of spine for scoliosis ?Z98.1 - Arthrodesis status (ICD-10) ?Z87.39 - Personal history of other diseases of the musculoskeletal system and connective tissue (ICD-10) Social History Smoking Status: Never smoker Do you use any of these nicotine containing products: None Second hand tobacco smoke exposure: No How often do you have a drink containing alcohol: never How often do you have six or more drinks on one occasion: Never AUDIT-C Alcohol total score: 0 Non-prescribed substance use: denies use Caffeine: Yes service: No Exam Narrative: Exam Narrative: Constitutional: Appears well-developed and well-nourished. Alert. Conversant but somewhat anxious and is initially is mentioning that she is in the process of moving and may be [place] [facility] [place]. Her that she then asked if she will will half to to stay in the hospital. With some redirection I am able to get her to talk about her pain. Non toxic. She is having very brief paroxysm is a pain which she localizes to her left groin and she seems to jump in surprise once every minute her to because of sharp brief episode of pain. HENT: Head: Atraumatic. Nose: Nose normal. Mouth/Throat: Oral mucosa is clear and moist. no trismus. Pharynx normal. Tonsils symmetric. No tonsillar enlargement, erythema, or exudate. Eyes: Conjunctivae normal. EOM normal. Pupils equal, round, and reactive to light. No scleral icterus. Neck: Normal range of motion. Neck supple. No tracheal deviation present. Cardiovascular: Normal rate, regular rhythm. No gallop. No friction rub. No murmur heard. Symmetric radial artery pulses Pulmonary/Chest: Effort normal. No stridor. No respiratory distress. No wheezes. No rales. No rhonchi . No tenderness. Abdominal: Soft. Bowel sounds normal. No distension. No mass. Marked Left lower quadrant and left inguinal ligament/groin tenderness. I do not appreciate any palpable inguinal mass. Mild left upper quadrant tenderness. No right-sided tenderness. No rebound. No guarding. No CVA tenderness. Pelvic: Performed with female care transition coordinator. External genitalia looks normal. I do not appreciated inguinal or left labial swelling. No evidence for a left inguinal hernia. No inguinal adenopathy. We did not do formal pelvic exam with speculum. Musculoskeletal: RUE: Normal range of motion. No tenderness. No deformity LUE: Normal range of motion. No tenderness. No deformity RLE: Normal range of motion. No edema. No tenderness. No deformity LLE: Normal range of motion. No edema. No tenderness. No deformity Lymph: No inguinal adenopathy. Neurological: Alert and oriented to person, place, and time. Normal strength. CN II-VII intact. No sensory deficit. GCS eye subscore is 4. GCS verbal subscore is 5. GCS motor subscore is 6. Normal coordination Skin: Skin is warm and dry. No rash noted. No pallor. Normal capillary refill. Psychiatric: Normal mood. Normal affect. Const: Vital Signs, click to edit/add: Vital Signs - 24 hr 10/26/24 08:33 Temperature 97.5 F L Pulse Rate [Right Radial] 102 H Respiratory Rate 18 Blood Pressure [Ri ght Upper Arm] 165/112 H Pulse Oximetry 94 Oxygen Delivery Me thod Room Air Course Vital Signs Vital signs: Initial Vital Signs Temperature 97.5 F L 10/26/24 08:33 Temperature Source Temporal Artery Scan 10/26/24 08:33 Pulse Rate 102 H 10/26/24 08:33 Pulse Rhythm Regular 10/26/24 08:33 Respiratory Rate 18 10/26/24 08:33 Blood Pressure 165/112 H 10/26/24 08:33 Blood Pressure Mean 129 H 10/26/24 08:33 Pulse Oximetry 94 10/26/24 08:33 Oxygen Delivery Method Room Air 10/26/24 08:33 Vital Signs Temperature 97.5 F L 10/26/24 08:33 Pulse Rate 102 H 10/26/24 08:33 Respiratory Rate 18 10/26/24 08:33 Blood Pressure 165/112 H 10/26/24 08:33 Pulse Oximetry 94 10/26/24 08:33 Oxygen Delivery Method Room Air 10/26/24 08:33 Temperature 97.5 F L 10/26/24 08:33 Pulse Rate 102 H 10/26/24 08:33 Respiratory Rate 18 10/26/24 08:33 Blood Pressure 165/112 H 10/26/24 08:33 Pulse Oximetry 94 10/26/24 08:33 Oxygen Delivery Method Room Air 10/26/24 08:33 Medications Administered Medications: Discontinued Medications Generic Name Dose Route Start Last Admin Trade Name Freq PRN Reason Stop Dose Admin Sodium Chloride 1,000 mls @ 1,000 mls/hr 10/26/24 08:45 10/26/24 09:32 0.9 % Sodium Chloride 1000 Ml IV 10/26/24 09:44 1,000 mls/hr .Q1H SONIA Administration Ketorolac Tromethamine 15 mg 10/26/24 08:42 10/26/24 09:31 Ketorolac 15 Mg/Ml Inj IVP 10/26/24 08:43 15 mg ONCE ONE Administration Ondansetron HCl 4 mg 10/26/24 08:42 10/26/24 09:32 Ondansetron 2 Mg/Ml Inj IVP 10/26/24 08:43 4 mg ONCE ONE Administration Medical Decision Making MDM Narrative Medical decision making narrative: Presented to the Emergency Department with left lower quadrant and left groin pain. The differential diagnosis of abdominal pain includes: Left inguinal hernia, kidney stone, diverticulitis, Bowel Obstruction, Ulcer, Ischemia, Pancreatitis, UTI, kidney stone, Enteritis/Colitis, amongst many other etiologies. Appendicitis would be less likely given left-sided pain and no right-sided pain. Previous cholecystectomy. Laboratory testing does not reveal a cause for the patient's pain. She is mildly anemic with a hemoglobin of 11.6 but this is her baseline. White count normal. Stone protocol CT abdomen pelvis is noted to be normal. No evidence for obstructing stone, diverticulitis, colitis, or any obvious inguinal mass or hernia. Urinalysis is weakly abnormal with 5-10 WBC/HPF which could indicate possible UTI. We will treat this with a course of cephalexin 500 b.i.d. for 7 days. However not clear if purely a bladder infection could be causing this intermittent crampy left lower quadrant/left groin pain. The exact etiology of the abdominal pain is not clear at this time. No life threatening cause or need for emergent surgery or hospital admission is detected today. The patient was advised that if symptoms do not completely resolve within another 24-48 hours re-evaluation with primary care or return to the ED is indicated. The patient also understands that if they worsen, they should return to the ER right away. I discussed the uncertainty about the diagnosis and answered the patient's questions. Abdominal pain return precautions discussed. She feels comfortable discharging home. She does not have a way to get herself home. She does not drive. Her does not drive. She says typically she requires EMS transport back home and once, since she lives at [facility] across the parking lot, 1 of the nurses from the hospital pushed her across the parking lot in wheelchair. Prescription for cephalexin to her pharmacy at [facility] Data Labs: Lab Results 10/26/24 10/26/24 Range/Units 08:56 09:24 WBC 6.36 (4.50-11.00) K/uL RBC 3.74 L (4.00-5.20) m/uL Hgb 11.6 L (12.0-16.0) gm/dL Hct 37.2 (33.0-51.0) % MCV 100 (80-100) fL MCH 31 (26-34) pg MCHC 31 L (32-36) gm/dL RDW Coeff of Gracie 13.6 (11.5-15.5) % Plt Count 196 (140-440) K/uL Neut % (Auto) 60.8 (42.0-72.0) % Lymph % (Auto) 26.4 (20-44) % Ceiba % (Auto) 7.2 (0.0-11.0) % Eos % (Auto) 5.0 (0.0-7.0) % Baso % (Auto) 0.6 (0.0-3.0) % Neut # (Auto) 3.86 (1.7-7.0) K/uL Lymph # (Auto) 1.68 (0.90-2.90) K/uL Ceiba # (Auto) 0.50 (0.00-0.90) K/UL Eos # (Auto) 0.32 (0.00-0.50) K/uL Baso # (Auto) 0.04 (0.00-0.30) K/uL Abs Immat Gran (auto) 0.00 (0.00-0.30) K/uL Imm/Tot Granulo (auto) 0.0 % Sodium 140 (135-149) mmol/L Potassium 3.7 (3.6-5.1) mmol/L Chloride 104 (96-114) mmol/L Carbon Dioxide 28 (20-32) mmol/L Anion Gap 8 (7-15) mEq/L BUN 16 (7-30) mg/dL Creatinine 0.7 (0.5-1.5) mg/dL Estimated Creat Clear 65.99 Estimated GFR 103 ml/min Glucose 96 (60-115) mg/dL Lactate 1.0 (0.5-1.9) mmol/L Calcium 8.3 L (8.4-10.6) mg/dL Lipase 77 (23-300) U/L Urine Color Yellow (Yellow) Urine Appearance Clear (Clear) Urine pH 6.0 (5.0-8.5) Ur Specific Sallis >= 1.030 (1.000-1.030) Urine Protein Negative (Negative) Urine Glucose (UA) Negative (Negative) Urine Ketones Negative (Negative) Urine Blood Negative (Negative) Urine Nitrite Negative (Negative) Urine Bilirubin Negative (Negative) Urine Urobilinogen 0.2 (0.2-1.0) Ur Leukocyte Esterase Trace A (Negative) Urine RBC 0-2 (0-2) Urine WBC 5-10 A (0-5) Ur Squamous Epith Cells None (None-Few) Urine Bacteria None (None) Imaging Data CT scan - abdomen: Attestation: I have reviewed the pertinent imaging results. Radiologist's impression: IMPRESSION: No CT explanation seen for the patient`s symptoms. No acute or worrisome findings in the abdomen or pelvis. Discharge Plan Discharge Clinical Impression: UTI (urinary tract infection), Left groin pain Patient Disposition: Home, Self-Care Condition: Stable Instructions: Urinary Tract Infection in Women (DC), Abdominal Pain (ED) Additional Instructions: As we discussed, right now your workup looks reassuring except for a have signs of a bladder infection. Please start on the antibiotics today to treat your bladder infection (you already received your 1st dose here in the ER this morning any need to take another dose this evening). Monitor your symptoms carefully and if you have worsening pain, fever, or other concerns, please return to the ER right away to be rechecked. If you are not completely improved within 48 hours, please recheck with her doctor or come back to the ER for re-evaluation. Prescriptions: New cephalexin 500 mg capsule 500 mg PO Q12H Qty: 14 0RF No Action cyclobenzaprine 10 mg tablet 10 mg PO BID PRN (Reason: muscle spasm) Qty: 10 0RF Cortisporin-TC 3.3-3-10-0.5 mg/mL drops,suspension 5 drp Otic (ear-right) QID 5 Days Qty: 10 0RF carbamazepine 200 mg tablet 200 mg PO TID duloxetine 20 mg capsule,delayed release(DR/EC) 20 mg PO DAILY famotidine 20 mg tablet 20 mg PO DAILY levothyroxine 50 mcg capsule 50 mcg PO DAILY omeprazole 20 mg capsule,delayed release(DR/EC) 20 mg PO DAILY acetaminophen 325 mg tablet 650 mg PO DAILY PRN Rx Instructions: NO MORE THAN 4000 MG/DAY levothyroxine 50 mcg tablet 50 mcg PO QAM colestipol 1 gram tablet 1 g PO BID rosuvastatin 10 mg tablet 10 mg PO QPM Follow Up/Referrals: Atiya Velez MD [Primary Care Provider, Family Practice] Stand Alone Forms: [employer] Mobile Info Instructions
--- NOTE | 2024-10-26 08:42 | CRLHL7_ITS ---
For Patients: As a result of the Cures Act, medical imaging exams and procedure reports are released immediately into your electronic medical record. You may view this report before your referring provider. If you have questions, please contact your health care provider. INDICATION: Left lower quadrant and left groin colicky pain. COMPARISON: 01/27/2024 TECHNIQUE: CT of the abdomen and pelvis without intravenous contrast. Multiplanar axial, coronal, and sagittal reformats were reconstructed. Contrast: None. FINDINGS: Lung bases: Mild respiratory motion. Similar bands of scarring. Liver: Normal. No mass. Gallbladder and bile ducts: Cholecystectomy. No bile duct dilation. Pancreas: Normal. Spleen: Normal. Adrenal glands: Normal. Kidneys: Normal parenchyma. No cyst or solid mass. No calculi. No urinary tract dilation. Urinary bladder: Empty. Pelvis: Unremarkable noncontrast appearance. Vessels: Minimal atherosclerotic plaques. Bowel: No dilated or inflamed bowel. Normal appendix. Moderate stool burden. Lymph nodes: No adenopathy. Peritoneum: No ascites. Abdominal wall: Mild diastasis at the umbilicus. No inguinal hernia. Bones: Posterior spinal fusion hardware is only partially included in the field of view. Similar bony irregularity from the left iliac crest. Advanced disc degeneration at L4-5. No acute fractures. No focal worrisome bone lesions. IMPRESSION: No CT explanation seen for the patient`s symptoms. No acute or worrisome findings in the abdomen or pelvis. Please note that all CT scans at this facility use dose modulation, iterative reconstruction, and/or weight-based dosing when appropriate to reduce radiation dose to as low as reasonably achievable. Dictated by Lizz Lombardi MD @ 10/26/2024 9:23:48 AM (Electronically Signed)
[2024-10-26 09:06] LABS: Appearance Urine Clear (Clear); Bilirubin Urine Negative (Negative); Blood Urine Negative (Negative); Color Urine Yellow (Yellow); Glucose Urine Negative (Negative); Ketones Urine Negative (Negative); Leukocyte Esterase Urine Trace (Negative); Nitrite Urine Negative (Negative); Protein Urine Negative (Negative); Specific Gravity Urine >= 1.030 (1.000-1.030); Urobilinogen Urine 0.2 (0.2-1.0)
[2024-10-26 09:18] LABS: RBC Urine 0-2 (0-2)
--- OUTSIDE RECORDS SUMMARY | 2024-10-26 09:22 | XMS_ITS | CCD ---
Author Organization Unknown Care Team Providers Care Technical Program Manager Name Role Phone [place], [place] Primary Care Provider Unava ilable Unavailable Chronic Care Management Unavaila ble Summary Purpose DataExchange Insurance Providers Payer name Policy type / Coverage type Covered democrat ID Effective Begin Date Effective End Date [facility] Commercial Insurance [id number] Unkn own Family History Family History data not found Medication Administered No Medication Administered data Reason For Visit No Reason For Visit data
--- OUTSIDE RECORDS SUMMARY | 2024-10-26 09:23 | XMS_ITS | CCD ---
Author Organization Unknown Care Team Providers Care Hub Bander Name Role Phone [place], [place] Primary Care Provider Unava ilable Unavailable Chronic Care Management Unavaila ble Summary Purpose DataExchange Insurance Providers Payer name Policy type / Coverage type Covered constitution party ID Effective Begin Date Effective End Date [facility] Commercial Insurance [id number] Unkn own Family History Family History data not found Medication Administered No Medication Administered data Reason For Visit No Reason For Visit data
[2024-10-26] MEDS: KETOROLAC 15 MG/ML inj IVP (09:31)
[2024-10-26] MEDS: ONDANSETRON 2 MG/ML inj 4 MG IVP (09:32)
[2024-10-26] MEDS: 0.9 % SODIUM CHLORIDE 1000 ml 1,000 ML IV (09:32)
[2024-10-26 09:45] LABS: Basophils Absolute Auto 0.04 K/uL (0.00-0.30); Basophils Percent Auto 0.6 % (0.0-3.0); Chloride* 104 mmol/L (96-114); Eosinophils Absolute Auto 0.32 K/uL (0.00-0.50); Hematocrit 37.2 % (33.0-51.0); Hemoglobin* 11.6 gm/dL (12.0-16.0); Lymphocytes Absolute Auto 1.68 K/uL (0.90-2.90); Lymphocytes Percent Auto 26.4 % (20-44); Mean Corpuscular HGB Conc 31 gm/dL (32-36); Mean Corpuscular Hemoglobin 31 pg (26-34); Mean Corpuscular Volume 100 fL (80-100); Monocytes Percent Auto 7.2 % (0.0-11.0); Neutrophils Absolute Auto 3.86 K/uL (1.7-7.0); Neutrophils Percent Auto 60.8 % (42.0-72.0); Platelet Count* 196 K/uL (140-440); RDW Coefficient of Variation % 13.6 % (11.5-15.5); Red Blood Count 3.74 m/uL (4.00-5.20); Sodium* 140 mmol/L (135-149); White Blood Count* 6.36 K/uL (4.50-11.00)
[2024-10-26 09:46] LABS: Potassium* 3.7 mmol/L (3.6-5.1); Slide Review Reflex No
[2024-10-26 09:48] LABS: Anion Gap 8 mEq/L (7-15); Blood Urea Nitrogen* 16 mg/dL (7-30); Carbon Dioxide* 28 mmol/L (20-32); Creatinine* 0.7 mg/dL (0.5-1.5); Est. Creatinine Clearance* 65.99; Estimated Glomerular Filt Rate 103 ml/min; Lipase* 77 U/L (23-300)
[2024-10-26 09:49] LABS: Calcium* 8.3 mg/dL (8.4-10.6); Glucose* 96 mg/dL (60-115)
--- OUTSIDE RECORDS SUMMARY | 2024-10-26 10:17 | XMS_ITS | CCD ---
Author Organization Unknown Care Team Providers Care Supervisor Asphalt Paving Name Role Phone Biomass Plant Manager, [place] Primary Care Provider Unava ilable Unavailable Chronic Care Management Unavaila ble Summary Purpose DataExchange Insurance Providers Payer name Policy type / Coverage type Covered libertarian ID Effective Begin Date Effective End Date [facility] Commercial Insurance [id number] Unkn own Family History Family History data not found Medication Administered No Medication Administered data Reason For Visit No Reason For Visit data
[2024-10-26] MEDS: cephALEXin 500 MG CAPSULE PO (11:37)
== END 2024-10-26 12:05 | disposition home or self-care (01) ==
PROVIDERS: Emergency Provider Emergency Medicine; PCP Family Medicine
DX: N39.0 Urinary tract infection, site not specified (principal); R10.2 Pelvic and perineal pain
CPT/HCPCS: 36415; 74176; 80048; 81001; 83605; 83690; 85025; 87086; 96361; 96374; 96375; 99283; 99284; A9270; J1885; J2405; J7030

== ENCOUNTER 2024-12-26 06:39 | Outpatient (CLI) | payer MEDICARE, SELFPAY | END 2024-12-26 06:40 | disposition home or self-care (01) | PROVIDERS: PCP Family Medicine; Visit Provider Family Medicine | DX: R10.9 Unspecified abdominal pain (principal) | CPT/HCPCS: A0425; A0427 ==

== ENCOUNTER 2024-12-26 07:04 | Emergency (ER) | payer MEDICARE, MEDICAID, SELFPAY ==
--- OUTSIDE RECORDS SUMMARY | 2024-12-26 07:06 | XMS_ITS | Clinical Summary ---
Author Organization [place] Address [address] [place] [id number] Care Team Providers Care Head Automatic Sawyer Name Role Phone No Ref-Primary, Physician Primary [...] on file Legal Sex Female 3:14 AM OUTREACH REP Gender Identity Not on file Sexual Orientation [...] MEDICARE ANNUAL WELLNESS VISIT 1988 HEPATITIS B VACCINE (1 of 3 - 19+ 3-dose series) 1989 PAP 1991 LIPID [id number] MAMMO SCREENING 10/03/2014 10/03/2012, 12/29/2011 PNEUMOCOCCAL VACCINE 50+ YEARS (1 of 1 - PCV) 2020 COVID-19 VACCINE (5 - 2023- season) 2024 09/12/2021, 03/28/2021, 07/31/2020, Additional history exists PHQ-2 (once per calendar year) 2024 INFLUENZA VACCINE (#1) 2025 , 02/15/2020, 02/17/2019, Additional history exists DTAP/TDAP/TD VACCINE (3 - Td or Tdap) 10/08/2031 10/07/2021, 10/07/2011, 03/29/2003 ZOSTER VACCINE Completed 11/01/2020, 09/01/2020 HPV VACCINE Aged Out No longer eligi ble based on patient's age to complete this topic MENINGITIS VACCINE Aged Out No longer eligible based on [...] MONTH FOLLOW-UP. CHRISTOPHER ARAUJO MD Shabana Haqq [facility] Kenyatta l Result from Last 3 Months or Most Recently Relevant to Health Maintenance Insurance DORIAN CHEN [id number] MEDICARE MEDICA CHOICE [facility] MEDICARE SUPPLEMENT Care Teams Head Automatic Sawyer Relationship Specialty Start Date End Date No Ref-Primary, Physician PCP - General 02/10/22 Atiya Velez [facility] 02/10/22
--- OUTSIDE RECORDS SUMMARY | 2024-12-26 07:06 | XMS_ITS | Clinical Summary ---
Author Organization [employer] [facility] Address [address] [place] [address] Care Team Providers Care Fish Bin Tender Name Role Phone Atiya Pizarro MD Primary [...] times daily 7.1 oz 5 9 Active cholecalciferol (Vitamin D) 1,000 unit capsuleIndications :Vitamin D deficiency Take 2 Capsules (2,000 units) by mouth once daily. 0 3 Active clindamycin 1% (CLEOCIN-T) 1 % lotionIndications: Acne rosacea APPLY TOPICALLY TO AFFECTED AREA(S) TWICE DAILY 60 mL 3 3 Active clindamycin in hydrocortisone lotion (1:1 ratio)Indications: Acne rosacea Apply topically to affected area(s) two times daily. 240 mL 2 5 Active omeprazole (PRILOSEC) 20 mg Delayed-Release capsuleIndications :Heartburn Take 1 Capsule (20 mg) by mouth two times daily before meals. 180 Capsule 3 5 Active carBAMazepine (TEGRETOL) 200 mg tabletIndications: Convulsions, unspecified convulsion type (HC) Take 1 Tablet (200 mg) by mouth three times daily. 270 Tablet 3 5 Active levothyroxine (SYNTHROID) 50 mcg tabletIndications: Hypothyroidism, unspecified type Take 1 Tablet (50 mcg) by mouth before breakfast. 90 Tablet 3 5 Active miscellaneous medical supply miscIndications:In somnia, idiopathic As directed. Sleep mask for insomnia 1 Each 5 Active rosuvastatin (CRESTOR) 10 mg tabletIndications: Hyperlipidemia, unspecified hyperlipidemia type Take 1 Tablet (10 mg) by mouth at bedtime. 90 Tablet 3 5 Active DULoxetine (CYMBALTA) 20 mg Delayed-release capsuleIndications :Myofascial pain Take 1 Capsule (20 mg) by mouth once daily. 5 Active tiZANidine 2 mg tabletIndications: S/P lumbar fusion Take 1 Tablet (2 mg) by mouth every 8 hours if needed for Muscle Spasm. 20 Tablet 5 Active cranberry fruit concentrate (Azo Cranberry) 250 mg chewIndications:Re current UTI Chew by mouth two times daily. 60 Tablet 11 5 Active famotidine 20 mg tabletIndications: Chronic GERD TAKE TWO TABLETS BY MOUTH AT BEDTIME 180 Tablet 2 5 Active Active Problems Problem Noted Date Diagnosed [...] Encounters Date Type Department Care Team Description 12/01/2024 10:40 AM CDT Office Visit [facility] [address] [place] [address] Tessie Epps PA Ear Problem 12/01/2024 Travel 11/24/2024 Refill [facility] [address] [place] [address] Atiya Pizarro MD Refill Request (Famotidine) 10/27/2024 9:40 AM CDT Office Visit [facility] [address] [place] [address] Atiya Pizarro MD ER Follow up (Moving to [facility] as soon as they have a space./Very unhappy and has been stressed. Wonders if she should be on oxygen./10/21(after 12 hours of anterior chest pain), 10/24 (an unresponsive episode in her home) & 10/26 (abdominal pain)./) 10/27/2024 Telephone [facility] [address] [place] [address] Atiya Pizarro MD Questions 10/27/2024 Travel 10/26/2024 Orders Only [facility] Scanner 1 scan: (1-Ord) [facility], ABDOMEN PELVIS WO CON, 10/26/2024 10/24/2024 Travel 10/21/2024 Orders Only [facility] Scanner 1 scan: (1-Ord) [facility], XR CHEST 1V, 10/21/2024 10/12/2024 1:00 PM CDT Office Visit [facility] [address] [place] [address] Guicho Lima, DO Ear Problem (Right feels weird hearing has gotten worse possible wax build up ) 10/11/2024 Travel 09/28/2024 10:15 AM CDT Nurse/Clinic Staff Only [facility] [address] [place] [address] [address] Immunization/Injectio n (MMR VACCINE PER DR. PIZARRO ); Immunization/Injectio n 09/28/2024 Travel from Last 3 Months Immunizations Immunization Administration Dates Next Due AMB INFLUENZA, IIV4 (AGE=>6M OS) MDV (Flu Clinic Only) 03/08/2018 AMB Influenza, IIV3 (Age >=3 years)(Flu Clinic Only) 03/21/2013 COVID-19 VACCINE SPIKEVAX (M ODERNA 50MCG/0.5ML) 12YO+ PFS 02/25/2024,03/25/2023 COVID-19 vaccine (Moderna 100mcg/0.5mL) PF, MDV 09/12/2021,07/31/2020,07/03/2020 COVID-19 vaccine (Moderna Carlos Albetro carter 50mcg/0.25mL) PF, MDV 03/28/2021 COVID-19 vaccine [...] or isolated from those around you? 0 12/01/2024 Financial Resource Strain Answer Date R ecorded Difficulty of Paying Living Expenses 3 12/01/2024 Difficulty of Paying Living Expenses Not on file 12/01/2024 Food Insecurity Answer Date Recorded Do you worry your food will run out before you are able to buy more? 1 12/01/2024 Transportation Needs Answer Date Record ed Does lack of transportation keep you from medica l appointments? 1 12/01/2024 Does lack of transportation keep you from work, meetings or getting things that you need? 1 12/01/2024 Housing Stability Answer Date Recorded What is your housing situation today? 1 12/01/2024 Utilities Answer Date Recorded Do you have trouble paying f or utilities (for example, heat, electricity, water, phone)? 1 12/01/2024 Comments No Sex and Gender Information Value Date Recorded Sex Assigned at Female 04/11/2023 11:45 PM SALESPERSON FLORIST SUPPLIES Legal Sex Female 7:52 AM SALESPERSON FLORIST SUPPLIES Gender Identity Female 04/11/2023 11:45 PM SALESPERSON FLORIST SUPPLIES Sexual Orientation Not on file Occupation Industry Job Start Date Job End Date disabled Not on file Not on file Not on file Obstetrics History Para Term AB IAB SAB Ectopic Multiple Livin g Live Births 0 0 0 0 0 0 0 0 0 0 0 Last Filed Vital Signs Vital Sign Reading Time Taken Comments Blood Pressure 119/81 12/01/2024 10:20 AM CDT Pulse 113 12/01/2024 10:20 AM CDT Temperature 36.6 C (97.8 F) 11/04/2023 12:58 PM CDT Respiratory Rate 16 05/06/2021 2:04 PM SALESPERSON FLORIST SUPPLIES Oxygen Saturation 97% 12/01/2024 10:20 AM CDT Inhaled Oxygen Concentration - - Weight 87.6 kg (193 lb 3.2 oz) 12/01/2024 10:20 AM CDT Height 153.7 cm (5' 0.5) 07/06/2024 2:46 PM SALESPERSON FLORIST SUPPLIES Body Mass Index 37.11 07/06/2024 2:46 PM SALESPERSON FLORIST SUPPLIES Plan of Treatment Health Maintenance Due Date Last Done Comments Hepatitis B series for 19+ ( 1 of 3 - 19+ 3-dose series) 1989 Mammogram for age 45-75 01/19/2025 01/20/20, 01/11/2023, 12/16/2021, Additional history exists Influenza Vaccine (#1) 2025 , 02/18/2023, 02/16/2022, Additional history exists BMI (ht and wt on same day) for age 18+ 07/06/2025 07/06/2024, 08/06/2023, 06/23/2022, Additional history exists Depression screening for age 12+ 07/07/2025 07/07/2024, 07/06/2024, 04/13/2024, Additional history exists Pap test for age 21-65 10/28/2026 , 10/28/2021, 11/22/2018, Additional history exists Lipids for age 45-75 07/06/2029 07/06/2024, 02/25/2024, 11/04/2023, Additional history exists Colonoscopy through age 75 11/07/203011/07, 11/08/2023, 08/12/2020 ([facility] Tetanus booster 10/08/2031 10/07/2021, 05/07/2011, 03/29/2003, Additional history exists Zoster (shingles) series for age 50+ Completed 11/01/2020, 09/01/2020 Hepatitis C screening for ag e 18-79 Completed 03/17/2022, 02/16/2022 HIV for age 15-65 Completed 06/23/2022 COVID-19 vaccine series Completed 02/25/20 24, 03/25/2023, 03/17/2022, Additional history exists Pneumococcal series for age 50+ Completed 5 Goals Goal Patient Goal Type Associated Problems Recent Progress Patient-Stated? Author BLOOD PRESSURE - Maintains BP less than 140/90 Blood Pressure No [place], [place]nam[place], VIBHA Medical Devices Implanted Type Area User Interface Designer Device Identifier Shelf Expiration Date Model / Serial / Lot [id number] - [id number] Implanted:Qty: 1 on 04/09/2021 by Maxi Rodrigez MD at [facility] Left: Ear Medtronic 07/11/2027 [id number] / / [id number] Description:medtronic big ea sy piston - straight [id number] Lot [id number] Cmnt Bone Ear 2gm [employer]imix - [id number] Implanted:Qty: 1 on 04/09/2021 by Maxi Rodrigez MD at [facility] Left: Ear [employer] 07/24/2022 [id number] / / [id number] Procedures Procedure Name Priority Date/Time Associated Diagnosis Comments CARBAMAZEPINE TOTAL Routine 10/27/2024 1 1:04 AM CDT Seizure disorder (HC) CBC WITH AUTO DIFFERENTIAL Routine 10/27/2024 11:04 AM CDT Anemia of unknown etiology FERRITIN Routine 10/27/2024 11:04 AM CDT Anemia of unknown etiology VITAMIN B12 Routine 10/27/2024 11:04 AM CDT Anemia of unknown etiology VITAMIN D 25 (DEFICIENCY) Routine 10/27/2024 11:04 AM CDT Vitamin D deficiency SCAN-CT INTERPRETATION 10/26/2024 12:00 AM CDT SCAN-RADIOLOGY REPORT 10/21/2024 12:00 AM CDT LIPID PANEL W REFLEX MEASURED LDL Routine 07/06/2024 4:00 PM SALESPERSON FLORIST SUPPLIES Hyperlipidemia, unspecified hyperlipidemia type XR MAMMO TONY BILAT SCREEN Routine 01/20/2024 11:29 AM CDT Encounter for screening mammogram for malignant neoplasm of breast COLONOSCOPY SCREENING Routine 11/08/2023 12:00 AM CDT Positive colorectal cancer screening using DNA-based stool test LC HIV-1/O/2, 4TH GENERATION Routine 06/23/2022 2:28 PM SALESPERSON FLORIST SUPPLIES Screening for HIV (human immunodeficiency virus) ANTI HCV Routine 03/17/2022 12:25 PM CDT Encounter for HCV screening test for low risk patient HPV HIGH RISK Routine 10/28/2021 11:49 AM CDT Pap smear for cervical cancer screening from Last 3 Months or Most Recently Relevant to Health Maintenance Results * VITAMIN D 25 (DEFICIENCY) (10/27/2024 11:04 AM CDT) VITAMIN D,25-OH,TOTAL,IA 37 30 - 100 ng/mL [facility] [place] Comment: Vitamin D Status 25-OH Vitamin D: Deficiency: <20 ng/mL Insufficiency: 20 - 29 ng/mL Optimal: > or = 30 ng/mL For 25-OH Vitamin D testing on patients on D2-supplementation and patients for whom quantitation of D2 and D3 fractions is required, the QuestAssureD() 25-OH VIT D, (D2,D3), LC/MS/MS is recommended: order code 86370 (patients >2yrs). See Note 1 Note 1 For additional information, please refer to http://education.Beats Music.Muufri/faq/YDZ320 (This link is being provided for informational/ educational purposes only.) Blood BLOOD SPECIMEN / Unknown 10/27/2024 11:04 AM CDT 10/27/2024 11:05 AM CDT us Atiya Pizarro MD SEND OUTS Final Result Health Data Minder [facility] [address] [place] [address], [facility] [address] [place] [address] * CBC AND DIFFERENTIAL (10/27/2024 11:04 AM CDT) [facility] WHITE BLOOD CELL COUNT 6.8 3.8 - 10.8 Thousand/u L [facility] RED BLOOD CELL COUNT 3.85 3.80 - 5.10 Million/uL [facility] HEMOGLOBIN 12.1 11.7 - 15.5 g/dL [facility] HEMATOCRIT 37.2 35.0 - 45.0 % [facility] MCV 96.6 80.0 - 100.0 fL [facility] MCH 31.4 27.0 - 33.0 pg [facility] MCHC 32.5 32.0 - 36.0 g/dL [facility] Comment: For adults, a slight decrease in the calculated MCHC value (in the range of 30 to 32 g/dL) is most likely not clinically significant; however, it should be interpreted with caution in correlation with other red cell parameters and the patient's clinical condition. RDW 13.5 11.0 - 15.0 % [facility] PLATELET COUNT 219 140 - 400 Thousand/u L [facility] MPV 11.9 7.5 - 12.5 fL [facility] ABSOLUTE NEUTROPHILS 4,257 1,500 - 7,800 cells/uL [facility] ABSOLUTE LYMPHOCYTES 1,632 850 - 3,900 cells/uL [facility] ABSOLUTE MONOCYTES 530 200 - 950 cells/uL [facility] ABSOLUTE EOSINOPHILS 333 15 - 500 cells/uL [facility] ABSOLUTE BASOPHILS 48 0 - 200 cells/uL [facility] NEUTROPHILS 62.6 % [facility] LYMPHOCYTES 24.0 % [facility] MONOCYTES 7.8 % [facility] EOSINOPHILS 4.9 % [facility] BASOPHILS 0.7 % [facility] Blood BLOOD SPECIMEN / Unknown 10/27/2024 11:04 AM CDT 10/27/2024 11:05 AM CDT Atiya Pizarro MD HEMATOLOGY Final Result Performing Organization Address [facility]/ZIP Co de Phone Number [facility] [address] [place] [address], [place] [phone] [facility] [address] [place] [address] * FERRITIN (10/27/2024 11:04 AM CDT) FERRITIN 23 16 - 232 ng/mL [facility] Blood BLOOD SPECIMEN / Unknown 10/27/2024 11:04 AM CDT 10/27/2024 11:05 AM CDT Atiya Pizarro MD CHEMISTRY Final Result Performing Organization Address [facility] [[email or web address]] Co de Phone Number [facility] [address] [place] [address], [place] [phone] [facility] [address] [place] [address] * VITAMIN B12 (10/27/2024 11:04 AM CDT) VITAMIN B12 443 200 - 1,100 pg/mL [facility] Blood BLOOD SPECIMEN / Unknown 10/27/2024 11:04 AM CDT 10/27/2024 11:05 AM CDT Atiya Pizarro MD CHEMISTRY Final Result Performing Organization Address City/[facility]/ZIP Co de Phone Number [facility] [address] [place] [address], [place] [phone] [facility] [address] [place] [address] * CARBAMAZEPINE TOTAL (10/27/2024 11:04 AM CDT) Pathologist [facility] CARBAMAZEPINE, TOTAL 7.9 4.0 - 12.0 mg/L [facility] Blood BLOOD SPECIMEN / Unknown 10/27/2024 11:04 AM CDT 10/27/2024 11:05 AM CDT Atiya Pizarro MD CHEMISTRY Final Result [facility] [employer] [facility] [address] [place] [address], [facility] [address] [place] [address] * SCAN-CT INTERPRETATION (10/26/2024 12:00 AM CDT) Anatomical Region Laterality Modality Other us Scanner OTHER Final Result * SCAN-RADIOLOGY REPORT (10/21/2024 12:00 AM CDT) Anatomical Region Laterality Modality Other us Scanner OTHER Final Result * (ABNORMAL) LIPID PANEL W REFLEX MEASURED LDL (07/06/2024 4:00 PM SALESPERSON FLORIST SUPPLIES) [facility] CHOLESTEROL, TOTAL 188 <200 mg/dL [facility] HDL CHOLESTEROL 54 > OR = 50 mg/dL [facility] [place] TRIGLYCERIDES 374(H) <150 mg/dL [facility] [place] Comment: If a non-fasting specimen was collected, consider repeat triglyceride testing on a fasting specimen if clinically indicated. Sara et al. J. of Clin. Lipidol. 2015;9:129-169. LDL-CHOLESTEROL 84 mg/dL (calc) [facility] [place] Comment: Reference range: <100 Desirable range <100 mg/dL for primary prevention; <70 mg/dL for patients with CHD or diabetic patients with > or = 2 CHD risk factors. LDL-C is now calculated using the Elisabet calculation, which is a validated novel method providing better accuracy than the Friedewald equation in the estimation of LDL-C. Conor BLANTON et al. TORIE. 2013;310(19): 0420-0429 (http://education.Sha-Sha/faq/QHS065) CHOL/HDLC RATIO 3.5 <5.0 (calc) [facility] [place] NON HDL CHOLESTEROL 134(H) <130 mg/dL (calc) [facility] [place] Comment: For patients with diabetes plus 1 major ASCVD risk factor, treating to a non-HDL-C goal of <100 mg/dL (LDL-C of <70 mg/dL) is considered a therapeutic option. Blood BLOOD SPECIMEN / Unknown 07/06/2024 4:00 PM SALESPERSON FLORIST SUPPLIES 07/06/2024 4:00 PM SALESPERSON FLORIST SUPPLIES us Atiya Pizarro MD CHEMISTRY Final Result [facility] [address] [place] [address], [facility] [address] [place] [address] * XR MAMMO TONY BILAT SCREEN (01/20/2024 [...] care provider. XR MAMMO TONY BILAT SCREEN [[id number]] CLINICAL HISTORY: This is an asymptomatic 53 [...] LC HIV-1/O/2, 4TH GENERATION (06/23/2022 2:28 PM SALESPERSON FLORIST SUPPLIES) Pathologist [facility] HIV Scr 4th Gen Non Reactive Non Reactive 06/25/2022 9:06 PM SALESPERSON FLORIST SUPPLIES [facility] ([facility]) Comment: HIV Negative HIV-1/HIV-2 antibodies and HIV-1 p24 antigen were NOT detected. There is no laboratory evidence of HIV infection. Blood BLOOD SPECIMEN / Unknown Venipuncture / Unknown 06/23/2022 2:28 PM SALESPERSON FLORIST SUPPLIES 06/23/2022 2:29 PM SALESPERSON FLORIST SUPPLIES Narrative [facility] ([facility]) - 06/25/2022 9:06 PM SALESPERSON FLORIST SUPPLIES Performed at: [address] [place] [id number] Strip Cleaner: Miko Leyva MD, Phone: [phone] Atiya Pizarro MD LABORATORY Final Result [facility] ([facility]) [address] [place] [address], * ANTI HCV (03/17/2022 12:25 PM CDT) Pathologist [facility] HEPATITIS C ANTIBODY Non-React ramona Non-React ramona 03/18/2022 5:[address] [facility] Comment:Antibodies to HCV no t detected; does not exclude the possibility of exposure to HCV. Blood BLOOD SPECIMEN / Unknown Venipuncture / Unknown 03/17/2022 12:25 PM CDT 03/17/2022 12:25 PM CDT Atiya Pizarro MD SEND OUTS Final Result [facility] [address] [place] [address], * HPV HIGH RISK (10/28/2021 11:49 AM CDT) TYPE 16 Negative Negative 10/30/2021 2:[address] [facility] TYPE 18 Negative Negative 10/30/2021 2:55 PM CDT [facility] OTHER HIGH RISK TYPES Negative Negative 10/30/2021 2:55 PM CDT [facility] Other (Cervical) Non-Blood / Unknown 10/28/2021 11:49 AM CDT 10/29/2021 10:31 AM CDT Narrative [facility] - 10/30/2021 2:55 PM CDT HPV types 16, 18, 31, 33, 35, 39, 45, 51, 52, 56, 58, 59, 66 and 68 DNA were undetectable or below the pre-set threshold. Methodology: Cristina Salinas 4800 HPV Test Josselyn TATUM MICROBIOLOGY Final Result Performing Organization Address City/[facility]/ZIP Co de Phone Number [facility] [address] [place] [address], from Last 3 Months or Most Recently Relevant to Health Maintenance Insurance MEDICARE PART A HB ONLY MEDICARE PART B HB ONLY [employer] MEDICARE ADVANTAGE MR [facility] Advance Directives Documents on File Type Date Recorded Patient Customer Operations Manager Expl anation POLST 10/05/2023 Healthcare Directive 08/25/2023 024 Power of Power System Engineer 03/11/2018 4:18 PM STATU TORY SHORT FORM POWER OF EQUALIZER OPERATOR, [employer], 10/14/17 Healthcare Directive 03/11/2018 4:14 PM HE ALTHCARE DIRECTIVE, [facility], 02/10/18 POLST 12/16/2017 3:47 PM [facility], 12/01/17 * Full Code (Latest Code Status on File) Date Activated Date Inactivated Comments 04/09/2021 9:39 AM 04/09/2021 6:54 PM Question Answer Comments Code Status Discussion: Not Discussed Care Teams Fish Bin Tender Relationship Specialty Start Date End Date Atiya Pizarro MD [address] [place] [address] PCP - General Family Practice 03/16/14
[2024-12-26 07:09] VITALS: BP 158/107; PULSE 110; RESP 20; TEMP 36.2; O2SAT 94
--- NOTE | 2024-12-26 07:10 | ED.ABDPAIN ---
HPI - Abdominal Pain General Time Seen by Provider: 07:10 <Ozzy Alberto MD - Last Filed: 01/04/25 00:39> Date Seen: 12/26/24 <Ozzy Alberto MD - Last Filed: 01/04/25 00:39> Chief Complaint: Abdominal Pain <Ozzy Alberto MD - Last Filed: 01/04/25 00:39> Stated Complaint: abdominal pain <Ozzy Alberto MD - Last Filed: 01/04/25 00:39> Time Seen by Provider: 12/26/24 07:09 <Ozzy Alberto MD - Last Filed: 01/04/25 00:39> Source: patient and EMS <Ozzy Alberto MD - Last Filed: 01/04/25 00:39> Mode of arrival: ambulatory <Ozzy Alberto MD - Last Filed: 01/04/25 00:39> Limitations: no limitations <Ozzy Alberto MD - Last Filed: 01/04/25 00:39> History of Present Illness HPI narrative: 54-year-old female with history of elevated liver tests presents today with abdominal pain. Patient reports left-sided abdominal pain started yesterday. No nausea vomiting, some loose stools yesterday, no urinary symptoms. No specific treatment for this. No fevers or chills. <Ozzy Alberto MD - Last Filed: 01/04/25 00:39> Related Data Home Medications: Home Medications ?Medication ?Instructions ?Recorded ?Confirmed carbamazepine 200 mg tablet 200 mg PO TID 01/16/22 12/26/24 duloxetine 20 mg capsule,delayed 20 mg PO DAILY 01/16/22 10/23/24 release famotidine 20 mg tablet 20 mg PO DAILY 01/16/22 10/23/24 levothyroxine 50 mcg capsule 50 mcg PO DAILY 01/16/22 12/26/24 omeprazole 20 mg capsule,delayed 20 mg PO DAILY 01/16/22 10/23/24 release acetaminophen 325 mg tablet 650 mg PO DAILY PRN 01/19/22 10/23/24 colestipol 1 gram tablet 1 g PO BID 01/27/24 10/23/24 levothyroxine 50 mcg tablet 50 mcg PO QAM 01/27/24 10/21/24 rosuvastatin 10 mg tablet 10 mg PO QPM 06/22/24 12/26/24 Previous Rx's ?Medication ?Instructions ?Recorded cyclobenzaprine 10 mg tablet 10 mg PO BID PRN muscle spasm #10 10/10/23 tabs [id number] 3.3 5 drp Otic (ear-right) QID 5 days 10/10/23 mg-3 mg-10 mg-0.5 mg/mL ear #10 mL drops,susp (Cortisporin-TC) cephalexin 500 mg capsule 500 mg PO Q12H #14 caps 10/26/24 <Ozzy Alberto MD - Last Filed: 01/04/25 00:39> Allergies/Adverse Reactions: Allergies Allergy/AdvReac Type Severity Reaction Status Date / Time morphine Allergy Unknown Verified 12/26/24 07:09 Iodinated Contrast Media Allergy Verified 12/26/24 07:09 <Ozzy Alberto MD - Last Filed: 01/04/25 00:39> [facility] Medical History: Medical History Back pain at L4-L5 level ?M54.50 - Low back pain, unspecified (ICD-10) Delay of cognitive development ?F81.9 - Developmental disorder of scholastic skills, unspecified (ICD-10) Liver damage ?K76.9 - Liver disease, unspecified (ICD-10) Fibromyalgia ?M79.7 - Fibromyalgia (ICD-10) 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 of tail edger in chart Mixed hearing loss ?H90.8 - Mixed conductive and sensorineural hearing loss, unspecified (ICD-10) Cholecystitis ?K81.9 - Cholecystitis, unspecified (ICD-10) Anxiety ?F41.9 - Anxiety disorder, unspecified (ICD-10) Left chronic serous otitis media ?H65.22 - Chronic serous otitis media, left ear (ICD-10) Onychomycosis ?B35.1 - Tinea unguium (ICD-10) Hypoparathyroidism ?E20.9 - Hypoparathyroidism, unspecified (ICD-10) Vitamin D deficiency ?E55.9 - Vitamin D deficiency, unspecified (ICD-10) DDD (degenerative disc disease), lumbar ?M51.36 - Other intervertebral disc degeneration, lumbar region (ICD-10) Lower extremity edema ?R60.0 - Localized edema (ICD-10) Learning disability ?F81.9 - Developmental disorder of scholastic skills, unspecified (ICD-10) Seizure disorder ?G40.909 - Epilepsy, unspecified, not intractable, without status epilepticus (ICD-10) Hypothyroidism ?E03.9 - Hypothyroidism, unspecified (ICD-10) Encounter for counseling regarding advance directives (02/10/18) ?Z71.89 - Other specified counseling (ICD-10) <Ozzy Alberto MD - Last Filed: 01/04/25 00:39> Surgical History: Surgical History Hx of myringotomy ?Z98.890 - Other specified postprocedural states (ICD-10) Hx laparoscopic cholecystectomy ?Z90.49 - Acquired absence of other specified parts of digestive tract (ICD-10) History of fusion of spine for scoliosis ?Z98.1 - Arthrodesis status (ICD-10) ?Z87.39 - Personal history of other diseases of the musculoskeletal system and connective tissue (ICD-10) <Ozzy Alberto MD - Last Filed: 01/04/25 00:39> Social History: Social History Smoking Status: Never smoker Do you use any of these nicotine containing products: None Second hand tobacco smoke exposure: No How often do you have a drink containing alcohol: never How often do you have six or more drinks on one occasion: Never AUDIT-C Alcohol total score: 0 Non-prescribed substance use: denies use Caffeine: Yes service: No <Ozzy Alberto MD - Last Filed: 01/04/25 00:39> Exam Narrative: Exam Narrative: General: Well-developed and well-nourished, no acute distress Head: Atraumatic and normocephalic Eyes: Pupils are equal reactive, extraocular motions intact, conjunctiva clear ENT: External nose and ears are normal, posterior pharynx without erythema or exudate Neck: No midline cervical tenderness, full spontaneous range of motion the neck, trachea midline, no adenopathy Heart: Tachycardic but regular Lungs: Clear to auscultation bilaterally without wheezes or crackles Abdomen: Soft, moderate left-sided abdominal tenderness and mild right mid abdominal tenderness, no right lower quadrant tenderness Musculoskeletal: No tenderness, deformity, or edema Neurologic: Awake, alert, and oriented x3, no gross focal neurologic deficits, cranial nerves intact as tested Psych: Mood and affect are appropriate Skin: No rashes <Ozzy Alberto MD - Last Filed: 01/04/25 00:39> Const: Vital Signs, click to edit/add: Vital Signs - 24 hr 12/26/24 07:09 Temperature 97.2 F L Pulse Rate [Pulse Oximeter] 110 H Respiratory Rate 20 Blood Pressure [Ri ght Upper Arm] 158/107 H Pulse Oximetry 94 Oxygen Delivery Me thod Room Air <Ozzy Alberto MD - Last Filed: 01/04/25 00:39> Vital Signs, click to edit/add: Vital Signs - 24 hr 12/26/24 07:09 Temperature 97.2 F L Pulse Rate [Pulse Oximeter] 110 H Respiratory Rate 20 Blood Pressure [Ri ght Upper Arm] 158/107 H Pulse Oximetry 94 Oxygen Delivery Me thod Room Air <Joi Rothman MD - Last Filed: 12/26/24 08:19> Course Course ED Course: Reviewed most recent primary care visit a which was follow-up for emergency department visit on October 26 which is left-sided abdominal pain with negative evaluation in the emergency department, at that time had multiple stressors. Patient seen examined, presents with left-sided abdominal pain since last night comes some loose stools as well. No urinary symptoms, no fever. On exam here, patient is tachycardic but otherwise side was stable, left-sided abdominal tenderness. Labs and CT scan ordered, anticipate sign out to oncoming provider <Ozzy Alberto MD - Last Filed: 01/04/25 00:39> Reevaluation(s) Time of Reevaluation #1: 07:42 <Ozzy Alberto MD - Last Filed: 01/04/25 00:39> Reevaluation #1: CT abdomen and pelvis independently interpreted by me with cardiomegaly, hardware in the thoracic spine, without acute obstruction or inflammatory changes, no hydronephrosis or hydroureter. <Ozzy Alberto MD - Last Filed: 01/04/25 00:39> Time of Reevaluation #2: 08:14 <Joi Rothman MD - Last Filed: 12/26/24 08:19> Reevaluation #2: Patient was sleeping very heavily, took nursing staff awhile to awaken her. She is up ambulating to the bathroom, states her pain is about a 6 or 7/10 but is alert, conversive, having no difficulty ambulating to the bathroom. Did review with her that her CT is normal. Plan to discharge to home as per Dr. Alberto. <Joi Rothman MD - Last Filed: 12/26/24 08:19> Vital Signs Vital signs: Initial Vital Signs Temperature 97.2 F L 12/26/24 07:09 Temperature Source Temporal Artery Scan 12/26/24 07:09 Pulse Rate 110 H 12/26/24 07:09 Respiratory Rate 20 12/26/24 07:09 Blood Pressure 158/107 H 12/26/24 07:09 Blood Pressure Mean 124 H 12/26/24 07:09 Blood Pressure Position Semi-Fowlers 12/26/24 07:09 Pulse Oximetry 94 12/26/24 07:09 Oxygen Delivery Method Room Air 12/26/24 07:09 Vital Signs Temperature 97.2 F L 12/26/24 07:09 Pulse Rate 110 H 12/26/24 07:09 Respiratory Rate 20 12/26/24 07:09 Blood Pressure 158/107 H 12/26/24 07:09 Pulse Oximetry 94 12/26/24 07:09 Oxygen Delivery Method Room Air 12/26/24 07:09 Temperature 97.2 F L 12/26/24 07:09 Pulse Rate 93 12/26/24 08:02 Respiratory Rate 16 12/26/24 08:02 Blood Pressure 148/88 H 12/26/24 08:02 Pulse Oximetry 93 12/26/24 08:02 Oxygen Delivery Method Room Air 12/26/24 08:02 <Ozzy Alberto MD - Last Filed: 01/04/25 00:39> Initial Vital Signs Temperature 97.2 F L 12/26/24 07:09 Temperature Source Temporal Artery Scan 12/26/24 07:09 Pulse Rate 110 H 12/26/24 07:09 Respiratory Rate 20 12/26/24 07:09 Blood Pressure 158/107 H 12/26/24 07:09 Blood Pressure Mean 124 H 12/26/24 07:09 Blood Pressure Position Semi-Fowlers 12/26/24 07:09 Pulse Oximetry 94 12/26/24 07:09 Oxygen Delivery Method Room Air 12/26/24 07:09 Vital Signs Temperature 97.2 F L 12/26/24 07:09 Pulse Rate 110 H 12/26/24 07:09 Respiratory Rate 20 12/26/24 07:09 Blood Pressure 158/107 H 12/26/24 07:09 Pulse Oximetry 94 12/26/24 07:09 Oxygen Delivery Method Room Air 12/26/24 07:09 Temperature 97.2 F L 12/26/24 07:09 Pulse Rate 93 12/26/24 08:02 Respiratory Rate 16 12/26/24 08:02 Blood Pressure 148/88 H 12/26/24 08:02 Pulse Oximetry 93 12/26/24 08:02 Oxygen Delivery Method Room Air 12/26/24 08:02 <Joi Rothman MD - Last Filed: 12/26/24 08:19> Medications Administered Medications: Discontinued Medications Generic Name Dose Route Start Last Admin Trade Name Freq PRN Reason Stop Dose Admin Sodium Chloride 1,000 mls @ 1,000 mls/hr 12/26/24 07:30 12/26/24 07:42 0.9 % Sodium Chloride 1000 Ml IV 12/26/24 08:29 1,000 mls/hr .Q1H SONIA Administration Ketorolac Tromethamine 15 mg 12/26/24 07:19 12/26/24 07:42 Ketorolac 15 Mg/Ml Inj IVP 12/26/24 07:20 15 mg ONCE ONE Administration <Ozzy Alberto MD - Last Filed: 01/04/25 00:39> Discontinued Medications Generic Name Dose Route Start Last Admin Trade Name Freq PRN Reason Stop Dose Admin Sodium Chloride 1,000 mls @ 1,000 mls/hr 12/26/24 07:30 12/26/24 07:42 0.9 % Sodium Chloride 1000 Ml IV 12/26/24 08:29 1,000 mls/hr .Q1H SONIA Administration Ketorolac Tromethamine 15 mg 12/26/24 07:19 12/26/24 07:42 Ketorolac 15 Mg/Ml Inj IVP 12/26/24 07:20 15 mg ONCE ONE Administration <Joi Rothman MD - Last Filed: 12/26/24 08:19> MDM - Abdominal Pain Lab Data Attestation: I reviewed the patient's lab results. <Joi Rothman MD - Last Filed: 12/26/24 08:19> Labs: Lab Results 12/26/24 Range/Units 07:30 WBC 8.91 (4.50-11.00) K/uL RBC 3.85 L (4.00-5.20) m/uL Hgb 12.1 (12.0-16.0) gm/dL Hct 37.8 (33.0-51.0) % MCV 98 (80-100) fL MCH 31 (26-34) pg MCHC 32 (32-36) gm/dL RDW Coeff of Gracie 13.2 (11.5-15.5) % Plt Count 190 (140-440) K/uL Neut % (Auto) 75.0 H (42.0-72.0) % Lymph % (Auto) 14.6 L (20-44) % [place] % (Auto) 7.1 (0.0-11.0) % Eos % (Auto) 2.9 (0.0-7.0) % Baso % (Auto) 0.3 (0.0-3.0) % Neut # (Auto) 6.70 (1.7-7.0) K/uL Lymph # (Auto) 1.30 (0.90-2.90) K/uL [place] # (Auto) 0.60 (0.00-0.90) K/UL Eos # (Auto) 0.26 (0.00-0.50) K/uL Baso # (Auto) 0.03 (0.00-0.30) K/uL Abs Immat Gran (auto) 0.01 (0.00-0.30) K/uL Imm/Tot Granulo (auto) 0.1 % Sodium 136 (135-149) mmol/L Potassium 4.1 (3.6-5.1) mmol/L Chloride 101 (96-114) mmol/L Carbon Dioxide 29 (20-32) mmol/L Anion Gap 6 L (7-15) mEq/L BUN 16 (7-30) mg/dL Creatinine 0.6 (0.5-1.5) mg/dL Estimated GFR 107 ml/min Glucose 103 (60-115) mg/dL Lactate 0.9 (0.5-1.9) mmol/L Calcium 9.2 (8.4-10.6) mg/dL Magnesium 1.7 (1.5-2.6) mg/dL Total Bilirubin 0.2 (0.1-1.5) mg/dL Direct Bilirubin 0.1 (0.0-0.5) mg/dL AST 20 (12-35) U/L ALT 18 (4-35) U/L Alkaline Phosphatase 59 (40-150) U/L Total Protein 8.2 (6.0-8.3) g/dL Albumin 4.6 (3.3-5.0) g/dL <Ozzy Alberto MD - Last Filed: 01/04/25 00:39> Lab Results 12/26/24 Range/Units 07:30 WBC 8.91 (4.50-11.00) K/uL RBC 3.85 L (4.00-5.20) m/uL Hgb 12.1 (12.0-16.0) gm/dL Hct 37.8 (33.0-51.0) % MCV 98 (80-100) fL MCH 31 (26-34) pg MCHC 32 (32-36) gm/dL RDW Coeff of Gracie 13.2 (11.5-15.5) % Plt Count 190 (140-440) K/uL Neut % (Auto) 75.0 H (42.0-72.0) % Lymph % (Auto) 14.6 L (20-44) % [place] % (Auto) 7.1 (0.0-11.0) % Eos % (Auto) 2.9 (0.0-7.0) % Baso % (Auto) 0.3 (0.0-3.0) % Neut # (Auto) 6.70 (1.7-7.0) K/uL Lymph # (Auto) 1.30 (0.90-2.90) K/uL [place] # (Auto) 0.60 (0.00-0.90) K/UL Eos # (Auto) 0.26 (0.00-0.50) K/uL Baso # (Auto) 0.03 (0.00-0.30) K/uL Abs Immat Gran (auto) 0.01 (0.00-0.30) K/uL Imm/Tot Granulo (auto) 0.1 % Sodium 136 (135-149) mmol/L Potassium 4.1 (3.6-5.1) mmol/L Chloride 101 (96-114) mmol/L Carbon Dioxide 29 (20-32) mmol/L Anion Gap 6 L (7-15) mEq/L BUN 16 (7-30) mg/dL Creatinine 0.6 (0.5-1.5) mg/dL Estimated GFR 107 ml/min Glucose 103 (60-115) mg/dL Lactate 0.9 (0.5-1.9) mmol/L Calcium 9.2 (8.4-10.6) mg/dL Magnesium 1.7 (1.5-2.6) mg/dL Total Bilirubin 0.2 (0.1-1.5) mg/dL Direct Bilirubin 0.1 (0.0-0.5) mg/dL AST 20 (12-35) U/L ALT 18 (4-35) U/L Alkaline Phosphatase 59 (40-150) U/L Total Protein 8.2 (6.0-8.3) g/dL Albumin 4.6 (3.3-5.0) g/dL <Joi Rothman MD - Last Filed: 12/26/24 08:19> Imaging Data CT scan - abdomen: Attestation: I have reviewed the pertinent imaging results. <Joi Rothman MD - Last Filed: 12/26/24 08:19> Radiologist's impression: Patient: GIOVANNA GODFREY Facility:?[facility] Patient ID:?[id number] Site Patient ID:?[id number]. Site :?[id number] Study:?CT-Abdomen/Pelvis W/O-12/26/2024 7:43:59 AM Ordering Physician:Meng Preciado Final Report: INDICATION: Left-sided abdominal pain TECHNIQUE: Axial images were obtained from the diaphragm to the pubic symphysis. Reformats were obtained in the coronal and sagittal plane. IV Contrast: None Oral Contrast: None COMPARISON: Abdomen and pelvis CT 10/26/2024 and 01/27/2024 FINDINGS: Lower chest: Basilar discoid atelectasis. Descending aorta is right-sided, likely prominent aortic tortuosity. Liver: Indeterminate hypodensity within the right lobe of liver measures 8 millimeters, stable compared to the prior exams (2, 35). Gallbladder and bile ducts: Status post cholecystectomy. Spleen: Unremarkable. Normal in size without mass. Pancreas: Unremarkable. No mass or inflammation. Adrenal glands: Unremarkable. No nodules. Kidneys: Unremarkable. No masses, stones, or hydronephrosis. Vasculature: Prominent aortic tortuosity without abdominal aortic aneurysm. Atherosclerosis. GI tract: Stomach is unremarkable. No dilated loops of large or small intestine. Minimal soft tissue at the level of the umbilicus, likely prior hernia repair. Pelvis: Anteverted uterus, somewhat globular although similar to the prior exam. Bones: Rightward curvature of the thoracic spine with spinal fusion hardware partially included on the examination. Prominent degenerative disc disease L4-5. IMPRESSION: No dilated bowel or localized inflammation. No clear findings to explain the patient`s pain. Please note that all CT scans at this facility use dose modulation, iterative reconstruction, and/or weight-based dosing when appropriate to reduce radiation dose to as low as reasonably achievable. Dictated by Eugene Peterson MD @ 12/26/2024 8:06:45 AM (Electronic Signature) <Joi Rothman MD - Last Filed: 12/26/24 08:19> Discharge Plan Discharge Clinical Impression: Left sided abdominal pain <Ozzy Alberto MD - Last Filed: 01/04/25 00:39> Patient Disposition: Home, Self-Care <Ozyz Alberto MD - Last Filed: 01/04/25 00:39> Condition: Stable <Ozzy Alberto MD - Last Filed: 01/04/25 00:39> Instructions: Abdominal Pain (ED) <Ozzy Alberto MD - Last Filed: 01/04/25 00:39> Additional Instructions: Liquid diet for 24 hours Follow-up with your primary care provider in 2-3 days <Ozzy Alberto MD - Last Filed: 01/04/25 00:39> Activity Level: Activity as Tolerated <Ozzy Alberto MD - Last Filed: 01/04/25 00:39> Activity as Tolerated <Joi Rothman MD - Last Filed: 12/26/24 08:19> Discharge Diet: Full Liquid <Ozzy Alberto MD - Last Filed: 01/04/25 00:39> Full Liquid <Joi Rothman MD - Last Filed: 12/26/24 08:19> Prescriptions: No Action cyclobenzaprine 10 mg tablet 10 mg PO BID PRN (Reason: muscle spasm) Qty: 10 0RF Cortisporin-TC 3.3-3-10-0.5 mg/mL drops,suspension 5 drp Otic (ear-right) QID 5 Days Qty: 10 0RF cephalexin 500 mg capsule 500 mg PO Q12H Qty: 14 0RF carbamazepine 200 mg tablet 200 mg PO TID duloxetine 20 mg capsule,delayed release(DR/EC) 20 mg PO DAILY famotidine 20 mg tablet 20 mg PO DAILY levothyroxine 50 mcg capsule 50 mcg PO DAILY omeprazole 20 mg capsule,delayed release(DR/EC) 20 mg PO DAILY acetaminophen 325 mg tablet 650 mg PO DAILY PRN Rx Instructions: NO MORE THAN 4000 MG/DAY levothyroxine 50 mcg tablet 50 mcg PO QAM colestipol 1 gram tablet 1 g PO BID rosuvastatin 10 mg tablet 10 mg PO QPM <Ozzy Alberto MD - Last Filed: 01/04/25 00:39> Follow Up/Referrals: Atiya Velez MD [Primary Care Provider, Family Practice] <Ozzy Alberto MD - Last Filed: 01/04/25 00:39> Stand Alone Forms: MyHealth Info Instructions <Ozzy Alberto MD - Last Filed: 01/04/25 00:39>
[2024-12-26 07:14] VITALS: PULSE 110; O2SAT 93
--- NOTE | 2024-12-26 07:21 | CRLHL7_ITS ---
For Patients: As a result of the Century Cures Act, medical imaging exams and procedure reports are released immediately into your electronic medical record. You may view this report before your referring provider. If you have questions, please contact your health care provider. INDICATION: Left-sided abdominal pain TECHNIQUE: Axial images were obtained from the diaphragm to the pubic symphysis. Reformats were obtained in the coronal and sagittal plane. IV Contrast: None Oral Contrast: None COMPARISON: Abdomen and pelvis CT 10/26/2024 and 01/27/2024 FINDINGS: Lower chest: Basilar discoid atelectasis. Descending aorta is right-sided, likely prominent aortic tortuosity. Liver: Indeterminate hypodensity within the right lobe of liver measures 8 millimeters, stable compared to the prior exams (2, 35). Gallbladder and bile ducts: Status post cholecystectomy. Spleen: Unremarkable. Normal in size without mass. Pancreas: Unremarkable. No mass or inflammation. Adrenal glands: Unremarkable. No nodules. Kidneys: Unremarkable. No masses, stones, or hydronephrosis. Vasculature: Prominent aortic tortuosity without abdominal aortic aneurysm. Atherosclerosis. GI tract: Stomach is unremarkable. No dilated loops of large or small intestine. Minimal soft tissue at the level of the umbilicus, likely prior hernia repair. Pelvis: Anteverted uterus, somewhat globular although similar to the prior exam. Bones: Rightward curvature of the thoracic spine with spinal fusion hardware partially included on the examination. Prominent degenerative disc disease L4-5. IMPRESSION: No dilated bowel or localized inflammation. No clear findings to explain the patient`s pain. Please note that all CT scans at this facility use dose modulation, iterative reconstruction, and/or weight-based dosing when appropriate to reduce radiation dose to as low as reasonably achievable. Dictated by Eugene Peterson MD @ 12/26/2024 8:06:45 AM (Electronically Signed)
[2024-12-26 07:30] VITALS: PULSE 102; O2SAT 93
[2024-12-26 07:40] LABS: Hematocrit 37.8 % (33.0-51.0); Hemoglobin* 12.1 gm/dL (12.0-16.0); Immature Granulocytes Abs Auto 0.01 K/uL (0.00-0.30); Immature Granulocytes Pct Auto 0.1 %; Lactate* 0.9 mmol/L (0.5-1.9); Lymphocytes Absolute Auto 1.30 K/uL (0.90-2.90); Mean Corpuscular HGB Conc 32 gm/dL (32-36); Mean Corpuscular Hemoglobin 31 pg (26-34); Mean Corpuscular Volume 98 fL (80-100); RDW Coefficient of Variation % 13.2 % (11.5-15.5); Red Blood Count 3.85 m/uL (4.00-5.20); White Blood Count* 8.91 K/uL (4.50-11.00)
[2024-12-26 07:41] VITALS: BP 135/105; PULSE 106; O2SAT 95
[2024-12-26 07:52] LABS: Slide Review Reflex No
[2024-12-26 08:00] VITALS: PULSE 92; O2SAT 92
[2024-12-26 08:01] LABS: Albumin* 4.6 g/dL (3.3-5.0); Chloride* 101 mmol/L (96-114)
[2024-12-26 08:02] VITALS: BP 148/88; PULSE 93; RESP 16; O2SAT 93
[2024-12-26 08:02] LABS: Potassium* 4.1 mmol/L (3.6-5.1); Sodium* 136 mmol/L (135-149)
[2024-12-26 08:04] LABS: Anion Gap 6 mEq/L (7-15); Blood Urea Nitrogen* 16 mg/dL (7-30); Carbon Dioxide* 29 mmol/L (20-32); Creatinine* 0.6 mg/dL (0.5-1.5); Estimated Glomerular Filt Rate 107 ml/min
[2024-12-26 08:05] LABS: Alanine Aminotransferase* 18 U/L (4-35); Alkaline Phosphatase* 59 U/L (40-150); Aspartate Amino Transferase* 20 U/L (12-35); Bilirubin Direct* 0.1 mg/dL (0.0-0.5); Bilirubin Total* 0.2 mg/dL (0.1-1.5); Calcium* 9.2 mg/dL (8.4-10.6); Glucose* 103 mg/dL (60-115); Total Protein* 8.2 g/dL (6.0-8.3)
--- OUTSIDE RECORDS SUMMARY | 2024-12-26 08:05 | XMS_ITS | CCD ---
Author Organization Unknown Care Team Providers Care Computer Systems Auditor Name Role Phone Xm1 Tank Driver, [place] Primary Care Provider Unava ilable Unavailable Chronic Care Management Unavaila ble Summary Purpose DataExchange Insurance Providers Payer name Policy type / Coverage type Covered alliance party ID Effective Begin Date Effective End Date [facility] Commercial Insurance [id number] Unkn own Family History Family History data not found Medication Administered No Medication Administered data Reason For Visit No Reason For Visit data
--- OUTSIDE RECORDS SUMMARY | 2024-12-26 08:06 | XMS_ITS | CCD ---
Author Organization Unknown Care Team Providers Care Equipment Processor Name Role Phone Course Instructor, [place] Primary Care Provider Unava ilable Unavailable Chronic Care Management Unavaila ble Summary Purpose DataExchange Insurance Providers Payer name Policy type / Coverage type Covered constitution party ID Effective Begin Date Effective End Date [facility] Commercial Insurance [id number] Unkn own Family History Family History data not found Medication Administered No Medication Administered data Reason For Visit No Reason For Visit data
--- OUTSIDE RECORDS SUMMARY | 2024-12-26 08:28 | XMS_ITS | CCD ---
Author Organization Unknown Care Team Providers Care Tin Can Feeder Name Role Phone Bit Sander, [place] Primary Care Provider Unava ilable Unavailable Chronic Care Management Unavaila ble Summary Purpose DataExchange Insurance Providers Payer name Policy type / Coverage type Covered constitution party ID Effective Begin Date Effective End Date [facility] Commercial Insurance [id number] Unkn own Family History Family History data not found Medication Administered No Medication Administered data Reason For Visit No Reason For Visit data
--- OUTSIDE RECORDS SUMMARY | 2024-12-26 08:28 | XMS_ITS | CCD ---
Author Organization Unknown Care Team Providers Care Lumber Tailer Name Role Phone Metallurgical Or Materials Technician, [place] Primary Care Provider Unava ilable Unavailable Chronic Care Management Unavaila ble Summary Purpose DataExchange Insurance Providers Payer name Policy type / Coverage type Covered libertarian ID Effective Begin Date Effective End Date [facility] Commercial Insurance [id number] Unkn own Family History Family History data not found Medication Administered No Medication Administered data Reason For Visit No Reason For Visit data
== END 2024-12-26 08:35 | disposition home or self-care (01) ==
PROVIDERS: Emergency Provider Family Medicine; PCP Family Medicine
DX: R10.9 Unspecified abdominal pain (principal)
CPT/HCPCS: 36415; 74176; 80048; 80076; 81001; 83605; 83735; 85025; 96374; 99284; 99285; J1885; J7030

== ENCOUNTER 2025-02-12 10:36 | Outpatient (CLI) | payer MEDICARE, SELFPAY | END 2025-02-12 10:37 | disposition home or self-care (01) | LOC: AMB 02-15 12:58 | PROVIDERS: PCP Family Medicine; Visit Provider Family Medicine | DX: R45.851 Suicidal ideations (principal) | CPT/HCPCS: A0425; A0429 ==

== ENCOUNTER 2025-02-12 11:05 | Emergency (ER) | payer MEDICARE, MEDICAID, SELFPAY ==
--- OUTSIDE RECORDS SUMMARY | 2025-02-12 11:10 | XMS_ITS | Clinical Summary ---
Author Organization [facility] Address [address] [place] [address] Care Team Providers Care Fabrication Engineer Name Role Phone Atiya Velez MD Primary [...] Encounters Date Type Department Care Team Description 01/08/2025 9:40 AM CDT Ancillary Procedure [facility] [address] [place] [address] 01/08/2025 Travel 01/06/2025 Travel 12/26/2024 Orders Only [facility] Scanner 1 scan: (1-Ord) [facility], CT ABDOMEN AND PELVIS WO CON, 12/26/2024 12/01/2024 10:40 AM CDT Office Visit [facility] [address] [place] [address] Tessie Epps PA Ear Problem 12/01/2024 Travel 11/24/2024 Refill [facility] [address] [place] [address] Atiya Velez MD Refill Request (Famotidine) from Last 3 Months Immunizations Immunization Administration [...] Sex Assigned at Female 04/11/2023 11:45 PM STANDARDS ENGINEER Legal Sex Female 7:52 AM STANDARDS ENGINEER Gender Identity Female 04/11/2023 11:45 PM STANDARDS ENGINEER Sexual Orientation Not on file Occupation Industry [...] CDT Respiratory Rate 16 05/06/2021 2:04 PM STANDARDS ENGINEER Oxygen Saturation 97% 12/01/2024 10:20 AM CDT Inhaled Oxygen Concentration - - Weight 87.6 kg (193 lb 3.2 oz) 12/01/2024 10:20 AM CDT Height 153.7 cm (5' 0.5) 07/06/2024 2:46 PM STANDARDS ENGINEER Body Mass Index 37.11 07/06/2024 2:46 PM STANDARDS ENGINEER Plan of Treatment Health Maintenance Due Date Last Done Comments Hepatitis B series for 19+ ( 1 of 3 - 19+ 3-dose series) 1989 Influenza Vaccine (#1) 2025 , 02/18/2023, 02/16/2022, Additional history exists BMI (ht and wt on same day) for age 18+ 07/06/2025 07/06/2024, 08/06/2023, 06/23/2022, Additional history exists Depression screening for age 12+ 07/07/2025 07/07/2024, 07/06/2024, 04/13/2024, Additional history exists Mammogram for age 45-75 01/08/2026 01/09/20 25, 01/20/2024, 01/11/2023, Additional history exists Pap test for age 21-65 10/28/2026 , 10/28/2021, 11/22/2018, Additional history exists Lipids for age 45-75 07/06/2029 07/06/2024, 02/25/2024, 11/04/2023, Additional history exists Colonoscopy through age 75 11/07/203011/07, 11/08/2023, 08/12/2020 ([facility]) Tetanus booster 10/08/2031 10/07/2021, 05/0 07/2011, 03/29/2003, Additional history exists RSV vaccine for adults or (1 - 1-dose 75+ series) 2045 Zoster (shingles) series for age 50+ Completed [...] Osborne LPN Medical Devices Implanted Type Area Fuel Truck Driver Device Identifier Shelf Expiration Date Model / Serial / Lot [id number] - [id number] Implanted:Qty: 1 on 04/09/2021 by Maxi Rodrigez MD at [facility] Left: Ear Medtronic 07/11/2027 [id number] / / [id number] Description:medtronic big ea sy piston - straight [id number] Lot [id number] Cmnt Bone Ear 2gm Otominimix - [id number] Implanted:Qty: 1 on 04/09/2021 by Maxi Rodrigez MD at [facility] Left: Ear [employer] 07/24/2022 [id number] / / [id number] Procedures Procedure Name Priority Date/Time Associated Diagnosis Comments XR MAMMO TONY BILAT SCREEN Routine 01/08/2025 10:03 AM CDT Visit for screening mammogram SCAN-CT INTERPRETATION 12/26/2024 12:00 AM CDT LIPID PANEL W REFLEX MEASURED LDL Routine 07/06/2024 4:00 PM STANDARDS ENGINEER Hyperlipidemia, unspecified hyperlipidemia type COLONOSCOPY SCREENING Routine 11/08/2023 12:00 AM CDT Positive colorectal cancer screening using DNA-based stool test LC HIV-1/O/2, 4TH GENERATION Routine 06/23/2022 2:28 PM STANDARDS ENGINEER Screening for HIV (human immunodeficiency virus) ANTI HCV Routine 03/17/2022 12:25 PM CDT Encounter for HCV screening test for low risk patient HPV HIGH RISK Routine 10/28/2021 11:49 AM CDT Pap smear for cervical cancer screening from Last 3 Months or Most Recently Relevant to Health Maintenance Results * XR MAMMO TONY BILAT SCREEN (01/08/2025 10:03 AM CDT) Anatomical Region Laterality Modality BREASTS, Breast Left, Breast Right Bilateral Mammography Impressions 01/09/2025 4:11 PM CDT There is no radiographic evidence for malignancy. Recommend annual mammograms. MAMMOGRAM ASSESSMENT: ACR 1 Negative PATIENTS: You will also receive a letter with your examination results in an easy to read format. If you have questions about your results, please contact your referring provider. Narrative 01/09/2025 4:11 PM CDT For Patients: As a result of the 21st Century Cures Act, medical imaging exams and procedure reports are released immediately into your electronic medical record. You may view this report before your referring provider. If you have questions, please contact your health care provider. XR MAMMO TONY BILAT SCREEN [[id number]] CLINICAL HISTORY: This is an asymptomatic 54 y.o. patient. INDICATION FOR EXAM: Mammogram Screening. TECHNIQUE: CC and MLO views were obtained. This study was evaluated with the assistance of Computer-Aided Detection. Breast Tomosynthesis was used in interpretation. COMPARISON FILM: Yes 01/20/24 [facility] 01/11/23 [facility] FINDINGS: There are scattered areas of fibroglandular density. There are no dominant masses, suspicious micro calcifications or areas of architectural distortion. us Atiya Velez MD MAMMO Final Result * SCAN-CT INTERPRETATION (12/26/2024 12:00 AM CDT) Anatomical Region Laterality Modality Other us Scanner OTHER Final Result * (ABNORMAL) LIPID PANEL W REFLEX MEASURED LDL (07/06/2024 4:00 PM STANDARDS ENGINEER) CHOLESTEROL, TOTAL 188 <200 mg/dL [facility] HDL CHOLESTEROL 54 > OR = 50 mg/dL [facility] TRIGLYCERIDES 374(H) <150 mg/dL [facility] Comment: If a non-fasting specimen was collected, consider repeat triglyceride testing on a fasting specimen if clinically indicated. Sara et al. J. of Clin. Lipidol. 2015;9:129-169. LDL-CHOLESTEROL 84 mg/dL (calc) [facility] Comment: Reference range: <100 Desirable range <100 mg/dL for primary prevention; <70 mg/dL for patients with CHD or diabetic patients with > or = 2 CHD risk factors. LDL-C is now calculated using the Conor-Mendoza calculation, which is a validated novel method providing better accuracy than the Friedewald equation in the estimation of LDL-C. Conor SS et al. TORIE. 2013;310(19): 8312-1464 (http://education.[place]/faq/DMT632) CHOL/HDLC RATIO 3.5 <5.0 (calc) [facility] NON HDL CHOLESTEROL 134(H) <130 mg/dL (calc) [facility] Comment: For patients with diabetes plus 1 major ASCVD risk factor, treating to a non-HDL-C goal of <100 mg/dL (LDL-C of <70 mg/dL) is considered a therapeutic option. Blood BLOOD SPECIMEN / Unknown 07/06/2024 4:00 PM STANDARDS ENGINEER 07/06/2024 4:00 PM STANDARDS ENGINEER Atiya Velez MD CHEMISTRY Final Result Performing Organization Address City/State/[facility] Co de Phone Number [facility] [address] [place] [address], [place] [phone] [facility] [address] [place] [address] * COLONOSCOPY SCREENING (11/08/2023 12:00 AM CDT) Atiya Velez MD GI PROCEDURE ORD Kenyatta l Result * LC HIV-1/O/2, 4TH GENERATION (06/23/2022 2:28 PM STANDARDS ENGINEER) [facility] HIV Scr 4th Gen Non Reactive Non Reactive 06/25/2022 9:06 PM STANDARDS ENGINEER [facility] Comment: HIV Negative HIV-1/HIV-2 antibodies and HIV-1 p24 antigen were NOT detected. There is no laboratory evidence of HIV infection. Blood BLOOD SPECIMEN / Unknown Venipuncture / Unknown 06/23/2022 2:28 PM STANDARDS ENGINEER 06/23/2022 2:29 PM STANDARDS ENGINEER Narrative [facility] ([facility] - 06/25/2022 9:06 PM STANDARDS ENGINEER Performed at: [address] [place] [id number] Hall Director: Miko Leyva MD, Phone: [phone] Atiya Velez MD LABORATORY Final Result [facility] ([facility] [address] [place] [address], * ANTI HCV (03/17/2022 12:25 PM CDT) Pathologist [facility] HEPATITIS C ANTIBODY Non-React ramona Non-React ramona 03/18/2022 5:22 PM CDT [facility] Comment:Antibodies to HCV no t detected; does not exclude the possibility of exposure to HCV. Blood BLOOD SPECIMEN / Unknown Venipuncture / Unknown 03/17/2022 12:25 PM CDT 03/17/2022 12:25 PM CDT us Atiya Velez MD SEND OUTS Final Result [facility] [address] [place] [address], * HPV HIGH RISK (10/28/2021 11:49 AM CDT) TYPE 16 Negative Negative 10/30/2021 2:55 PM CDT [facility] TYPE 18 Negative Negative 10/30/2021 2:55 PM CDT [facility] OTHER HIGH RISK TYPES Negative Negative 10/30/2021 2:55 PM CDT [facility] Other (Cervical) Non-Blood / Unknown 10/28/2021 11:49 AM CDT 10/29/2021 10:31 AM CDT Narrative [facility] - 10/30/2021 2:55 PM CDT HPV types 16, 18, 31, 33, 35, 39, 45, 51, 52, 56, 58, 59, 66 and 68 DNA were undetectable or below the pre-set threshold. Methodology: Cristina Salinas 4800 HPV Test Josselyn TATUM MICROBIOLOGY Final Result Performing Organization Address City/[facility]/ZIP Co de Phone Number [facility] [address] [place] [address], from Last 3 Months or Most Recently Relevant to Health Maintenance Insurance MEDICARE PART A HB ONLY MEDICARE PART B HB ONLY [employer] MEDICARE ADVANTAGE MR [facility] Advance Directives Documents on File Type Date Recorded Patient Yarn Handler Expl anation POLST 10/05/2023 Healthcare Directive 08/25/2023 024 Power of Hotel Director 03/11/2018 4:18 PM MARIA GU RUBEN SHORT FORM POWER OF BUILDING CLEANER, [employer], 10/14/17 Healthcare Directive 03/11/2018 4:14 PM HE ALTHCARE DIRECTIVE, [facility], 02/10/18 POLST 12/16/2017 3:47 PM GAVIN CANALES [facility], 12/01/17 * Full Code (Latest Code Status on File) Date Activated Date Inactivated Comments 04/09/2021 9:39 AM 04/09/2021 6:54 PM Question Answer Comments Code Status Discussion: Not Discussed Care Teams Fabrication Engineer Relationship Specialty Start Date End Date Atiya Velez MD [address] [place] [address] [address] PCP - General Family Practice 03/16/14
--- OUTSIDE RECORDS SUMMARY | 2025-02-12 11:10 | XMS_ITS | Clinical Summary ---
Author Organization [facility] Address [address] [place] [address] Care Team Providers Care Irrigation System Operator Name Role Phone No Ref-Primary, Physician Primary [...] on file Legal Sex Female 3:14 AM EASEMENT MAN Gender Identity Not on file Sexual Orientation [...] YEARS (1 of 1 - PCV) 2020 PHQ-2 (once per calendar year) 2024 COVID-19 VACCINE ( - 2024- season) 2025 09/12/2021, 03/28/2021, 07/31/2020, Additional history exists INFLUENZA VACCINE (#1) 2025 , 02/15/2020, 02/17/2019, Additional history exists DTAP/TDAP/TD VACCINE (3 - Td or Tdap) 10/08/2031 10/07/2021, 10/07/2011, 03/29/2003 ZOSTER VACCINE Completed 11/01/2020, 09/01/2020 HPV VACCINE (No Doses Required) Completed MENINGITIS VACCINE Aged Out No longer eligible [...] 6 MONTH FOLLOW-UP. ALLIE ARAUJO MD Shabana Mildred [facility] MAMMOGRAPHY ORDERABLES Kenyatta l Result from Last 3 Months or Most Recently Relevant to Health Maintenance Insurance [place] [address] [facility] MEDICARE SUPPLEMENT Care Teams Irrigation System Operator Relationship Specialty Start Date End Date No Ref-Primary, Physician PCP - General 02/10/22 Atiya Velez Family Practice 02/10/22
[2025-02-12 11:29] VITALS: BP 150/99; PULSE 104; RESP 20; TEMP 36.3; O2SAT 95; BMI 36.1
--- NOTE | 2025-02-12 13:03 | ED.PSYCH ---
HPI - Psych General Chief Complaint: Psychiatric Problem/Disorder Stated Complaint: Mental Health Time Seen by Provider: 02/12/25 12:13 History of Present Illness HPI Narrative: This patient comes in for psychiatric evaluation. She lives in a skilled nursing with her and was speaking with a director case in this regard. She was rather frustrated with the circumstances at her current living situation and feels that her needs more care than he is getting but she is instructed not to be doing the things that she would like to do for to help him out. During her conversation with the director case she made comments that she did not want to live anymore and was going to do something about it. She currently denies any suicidality or intent to harm herself and does not have any history of such. She realizes that this came out of her frustration. Related Data Home Medications ?Medication ?Instructions ?Recorded ?Confirmed carbamazepine 200 mg tablet 200 mg PO TID 01/16/22 12/26/24 duloxetine 20 mg capsule,delayed 20 mg PO DAILY 01/16/22 10/23/24 release famotidine 20 mg tablet 20 mg PO DAILY 01/16/22 10/23/24 levothyroxine 50 mcg capsule 50 mcg PO DAILY 01/16/22 12/26/24 omeprazole 20 mg capsule,delayed 20 mg PO DAILY 01/16/22 10/23/24 release acetaminophen 325 mg tablet 650 mg PO DAILY PRN 01/19/22 10/23/24 colestipol 1 gram tablet 1 g PO BID 01/27/24 10/23/24 levothyroxine 50 mcg tablet 50 mcg PO QAM 01/27/24 10/21/24 rosuvastatin 10 mg tablet 10 mg PO QPM 06/22/24 12/26/24 Previous Rx's ?Medication ?Instructions ?Recorded cyclobenzaprine 10 mg tablet 10 mg PO BID PRN muscle spasm #10 10/10/23 tabs [id number] 3.3 5 drp Otic (ear-right) QID 5 days 10/10/23 mg-3 mg-10 mg-0.5 mg/mL ear #10 mL drops,susp (Cortisporin-TC) cephalexin 500 mg capsule 500 mg PO Q12H #14 caps 10/26/24 ketorolac 10 mg tablet 10 mg PO TID 5 days #15 tabs 02/12/25 Allergies Allergy/AdvReac Type Severity Reaction Status Date / Time morphine Allergy Unknown Verified 12/26/24 07:09 Iodinated Contrast Media Allergy Verified 12/26/24 07:09 Review of Systems Status of ROS: Reports: 10 or more systems reviewed and unremarkable except as noted in History and below Narrative: Constitutional: No fevers, no weight gain or loss. Eyes: No discharge. No vision changes. HENT: No congestion, no sore throat, no ear pain. Cardiovascular: No chest pain, no palpitations. Respiratory: No shortness of breath, no wheezes, no cough. Gastrointestinal: No vomiting, no diarrhea. Diffuse abdominal pain for the past couple months. Genitourinary: No dysuria, no hematuria. Musculoskeletal: Normal range of motion. Skin: No rashes, no pruritis. Neurological: No dizziness, weakness, sensory change, speech change. Endo/Heme/Allergies: No bruising or bleeding. No polydipsia. Pysch: no suicidality, no anxiety, no insomnia. She has frustrations about her living situation and finances. All other systems reviewed and are negative. [facility] Medical History Back pain at L4-L5 level ?M54.50 - Low back pain, unspecified (ICD-10) Delay of cognitive development ?F81.9 - Developmental disorder of scholastic skills, unspecified (ICD-10) Liver damage ?K76.9 - Liver disease, unspecified (ICD-10) Fibromyalgia ?M79.7 - Fibromyalgia (ICD-10) 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 of family law attorney in chart Mixed hearing loss ?H90.8 - Mixed conductive and sensorineural hearing loss, unspecified (ICD-10) Cholecystitis ?K81.9 - Cholecystitis, unspecified (ICD-10) Anxiety ?F41.9 - Anxiety disorder, unspecified (ICD-10) Left chronic serous otitis media ?H65.22 - Chronic serous otitis media, left ear (ICD-10) Onychomycosis ?B35.1 - Tinea unguium (ICD-10) Hypoparathyroidism ?E20.9 - Hypoparathyroidism, unspecified (ICD-10) Vitamin D deficiency ?E55.9 - Vitamin D deficiency, unspecified (ICD-10) DDD (degenerative disc disease), lumbar ?M51.36 - Other intervertebral disc degeneration, lumbar region (ICD-10) Lower extremity edema ?R60.0 - Localized edema (ICD-10) Learning disability ?F81.9 - Developmental disorder of scholastic skills, unspecified (ICD-10) Seizure disorder ?G40.909 - Epilepsy, unspecified, not intractable, without status epilepticus (ICD-10) Hypothyroidism ?E03.9 - Hypothyroidism, unspecified (ICD-10) Encounter for counseling regarding advance directives (02/10/18) ?Z71.89 - Other specified counseling (ICD-10) Surgical History Hx of myringotomy ?Z98.890 - Other specified postprocedural states (ICD-10) Hx laparoscopic cholecystectomy ?Z90.49 - Acquired absence of other specified parts of digestive tract (ICD-10) History of fusion of spine for scoliosis ?Z98.1 - Arthrodesis status (ICD-10) ?Z87.39 - Personal history of other diseases of the musculoskeletal system and connective tissue (ICD-10) Social History Smoking Status: Never smoker Do you use any of these nicotine containing products: None Second hand tobacco smoke exposure: No How often do you have a drink containing alcohol: never How often do you have six or more drinks on one occasion: Never AUDIT-C Alcohol total score: 0 Non-prescribed substance use: denies use Caffeine: Yes service: No Exam Narrative: Exam Narrative: Constitutional: Well-developed, well-nourished, no acute distress. HEENT: Normocephalic, atraumatic. Neck: Normal range of motion. Nontender. Supple. Heart: Regular. No murmurs. Normal rate. Intact distal pulses. Lungs: Clear to auscultation. No chest discomfort. No wheezes, rhonchi, or rales. Abdomen: Normal bowel sounds. Diffuse tenderness. No rebound tenderness. Genitalia: Deferred. Back: No midline tenderness. Normal range of motion. Extremities: Normal range of motion. No injury. Skin: Intact. No rash. Warm. No erythema or pallor. Neurologic: No altered sensation. No weakness. Alert and oriented. Psychiatric: No suicidality. Expresses frustrations about her living situation where she feels that her needs more care and she is not able to help him. Nursing notes and vitals signs are reviewed. Const: Vital Signs, click to edit/add: Vital Signs - 24 hr 02/12/25 11:29 Temperature 97.3 F L Pulse Rate [Pulse Oximeter] 104 H Respiratory Rate 20 Blood Pressure [Ri ght Upper Arm] 150/99 H Pulse Oximetry 95 Oxygen Delivery Me thod Room Air Course Vital Signs Vital signs: Initial Vital Signs Temperature 97.3 F L 02/12/25 11:29 Temperature Source Temporal Artery Scan 02/12/25 11:29 Pulse Rate 104 H 02/12/25 11:29 Respiratory Rate 20 02/12/25 11:29 Blood Pressure 150/99 H 02/12/25 11:29 Blood Pressure Mean 116 H 02/12/25 11:29 Blood Pressure Position Supine 02/12/25 11:29 Pulse Oximetry 95 02/12/25 11:29 Oxygen Delivery Method Room Air 02/12/25 11:29 Vital Signs Temperature 97.3 F L 02/12/25 11:29 Pulse Rate 104 H 02/12/25 11:29 Respiratory Rate 20 02/12/25 11:29 Blood Pressure 150/99 H 02/12/25 11:29 Pulse Oximetry 95 02/12/25 11:29 Oxygen Delivery Method Room Air 02/12/25 11:29 Temperature 97.3 F L 02/12/25 11:29 Pulse Rate 104 H 02/12/25 11:29 Respiratory Rate 20 02/12/25 11:29 Blood Pressure 150/99 H 02/12/25 11:29 Pulse Oximetry 95 02/12/25 11:29 Oxygen Delivery Method Room Air 02/12/25 11:29 MDM - Psych MDM Narrative Medical decision making narrative: This patient comes in for a psychiatric evaluation. A telehealth assessment was ordered and completed and the contract design agent states that the patient is fariha for safety and denies any risk to harm herself. She is fariha for safety. The patient does have a director case and this is already in process in regard to they acceptable living situation for her and her . The patient is complaining of some abdominal pain and twinges in her chest at times. She states that the abdominal pain is been present for the past couple months. She was seen here before with these same symptoms of abdominal discomfort and did have a CT scan and labs done at that time with normal results and no findings to explain her discomfort. I did check labs today and these returned with reassuring findings. Her liver enzymes and lipase are in normal range. She is not showing any sign of infection. On exam her abdomen shows normal bowel sounds and diffuse tenderness. The patient did receive an oral dose of Toradol 10 mg here. Lab Data Labs: Lab Results 02/12/25 Range/Units 13:05 WBC 6.96 (4.50-11.00) K/uL RBC 3.87 L (4.00-5.20) m/uL Hgb 12.1 (12.0-16.0) gm/dL Hct 38.0 (33.0-51.0) % MCV 98 (80-100) fL MCH 31 (26-34) pg MCHC 32 (32-36) gm/dL RDW Coeff of Gracie 13.0 (11.5-15.5) % Plt Count 202 (140-440) K/uL Neut % (Auto) 65.6 (42.0-72.0) % Lymph % (Auto) 22.6 (20-44) % Briscoe % (Auto) 7.9 (0.0-11.0) % Eos % (Auto) 3.2 (0.0-7.0) % Baso % (Auto) 0.6 (0.0-3.0) % Neut # (Auto) 4.57 (1.7-7.0) K/uL Lymph # (Auto) 1.57 (0.90-2.90) K/uL Briscoe # (Auto) 0.50 (0.00-0.90) K/UL Eos # (Auto) 0.22 (0.00-0.50) K/uL Baso # (Auto) 0.04 (0.00-0.30) K/uL Abs Immat Gran (auto) 0.01 (0.00-0.30) K/uL Imm/Tot Granulo (auto) 0.1 % Sodium 137 (135-149) mmol/L Potassium 4.5 (3.6-5.1) mmol/L Chloride 100 (96-114) mmol/L Carbon Dioxide 30 (20-32) mmol/L Anion Gap 7 (7-15) mEq/L BUN 16 (7-30) mg/dL Creatinine 0.7 (0.5-1.5) mg/dL Estimated Creat Clear 65.99 Estimated GFR 103 ml/min Glucose 92 (60-115) mg/dL Calcium 8.2 L (8.4-10.6) mg/dL Total Bilirubin 0.3 (0.1-1.5) mg/dL Direct Bilirubin 0.3 (0.0-0.5) mg/dL AST 21 (12-35) U/L ALT 17 (4-35) U/L Alkaline Phosphatase 68 (40-150) U/L Total Protein 8.5 H (6.0-8.3) g/dL Albumin 4.4 (3.3-5.0) g/dL Lipase 73 (23-300) U/L ECG Data Attestation: I personally reviewed and interpreted this ECG as follows: Interpretation: Normal sinus rhythm. Rate is 95 beats per minute. There are no ST or T-wave abnormalities. Discharge Plan Discharge Clinical Impression: Encounter for psychological evaluation, Abdominal pain Patient Disposition: Home, Self-Care Condition: Stable Additional Instructions: Continue current plans. Reconnect with director case for options for residence. Take medication as needed and directed. Follow up with MD return if worsening. Prescriptions: New ketorolac 10 mg tablet 10 mg PO TID 5 Days Qty: 15 0RF No Action cyclobenzaprine 10 mg tablet 10 mg PO BID PRN (Reason: muscle spasm) Qty: 10 0RF Cortisporin-TC 3.3-3-10-0.5 mg/mL drops,suspension 5 drp Otic (ear-right) QID 5 Days Qty: 10 0RF cephalexin 500 mg capsule 500 mg PO Q12H Qty: 14 0RF carbamazepine 200 mg tablet 200 mg PO TID duloxetine 20 mg capsule,delayed release(DR/EC) 20 mg PO DAILY famotidine 20 mg tablet 20 mg PO DAILY levothyroxine 50 mcg capsule 50 mcg PO DAILY omeprazole 20 mg capsule,delayed release(DR/EC) 20 mg PO DAILY acetaminophen 325 mg tablet 650 mg PO DAILY PRN Rx Instructions: NO MORE THAN 4000 MG/DAY levothyroxine 50 mcg tablet 50 mcg PO QAM colestipol 1 gram tablet 1 g PO BID rosuvastatin 10 mg tablet 10 mg PO QPM Follow Up/Referrals: Atiya Velez MD [Primary Care Provider, Family Practice] Stand Alone Forms: M:Metrics Info Instructions
[2025-02-12 13:12] LABS: White Blood Count* 6.96 K/uL (4.50-11.00)
[2025-02-12 13:13] LABS: Hematocrit* 38.0 % (33.0-51.0); Hemoglobin* 12.1 gm/dL (12.0-16.0); Immature Granulocytes Abs Auto 0.01 K/uL (0.00-0.30); Immature Granulocytes Pct Auto 0.1 %; Lymphocytes Absolute Auto 1.57 K/uL (0.90-2.90); Mean Corpuscular HGB Conc 32 gm/dL (32-36); Mean Corpuscular Hemoglobin 31 pg (26-34); Mean Corpuscular Volume 98 fL (80-100); RDW Coefficient of Variation % 13.0 % (11.5-15.5); Red Blood Count* 3.87 m/uL (4.00-5.20)
[2025-02-12 13:19] LABS: Slide Review Reflex No
[2025-02-12 13:22] LABS: Albumin* 4.4 g/dL (3.3-5.0); Chloride* 100 mmol/L (96-114); Potassium* 4.5 mmol/L (3.6-5.1); Sodium* 137 mmol/L (135-149)
[2025-02-12 13:24] LABS: Blood Urea Nitrogen* 16 mg/dL (7-30); Creatinine* 0.7 mg/dL (0.5-1.5); Est. Creatinine Clearance* 65.99; Estimated Glomerular Filt Rate 103 ml/min
[2025-02-12 13:25] LABS: Alanine Aminotransferase* 17 U/L (4-35); Alkaline Phosphatase* 68 U/L (40-150); Anion Gap 7 mEq/L (7-15); Aspartate Amino Transferase* 21 U/L (12-35); Bilirubin Direct* 0.3 mg/dL (0.0-0.5); Bilirubin Total* 0.3 mg/dL (0.1-1.5); Calcium* 8.2 mg/dL (8.4-10.6); Carbon Dioxide* 30 mmol/L (20-32); Glucose* 92 mg/dL (60-115); Total Protein* 8.5 g/dL (6.0-8.3)
[2025-02-12] MEDS: KETOROLAC 10 MG TABLET PO (14:00)
--- OUTSIDE RECORDS SUMMARY | 2025-02-12 14:10 | XMS_ITS | CCD ---
Author Organization Unknown Care Team Providers Care Dry Cleaning Attendant Name Role Phone [employer] [place] Primary Care Provider Unava ilable Unavailable Chronic Care Management Unavaila ble Summary Purpose DataExchange Insurance Providers Payer name Policy type / Coverage type Covered constitution party ID Effective Begin Date Effective End Date [facility] Commercial Insurance [id number] Unkn own Family History Family History data not found Medication Administered No Medication Administered data Reason For Visit No Reason For Visit data
[2025-02-12 14:12] VITALS: BP 144/94; PULSE 93; RESP 18; TEMP 36.5; O2SAT 97
== END 2025-02-12 14:19 | disposition home or self-care (01) ==
PROVIDERS: Emergency Provider Emergency Medicine Emergency Medical Services; PCP Family Medicine
DX: Z00.8 Encounter for other general examination (principal); R10.9 Unspecified abdominal pain
CPT/HCPCS: 36415; 80048; 80076; 83690; 85025; 93005; 99284; Q3014; A9270

== ENCOUNTER 2025-03-23 19:01 | Outpatient (CLI) | payer MEDICARE, MEDICAID, SELFPAY | END 2025-03-23 19:02 | disposition home or self-care (01) | LOC: AMB 03-28 22:56 | PROVIDERS: PCP Family Medicine; Visit Provider Family Medicine | DX: M79.673 Pain in unspecified foot (principal) | CPT/HCPCS: A0425; A0429 ==

== ENCOUNTER 2025-03-23 19:21 | Emergency (ER) | payer MEDICARE, MEDICAID, SELFPAY ==
--- OUTSIDE RECORDS SUMMARY | 2025-03-23 19:22 | XMS_ITS | Clinical Summary ---
Author Organization [facility] Address [address] [place] [address] Care Team Providers Care Shiatsu Therapist Name Role Phone Atiya Velez MD Primary [...] at bedtime. 90 Tablet 3 5 Active tiZANidine 2 mg tabletIndications: S/P [...] AT BEDTIME 180 Tablet 2 5 Active DULoxetine (CYMBALTA) 20 mg Delayed-release capsuleIndications :Depression, major, single episode, moderate (HC) Take 2 Capsules (40 mg) by mouth once daily. 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 Has an dental consult . Would like general sedation, can you write note this would be ok./Went in for psychiatric evaluation. Frustrated with her home setting and the care her receives. Mentioned to her leather case finisher she did not want to live anymore. During ED visit is was discussed that this comment stemmed from her frustration and she does not feel suicidal. /Also complained of abdominal pain/Prescribed ketorolac 10 mg tablet 10 mg PO TID 5 Day ) 02/13/2025 Travel 01/08/2025 9:40 AM CDT Ancillary Procedure [facility] [address] [place] [address] 01/08/2025 Travel 01/06/2025 Travel 12/26/2024 Orders Only [facility] Scanner 1 scan: (1-Ord) [facility], CT ABDOMEN AND PELVIS WO CON, 12/26/2024 from Last 3 Months Immunizations Immunization Administration Dates Next Due AMB INFLUENZA, IIV4 (AGE=>6M OS) MDV (Flu Clinic Only) 03/08/2018 AMB Influenza, IIV3 (Age >=3 years)(Flu Clinic Only) 03/21/2013 COVID-19 VACCINE SPIKEVAX (M ODERNA 50MCG/0.5ML) 12YO+ PFS 02/25/2024,03/25/2023 COVID-19 vaccine (Moderna 100mcg/0.5mL) PF, MDV 09/12/2021,07/31/2020,07/03/2020 COVID-19 vaccine (Moderna Carlos Alberto carter 50mcg/0.25mL) PF, MDV 03/28/2021 COVID-19 vaccine (Neptune.ioBio NTech 30mcg/0.3mL) 12YO+ BIVALENT PF, MDV 03/17/2022 INFLUENZA, IIV3 PF (AGE >= 6 MO) 02/13/2025,01/06,03/02/2009 Influenza, IIV3 (Age >=3 years) 03/26/2017,03/18 Influenza, [...] PHQ-2 Answer Date Recorded PHQ-2 TOTAL SCORE 4 02/13/2025 Social Connections Answer Date Recorded Do you often feel lonely or isolated from those around you? 0 12/01/2024 Alcohol Use Answer Date Recorded How often do you have a drink containing alcohol ? 0 02/13/2025 Average Number of Drinks Not on file 025 Frequency of Binge Drinking Not on file 02/2025 Financial Resource Strain Answer Date R ecorded [...] Sex Assigned at Female 04/11/2023 11:45 PM TIRE MAINTENANCE TECHNICIAN Legal Sex Female 7:52 AM TIRE MAINTENANCE TECHNICIAN Gender Identity Female 04/11/2023 11:45 PM TIRE MAINTENANCE TECHNICIAN Sexual Orientation Not on file Occupation Industry Job Start Date Job End Date disabled Not on file Not on file Not on file Obstetrics History Para Term AB IAB SAB Ectopic Multiple Livin g Live Births 0 0 0 0 0 0 0 0 0 0 0 Last Filed Vital Signs Vital Sign Reading Time Taken Comments Blood Pressure 111/80 02/13/2025 11:54 AM CDT Pulse 98 02/13/2025 11:54 AM CDT Temperature 36.6 C (97.8 F) 11/04/2023 12:58 PM CDT Respiratory Rate 16 05/06/2021 2:04 PM TIRE MAINTENANCE TECHNICIAN Oxygen Saturation 97% 02/13/2025 11:50 AM CDT Inhaled Oxygen Concentration - - Weight 87.1 kg (192 lb) 02/13/2025 11:50 AM CDT Height 153.7 cm (5' 0.5) 07/06/2024 2:46 PM TIRE MAINTENANCE TECHNICIAN Body Mass Index 36.88 07/06/2024 2:46 PM TIRE MAINTENANCE TECHNICIAN Plan of Treatment Health Maintenance Due Date Last Done Comments Hepatitis B series for 19+ ( 1 of 3 - 19+ 3-dose series) 1989 BMI (ht and wt on same day) for age 18+ 07/06/2025 07/06/2024, 08/06/2023, 06/23/2022, Additional history exists Mammogram for age 45-75 01/08/2026 01/09/20, 01/20/2024, 01/11/2023, Additional history exists Depression screening for age 12+ 02/13/2026 02/13/2025, 07/07/2024, 07/06/2024, Additional history exists Pap test for age 21-65 10/28/2026 , 10/28/2021, 11/22/2018, Additional history exists Lipids for age 45-75 07/06/2029 07/06/2024, 02/25/2024, 11/04/2023, Additional history exists Colonoscopy through age 75 11/07/203011/07, 11/08/2023, 08/12/2020 (Completed outside of [facility]) Tetanus booster 10/08/2031 10/07/2021, 05/0 07/2011, 03/29/2003, Additional history exists RSV vaccine for adults or (1 - 1-dose 75+ series) 2045 Zoster (shingles) series for age 50+ Completed 11/01/2020, 09/01/2020 Hepatitis C screening for ag e 18-79 Completed 03/17/2022, 02/16/2022 HIV for age 15-65 Completed 06/23/2022 COVID-19 vaccine series Completed 02/25/20, 03/25/2023, 03/17/2022, Additional history exists Pneumococcal series for age 50+ Completed Influenza Vaccine Completed 02/13/2025, , 02/18/2023, Additional history exists Goals Goal Patient Goal Type Associated Problems Recent Progress Patient-Stated? Author BLOOD PRESSURE - Maintains BP less than 140/90 Blood Pressure No Annamaria Osborne LPN Medical Devices Implanted Type Area Head Of Mobile Device Identifier Shelf Expiration Date Model / Serial / Lot [id number] - [id number] Implanted:Qty: 1 on 04/09/2021 by Maxi Rodrigez MD at [facility] Left: Ear Medtronic 07/11/2027 [id number] / / [id number] Description:medtronic big ea sy piston - straight [id number] Lot [id number] Cmnt Bone Ear 2gm [employer] - [id number] Implanted:Qty: 1 on 04/09/2021 by Maxi Rodrigez MD at [facility] Left: Ear [employer] 07/24/2022 [id number] / / [id number] Procedures Procedure Name Priority Date/Time Associated Diagnosis Comments XR SPINE LUMBAR 2 VIEWS Routine 02/13/2025 12:59 PM CDT Midline low back pain with left-sided sciatica, unspecified chronicity XR SHOULDER 3 VIEWS RIGHT Routine 02/13/2025 12:59 PM CDT Acute pain of right shoulder XR MAMMO TONY BILAT SCREEN Routine 01/08/2025 10:03 AM CDT Visit for screening mammogram SCAN-CT INTERPRETATION 12/26/2024 12:00 AM CDT LIPID PANEL W REFLEX MEASURED LDL Routine 07/06/2024 4:00 PM TIRE MAINTENANCE TECHNICIAN Hyperlipidemia, unspecified hyperlipidemia type COLONOSCOPY SCREENING Routine 11/08/2023 12:00 AM CDT Positive colorectal cancer screening using DNA-based stool test LC HIV-1/O/2, 4TH GENERATION Routine 06/23/2022 2:28 PM TIRE MAINTENANCE TECHNICIAN Screening for HIV (human immunodeficiency virus) ANTI HCV Routine 03/17/2022 12:25 PM CDT Encounter for HCV screening test for low risk patient HPV HIGH RISK Routine 10/28/2021 11:49 AM CDT Pap smear for cervical cancer screening from Last 3 Months or Most Recently Relevant to Health Maintenance Results * XR SPINE LUMBAR 2 VIEWS (02/13/2025 12:59 PM CDT) Anatomical Region Laterality Modality LUMBAR SPINE Computed Radiogr aphy 02/13/2025 2:35 PM CDT Impressions 02/13/2025 2:35 PM CDT No significant change since the prior CT. Dictated by Jeremie Bowman MD @ 02/13/2025 2:35:32 PM (Electronically Signed) Narrative 02/13/2025 2:35 PM CDT For Patients: As a result of the Cures Act, medical imaging exams and procedure reports are released immediately into your electronic medical record. You may view this report before your referring provider. If you have questions, please contact your health care provider. INDICATION: Midline low back pain with left-sided sciatica, unspecified chronicity TECHNIQUE: 2-view lumbar spine. COMPARISON: 02/15/2016 x-rays, 03/09/2024 CT FINDINGS: Postop changes to the lumbar spine extending to L4, as before. Disc space narrowing and spurring L4-5 with discogenic sclerosis. Postop changes right upper quadrant. Procedure Note Jeremie Bowman MD - 02/13/2025 For Patients: As a result of the Cures Act, medical imagingexams and procedure reports are released immediately into your electronicmedical record. You may view this report before your referring provider.If you have questions, please contact your health care provider. INDICATION: Midline low back pain with left-sided sciatica, unspecified chronicity TECHNIQUE: 2-view lumbar spine. COMPARISON: 02/15/2016 x-rays, 03/09/2024 CT FINDINGS: Postop changes to the lumbar spine extending to L4, as before. Disc spacenarrowing and spurring L4-5 with discogenic sclerosis. Postop changesright upper quadrant. IMPRESSION: No significant change since the prior CT. Dictated by Jeremie Bowman MD @ 02/13/2025 2:35:32 PM (Electronically Signed) us Atiya Velez MD GENERAL IMAGING Final Result * XR SHOULDER 3 VIEWS RIGHT (02/13/2025 12:59 PM CDT) Anatomical Region Laterality Modality SHOULDERS, SHOULDER R Computed R adiography 02/13/2025 2:33 PM CDT Narrative 02/13/2025 2:33 PM CDT For Patients: As a result of the Cures Act, medical imaging exams and procedure reports are released immediately into your electronic medical record. You may view this report before your referring provider. If you have questions, please contact your health care provider. Indication: Right shoulder pain. Technique: Right shoulder 3 views. Comparison: None. Findings: 1.1 cm chronic soft tissue density superior to the humeral head. Mild degenerative arthrosis. Postop changes thoracic spine. Impression: Chronic rotator cuff calcific tendinitis. Mild degenerative arthrosis. Dictated by Jeremie Bowman MD @ 02/13/2025 2:33:43 PM (Electronically Signed) Procedure Note Jeremie Bowman MD - 02/13/2025 For Patients: As a result of the Cures Act, medical imagingexams and procedure reports are released immediately into your electronicmedical record. You may view this report before your referring provider.If you have questions, please contact your health care provider. Indication: Right shoulder pain. Technique: Right shoulder 3 views. Comparison: None. Findings: 1.1 cm chronic soft tissue density superior to the humeral head. Milddegenerative arthrosis. Postop changes thoracic spine. Impression: Chronic rotator cuff calcific tendinitis. Mild degenerative arthrosis. Dictated by Jeremie Bowman MD @ 02/13/2025 2:33:43 PM (Electronically Signed) Atiya Velez MD GENERAL IMAGING Final Result * XR MAMMO TONY BILAT SCREEN (01/08/2025 [...] care provider. XR MAMMO TONY BILAT SCREEN [[id number]] CLINICAL HISTORY: This is an asymptomatic 54 y.o. patient. INDICATION FOR EXAM: Mammogram Screening. TECHNIQUE: CC and MLO views were obtained. This study was evaluated with the assistance of Computer-Aided Detection. Breast Tomosynthesis was used in interpretation. COMPARISON FILM: Yes 01/20/24 [facility] 01/11/23 [facility] FINDINGS: There are scattered areas of fibroglandular density. There are no dominant masses, suspicious micro calcifications or areas of architectural distortion. Atiya Velez MD MAMMO Final Result * SCAN-CT INTERPRETATION (12/26/2024 12:00 AM CDT) Anatomical Region Laterality Modality Other us Scanner OTHER Final Result * (ABNORMAL) LIPID PANEL W REFLEX MEASURED LDL (07/06/2024 4:00 PM TIRE MAINTENANCE TECHNICIAN) CHOLESTEROL, TOTAL 188 <200 mg/dL [facility] HDL CHOLESTEROL 54 > OR = 50 mg/dL [facility] TRIGLYCERIDES 374(H) <150 mg/dL [facility] Comment: If a non-fasting specimen was collected, consider repeat triglyceride testing on a fasting specimen if clinically indicated. Sara et al. J. of Clin. Lipidol. 2015;9:129-169. LDL-CHOLESTEROL 84 mg/dL (calc) [facility] Comment: Reference range: <100 Desirable range <100 mg/dL for primary prevention; <70 mg/dL for patients with CHD or diabetic patients with > or = 2 CHD risk factors. LDL-C is now calculated using the Elisabet calculation, which is a validated novel method providing better accuracy than the Friedewald equation in the estimation of LDL-C. Conor SS et al. TORIE. 2013;310(89): 9244-6451 (http://education.Restore Water/faq/GND634) CHOL/HDLC RATIO 3.5 <5.0 (calc) [facility] NON HDL CHOLESTEROL 134(H) <130 mg/dL (calc) [facility] Comment: For patients with diabetes plus 1 major ASCVD risk factor, treating to a non-HDL-C goal of <100 mg/dL (LDL-C of <70 mg/dL) is considered a therapeutic option. Blood BLOOD SPECIMEN / Unknown 07/06/2024 4:00 PM TIRE MAINTENANCE TECHNICIAN 07/06/2024 4:00 PM TIRE MAINTENANCE TECHNICIAN Atiya Velez MD CHEMISTRY Final Result [employer] [facility] [address] [place] [address], [facility] [address] [place] [id number] * COLONOSCOPY SCREENING (11/08/2023 12:00 AM CDT) Atiya Velez MD GI PROCEDURE ORD Kenyatta l Result * LC HIV-1/O/2, 4TH GENERATION (06/23/2022 2:28 PM TIRE MAINTENANCE TECHNICIAN) HIV Scr 4th Gen Non Reactive Non Reactive 06/25/2022 9:06 PM TIRE MAINTENANCE TECHNICIAN [facility] Comment: HIV Negative HIV-1/HIV-2 antibodies and HIV-1 p24 antigen were NOT detected. There is no laboratory evidence of HIV infection. Blood BLOOD SPECIMEN / Unknown Venipuncture / Unknown 06/23/2022 2:28 PM TIRE MAINTENANCE TECHNICIAN 06/23/2022 2:29 PM TIRE MAINTENANCE TECHNICIAN Narrative [facility] ([facility]) - 06/25/2022 9:06 PM TIRE MAINTENANCE TECHNICIAN Performed at: - [address] [id number] Gas Well Pumper: Miko Leyva MD, Phone: [phone] Atiya Velez MD LABORATORY Final Result [facility] ([facility]) [address] [place] [id number], * ANTI HCV (03/17/2022 12:25 PM CDT) HEPATITIS C ANTIBODY Non-React ramona Non-React ramona 03/18/2022 5:22 PM CDT [facility] Comment:Antibodies to HCV no t detected; does not exclude the possibility of exposure to HCV. Blood BLOOD SPECIMEN / Unknown Venipuncture / Unknown 03/17/2022 12:25 PM CDT 03/17/2022 12:25 PM CDT Atiya Velez MD SEND OUTS Final Result [facility] [address] [place] [address], * HPV HIGH RISK (10/28/2021 11:49 AM CDT) TYPE 16 Negative Negative 10/30/2021 2:55 PM CDT [facility] TYPE 18 Negative Negative 10/30/2021 2:55 PM CDT [facility] OTHER HIGH RISK TYPES Negative Negative 10/30/2021 2:55 PM CDT [facility] Other (Cervical) Non-Blood / Unknown 10/28/2021 11:49 AM CDT 10/29/2021 10:31 AM CDT Narrative [facility] - 10/30/2021 2:55 PM CDT HPV types 16, 18, 31, 33, 35, 39, 45, 51, 52, 56, 58, 59, 66 and 68 DNA were undetectable or below the pre-set threshold. Methodology: Cristina Salinas 4800 HPV Test Josselyn TATUM MICROBIOLOGY Final Result [facility] [address] [place] [address], [place] from Last 3 Months or Most Recently Relevant to Health Maintenance Insurance MEDICARE PART A HB ONLY MEDICARE PART B HB ONLY [employer] MEDICARE [employer]VANTAGE [facility] Advance Directives Documents on File Type Date Recorded Patient Sales Service Route Manager Expl anation POLST 10/05/2023 Healthcare Directive 08/25/2023 024 Power of Copywriting Intern 03/11/2018 4:18 PM MARIA GU RUBEN SHORT FORM POWER OF COMPUTER OPERATIONS SPECIALIST, [facility], [facility], 10/14/17 Healthcare Directive 03/11/2018 4:14 PM HE ALTHCARE DIRECTIVE, [facility], 02/10/18 [facility] 12/16/2017 3:47 PM GAVIN CANALES [facility], 12/01/17 * Full Code (Latest Code Status on File) Date Activated Date Inactivated Comments 04/09/2021 9:39 AM 04/09/2021 6:54 PM Question Answer Comments Code Status Discussion: Not Discussed Care Teams Shiatsu Therapist Relationship Specialty Start Date End Date Atiya Velez MD [address] [place] [address] PCP - General Family Practice 03/16/14
--- OUTSIDE RECORDS SUMMARY | 2025-03-23 19:22 | XMS_ITS | Clinical Summary ---
Author Organization [facility] Address [address] [place] [address] Care Team Providers Care Electrical Installation Supervisor Name Role Phone No Ref-Primary, Physician Primary [...] on file Legal Sex Female 3:14 AM DIGITAL MEDIA INTERN Gender Identity Not on file Sexual Orientation [...] MONTH FOLLOW-UP. ALLIE ARAUJO MD Shabana Mildred RUST MAMMOGRAPHY ORDERABLES Kenyatta l Result from Last 3 Months or Most Recently Relevant to Health Maintenance Insurance MEDICARE [place] [address] [facility] MEDICARE SUPPLEMENT Care Teams Electrical Installation Supervisor Relationship Specialty Start Date End Date No Ref-Primary, Physician PCP - General 02/10/22 Atiya Velez Family Practice 02/10/22
[2025-03-23 19:49] VITALS: BP 157/96; PULSE 109; RESP 16; TEMP 36.8; O2SAT 98; BMI 37.9
--- NOTE | 2025-03-23 20:02 | CRLHL7_ITS ---
For Patients: As a result of the Century Cures Act, medical imaging exams and procedure reports are released immediately into your electronic medical record. You may view this report before your referring provider. If you have questions, please contact your health care provider. Indication: Left ankle pain. Technique: Two views of the left ankle. Comparison: None. Findings/Impression: There is soft tissue swelling of the lower extremity. No acute fracture, dislocation, or suspicious osseous lesion. The talar dome maintains its normal contour without evidence of osteochondral injury. Os peroneum with questionable loose bodies within the peroneal tendon sheath. Dictated by Lg Harmon MD @ 03/23/2025 8:22:14 PM (Electronically Signed)
--- NOTE | 2025-03-23 20:03 | CRLHL7_ITS ---
For Patients: As a result of the Cures Act, medical imaging exams and procedure reports are released immediately into your electronic medical record. You may view this report before your referring provider. If you have questions, please contact your health care provider. Indication: Left foot pain. Technique: Two views of the left foot. Comparison: None. Findings/Impression: No acute fracture, dislocation, or suspicious osseous lesion. Lisfranc alignment maintained. Os peroneum is present with questionable loose bodies within the peroneal tendon sheath or calcaneocuboid joint space. Dictated by Lg Harmon MD @ 03/23/2025 8:23:44 PM (Electronically Signed)
--- OUTSIDE RECORDS SUMMARY | 2025-03-23 20:22 | XMS_ITS | CCD ---
Author Organization Unknown Care Team Providers Care Design And Sales Consultant Name Role Phone Information Engineer, [place] Primary Care Provider Unava ilable Unavailable Chronic Care Management Unavaila ble Summary Purpose DataExchange Insurance Providers Payer name Policy type / Coverage type Covered alliance party ID Effective Begin Date Effective End Date [facility] Commercial Insurance [id number] Unkn own Family History Family History data not found Medication Administered No Medication Administered data Medical Equipment No Medical Equipment data Assessments No Assessment data Reason For Visit No Reason For Visit data Review of Systems No Review of Systems data Physical Exam No Physical Exam data History of Present Illness No History of Present Illness data Advance Directives No Advance Directive data
--- NOTE | 2025-03-23 21:41 | ED.GENADULT ---
HPI - General Adult General Chief complaint: Extremity Pain/Injury, Lower Stated complaint: Left ankle pain Time Seen by Provider: 03/23/25 21:41 History of Present Illness HPI narrative: PATIENT IS A 54-YEAR-OLD WOMAN WHO COMES OVER FROM THE [facility]. SHE HAS HISTORY OF FIBROMYALGIA BUT NO HISTORY OF ANY LOWER EXTREMITY PAIN. SHE HAS HAD NO RECENT INJURIES BUT DEVELOPED PAIN IN HER MIDFOOT ON THE LEFT MEDIALLY EARLIER TODAY. SHE HAS HAD NO SWELLING. SHE CAN BEAR WEIGHT WITH SOME DIFFICULTY BUT NO OTHER SIGNIFICANT COMPLAINTS OR CONCERNS NO SWELLING NO OTHER JOINT PAIN. Related Data Home Medications ?Medication ?Instructions ?Recorded ?Confirmed carbamazepine 200 mg tablet 200 mg PO TID 01/16/22 12/26/24 duloxetine 20 mg capsule,delayed 20 mg PO DAILY 01/16/22 10/23/24 release famotidine 20 mg tablet 20 mg PO DAILY 01/16/22 10/23/24 levothyroxine 50 mcg capsule 50 mcg PO DAILY 01/16/22 12/26/24 omeprazole 20 mg capsule,delayed 20 mg PO DAILY 01/16/22 10/23/24 release acetaminophen 325 mg tablet 650 mg PO DAILY PRN 01/19/22 10/23/24 colestipol 1 gram tablet 1 g PO BID 01/27/24 10/23/24 levothyroxine 50 mcg tablet 50 mcg PO QAM 01/27/24 10/21/24 rosuvastatin 10 mg tablet 10 mg PO QPM 06/22/24 12/26/24 Previous Rx's ?Medication ?Instructions ?Recorded cyclobenzaprine 10 mg tablet 10 mg PO BID PRN muscle spasm #10 10/10/23 tabs argbrbyk-[id number]-thonzonm 3.3 5 drp Otic (ear-right) QID 5 days 10/10/23 mg-3 mg-10 mg-0.5 mg/mL ear #10 mL drops,susp (Cortisporin-TC) cephalexin 500 mg capsule 500 mg PO Q12H #14 caps 10/26/24 ketorolac 10 mg tablet 10 mg PO TID 5 days #15 tabs 02/12/25 Allergies Allergy/AdvReac Type Severity Reaction Status Date / Time morphine Allergy Unknown Verified 12/26/24 07:09 Iodinated Contrast Media Allergy Verified 12/26/24 07:09 Review of Systems Status of ROS: Reports: 10 or more systems reviewed and unremarkable except as noted in History and below [facility] Medical History Back pain at L4-L5 level ?M54.50 - Low back pain, unspecified (ICD-10) Delay of cognitive development ?F81.9 - Developmental disorder of scholastic skills, unspecified (ICD-10) Liver damage ?K76.9 - Liver disease, unspecified (ICD-10) Fibromyalgia ?M79.7 - Fibromyalgia (ICD-10) 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 of corporate associate attorney in chart Mixed hearing loss ?H90.8 - Mixed conductive and sensorineural hearing loss, unspecified (ICD-10) Cholecystitis ?K81.9 - Cholecystitis, unspecified (ICD-10) Anxiety ?F41.9 - Anxiety disorder, unspecified (ICD-10) Left chronic serous otitis media ?H65.22 - Chronic serous otitis media, left ear (ICD-10) Onychomycosis ?B35.1 - Tinea unguium (ICD-10) Hypoparathyroidism ?E20.9 - Hypoparathyroidism, unspecified (ICD-10) Vitamin D deficiency ?E55.9 - Vitamin D deficiency, unspecified (ICD-10) DDD (degenerative disc disease), lumbar ?M51.36 - Other intervertebral disc degeneration, lumbar region (ICD-10) Lower extremity edema ?R60.0 - Localized edema (ICD-10) Learning disability ?F81.9 - Developmental disorder of scholastic skills, unspecified (ICD-10) Seizure disorder ?G40.909 - Epilepsy, unspecified, not intractable, without status epilepticus (ICD-10) Hypothyroidism ?E03.9 - Hypothyroidism, unspecified (ICD-10) Encounter for counseling regarding advance directives (02/10/18) ?Z71.89 - Other specified counseling (ICD-10) Surgical History Hx of myringotomy ?Z98.890 - Other specified postprocedural states (ICD-10) Hx laparoscopic cholecystectomy ?Z90.49 - Acquired absence of other specified parts of digestive tract (ICD-10) History of fusion of spine for scoliosis ?Z98.1 - Arthrodesis status (ICD-10) ?Z87.39 - Personal history of other diseases of the musculoskeletal system and connective tissue (ICD-10) Social History Smoking Status: Never smoker Do you use any of these nicotine containing products: None Second hand tobacco smoke exposure: No How often do you have a drink containing alcohol: never How often do you have six or more drinks on one occasion: Never AUDIT-C Alcohol total score: 0 Non-prescribed substance use: denies use Caffeine: Yes service: No Exam Narrative: Exam Narrative: EXAM GENERAL: Patient appears comfortable and well. EYES: No scleral icterus. LYMPH: No supraclavicular or cervical lymphadenopathy. SKIN: Visible skin seen during exam normal or with benign process only. EXT: The foot is mildly tender over the midfoot but no bony tenderness no swelling no bruising no ecchymoses. HEART: Regular rate and rhythm with no murmurs, rubs, or gallops. LUNGS: Clear to auscultation bilaterally with no crackles or wheezes. ABD: Soft, non tender, non distended. PSYCH: Good eye contact, speech is not pressured. Const: Vital Signs, click to edit/add: Vital Signs - 24 hr 03/23/25 19:49 Temperature 98.2 F Pulse Rate [Right Radial] 109 H Respiratory Rate 16 Blood Pressure [Ri ght Upper Arm] 157/96 H Pulse Oximetry 98 Oxygen Delivery Me thod Room Air Course Course ED Course: Patient seen and examined. X-ray series is unremarkable. Do think it is likely she has acute monoarthritis potentially even gout. She has really not tried any of her normal anti-inflammatories and I did recommend she rotate Tylenol Motrin over the weekend apply ice and follow-up with her primary physician this coming week if symptoms improve. While she is at rest he can keep her foot elevated. Vital Signs Vital signs: Initial Vital Signs Temperature 98.2 F 03/23/25 19:49 Temperature Source Temporal Artery Scan 03/23/25 19:49 Pulse Rate 109 H 03/23/25 19:49 Pulse Rhythm Regular 03/23/25 19:49 Respiratory Rate 16 03/23/25 19:49 Blood Pressure 157/96 H 03/23/25 19:49 Blood Pressure Mean 116 H 03/23/25 19:49 Pulse Oximetry 98 03/23/25 19:49 Oxygen Delivery Method Room Air 03/23/25 19:49 Vital Signs Temperature 98.2 F 03/23/25 19:49 Pulse Rate 109 H 03/23/25 19:49 Respiratory Rate 16 03/23/25 19:49 Blood Pressure 157/96 H 03/23/25 19:49 Pulse Oximetry 98 03/23/25 19:49 Oxygen Delivery Method Room Air 03/23/25 19:49 Temperature 98.2 F 03/23/25 19:49 Pulse Rate 109 H 03/23/25 19:49 Respiratory Rate 16 03/23/25 19:49 Blood Pressure 157/96 H 03/23/25 19:49 Pulse Oximetry 98 03/23/25 19:49 Oxygen Delivery Method Room Air 03/23/25 19:49 Discharge Plan Discharge Clinical Impression: Acute foot pain Patient Disposition: Home, Self-Care Condition: Stable Additional Instructions: Elevate while at rest Tylenol on 1000 mg 3 times a day over the weekend as needed Ibuprofen 600 mg 3 times a day over the weekend as needed Ice as needed Follow-up with your doctor next week if not better. Activity Level: No Restrictions Discharge Diet: Regular Prescriptions: No Action cyclobenzaprine 10 mg tablet 10 mg PO BID PRN (Reason: muscle spasm) Qty: 10 0RF Cortisporin-TC 3.3-3-10-0.5 mg/mL drops,suspension 5 drp Otic (ear-right) QID 5 Days Qty: 10 0RF cephalexin 500 mg capsule 500 mg PO Q12H Qty: 14 0RF carbamazepine 200 mg tablet 200 mg PO TID duloxetine 20 mg capsule,delayed release(DR/EC) 20 mg PO DAILY famotidine 20 mg tablet 20 mg PO DAILY levothyroxine 50 mcg capsule 50 mcg PO DAILY omeprazole 20 mg capsule,delayed release(DR/EC) 20 mg PO DAILY acetaminophen 325 mg tablet 650 mg PO DAILY PRN Rx Instructions: NO MORE THAN 4000 MG/DAY levothyroxine 50 mcg tablet 50 mcg PO QAM colestipol 1 gram tablet 1 g PO BID rosuvastatin 10 mg tablet 10 mg PO QPM ketorolac 10 mg tablet 10 mg PO TID 5 Days Qty: 15 0RF Follow Up/Referrals: Atiya Velez MD [Primary Care Provider, Family Practice] Stand Alone Forms: MyHealth Info Instructions
[2025-03-23 23:25] VITALS: BP 165/95; PULSE 93; RESP 18
--- OUTSIDE RECORDS SUMMARY | 2025-03-23 23:46 | XMS_ITS | CCD ---
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
== END 2025-03-23 23:34 | disposition home or self-care (01) ==
LOC: ED 22:45
PROVIDERS: Emergency Provider Internal Medicine; PCP Family Medicine
DX: M25.572 Pain in left ankle and joints of left foot (principal)
CPT/HCPCS: 73600; 73620; 99283

== ENCOUNTER 2025-05-16 06:44 | Outpatient (CLI) | payer MEDICARE, MEDICAID, SELFPAY | END 2025-05-16 06:45 | disposition home or self-care (01) | PROVIDERS: PCP Family Medicine; Visit Provider Family Medicine | DX: R07.89 Other chest pain (principal) | CPT/HCPCS: A0425; A0433 ==

== ENCOUNTER 2025-05-16 07:14 | Emergency (ER) | payer MEDICARE, MEDICAID, SELFPAY ==
[2025-05-16] VITALS (13 sets, daily range): BP systolic 144–161; BP diastolic 93–149; PULSE 99–118; RESP 15–20; TEMP 36.4; O2SAT 91–97; BMI 39.0
--- NOTE | 2025-05-16 07:42 | CRLHL7_ITS ---
For Patients: As a result of the Century Cures Act, medical imaging exams and procedure reports are released immediately into your electronic medical record. You may view this report before your referring provider. If you have questions, please contact your health care provider. Indication: Cough Technique: Chest 1 view Comparison: Chest x-ray 10/21/2024 Findings/Impression: Cardiovascular and mediastinum: Borderline heart size with mild mediastinal prominence, similar to the prior exam. Lungs and pleural space: Mild elevation left hemidiaphragm with basilar discoid atelectasis. Right lung clear. No pleural effusion or pneumothorax. Bones and soft tissues: Rightward curvature of the thoracic spine with posterior karri and laminar wires. Dictated by Eugene Peterson MD @ 05/16/2025 8:15:50 AM (Electronically Signed)
--- NOTE | 2025-05-16 07:45 | ED.GENADULT ---
HPI - General Adult General Chief complaint: Cough Stated complaint: Chest pain; Resp distress Time Seen by Provider: 05/16/25 07:31 History of Present Illness HPI narrative: Patient is a 54-year-old white female with cognitive developmental delay, seizure disorder, hypothyroidism, fibromyalgia, presents with feeling stressed, some pinpoint chest pain, a cough that started last night. An occasional epigastric discomfort. The patient denies fever but does feel chilled at times, she is very stressed with her being apparently sick and getting weaker. She lives at the [facility]. She has had no diarrhea, dysuria frequency no production to her cough. She has not been exposed to illness in her opinion. The patient denies leg swelling edema she denies ongoing chest pain but states occasionally when she coughs she gets pain in her left lateral chest and points to the area with with her finger tip. No leg swelling noted, no bleeding or clotting problems. Patient has been ambulatory. Presents to the ER. Asks for something for ?stress?. Related Data Home Medications ?Medication ?Instructions ?Recorded ?Confirmed carbamazepine 200 mg tablet 200 mg PO TID 01/16/22 12/26/24 duloxetine 20 mg capsule,delayed 20 mg PO DAILY 01/16/22 10/23/24 release famotidine 20 mg tablet 20 mg PO DAILY 01/16/22 10/23/24 levothyroxine 50 mcg capsule 50 mcg PO DAILY 01/16/22 12/26/24 omeprazole 20 mg capsule,delayed 20 mg PO DAILY 01/16/22 10/23/24 release acetaminophen 325 mg tablet 650 mg PO DAILY PRN 01/19/22 10/23/24 colestipol 1 gram tablet 1 g PO BID 01/27/24 10/23/24 levothyroxine 50 mcg tablet 50 mcg PO QAM 01/27/24 10/21/24 rosuvastatin 10 mg tablet 10 mg PO QPM 06/22/24 12/26/24 Previous Rx's ?Medication ?Instructions ?Recorded cyclobenzaprine 10 mg tablet 10 mg PO BID PRN muscle spasm #10 10/10/23 tabs seqkzifi-vscujz-VJ-thonzonm 3.3 5 drp Otic (ear-right) QID 5 days 10/10/23 mg-3 mg-10 mg-0.5 mg/mL ear #10 mL drops,susp (Cortisporin-TC) cephalexin 500 mg capsule 500 mg PO Q12H #14 caps 10/26/24 ketorolac 10 mg tablet 10 mg PO TID 5 days #15 tabs 02/12/25 Allergies Allergy/AdvReac Type Severity Reaction Status Date / Time morphine Allergy Unknown Verified 12/26/24 07:09 Iodinated Contrast Media Allergy Verified 12/26/24 07:09 Review of Systems Status of ROS: Reports: 6 or more systems reviewed and unremarkable except as noted in History and below [facility] Medical History Back pain at L4-L5 level ?M54.50 - Low back pain, unspecified (ICD-10) Delay of cognitive development ?F81.9 - Developmental disorder of scholastic skills, unspecified (ICD-10) Liver damage ?K76.9 - Liver disease, unspecified (ICD-10) Fibromyalgia ?M79.7 - Fibromyalgia (ICD-10) 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 of contracts attorney in chart Mixed hearing loss ?H90.8 - Mixed conductive and sensorineural hearing loss, unspecified (ICD-10) Cholecystitis ?K81.9 - Cholecystitis, unspecified (ICD-10) Anxiety ?F41.9 - Anxiety disorder, unspecified (ICD-10) Left chronic serous otitis media ?H65.22 - Chronic serous otitis media, left ear (ICD-10) Onychomycosis ?B35.1 - Tinea unguium (ICD-10) Hypoparathyroidism ?E20.9 - Hypoparathyroidism, unspecified (ICD-10) Vitamin D deficiency ?E55.9 - Vitamin D deficiency, unspecified (ICD-10) DDD (degenerative disc disease), lumbar ?M51.36 - Other intervertebral disc degeneration, lumbar region (ICD-10) Lower extremity edema ?R60.0 - Localized edema (ICD-10) Learning disability ?F81.9 - Developmental disorder of scholastic skills, unspecified (ICD-10) Seizure disorder ?G40.909 - Epilepsy, unspecified, not intractable, without status epilepticus (ICD-10) Hypothyroidism ?E03.9 - Hypothyroidism, unspecified (ICD-10) Encounter for counseling regarding advance directives (02/10/18) ?Z71.89 - Other specified counseling (ICD-10) Surgical History Hx of myringotomy ?Z98.890 - Other specified postprocedural states (ICD-10) Hx laparoscopic cholecystectomy ?Z90.49 - Acquired absence of other specified parts of digestive tract (ICD-10) History of fusion of spine for scoliosis ?Z98.1 - Arthrodesis status (ICD-10) ?Z87.39 - Personal history of other diseases of the musculoskeletal system and connective tissue (ICD-10) Social History Smoking Status: Never smoker Do you use any of these nicotine containing products: None Second hand tobacco smoke exposure: No How often do you have a drink containing alcohol: never How often do you have six or more drinks on one occasion: Never AUDIT-C Alcohol total score: 0 Non-prescribed substance use: denies use Caffeine: Yes service: No Exam Narrative: Exam Narrative: Objective: Afebrile, O2 sat 93% on room air, non hypotensive Alert or x3, noncyanotic Patient is tearful at times but expresses herself well No facial asymmetry mouth clear neck is supple chest clear Heart rhythm regular no murmur Abdomen benign obese nontender except mildly in the epigastrium. No rebound Extremities are no edema Neurologic nonfocal, good peripheral perfusion noted. Const: Vital Signs, click to edit/add: Vital Signs - 24 hr 05/16/25 07:19 05/16/25 07:40 05/16/25 07:42 Temperature 97.6 F Pulse Rate 118 H Pulse Rate [Pulse Oximeter] 118 H Respiratory Rate 20 Blood Pressure Blood Pressure [Ri ght Upper Arm] 161/101 H Pulse Oximetry 93 92 93 Oxygen Delivery Me thod Room Air 05/16/25 07:45 05/16/25 08:14 05/16/25 08:14 Temperature Pulse Rate 109 H Pulse Rate [Pulse Oximeter] Respiratory Rate 18 18 Blood Pressure Blood Pressure [Ri ght Upper Arm] Pulse Oximetry 91 93 Oxygen Delivery Me thod Room Air 05/16/25 08:15 05/16/25 08:16 05/16/25 08:30 Temperature Pulse Rate 100 104 H Pulse Rate [Pulse Oximeter] Respiratory Rate 15 19 18 Blood Pressure 144/97 H Blood Pressure [Ri ght Upper Arm] Pulse Oximetry 95 92 Oxygen Delivery Me thod Room Air 05/16/25 08:32 05/16/25 08:45 05/16/25 09:00 Temperature Pulse Rate 101 H 100 106 H Pulse Rate [Pulse Oximeter] Respiratory Rate 18 16 17 Blood Pressure 148/93 H Blood Pressure [Ri ght Upper Arm] Pulse Oximetry 93 92 97 Oxygen Delivery Me thod 05/16/25 09:02 05/16/25 09:15 Temperature Pulse Rate 103 H 99 Pulse Rate [Pulse Oximeter] Respiratory Rate 18 17 Blood Pressure 160/149 H Blood Pressure [Ri ght Upper Arm] Pulse Oximetry 95 93 Oxygen Delivery Me thod Room Air Course Vital Signs Vital signs: Initial Vital Signs Temperature 97.6 F 05/16/25 07:19 Temperature Source Temporal Artery Scan 05/16/25 07:19 Pulse Rate 118 H 05/16/25 07:19 Respiratory Rate 20 05/16/25 07:19 Blood Pressure 161/101 H 05/16/25 07:19 Blood Pressure Mean 121 H 05/16/25 07:19 Blood Pressure Position Supine 05/16/25 07:19 Pulse Oximetry 93 05/16/25 07:19 Oxygen Delivery Method Room Air 05/16/25 07:19 Vital Signs Temperature 97.6 F 05/16/25 07:19 Pulse Rate 118 H 05/16/25 07:19 Respiratory Rate 20 05/16/25 07:19 Blood Pressure 161/101 H 05/16/25 07:19 Pulse Oximetry 93 05/16/25 07:19 Oxygen Delivery Method Room Air 05/16/25 07:19 Temperature 97.6 F 05/16/25 07:19 Pulse Rate 99 05/16/25 09:15 Respiratory Rate 17 05/16/25 09:15 Blood Pressure 160/149 H 05/16/25 09:02 Pulse Oximetry 93 05/16/25 09:15 Oxygen Delivery Method Room Air 05/16/25 09:02 Medications Administered Medications: Discontinued Medications Generic Name Dose Route Start Last Admin Trade Name Freq PRN Reason Stop Dose Admin Sodium Chloride 500 mls @ 500 mls/hr 05/16/25 07:42 05/16/25 08:16 0.9 % Sodium Chloride 500 Ml IV 05/16/25 08:41 500 mls/hr .Q1H ONE Administration Lidocaine/Aluminum/Magnesium/Simeth 30 ml 05/16/25 07:58 05/16/25 08:16 Gi Cocktail (Visc Lido/Antacid) 30 Ml PO 05/16/25 07:59 30 ml ONCE ONE Administration Lorazepam 1 mg 05/16/25 08:05 05/16/25 08:17 Lorazepam 1 Mg Tablet PO 05/16/25 08:06 1 mg ONCE ONE Administration Medical Decision Making MDM Narrative Medical decision making narrative: 54-year-old female living at [facility] with multiple medical problems including some cognitive dysfunction, fibromyalgia, assist significant stress with a 6 ill significant other. Presents with multiple complaints. There were seems to be her cough. She points to pinpoint area of chest pain in the left lateral chest wall, she complained some intermittent epigastric pain. I think at this point to be reasonable to do a chest x-ray, EKG, labs, CRP, viral studies. Will check her white count and CRP if these are elevated may consider further imaging. Will give her some IV fluid. Some IV Ativan. Will check a point of care troponin. He such at this point with her history would need to rule out acute coronary syndrome, infectious illness, metabolic disorder, stress related symptoms. Addendum 9:11 a.m.: The patient had a slightly elevated CRP so a CT scan of her abdomen was ordered without contrast as she has allergy to contrast. This had no gross findings. Her chest x-ray by my review looks unremarkable other than some discoid atelectasis at the base. Her viral studies are negative. Her laboratory studies look reassuring. White counts not elevated. She has a slightly low calcium level. At this point she feels little bit better. I suspect a lot of this might be due to anxiety or stress or psychosocial stressors, she certainly could have some of the type of viral illness as well. Her EKG by my review shows sinus tachycardia a just over 100 beats per minute. There is no ischemic ST T wave changes. Her point of care troponin is negative. I think at this point she can go home rest light activity fluids Tylenol as needed, and recheck with primary care and update them in the next couple of days, return certainly problems concerns worsening. Lab Data Labs: Lab Results 05/16/25 05/16/25 Range/Units 07:30 08:20 WBC 4.56 (4.50-11.00) K/uL RBC 3.51 L (4.00-5.20) m/uL Hgb 11.2 L (12.0-16.0) gm/dL Hct 35.4 (33.0-51.0) % MCV 101 H (80-100) fL MCH 32 (26-34) pg MCHC 32 (32-36) gm/dL RDW Coeff of Gracie 13.5 (11.5-15.5) % Plt Count 145 (140-440) K/uL Neut % (Auto) 47.9 (42.0-72.0) % Lymph % (Auto) 32.5 (20-44) % Stark % (Auto) 15.6 H (0.0-11.0) % Eos % (Auto) 3.1 (0.0-7.0) % Baso % (Auto) 0.7 (0.0-3.0) % Neut # (Auto) 2.19 (1.7-7.0) K/uL Lymph # (Auto) 1.48 (0.90-2.90) K/uL Stark # (Auto) 0.70 (0.00-0.90) K/UL Eos # (Auto) 0.14 (0.00-0.50) K/uL Baso # (Auto) 0.03 (0.00-0.30) K/uL Abs Immat Gran (auto) 0.01 (0.00-0.30) K/uL Imm/Tot Granulo (auto) 0.2 % D-Dimer Quant (PE/DVT) 0.47 (0.00-0.50) ug/ml Sodium 139 (135-149) mmol/L Potassium 3.5 L (3.6-5.1) mmol/L Chloride 101 (96-114) mmol/L Carbon Dioxide 26 (20-32) mmol/L Anion Gap 12 (7-15) mEq/L BUN 15 (7-30) mg/dL Creatinine 0.7 (0.5-1.5) mg/dL Estimated Creat Clear 118.42 Estimated GFR 103 ml/min Glucose 113 (60-115) mg/dL Lactate 1.1 (0.5-1.9) mmol/L Calcium 7.8 L (8.4-10.6) mg/dL Total Bilirubin 0.2 (0.1-1.5) mg/dL Direct Bilirubin 0.2 (0.0-0.5) mg/dL AST 20 (12-35) U/L ALT 16 (4-35) U/L Alkaline Phosphatase 70 (40-150) U/L POC Troponin I High Sensi 5.2 (2.9-13.0) pg/mL C-Reactive Protein 3.1 H (0.5-1.0) mg/dL NT-Pro-B Natriuret Pep 31 (See Note) pg/mL Total Protein 7.7 (6.0-8.3) g/dL Albumin 4.2 (3.3-5.0) g/dL Amylase 89 (18-89) U/L SARS-CoV-2 (PCR) Negative SARS-CoV-2 (Negative) Influenza Type A (PCR) Negative PCR FLU A (Negative) Influenza Type B (PCR) Negative PCR FLU B (Negative) RSV (PCR) Negative PCR RSV (Negative) Discharge Plan Discharge Clinical Impression: Acute chest wall pain, Psychosocial stressors, Acute cough, Epigastric discomfort Patient Disposition: Home w/ Parent or Adult Condition: Improved Additional Instructions: Recommend Tylenol as needed, light activity, update your regular doctor the next 2-3 days, return as needed. Diet as tolerated. Continue home meds Activity Level: Light activity Discharge Diet: Regular Prescriptions: No Action cyclobenzaprine 10 mg tablet 10 mg PO BID PRN (Reason: muscle spasm) Qty: 10 0RF Cortisporin-TC 3.3-3-10-0.5 mg/mL drops,suspension 5 drp Otic (ear-right) QID 5 Days Qty: 10 0RF cephalexin 500 mg capsule 500 mg PO Q12H Qty: 14 0RF carbamazepine 200 mg tablet 200 mg PO TID duloxetine 20 mg capsule,delayed release(DR/EC) 20 mg PO DAILY famotidine 20 mg tablet 20 mg PO DAILY levothyroxine 50 mcg capsule 50 mcg PO DAILY omeprazole 20 mg capsule,delayed release(DR/EC) 20 mg PO DAILY acetaminophen 325 mg tablet 650 mg PO DAILY PRN Rx Instructions: NO MORE THAN 4000 MG/DAY levothyroxine 50 mcg tablet 50 mcg PO QAM colestipol 1 gram tablet 1 g PO BID rosuvastatin 10 mg tablet 10 mg PO QPM ketorolac 10 mg tablet 10 mg PO TID 5 Days Qty: 15 0RF Follow Up/Referrals: Atiya Velez MD [Primary Care Provider, Family Practice] Stand Alone Forms: MyHealth Info Instructions
[2025-05-16 08:01] LABS: Hematocrit* 35.4 % (33.0-51.0); Hemoglobin* 11.2 gm/dL (12.0-16.0); Immature Granulocytes Abs Auto 0.01 K/uL (0.00-0.30); Immature Granulocytes Pct Auto 0.2 %; Lactate* 1.1 mmol/L (0.5-1.9); Lymphocytes Absolute Auto 1.48 K/uL (0.90-2.90); Mean Corpuscular HGB Conc 32 gm/dL (32-36); Mean Corpuscular Hemoglobin 32 pg (26-34); Mean Corpuscular Volume 101 fL (80-100); RDW Coefficient of Variation % 13.5 % (11.5-15.5); Red Blood Count* 3.51 m/uL (4.00-5.20); White Blood Count* 4.56 K/uL (4.50-11.00)
[2025-05-16 08:04] LABS: Slide Review Reflex No
[2025-05-16 08:06] LABS: Albumin* 4.2 g/dL (3.3-5.0); Chloride* 101 mmol/L (96-114); Sodium* 139 mmol/L (135-149)
[2025-05-16 08:07] LABS: Potassium* 3.5 mmol/L (3.6-5.1)
[2025-05-16 08:09] LABS: Blood Urea Nitrogen* 15 mg/dL (7-30); Creatinine* 0.7 mg/dL (0.5-1.5); Est. Creatinine Clearance* 118.42; Estimated Glomerular Filt Rate 103 ml/min
[2025-05-16 08:10] LABS: Alanine Aminotransferase* 16 U/L (4-35); Alkaline Phosphatase* 70 U/L (40-150); Anion Gap 12 mEq/L (7-15); Aspartate Amino Transferase* 20 U/L (12-35); Bilirubin Direct* 0.2 mg/dL (0.0-0.5); Bilirubin Total* 0.2 mg/dL (0.1-1.5); Calcium* 7.8 mg/dL (8.4-10.6); Carbon Dioxide* 26 mmol/L (20-32); Glucose* 113 mg/dL (60-115); Total Protein* 7.7 g/dL (6.0-8.3)
[2025-05-16 08:13] LABS: D Dimer Quantitative* 0.47 ug/ml (0.00-0.50)
[2025-05-16] MEDS: GI COCKTAIL (VISC LIDO/ANTACID) 30 ML PO (08:16)
[2025-05-16] MEDS: 0.9 % SODIUM CHLORIDE 500 ML 500 ML IV (08:16)
[2025-05-16 08:21] LABS: NT Pro B Type NatriureticPept* 31 pg/mL (See Note)
--- NOTE | 2025-05-16 08:34 | CRLHL7_ITS ---
For Patients: As a result of the Cures Act, medical imaging exams and procedure reports are released immediately into your electronic medical record. You may view this report before your referring provider. If you have questions, please contact your health care provider. INDICATION: Abdominal pain for 24 hours. TECHNIQUE: CT abdomen and pelvis without IV contrast. COMPARISON: 12/26/2024. FINDINGS: Persistent linear left lower lobe consolidation, likely scarring. The liver is unchanged in appearance. No definite liver lesion is seen on this unenhanced CT examination. Gallbladder is absent. No biliary ductal dilatation. Spleen is normal in size. The pancreas is without stranding or main ductal dilatation. The adrenal glands are normal. The kidneys are without hydronephrosis or perinephric stranding. Urinary bladder is partially distended. There is partial swirling of a redundant sigmoid colon without evidence of acute obstructing volvulus. No mesenteric edema is noted. Stool throughout the remainder of the colon which is nondilated. The appendix is partially obscured but nondilated within visualized portions. No ancillary finding of acute appendicitis. The small bowel is nondilated without evidence of a small-bowel obstruction. A small hiatal hernia is present. No free air. No ascites. No organized drainable fluid collection. Prior umbilical hernia repair. No significant hernia. No lymphadenopathy. Uterus adnexa are unremarkable. Aorta is not aneurysmal. Posterior thoracolumbar fusion. Old compression deformities are noted. No acute fracture seen. IMPRESSION: 1. No gross CT finding to explain the patient`s symptoms. Please note that all CT scans at this facility use dose modulation, iterative reconstruction, and/or weight-based dosing when appropriate to reduce radiation dose to as low as reasonably achievable. Dictated by Sherif Quispe MD @ 05/16/2025 9:10:37 AM (Electronically Signed)
--- NOTE | 2025-05-16 08:47 | RESP.RT ---
Patient had SOB episode at home, brought to ED by EMS with DuoNeb and Albuterol neb in route. BBS is clear, Had patient take large breath and hold it, good chest seminary with breath, good hold time, no use of accessary muscles noted. Patient stated not SOB at this moment. Good clear voice and good clear cough, nonproductive.
[2025-05-16 09:05] LABS: PCR FLU A Negative PCR FLU A (Negative); PCR FLU B Negative PCR FLU B (Negative); PCR RSV Negative PCR RSV (Negative); SARS PCR* Negative SARS-CoV-2 (Negative)
== END 2025-05-16 10:00 | disposition home or self-care (01) ==
PROVIDERS: Emergency Provider Family Medicine; PCP Family Medicine
DX: R07.89 Other chest pain (principal); R05.9 Cough, unspecified; R10.13 Epigastric pain
CPT/HCPCS: 36415; 71045; 74176; 80048; 80076; 82150; 83605; 83880; 84484; 85025; 85379; 86140; 87631; 93005; 94761; 99285; A9270; J7030

== ENCOUNTER 2025-05-16 10:05 | Outpatient (CLI) | payer MEDICARE, MEDICAID, SELFPAY | END 2025-05-16 10:06 | disposition home or self-care (01) | PROVIDERS: PCP Family Medicine; Visit Provider Family Medicine | DX: R07.89 Other chest pain (principal); R05.9 Cough, unspecified; Z65.8 Other specified problems related to psychosocial circumstances | CPT/HCPCS: A0425; A0428 ==